=== PATIENT | male | born 1945 | race Caucasian/White ===

== ENCOUNTER 2016-12-19 14:27 | Emergency (ER) | payer MEDICARE ==
[~2016-12-19] VITALS: Ht 170.2 cm; Wt 72.6 kg
[2016-12-19 15:20] VITALS: BP 221/122
[2016-12-19 15:59] LABS: BASOPHILS % (AUTO) 1 % (0-10); EOSINOPHILS % (AUTO) 0 % (0-10); LYMPHOCYTES # (AUTO) 1.1 X 10^3 (1.0-4.0); LYMPHOCYTES % (AUTO) 19 % (12-44); MEAN CORPUSCULAR HEMOGLOBIN 31 PG (25-34); MEAN CORPUSCULAR HGB CONC 34 G/DL (32-36); MEAN CORPUSCULAR VOLUME 90 FL (80-99); MEAN PLATELET VOLUME 10.1 FL (7.4-10.4); MONOCYTES # (AUTO) 0.4 X 10^3 (0.0-1.0); MONOCYTES % (AUTO) 6 % (0-12); NEUTROPHILS # (AUTO) 4.6 X 10^3 (1.8-7.8); NEUTROPHILS % (AUTO) 75 % (42-75); PLATELET COUNT 220 10^3/uL (130-400); RED BLOOD COUNT 4.98 10^6/uL (4.35-5.85); RED CELL DISTRIBUTION WIDTH 14.9 % (10.0-14.5); WHITE BLOOD COUNT 6.2 10^3/uL (4.3-11.0)
--- NOTE | 2016-12-19 16:02 | ED Neurological Problem ---
General Chief Complaint: Neuro-Stroke Like Symptoms Stated Complaint: POSS STROKE Nursing Triage Note: Pt and family report pt has had L side facial droop since Friday (12/16) and slurred speech for 3-4 days. Daughter also reports pt has seemed like he has been "dozing off" for past week. Pt reported to daughter today that he "felt fuzzy" and didn't feel right. He reports this feeling has come and gone over past few days but is worse today. Nursing Sepsis Screen: No Definite Risk Source: patient Exam Limitations: no limitations History of Present Illness Time seen by provider: 16:00 Initial Comments To ER with concerns of a stroke. Patient states that on Friday of this week which would have been the , he has had slurring of his words and drooping to the left side of his face. No weakness or paresthesias or sensory loss to any of the extremities. He does smoke 1.5 pack of cigarettes per day. Does not take any medication for blood pressure. On arrival to ER blood pressure is 220/110. Symptoms have been waxing and waning since Friday Timing/Duration: 1 week Severity: moderate Allergies and Home Medications Allergies Coded Allergies: No Known Allergies (Unverified Allergy, Mild, 05/17/09) Home Medications Unable to Obtain Active Prescriptions or Reported Meds Constitutional: see HPI Eyes: No Symptoms Reported Ears, Nose, Mouth, Throat: no symptoms reported Respiratory: no symptoms reported Cardiovascular: no symptoms reported Genitourinary: no symptoms reported Musculoskeletal: no symptoms reported Skin: no symptoms reported Psychiatric/Neurological: See HPI Endocrine: No Symptoms Reported Past Zozncxk-Hmeljh-Bpceto Hx Patient Social History Alcohol Use: Occasionally Uses Recreational Drug Use: No Smoking Status: Current Everyday Smoker Type Used: Cigarettes Recent Foreign Travel: No Contact w/Someone Who Travel: No Recent Infectious Disease Expo: No Recent Hopitalizations: No Immunizations Up To Date Tetanus Booster (TDap): Less than 5yrs Seasonal Allergies Seasonal Allergies: No Surgeries HX Surgeries: Yes (HERNIA REPAIR) Respiratory Hx Respiratory Disorders: No Respiratory Disorders: COPD Cardiovascular Hx Cardiac Disorders: Yes Neurological Hx Neurological Disorders: Yes Genitourinary Hx Genitourinary Disorders: No Gastrointestinal Hx Gastrointestinal Disorders: No Musculoskeletal Hx Musculoskeletal Disorders: No Endocrine Hx Endocrine Disorders: No HEENT HX ENT Disorders: No Cancer Hx Cancer: No Psychosocial Hx Psychiatric Problems: No Integumentary HX Skin/Integumentary Disorder: No Blood Transfusions Hx Blood Disorders: No Physical Exam Vital Signs Vital Sign - Last 12Hours Capillary Refill : Less Than 3 Seconds General Appearance: WD/WN, no apparent distress HEENT: PERRL/EOMI, normal ENT inspection Neck: non-tender, full range of motion Respiratory: no respiratory distress, no accessory muscle use Cardiovascular: regular rate, rhythm, no murmur Gastrointestinal: normal bowel sounds, non tender, soft Extremities: normal range of motion, non-tender Neurologic/Psychiatric: alert, normal mood/affect, oriented x 3 Crainal Nerves: normal hearing, normal speech, PERRL Motor/Sensory: no sensory deficit, other (there is drooping to the left side of the mouth and he is unable to person his lips and puff out his cheeks because air leaks out of the left side of his mouth. The forehead remained symmetrical with symmetric ability to raise the eyebrows.) Skin: normal color, warm/dry Lymphatic: No no adenopathy, No axilla node tender (R), No axilla node tender ( L), No inguinal node tender (R), No inguinal node tender (L), No other Comments His initial NIH here is a 2 with 1.4 left facial minor paralysis and mild to moderate dysarthria. Stroke NIH Stroke Scale Assessment Level of Consciousness: 0=Alert Level of Consciousness-Questio: 0=Answers both month/age LOC Commands: 0=Performs both tasks Gaze: 0=Normal Visual Burrows: 0=No visual loss Facial Movement (Facial Paresi: 1=Minor paralysis Motor Function-Arms Right: 0=No drift Motor Function-Arms Left: 0=No drift Motor Function-Legs Right: 0=No drift Motor Function-Legs Left: 0=No drift Limb Ataxia: 0=Absent Sensory: 0=Normal:no loss Best Language: 0=No aphasia Dysarthria: 0=Normal Progress/Results/Core Measures Results/Orders Lab Results Laboratory Tests Test 12/19/16 15:47 Range/Units White Blood Count 6.2 4.3-11.0 10^3/uL Red Blood Count 4.98 4.35-5.85 10^6/uL Hemoglobin 15.3 13.3-17.7 G/DL Hematocrit 45 40-54 % Mean Corpuscular Volume 90 80-99 FL Mean Corpuscular Hemoglobin 31 25-34 PG Mean Corpuscular Hemoglobin Concent 34 32-36 G/DL Red Cell Distribution Width 14.9 H 10.0-14.5 % Platelet Count 220 130-400 10^3/uL Mean Platelet Volume 10.1 7.4-10.4 FL Neutrophils (%) (Auto) 75 42-75 % Lymphocytes (%) (Auto) 19 12-44 % Monocytes (%) (Auto) 6 0-12 % Eosinophils (%) (Auto) 0 0-10 % Basophils (%) (Auto) 1 0-10 % Neutrophils # (Auto) 4.6 1.8-7.8 X 10^3 Lymphocytes # (Auto) 1.1 1.0-4.0 X 10^3 Monocytes # (Auto) 0.4 0.0-1.0 X 10^3 Eosinophils # (Auto) 0.0 0.0-0.3 10^3/uL Basophils # (Auto) 0.0 0.0-0.1 10^3/uL Prothrombin Time 12.2 12.2-14.7 SEC INR Comment 0.9 0.8-1.4 Activated Partial Thromboplast Time 28 24-35 SEC Sodium Level 139 135-145 MMOL/L Potassium Level 4.5 3.6-5.0 MMOL/L Chloride Level 106 98-107 MMOL/L Carbon Dioxide Level 24 21-32 MMOL/L Anion Gap 9 5-14 MMOL/L Blood Urea Nitrogen 15 7-18 MG/DL Creatinine 0.97 0.60-1.30 MG/DL Estimat Glomerular Filtration Rate > 60 BUN/Creatinine Ratio 15 0-20 Glucose Level 89 70-105 MG/DL Calcium Level 9.3 8.5-10.1 MG/DL Total Bilirubin 0.5 0.1-1.0 MG/DL Aspartate Amino Transf (AST/SGOT) 19 5-34 U/L Alanine Aminotransferase (ALT/SGPT) 11 0-55 U/L Alkaline Phosphatase 77 40-136 U/L Total Protein 5.9 L 6.4-8.2 GM/DL Albumin 4.1 3.2-4.5 GM/DL Serum Alcohol < 10 <10 MG/DL My Orders Orders - RADHA WAN APRN Ct Head Wo-R/O Stroke (12/19/16 15:53) Cbc With Automated Diff (12/19/16 15:53) Comprehensive Metabolic Panel (12/19/16 15:53) Protime With Inr (12/19/16 15:53) Partial Thromboplastin Time (12/19/16 15:53) Ua Culture If Indicated (12/19/16 15:53) Drug Screen Stat (Urine) (12/19/16 15:53) Alcohol (12/19/16 15:53) Saline Lock/Iv-Start (12/19/16 15:53) Ekg Tracing (12/19/16 15:53) Ct Angio Head/Neck (12/19/16 15:53) Clonidine Tablet (Catapres Tablet) (12/19/16 16:15) Iohexol Injection (Omnipaque 350 Mg/Ml 1 (12/19/16 17:00) Metoprolol Tartrate Injection (Lopressor (12/19/16 17:00) Labetalol Injection (Normodyne Injection (12/19/16 18:30) Medications Given in ED Current Medications Medications Dose Ordered Sig/Joe Route Start Time Stop Time Status Last Admin Dose Admin Clonidine HCl 0.2 mg ONCE ONCE PO 12/19/16 16:15 12/19/16 16:16 DC 12/19/16 16:21 0.2 MG Iohexol 100 ml ONCE ONCE IV 12/19/16 17:00 12/19/16 17:01 DC 12/19/16 17:14 85 ML Labetalol HCl 20 mg ONCE ONCE IV 12/19/16 18:30 12/19/16 18:31 DC 12/19/16 18:49 20 MG Metoprolol Tartrate 5 mg ONCE ONCE IV 12/19/16 17:00 12/19/16 17:01 DC 12/19/16 18:22 5 MG Vital Signs/I&O Vital Sign - Last 12Hours 12/19/16 12/19/16 15:20 15:20 Temp 97.0 Pulse 79 79 Resp 18 18 B/P (MAP) 221/122 221/122 Pulse Ox 94 94 O2 Delivery Room Air Blood Pressure Mean: 155 Progress Note : Progress Note NAME: SANTINOTYSON Hearn MED REC#: [id number] PT STATUS: REG ER : 1945 PHYSICIAN: RADHA WAN APRN ADMIT DATE: 12/19/16/ER Draft Date of Exam:12/19/16 CT HEAD WO-R/O STROKE INDICATION: Possible stroke. COMPARISON: 05/17/2009. FINDINGS: No acute intracranial hemorrhage, mass effect, or edema is demonstrated. There is mild diffuse atrophy. There is a 12 mm lacunar infarct in the right basal ganglia, likely chronic but new from 2008. Additional subtle areas of hypodensity in the periventricular white matter are likely related to chronic microvascular ischemic change. No acute focal area of edema is suspected. Paranasal sinuses and mastoids are clear, as visualized. IMPRESSION: 1. No evidence of acute intracranial hemorrhage or other acute abnormality. 2. Mild chronic white matter changes with an old right basal ganglia lacunar infarct. Findings were phoned to the emergency room physician at 5:31 p.m. on 12/19/[address] Bridgett Astudillo. Dictated on workstation # [id number] Dict: 12/19/16 1724 Trans: 12/19/16 1740 [id number] Interpreted by: SOY ASTUDILLO DO Electronically signed by: Departure Communication Progress Notes 1831-blood pressure 160/115 after 0.2 mg of clonidine and 5 mg of Lopressor. We will give a 20 mg lab[address] IV dose. Dr. Jordan has accepted the patient to a telemetry bed at the [facility]. 1923-patient will sign out AGAINST MEDICAL ADVICE. I've advised him of these risks and he wishes to proceed with signing out AGAINST MEDICAL ADVICE in going home. I've advised him this may result in and permanent disability and he is not worried. Impression Impression: Primary Impression: Stroke-like symptoms Additional Impression: right carotid dissection Disposition: XFER SHT-TRM HOSP Condition: Stable Departure-Patient Inst. Referrals: [facility] (PCP/Family) Primary Care Physician Scripts Unable to Obtain Active Prescriptions or Reported Meds RADHA WAN APRN Dec 19, 2016 16:02
[2016-12-19 16:06] LABS: INR 0.9 (0.8-1.4); PROTHROMBIN TIME PATIENT 12.2 SEC (12.2-14.7)
[2016-12-19 16:11] LABS: ALANINE AMINOTRANSFERASE 11 U/L (0-55); ALBUMIN 4.1 GM/DL (3.2-4.5); ANION GAP 9 MMOL/L (5-14); ASPARTATE AMINO TRANSFERASE 19 U/L (5-34); BILIRUBIN,TOTAL 0.5 MG/DL (0.1-1.0); BLOOD UREA NITROGEN 15 MG/DL (7-18); BUN/CREATININE RATIO 15 (0-20); CALCIUM 9.3 MG/DL (8.5-10.1); CARBON DIOXIDE 24 MMOL/L (21-32); CHLORIDE 106 MMOL/L (98-107); CREATININE SERUM 0.97 MG/DL (0.60-1.30); GFR ESTIMATED > 60; GLUCOSE 89 MG/DL (70-105); HEMOLYSIS 9 (0-29); ICTERUS 0.6 (0-1.9); LIPEMIA 16 (0-49); POTASSIUM 4.5 MMOL/L (3.6-5.0); SODIUM 139 MMOL/L (135-145); TOTAL PROTEIN 5.9 GM/DL (6.4-8.2)
[2016-12-19 16:12] LABS: ALCOHOL < 10 MG/DL (<10)
[2016-12-19] MEDS ORDERED: cloNIDine 0.1 MG (CATAPRES) TAB PO ONE (16:15)
[2016-12-19] MEDS ORDERED: meTOprolol 5 MG/5 ML (LOPRESSOR) VIAL IV ONE (17:00)
[2016-12-19] MEDS ORDERED: IOHEXOL 350 MG/ML 100 ML (OMNIPAQUE 350) VIAL IV ONE (17:00)
--- NOTE | 2016-12-19 17:40 | Diagnostic Imaging Report ---
INDICATION: Possible stroke. COMPARISON: 05/17/2009. FINDINGS: No acute intracranial hemorrhage, mass effect, or edema is demonstrated. There is mild diffuse atrophy. There is a 12 mm lacunar infarct in the right basal ganglia, likely chronic but new from 2008. Additional subtle areas of hypodensity in the periventricular white matter are likely related to chronic microvascular ischemic change. No acute focal area of edema is suspected. Paranasal sinuses and mastoids are clear, as visualized. IMPRESSION: 1. No evidence of acute intracranial hemorrhage or other acute abnormality. 2. Mild chronic white matter changes with an old right basal ganglia lacunar infarct. Findings were phoned to the emergency room physician at 5:31 p.m. on 12/19/[address] Bridgett Álvarez. Dictated by: Dictated on workstation # [id number]
--- NOTE | 2016-12-19 17:51 | Diagnostic Imaging Report ---
PROCEDURE: CT angiography of the head and CT angiography of the neck with and without contrast. TECHNIQUE: Contiguous noncontrast images were obtained from the skull base through the vertex. After intravenous contrast administration, helical CT angiography of the neck was performed. Source data was reformatted into multiple MIP projections. Delayed post contrast acquisition was also obtained. INDICATION: Left facial droop and slurred speech for 3-4 days. CTA head: FINDINGS: Anterior, middle and posterior cerebral arteries appear to be widely patent. No filling defect or focal stenosis is identified. There is no occlusion. There is mild atherosclerotic calcification within distal internal carotid arteries. No aneurysm or vascular malformation is seen. There is no abnormal contrast enhancement seen within the brain parenchyma. Lucency in the right basal ganglia within or adjacent to the head of the right caudate nucleus is likely related to nonacute infarct. IMPRESSION: No acute vascular abnormality is seen in the head. CTA neck: FINDINGS: There is a normal origin of great vessels from the thoracic aorta. Common carotid arteries are widely patent. At the level of the bifurcations, there is mild to moderate atherosclerotic plaque resulting in approximately 50% stenosis on the left. In addition, there is a linear filling defect at the origin of the right internal carotid artery which may represent thrombus or intimal flap such as focal dissection. There is good filling of the internal carotid arteries distally to the skull base. There is also normal opacification of the vertebral arteries with right vertebral arterial dominance. IMPRESSION: Localized atherosclerotic disease at the carotid bulbs and origins of the internal carotid arteries resulting in 50% stenosis of the proximal left internal carotid artery. There may also be 50% narrowing of the proximal right internal carotid artery due to linear filling defect which may be due to thrombus or intima. Dictated by: Dictated on workstation # [id number]
[2016-12-19] MEDS ORDERED: LABETALOL HCL 20 MG/4 ML VIAL IV ONE (18:30)
[2016-12-19 19:23] VITALS: BP 192/110
== END 2016-12-19 19:23 | disposition short-term general hospital (02) ==
LOC: EDUNIT# 14:27 → ER 14:30
DX: I77.71 Dissection of carotid artery (principal); J44.9 Chronic obstructive pulmonary disease, unspecified; F17.210 Nicotine dependence, cigarettes, uncomplicated
CPT/HCPCS: 36415; 70450; 70496; 70498; 80053; 80320; 85025; 85610; 85730; 93005

== ENCOUNTER → 2017-02-24 | Outpatient (CLI) | payer MEDICARE ==
[2017-02-24 09:05] LABS: BILIRUBIN,URINE NEGATIVE (NEGATIVE); KETONES,URINE NEGATIVE (NEGATIVE); LEUKOCYTE ESTERASE ,URINE 3+ (NEGATIVE); NITRITE,URINE POSITIVE (NEGATIVE); PH,URINE 5 (5-9); PROTEIN,URINE NEGATIVE (NEGATIVE); UROBILINOGEN,URINE NORMAL (NORMAL)
[2017-02-24 09:09] LABS: MEAN PLATELET VOLUME 10.4 FL (7.4-10.4); RED BLOOD COUNT 4.86 10^6/uL (4.35-5.85); RED CELL DISTRIBUTION WIDTH 15.2 % (10.0-14.5); WHITE BLOOD COUNT 5.5 10^3/uL (4.3-11.0)
[2017-02-24 09:36] LABS: ALBUMIN 3.8 GM/DL (3.2-4.5); BILIRUBIN,TOTAL 0.4 MG/DL (0.1-1.0); CALCIUM 9.2 MG/DL (8.5-10.1); CREATININE SERUM 1.47 MG/DL (0.60-1.30); POTASSIUM 4.2 MMOL/L (3.6-5.0); TOTAL PROTEIN 6.1 GM/DL (6.4-8.2)
[2017-02-24 09:43] LABS: WBC,URINE 50-100 /HPF
--- NOTE | 2017-02-24 09:49 | Diagnostic Imaging Report ---
EXAMINATION: PA and lateral chest at 9:24 AM INDICATION: Preop carotid artery stenosis The heart size is within normal limits and stable when compared to 11/27/07. As on the prior exam, the lungs are hyperexpanded and this appearance does suggest COPD. There is no sign of failure, pneumonia or of a pleural effusion to indicate an acute abnormality. The mediastinum is not widened. The osseous structures are intact. IMPRESSION: There are chronic pulmonary changes evident but there is no sign of an acute cardiopulmonary abnormality. Dictated by: Dictated on workstation # [id number]
== END ==
LOC: CARD 08:34
PROVIDERS: ATTEND Thoracic Surgery (Cardiothoracic Vascular Surgery)
DX: Z01.810 Encounter for preprocedural cardiovascular examination (principal); Z01.811 Encounter for preprocedural respiratory examination; Z01.812 Encounter for preprocedural laboratory examination; I65.23 Occlusion and stenosis of bilateral carotid arteries; R82.99 Other abnormal findings in urine
CPT/HCPCS: 36415; 71020; 80053; 81000; 85027; 87077; 87088; 87186; 93005

== ENCOUNTER → 2017-09-08 | Outpatient (CLI) | payer MEDICARE ==
--- NOTE | 2017-09-08 10:10 | Diagnostic Imaging Report ---
INDICATION: History of smoking. COMPARISON: 12/02/2007 TECHNIQUE: Routine noncontrast low-dose CT of the chest was performed per department protocol for routine screening. FINDINGS: Evaluation of the pulmonary parenchyma demonstrates no focal consolidation, pleural effusion, nor pneumothorax. There is mild air trapping consistent with background of emphysematous disease. 5 to 6 mm groundglass micronodule is noted within the anterior margins of left lower lobe (image 141, series 4). Punctate 4 mm micronodule is also seen within the right upper lobe (image 113, series 4). 5 mm micronodular density is also noted associated with the major fissure on the left (image 113, series 4). This however is stable compared to 12/02/2007 and likely represents intrafissural lymph node. Cardiomediastinal structures are somewhat suboptimally evaluated given noncontrast low-dose nature of the exam. Heart size is within normal limits. There is no large pericardial effusion. There is mild calcified aortic and coronary atherosclerosis. Prominent precarinal lymph node measures 1.8 x 1.2 cm. This however is stable compared to 12/02/2007. No abnormal hilar or axillary adenopathy is seen on this exam. Bony structures show no acute abnormalities. Age-related degenerative changes of thoracic spine are noted. Included portions of the upper abdomen are also unremarkable. IMPRESSION: 1. Small bilateral micronodules as described above, please see below for followup recommendations. 2. Mild air trapping consistent with background of COPD. 3. Mild calcified aortic and coronary atherosclerosis. 4. Prominent mediastinal lymph node, stable compared to prior exam. LungRads category 2. RECOMMENDATIONS: Continued annual screening with low-dose CT in 12 months. Dictated by: Dictated on workstation # [id number]
== END ==
LOC: RAD 08:49
PROVIDERS: ATTEND Nurse Practitioner Family
DX: R91.8 Other nonspecific abnormal finding of lung field (principal); I70.0 Atherosclerosis of aorta; I25.10 Atherosclerotic heart disease of native coronary artery without angina pectoris; Z87.891 Personal history of nicotine dependence

== ENCOUNTER → 2017-09-09 | Outpatient (CLI) | payer MEDICARE ==
[2017-09-09 08:56] LABS: HEMOGLOBIN 15.3 G/DL (13.3-17.7); MEAN PLATELET VOLUME 10.5 FL (7.4-10.4); RED BLOOD COUNT 4.95 10^6/uL (4.35-5.85); RED CELL DISTRIBUTION WIDTH 15.4 % (10.0-14.5); WHITE BLOOD COUNT 5.5 10^3/uL (4.3-11.0)
[2017-09-09 08:58] LABS: BILIRUBIN,URINE NEGATIVE (NEGATIVE); CLARITY,URINE CLEAR; COLOR,URINE YELLOW; GLUCOSE, URINE (UA) NEGATIVE (NEGATIVE); KETONES,URINE NEGATIVE (NEGATIVE); LEUKOCYTE ESTERASE ,URINE 3+ (NEGATIVE); NITRITE,URINE POSITIVE (NEGATIVE); PH,URINE 6 (5-9); PROTEIN,URINE NEGATIVE (NEGATIVE); UROBILINOGEN,URINE NORMAL (NORMAL)
[2017-09-09 09:07] LABS: BACTERIA,URINE LARGE /HPF; SQUAMOUS EPITHELIAL CELL,UR RARE /HPF; WBC,URINE 50-100 /HPF
[2017-09-09 09:20] LABS: ALBUMIN 3.9 GM/DL (3.2-4.5); BUN/CREATININE RATIO 15; CARBON DIOXIDE 24 MMOL/L (21-32); CHLORIDE 107 MMOL/L (98-107); CREATININE SERUM 1.13 MG/DL (0.60-1.30); GFR ESTIMATED > 60; GLUCOSE 98 MG/DL (70-105); PHOSPHORUS 2.6 MG/DL (2.3-4.7); POTASSIUM 4.2 MMOL/L (3.6-5.0); SODIUM 140 MMOL/L (135-145)
== END ==
LOC: LAB 08:40
PROVIDERS: ATTEND Nurse Practitioner Family
DX: N28.9 Disorder of kidney and ureter, unspecified (principal)
CPT/HCPCS: 36415; 80069; 81000; 82570; 84156; 85027; 87088

== ENCOUNTER → 2017-12-18 | Outpatient (CLI) | payer MEDICARE, OTHER ==
--- NOTE | 2017-12-18 08:40 | Diagnostic Imaging Report ---
US DOPPLER ABD COMPLETE [id number] Technique: Grayscale, color Doppler and spectral duplex analysis of the kidneys, renal arteries and aorta was performed. Indication: Hypertension. Chronic kidney disease. Comparison: CT abdomen and pelvis of 12/02/2007 Findings: The right kidney is normal in size measuring approximately 10 cm in length. It demonstrates normal cortical echogenicity and thickness. No hydronephrosis is present. In the upper pole of the right kidney, there is a well-circumscribed anechoic cyst measuring approximately 1.5 x 1.5 cm. Spectral analysis shows normal low resistance arterial waveforms within the interlobular/arcuate arteries of the right kidney and there is no parvus tardus waveform to suggest upstream stenosis. The right renal artery has normal low resistance arterial waveforms. Maximal peak systolic velocity is 112 cm/s. Renal artery to aortic ratio is maximally 1.9 on the right. The left kidney measures 9 cm in length. It demonstrates normal cortical echogenicity and thickness. No hydronephrosis is present. The interlobular/arcuate arteries have low resistant waveforms without parvus tardus abnormality. The distal left renal artery has normal low resistance arterial waveforms and maximal peak systolic velocity of 41 cm/s. The mid and proximal left renal artery is obscured by overlying bowel gas. Incidental note is made of a fusiform infrarenal abdominal aortic aneurysm measuring 4.6 x 5.2 cm maximally. There is mural thrombus present within the aneurysm. Impression: 1. Incidental note of fusiform infrarenal abdominal aortic aneurysm measuring up to 5.2 cm; this has developed since CT of 12/02/2007. 2. No sonographic evidence of renal artery stenosis. The proximal aspect of the left renal artery is obscured by overlying bowel gas. Dictated by: Dictated on workstation # [id number]
--- NOTE | 2017-12-18 09:03 | Diagnostic Imaging Report ---
EXAMINATION: Ultrasound urinary bladder. DATE: December 18, 2017. INDICATION: 72-year-old male, history of stage III chronic kidney disease and hypertension. COMPARISON: CT chest, abdomen and pelvis November 24, 2007. FINDINGS: There is a outpouching of the right side of the urinary bladder likely reflecting a urinary bladder diverticulum. There is no ultrasound appearing urinary bladder wall thickening. Prevoid urinary bladder volume measures 165 mL. Post void urinary bladder volume measures 63 mL. There is no demonstrated free pelvic fluid. IMPRESSION: 1. Right-sided urinary bladder diverticulum. 2. Incomplete emptying of the urinary bladder on post void images with prevoid bladder volume of 165 mL and postvoid urinary bladder volume is 63 mL. 3. No ultrasound appearing urinary bladder wall thickening. Dictated by: Dictated on workstation # [id number]
== END ==
LOC: RAD 12-16 08:40
PROVIDERS: ATTEND Internal Medicine Nephrology
DX: I12.9 Hypertensive chronic kidney disease with stage 1 through stage 4 chronic kidney disease, or unspecified chronic kidney disease (principal); N18.3 Chronic kidney disease, stage 3 (moderate)
CPT/HCPCS: 76857; 93975

== ENCOUNTER → 2018-02-06 | Outpatient (CLI) | payer MEDICARE ==
--- NOTE | 2018-02-06 09:54 | Diagnostic Imaging Report ---
PROCEDURE: US carotid duplex, bilateral. TECHNIQUE: Multiple real-time grayscale images were obtained over the carotid arteries in various projections, bilaterally. Additional duplex Doppler and color Doppler images were also obtained. INDICATION: Carotid stenosis. FINDINGS: There is significant plaque identified both common carotid arteries and carotid bulbs as well as the bifurcations extending into the proximal internal carotid arteries. Right external carotid artery appears to be occluded. There does appear to be some dampening of velocities in the proximal and mid right internal carotid artery with elevated velocity in the distal internal carotid artery reaching 173 cm/s consistent with 50-69% diameter stenosis. There is elevated velocities in the left internal carotid artery reaching 186 cm/s consistent with 50-69% diameter stenosis. Both vertebral arteries show antegrade flow. Parameters based on the consensus panel Mcnally-Scale and Doppler ultrasound criteria published May 2003, Radiology, Volume 229. DOPPLER (peak systolic velocity M/S Right Left CCA .49 .82 ICA Proximal .23 1.51 ICA Mid .35 1.51 ICA Distal 1.73 1.86 RATIO 3.6 2.3 ECA occluded 1.28 VERT .69 .52 IMPRESSION: Bilateral carotid plaque with elevated velocities bilateral internal carotid arteries, as described. There is occlusion of the right external carotid artery. Dictated by: Dictated on workstation # [id number]
== END ==
LOC: RAD 08:43
PROVIDERS: ATTEND Thoracic Surgery (Cardiothoracic Vascular Surgery)
DX: I65.23 Occlusion and stenosis of bilateral carotid arteries (principal)
CPT/HCPCS: 93880

== ENCOUNTER 2019-02-04 22:30 | Inpatient (IN) | payer MEDICARE ==
[~2019-02-04] VITALS: Ht 170.2 cm; Wt 69.1 kg
[2019-02-04 22:42] VITALS: BP 129/72
--- NOTE | 2019-02-04 22:44 | NUR ---
labs to lab by me
[2019-02-04 22:51] LABS: BASOPHILS % (AUTO) 1 % (0-10); EOSINOPHILS # (AUTO) 0.1 10^3/uL (0.0-0.3); EOSINOPHILS % (AUTO) 2 % (0-10); HEMATOCRIT 41 % (40-54); HEMOGLOBIN 13.8 G/DL (13.3-17.7); LYMPHOCYTES # (AUTO) 1.6 X 10^3 (1.0-4.0); LYMPHOCYTES % (AUTO) 31 % (12-44); MEAN CORPUSCULAR HEMOGLOBIN 31 PG (25-34); MEAN CORPUSCULAR HGB CONC 34 G/DL (32-36); MEAN CORPUSCULAR VOLUME 91 FL (80-99); MEAN PLATELET VOLUME 10.1 FL (7.4-10.4); MONOCYTES # (AUTO) 0.4 X 10^3 (0.0-1.0); MONOCYTES % (AUTO) 7 % (0-12); NEUTROPHILS # (AUTO) 3.1 X 10^3 (1.8-7.8); NEUTROPHILS % (AUTO) 60 % (42-75); PLATELET COUNT 184 10^3/uL (130-400); RED CELL DISTRIBUTION WIDTH 14.5 % (10.0-14.5); WHITE BLOOD COUNT 5.3 10^3/uL (4.3-11.0)
[2019-02-04 23:03] LABS: FIBRIN DEGRADATION PRODUCTS 1.83 UG/ML (0.00-0.49); INR 0.9 (0.8-1.4); PROTHROMBIN TIME PATIENT 12.9 SEC (12.2-14.7)
[2019-02-04 23:14] LABS: ALANINE AMINOTRANSFERASE 8 U/L (0-55); ALBUMIN 3.6 GM/DL (3.2-4.5); ALKALINE PHOSPHATASE 72 U/L (40-136); BILIRUBIN,TOTAL 0.2 MG/DL (0.1-1.0); BUN/CREATININE RATIO 11; CALCIUM 8.6 MG/DL (8.5-10.1); CARBON DIOXIDE 22 MMOL/L (21-32); GFR ESTIMATED 49; GLUCOSE 86 MG/DL (70-105); POTASSIUM 4.3 MMOL/L (3.6-5.0); SODIUM 141 MMOL/L (135-145)
[2019-02-04 23:25] LABS: CHLORIDE 110 MMOL/L (98-107)
--- NOTE | 2019-02-04 23:29 | ED Neurological Problem ---
General Chief Complaint: Neuro-Stroke Like Symptoms Stated Complaint: POSS STROKE Nursing Triage Note: EMS advise family states last known well time was at 1900. Patient c/o left sided weakness. Previous hx. of stroke approximately 1 year ago with right sided deficit. Nursing Sepsis Screen: No Definite Risk Source: patient, EMS Exam Limitations: no limitations History of Present Illness Date Seen by Provider: Feb 04, 2019 Time Seen by Provider: 22:29 Initial Comments Here by EMS with report of left arm weakness and unable to grasp phone. Does have history of a stroke approximately a year or 2 ago with right carotid artery surgery after. Onset tonight of symptoms sometime before 7 PM. Family called EMS due to his symptoms and he agreed to come. Does smoke quite a bit and still smokes but is currently on Chantix to try to stop. He states that that's actually making him smoke more. Symptoms are currently resolved. He is unsure of his med list and is a poor historian. Timing/Duration: 4-6 hours, waxing and waning Severity: moderate Associated Symptoms: No confusion, No fever/chills, No loss of consciousness, No nausea/vomiting, No numbness in legs/feet, No seizures, No slurred speech; weakness Allergies and Home Medications Allergies Coded Allergies: No Known Allergies (Unverified Allergy, Mild, 05/17/09) Home Medications Unable to Obtain Active Prescriptions or Reported Meds Patient Home Medication List Home Medication List Reviewed: Yes Review of Systems Review of Systems Constitutional: see HPI; No chills, No fever Eyes: No Symptoms Reported Ears, Nose, Mouth, Throat: no symptoms reported Respiratory: wheezing, other (reports recently just getting over bronchitis) Cardiovascular: No chest pain, No palpitations Gastrointestinal: No abdominal pain, No nausea, No vomiting Genitourinary: no symptoms reported Musculoskeletal: see HPI; No back pain; muscle weakness; No neck pain Skin: change in color, lesions (skin tear left elbow from brushing against the door) Psychiatric/Neurological: See HPI, Weakness Endocrine: No Symptoms Reported All Other Systems Reviewed Negative Unless Noted: Yes Past Epaqtyp-Yjpgil-Hwxykq Hx Past Med/Social Hx: Reviewed Nursing Past Med/Soc Hx Patient Social History Alcohol Use: Denies Use Recreational Drug Use: No Type Used: Cigarettes Recent Foreign Travel: No Contact w/Someone Who Travel: No Recent Infectious Disease Expo: No Recent Hopitalizations: No Immunizations Up To Date Tetanus Booster (TDap): Less than 5yrs Seasonal Allergies Seasonal Allergies: No Past Medical History Surgeries: Yes (HERNIA REPAIRx2) Respiratory: No COPD Cardiac: No Neurological: Yes Stroke Genitourinary: No Gastrointestinal: No Musculoskeletal: No Endocrine: No HEENT: No Cancer: No Did You Recieve Any Treatments: No Psychosocial: No Integumentary: No Blood Disorders: No Family Medical History Reviewed Nursing Family Hx No Pertinent Family Hx Physical Exam Vital Signs Vital Signs - First Documented 02/04/19 02/04/19 22:37 22:42 Temp 98.4 Pulse 95 Resp 14 B/P (MAP) 129/72 Pulse Ox 96 O2 Delivery Room Air Capillary Refill : Less Than 3 Seconds Height, Weight, BMI Height: 5'11.00" Weight: 165lbs. oz. 74.924842vh; BMI Method:Estimated General Appearance: WD/WN, no apparent distress HEENT: PERRL/EOMI, pharynx normal Neck: full range of motion, supple Respiratory: lungs clear, normal breath sounds Cardiovascular: regular rate, rhythm, no murmur Peripheral Pulses: 2+ Dorsalis Pedis (R), 2+ Left Dors-Pedis (L), 2+ Radial Pulses (R), 2+ Radial Pulses (L) Gastrointestinal: non tender, soft Back: normal inspection, no CVA tenderness, no vertebral tenderness Extremities: normal range of motion, non-tender Neurologic/Psychiatric: alert, normal mood/affect, oriented x 3 Crainal Nerves: normal hearing, normal speech, PERRL Coordination/Gait: normal finger to nose Motor/Sensory: no motor deficit, no sensory deficit, no pronator drift Skin: warm/dry, ecchymosis (left elbow and bilateral hands), other (skin tear at the left elbow) Stroke NIH Stroke Scale Assessment Level of Consciousness: 0=Alert (0), Level of Consciousness-Questions: 0=Answers both month/age (0), LOC Commands: 0=Performs both tasks (0), Visual Burrows: 0=No visual loss (0), Facial Movement (Facial Paresis): 0=Normal symmetrical mnt (0), Motor Function-Arms Right: 0=No drift (0), Motor Function-Arms Left: 0=No drift (0), Motor Function-Legs Right: 0=No drift (0), Motor Function-Legs Left: 0=No drift (0), Limb Ataxia: 0=Absent (0), Sensory: 0=Normal:no loss (0), Best Language: 0=No aphasia (0), Dysarthria: 0=Normal (0), Extinction & Inattention: 0=No abnormality (0), Total: Stroke Thrombolytic Exclusion Age 18 or Over: Yes Intracranial Neoplasm/Aneurysm: No Recent CPR: No Diabetic Hemorrhagic Retinopat: No Recent Obstetric Delivery: No Significant Hepatic Dysfunctio: No Improving Symptoms: No Focused Exam Lactate Level 02/05/19 01:11: Lactic Acid Level Laboratory Tests Test 02/05/19 01:11 Progress/Results/Core Measures Results/Orders Lab Results Laboratory Tests Test 02/04/19 22:35 02/05/19 00:31 02/05/19 01:11 Range/Units White Blood Count 5.3 4.3-11.0 10^3/uL Red Blood Count 4.45 4.35-5.85 10^6/uL Hemoglobin 13.8 13.3-17.7 G/DL Hematocrit 41 40-54 % Mean Corpuscular Volume 91 80-99 FL Mean Corpuscular Hemoglobin 31 25-34 PG Mean Corpuscular Hemoglobin Concent 34 32-36 G/DL Red Cell Distribution Width 14.5 10.0-14.5 % Platelet Count 184 130-400 10^3/uL Mean Platelet Volume 10.1 7.4-10.4 FL Neutrophils (%) (Auto) 60 42-75 % Lymphocytes (%) (Auto) 31 12-44 % Monocytes (%) (Auto) 7 0-12 % Eosinophils (%) (Auto) 2 0-10 % Basophils (%) (Auto) 1 0-10 % Neutrophils # (Auto) 3.1 1.8-7.8 X 10^3 Lymphocytes # (Auto) 1.6 1.0-4.0 X 10^3 Monocytes # (Auto) 0.4 0.0-1.0 X 10^3 Eosinophils # (Auto) 0.1 0.0-0.3 10^3/uL Basophils # (Auto) 0.0 0.0-0.1 10^3/uL Prothrombin Time 12.9 12.2-14.7 SEC INR Comment 0.9 0.8-1.4 Activated Partial Thromboplast Time 27 24-35 SEC D-Dimer 1.83 H 0.00-0.49 UG/ML Sodium Level 141 135-145 MMOL/L Potassium Level 4.3 3.6-5.0 MMOL/L Chloride Level 110 H 98-107 MMOL/L Carbon Dioxide Level 22 21-32 MMOL/L Anion Gap 8 5-14 MMOL/L Blood Urea Nitrogen 16 7-18 MG/DL Creatinine 1.40 H 0.60-1.30 MG/DL Estimat Glomerular Filtration Rate 49 BUN/Creatinine Ratio 11 Glucose Level 86 70-105 MG/DL Calcium Level 8.6 8.5-10.1 MG/DL Corrected Calcium 8.9 8.5-10.1 MG/DL Total Bilirubin 0.2 0.1-1.0 MG/DL Aspartate Amino Transf (AST/SGOT) 11 5-34 U/L Alanine Aminotransferase (ALT/SGPT) 8 0-55 U/L Alkaline Phosphatase 72 40-136 U/L Troponin I < 0.028 <0.028 NG/ML Total Protein 6.0 L 6.4-8.2 GM/DL Albumin 3.6 3.2-4.5 GM/DL Urine Color YELLOW Urine Clarity CLEAR Urine pH 5 5-9 Urine Specific [place] 1.020 1.016-1.022 Urine Protein NEGATIVE NEGATIVE Urine Glucose (UA) NEGATIVE NEGATIVE Urine Ketones NEGATIVE NEGATIVE Urine Nitrite POSITIVE H NEGATIVE Urine Bilirubin NEGATIVE NEGATIVE Urine Urobilinogen NORMAL NORMAL MG/DL Urine Leukocyte Esterase 3+ H NEGATIVE Urine RBC (Auto) 2+ H NEGATIVE Urine RBC 0-2 /HPF Urine WBC 10-25 H /HPF Urine Squamous Epithelial Cells 0-2 /HPF Urine Crystals NONE /LPF Urine Bacteria LARGE H /HPF Urine Casts PRESENT /LPF Urine Hyaline Casts RARE /LPF Urine Mucus NEGATIVE /LPF Urine Culture Indicated YES My Orders Orders - STEPHANE MAO MD Cbc With Automated Diff (02/04/19 22:30) Protime With Inr (02/04/19 22:30) Partial Thromboplastin Time (02/04/19 22:30) Comprehensive Metabolic Panel (02/04/19 22:30) Fibrin Degradation Products (02/04/19 22:30) Troponin I (02/04/19 22:30) Ua Culture If Indicated (02/04/19 22:30) Chest 1 View, Ap/Pa Only (02/04/19 22:30) Ekg Tracing (02/04/19 22:30) Nothing By Mouth (02/05/19 Breakfast) Accucheck Stat ONCE (02/04/19 22:30) Ed Iv/Invasive Line Start (02/04/19 22:30) Vital Signs Stroke Patient Q15M (02/04/19 22:30) Ct Head Wo-R/O Stroke (02/04/19 22:30) O2 (02/04/19 22:30) Intake & Output 06,14,22 (02/04/19 22:30) Monitor-Rhythm Ecg Trace Only (02/04/19 22:30) Dysphagia Screening Tool (02/04/19 22:30) Lipid Panel (02/05/19 06:00) I-Stat Bedside Testing (02/04/19 22:30) Ed Iv/Invasive Line Start (02/04/19 23:38) Ns Iv 500 Ml (Sodium Chloride 0.9%) (02/04/19 23:38) Urine Culture (02/05/19 00:31) Lactic Acid Analyzer (02/05/19 01:00) Blood Culture (02/05/19 01:00) Ceftriaxone For Iv Use (Rocephin For I (02/05/19 01:00) Aspirin Chewable Tablet (Baby Aspirin Ch (02/05/19 01:08) Medications Given in ED Current Medications Medications Dose Ordered Sig/Joe Route Start Time Stop Time Status Last Admin Dose Admin Sodium Chloride 500 ml @ 0 mls/hr Q0M ONCE IV 02/04/19 23:38 02/04/19 23:40 DC 02/05/19 00:03 0 MLS/HR Vital Signs/I&O 02/04/19 02/04/19 02/04/19 22:37 22:42 22:42 Temp 98.4 Pulse 95 95 Resp 14 14 B/P (MAP) 129/72 129/72 (91) Pulse Ox 96 96 96 O2 Delivery Room Air Room Air Blood Pressure Mean: 91 iStat Bedside Lab Testing Sodium (Na): 141.00 Potassium (K): 4.30 Chloride (CI): 107.00 TCO2: 25.00 Glucose (Glu): 84.00 Urea Nitrogen (BUN)/Urea: 16.00 Creatinine (Crea): 1.40 Anion Gap*: 15.00 FSBG Bedside Testing Finger Stick Blood Glucose: 84 Progress Progress Note : Progress Note Seen and evaluated on arrival by EMS. Directly to CT scan. I-STAT done which does show some elevation of creatinine. Stroke protocol initiated with labs, EKG, chest x-ray and CT head. Monitor patient. 2305: CT head negative for acute intracranial process. Patient is 0 on stroke scale. He does not meet TPA criteria due to no definable loss of function as well as patient being outside of TPA window. Monitor patient. 0106: Findings of urinary tract infection noted which is likely at least part of the problem. His symptoms are still completely resolved with respect to weakness indicating TIA. Given his age and presentation, admission is indicated. We will initiate Rocephin 1 g IV after blood cultures and lactic acid are drawn. Aspirin 324 mg by mouth ordered. I did discuss the case with Dr. Sweeney and she accepts patient for admission, inpatient status. Patient and family agree with plan. Initial ECG Impression Date: Feb 04, 2019 Initial ECG Impression Time: 22:44 Initial ECG Rate: 65 Initial ECG Comparisson: Unchanged Comment Sinus rhythm with left atrial abnormality. Normal axis. No evidence of ST elevation ND. Similar to 19 December 2016. Interpreted by me. Diagnostic Imaging Diagonstic Imaging: CT Plain Films/CT/US/NM/MRI: head Comments No acute intracranial process Reviewed: [facility] by [facility] Diagonstic Imaging: Xray Plain Films/CT/US/NM/MRI: chest Comments No acute findings but does have chronic lung disease Reviewed: Reviewed by Me Departure Communication (Admissions) Time/Spoke to Admitting Phy: 01:06 Impression Primary Impression: Transient cerebral ischemia Qualified Codes: G45.9 - Transient cerebral ischemic attack, unspecified Additional Impression: Urinary tract infection without hematuria Qualified Codes: N30.00 - Acute cystitis without hematuria Disposition: ADMITTED INPATIENT Condition: Stable Admissions Decision to Admit Reason: Admit from ER (General) Decision to Admit/Date: Feb 05, 2019 Time/Decision to Admit Time: 01:06 Departure-Patient Inst. Decision time for Depature: 01:24 Referrals: [facility] (PCP/Family) Primary Care Physician Scripts Unable to Obtain Active Prescriptions or Reported Meds STEPHANE MAO MD Feb 04, 2019 23:29
[2019-02-04] MEDS ORDERED: NS IV 500 ML 500 ML IV ONE (23:38)
[2019-02-05 00:39] LABS: BILIRUBIN,URINE NEGATIVE (NEGATIVE); CLARITY,URINE CLEAR; COLOR,URINE YELLOW; GLUCOSE, URINE (UA) NEGATIVE (NEGATIVE); KETONES,URINE NEGATIVE (NEGATIVE); LEUKOCYTE ESTERASE ,URINE 3+ (NEGATIVE); NITRITE,URINE POSITIVE (NEGATIVE); PH,URINE 5 (5-9); PROTEIN,URINE NEGATIVE (NEGATIVE); UROBILINOGEN,URINE NORMAL (NORMAL)
[2019-02-05 00:53] LABS: BACTERIA,URINE LARGE /HPF; HYALINE CASTS, URINE RARE /LPF; RBC,URINE 0-2 /HPF; SQUAMOUS EPITHELIAL CELL,UR 0-2 /HPF
[2019-02-05] MEDS ORDERED: cefTRIAXone FOR IV USE 1,000 MG in WATER (STERILE) FOR INJECTION 10 ML IV ONE (01:00)
[2019-02-05] MEDS ORDERED: ASPIRIN 81 MG CHEW (CHILDREN'S ASA) PO STA (01:08)
--- NOTE | 2019-02-05 03:00 | NUR ---
TYSON DE Dhiraj admitted to room 410-1, with an admitting diagnosis of TIA AND UTI, on 02/05/19 from ED via STRETCHER, accompanied by ED STAFF. TYSON DE introduced to surroundings, call light, bed controls, phone, TV, temperature control, lights, meal times, smoking policy, visitor policy, side rail policy, bathrooms and showers. Patient Rights given to patient in the handbook. TYSON DE verbalizes understanding that [facility] is not responsible for the loss or damage to any personal effects or valuables that are kept in the patients posession during their hospitalization. Patient Care Plans were discussed with the pt. TYSON DE verbalizes understanding of Interdisciplinary Patient Education. Patient and/or family were informed about the Rapid Response Team and its purpose.
[2019-02-05 03:05] VITALS: BP 136/75
[2019-02-05 03:10] VITALS: BP 136/75
[2019-02-05] MEDS ORDERED: ONDANSETRON 4 MG/2 ML (SDV) Z0FRAN IV PRN (03:45)
[2019-02-05] MEDS ORDERED: NS IV 1000 ML 1,000 ML IV SCH (03:45)
--- NOTE | 2019-02-05 06:00 | Diagnostic Imaging Report ---
PROCEDURE: CT head wo r/o stroke. TECHNIQUE: Multiple contiguous axial images were obtained through the brain without the use of intravenous contrast. Auto Exposure Controls were utilized during the CT exam to meet ALARA standards for radiation dose reduction. INDICATION: Altered mental status, stroke COMPARISON: 12/19/2016 FINDINGS: No intracranial hemorrhage. Chronic lacunar infarction again noted within the right basal ganglia. No intracranial mass, mass effect, midline shift, herniation, hydrocephalus, or extra-axial fluid collection. Periventricular and subcortical white matter hypodensities are present, most consistent with mild chronic small vessel white matter ischemic disease. No definite CT evidence of an acute ischemic infarction. The orbits are unremarkable. Minimal mucosal thickening within the left sphenoid sinus. Otherwise, the paranasal sinuses are clear. The calvarium and extracalvarial soft tissues are unremarkable. IMPRESSION: No acute intracranial abnormality. Mild background chronic ischemic changes. If there remains clinical concern for underlying recent infarction, further evaluation with an MRI of the brain could be obtained. Agree with preliminary interpretation. Dictated by: Dictated on workstation # [id number]
--- NOTE | 2019-02-05 06:06 | Diagnostic Imaging Report ---
INDICATION: Altered mental status, confusion. COMPARISON: 02/24/2017 TECHNIQUE: Single frontal radiograph of the chest dated 02/04/2019. FINDINGS: The cardiac silhouette is within normal limits in size. No significant pulmonary vascular congestion. The lungs are hyperexpanded with flattening of diaphragm. The lungs are clear of focal pulmonary opacity. No pleural effusion. No pneumothorax. No acute osseous abnormality. IMPRESSION: Background chronic obstructive pulmonary disease without superimposed acute cardiopulmonary abnormality. Dictated by: Dictated on workstation # [id number]
[2019-02-05 06:17] LABS: BASOPHILS % (AUTO) 1 % (0-10); EOSINOPHILS # (AUTO) 0.1 10^3/uL (0.0-0.3); EOSINOPHILS % (AUTO) 1 % (0-10); HEMATOCRIT 40 % (40-54); HEMOGLOBIN 13.3 G/DL (13.3-17.7); LYMPHOCYTES # (AUTO) 1.5 X 10^3 (1.0-4.0); LYMPHOCYTES % (AUTO) 27 % (12-44); MEAN CORPUSCULAR HEMOGLOBIN 31 PG (25-34); MEAN CORPUSCULAR HGB CONC 34 G/DL (32-36); MEAN CORPUSCULAR VOLUME 91 FL (80-99); MEAN PLATELET VOLUME 10.2 FL (7.4-10.4); MONOCYTES # (AUTO) 0.4 X 10^3 (0.0-1.0); MONOCYTES % (AUTO) 7 % (0-12); NEUTROPHILS # (AUTO) 3.4 X 10^3 (1.8-7.8); NEUTROPHILS % (AUTO) 64 % (42-75); PLATELET COUNT 173 10^3/uL (130-400); RED CELL DISTRIBUTION WIDTH 14.4 % (10.0-14.5); WHITE BLOOD COUNT 5.3 10^3/uL (4.3-11.0)
[2019-02-05 06:36] LABS: ALBUMIN 3.5 GM/DL (3.2-4.5); BILIRUBIN,TOTAL 0.3 MG/DL (0.1-1.0); CALCIUM 8.9 MG/DL (8.5-10.1); CREATININE SERUM 1.36 MG/DL (0.60-1.30); POTASSIUM 4.4 MMOL/L (3.6-5.0); TOTAL PROTEIN 5.9 GM/DL (6.4-8.2)
[2019-02-05 08:00] VITALS: BP 145/81
--- NOTE | 2019-02-05 08:19 | History & Physical-Hospitalist ---
[facility] 02/05/19 0819: History of Present Illness HPI/Chief Complaint C/C: left arm weakness and numbness HPI: Jarret is a 73 year old white male that came to the hospital for left arm weakness and numbness. Per the patient his daughter told him he was not acting himself. Numbness and weakness lasted an estimated 30mins and patient does not have pain associated with it. He currently has a wound on the left elbow from hitting it. There is no radiation of numbness and it was localized to the left arm. Patient denies associated symptoms. ROS: Gen: Patient denies N/V/D Heart: denies heart raising or times when he feels dizziness Lungs: states he has shortness of breath and has been coughing for awhile. Abd: No abdominal pain MSK: patient states that feeling is back in his arm and he does not feel weak. SKIN: bruising easily, and skin changes on right side of face and scalp concern him. Neuro: patient states that he has balance issues when recently trying to get up, and has not felt this way in the past. Currently does not have other concerns. HEENT: no issues swallowing, patient has dentures at home, patient states he has issues hearing. Urinary: patient has trouble starting and going, and is currently on prostate medication. No pain associated with going. Date Seen 02/05/19 Attending Physician Irene Sweeney DO [facility] Referring Physician Date of Admission Feb 05, 2019 at 01:38 Home Medications & Allergies Home Medications Reviewed patient Home Medication Reconciliation performed by pharmacy medication reconciliations structural engineering technician and/or nursing. Patients Allergies have been reviewed. Medications: This is from what the daughter brought in and the nurse is not sure if there is more. Pravastatin 20mg QD Carvedilol 6.25 mg BID Lisinopril 20mg QD Tamsulosin .4 mg QD Allergies Allergies Coded Allergies NKANo Known Allergies (Unverified Allergy, Mild, 05/17/09) Patient states he has no known allergies to medication, food or environment Past Khjgtuj-Yifcss-Xlrhhm Hx Past Med/Social Hx: Reviewed Nursing Past Med/Soc Hx Patient Social History Employed/Student: retired Alcohol Use: Denies Use Recreational Drug Use: No Smoking Status: Current Everyday Smoker (patient smokes a pack to a pack and half a day. Has been doing this for 50-60 years) Type Used: Cigarettes Physical Abuse Screen: No Recent Foreign Travel: No Contact w/other who traveled: No Recent Hopitalizations: No Recent Infectious Disease Expo: No Social History Social HX: Patient currently smokes a pack to a pack and a half a day. He states he has been doing this for 50-60 years. He was previously on chantix but claims it makes him want to smoke more. He states he want s to quit but it has been hard. 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 Immunizations Up To Date Tetanus Booster (TDap): Less than 5yrs Seasonal Allergies Seasonal Allergies: No Past Medical History Patient states he has had carotid stent placment in the right and 2 hernia Respiratory: COPD Neurological: Stroke Genitourinary: Prostate Problems Gastrointestinal: Abdominal Hernia Hearing Impairment: Hard of Hearing Did You Recieve Any Treatments: No History of Blood Disorders: No PMH: Right sided stroke, COPD, 2 hernias, clot in right carotid, chronic bronchitis PSH: hernia surgery, right stent in carotid. Family History Reviewed Nursing Family Hx No Pertinent Family Hx Family HX: Father when the patinet was 7 from appendicitis, Mother is also , but lived to 82 years old. Patient cannot remember her COD. He is one of 5 siblings. Brother from cancer (type, unknown), and sister from what he states her heart exploded. Review of Systems Constitutional: see HPI EENTM: see HPI Respiratory: see HPI Cardiovascular: see HPI Gastrointestinal: see HPI Genitourinary: see HPI Musculoskeletal: see HPI Skin: see HPI Psychiatric/Neurological: See HPI Physical Exam Physical Exam Vital Signs Vital Signs - First Documented 02/04/19 02/04/19 22:37 22:42 Temp 98.4 Pulse 95 Resp 14 B/P (MAP) 129/72 Pulse Ox 96 O2 Delivery Room Air Capillary Refill : Less Than 3 Seconds Height, Weight, BMI Height: 5'7.00" Weight: 152lbs. 4.8oz. 69.218164iz; 23.9 BMI Method:Estimated Eyes: Bilateral Eye PERRL Respiratory: Wheezing Cardiovascular: Other (Heart sound was heard to hear due to lung sounds) Gastrointestinal: Normal Bowel Sounds, No Pulsatile Mass, Non Tender, Hernia, Other (Munday a small mass to the right of the umbillicus, patient reports no pain. 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 Results Results/Procedures Labs Laboratory Tests 02/04/19 22:35 02/05/19 05:45 Patient resulted labs reviewed. Imaging: Reviewed Imaging Films Imaging Per the report of the Carotid US there is thrombosis of the right carotid, proximal left internal carotid is 90% stenosed and there is no visualization of flow in left vertebral artery. Assessment/Plan Assessment and Plan Assessment: 1. TIA 2. Right infarct of the MCA or [place] 3. Carotid infarct 4. UTI 5. Embolic clot from heart 6. Thrombosis Plan: 1. Monitor on current stroke protocol and continue ABX for UTI 2. Vessel Imaging of the carotids 3. Repeat labs q6 CBC with diff, and urine 4 Possible holter monitor for AFIB 5. Start on anticoagulants 6. Medication review 7. Manage COPD, contact respiratory therapy 8. Start on supplementation oxygen 2L nasal canula and breathing treatments 9. Possible ECHO looking for PFO 10. Patient must be on fall precaution with bed alarm on 11. transfer patient for vascular surgery Clinical Quality Measures DVT/VTE Risk/Contraindication: Risk Factor Score Per Nursin RFS Level Per Nursing on Admit: 3=High IRENE SWEENEY DO 02/05/19 1741: History of Present Illness Source: patient Exam Limitations: no limitations Time Seen by a Provider: 10:30 Past Fsmdqlg-Uxemkx-Sequuy Hx Past Med/Social Hx: Reviewed Nursing Past Med/Soc Hx, Reviewed and Corrections made Patient Social History Marrital Status: single Smoking Status: Current Everyday Smoker (patient smokes a pack to a pack and half a day. Has been doing this for 50-60 years) Review of Systems Constitutional: see HPI EENTM: no symptoms reported Psychiatric/Neurological: See HPI Physical Exam Physical Exam General Appearance: No Apparent Distress, Chronically ill Eyes: Right Eye Normal Inspection, Right Eye PERRL HEENT: PERRL/EOMI, Normal ENT Inspection, Pharynx Normal, Moist Mucous Membranes Neck: Full Range of Motion, Normal Inspection, Non Tender Respiratory: Chest Non Tender, Lungs Clear, Normal Breath Sounds, No Accessory Muscle Use, No Respiratory Distress Cardiovascular: Regular Rate, Rhythm, No Edema, No Gallop, No JVD, No Murmur, Normal Peripheral Pulses Gastrointestinal: Normal Bowel Sounds, No Organomegaly, No Pulsatile Mass, Non Tender, Soft Back: Normal Inspection, No CVA Tenderness, No Vertebral Tenderness Extremity: Normal Capillary Refill, Normal Inspection, Normal Range of Motion, Non Tender, No Calf Tenderness, No Pedal Edema Neurologic/Psychiatric: Alert, Oriented x3, No Motor/Sensory Deficits, Normal 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, 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 Norm as Tested (except CN VIII, patient is hard of hearing ), Motor Weakness (left) Skin: Normal Color, Warm/Dry Lymphatic: No Adenopathy Assessment/Plan Admission Diagnosis Assessment: Acute CVA due to critical carotid stenosis Known carotid stenosis status post right CEA with stent Current smoker Plan: Transfer to [facility] due to critical carotid stenosis with stroke Admission Status: Inpatient Order (span 2 midnights) Reason for Inpatient Admission: CVA requires indepth w/u Diagnosis/Problems Diagnosis/Problems (1) CVA (cerebral vascular accident) Status: Acute (2) Carotid stenosis Status: Acute Supervisory-Addendum Brief Verification & Attestation Time: Verification & Attestat.: 10:30 Participated in pt care: history Personally performed: [facility] Care discussed with: Medical Student Procedures: n/a Verification and Attestation of Medical Student E/M Service A medical student performed and documented this service in my presence. I reviewed and verified all information documented by the medical student and made modifications to such information, when appropriate. I personally performed the physical exam and medical decision making. Irene Sweeney, Feb 05, 2019,17:41 [facility] Feb 05, 2019 08:19 IRENE SWEENEY DO Feb 05, 2019 17:41
[2019-02-05] MEDS ORDERED: ASPIRIN 81 MG CHEW (CHILDREN'S ASA) PO SCH (09:00)
[2019-02-05] MEDS ORDERED: TAMS0.4C98 PO (09:00)
[2019-02-05] MEDS ORDERED: PRAV20TA3 PO (09:00)
[2019-02-05] MEDS ORDERED: NICOTINE 21 MG (NICODERM) PATCH TD SCH (09:00)
[2019-02-05] MEDS ORDERED: LISI-552 PO (09:00)
[2019-02-05] MEDS ORDERED: CARV6.252 PO (09:00)
--- NOTE | 2019-02-05 09:02 | NUR ---
SPOKE WITH THE PATIENT ABOUT HIS MEDICATIONS. HE HAD BOTTLES WITH HIM AND I COMPARED WITH THE EXT MED HX. HE IS PAST DUE FOR REFILL ON SEVERAL AND I NOTED THE PAST DUE FILL DATE ON THE MED REC. ALSO THE BOTTLES HE HAS WITH HIM ARE NOT NECESSARILY THE MOST RECENT DATES, HE STATES HE POURS THEM TOGETHER AND DOES NOT ALWAYS KEEP THE NEWEST BOTTLE. HE STATES HE DOES NOT TAKE ANYTHING OTC.
--- NOTE | 2019-02-05 09:32 | Diagnostic Imaging Report ---
PROCEDURE: US carotid duplex, bilateral. TECHNIQUE: Multiple real-time grayscale images were obtained over the carotid arteries in various projections, bilaterally. Additional spectral analysis and color Doppler duplex images were also obtained. INDICATION: Transient ischemic attack. There is a heterogeneous thrombus throughout the right carotid system including right common carotid as well as internal carotid artery. No identifiable flow is seen in the right carotid system although technologist did report some movement of the thrombus within the carotid system therefore this may be acute/subacute. In addition, there is significant plaque in the proximal left internal carotid artery with significantly elevated velocities reaching up to 541 cm/s in the proximal left ICA. ICA to CCA ratio is 6.6. A right vertebral artery shows antegrade flow. No flow was seen in the left vertebral artery. Parameters based on the consensus panel Mcnally-Scale and Doppler ultrasound criteria published May 2003, Radiology, Volume 229. DOPPLER (peak systolic velocity M/S Right Left CCA NA .82 ICA Proximal NA 5.41 ICA Mid NA 1.74 ICA Distal NA 2.00 RATIO NA 6.55 ECA NA 2.03 VERT 1.84 NA Impression: 1. Occluded right common carotid and internal carotid artery. 2. High-grade stenosis proximal left internal carotid artery likely greater than 90%. In addition, there is nonvisualized flow in the left vertebral artery. Results were discussed with Dr. Matias prior to this dictation. Dictated by: Dictated on workstation # [id number]
[2019-02-05] MEDS ORDERED: RT-ALBUTEROL/IPRATROPIUM 3 ML (DUONEB) VIAL INH SCH (10:00)
[2019-02-05] MEDS ORDERED: CEFD300C3 PO (10:56)
[2019-02-05] MEDS ORDERED: ATOR40TA PO (10:56)
[2019-02-05] MEDS ORDERED: ASPI-999 PO (10:56)
[2019-02-05] MEDS ORDERED: CLOP75TA69 PO (10:56)
[2019-02-05] MEDS ORDERED: CLOPIDOGREL 75 MG (PLAVIX) TABLET PO NR (11:00)
[2019-02-05] MEDS ORDERED: ASPIRIN 325 MG (5 GR) TABLET PO NR (11:00)
[2019-02-05 12:00] VITALS: BP 196/86
[2019-02-05] MEDS ORDERED: cloNIDine 0.1 MG (CATAPRES) TAB PO NR (12:15)
--- NOTE | 2019-02-05 12:16 | NUR ---
Initial visit with Pt and a visiting friend (which has known the pt over 30 years). No spiritual affiliation. The pt said his daughter Sushma lives in town and was the one who encouraged him to go to the hospital. The pt said he has 4 sons and 2 daughters. He shared his suspicions that he would require surgery of his arteries, but it was still not what he wanted to hear. He expressed feeling somewhat nervous about the procedure. His friend was empathetic and encouraging. I offered active listening and compassionate presence. Th pt said our visit was reassuring. He is preparing to go to [place] for his procedure.
--- NOTE | 2019-02-05 14:00 | NUR ---
REPORT GIVEN TO OLI TONY AT [facility] ON THE TCU FLOOR.
[2019-02-05 14:07] VITALS: BP 126/85
--- NOTE | 2019-02-05 14:22 | NUR ---
PT TAKEN OFF FLOOR VIA STRETCHER BY [facility]. STABLE AT TIME OF TRANSFER. ALL BELONGINGS/HOME MEDICATIONS SENT WITH PT. TRANSFER PACKET SENT WITH EMS STAFF.
[2019-02-05] MEDS ORDERED: ATORVASTATIN 40 MG (LIPITOR) TABLET PO SCH (21:00)
[2019-02-05] MEDS ORDERED: cefTRIAXone 1,000 MG/SWFI 10 ML IV PUSH IV SCH ×2 (21:00)
[2019-02-06] MEDS ORDERED: ASPIRIN 325 MG (5 GR) TABLET PO SCH (09:00)
[2019-02-06] MEDS ORDERED: CLOPIDOGREL 75 MG (PLAVIX) TABLET PO SCH (09:00)
--- NOTE | 2019-02-08 14:50 | Physician Query-Final Dx ---
HARJIT KEITH 02/08/19 1449: Final Diagnosis Give Final Diagnosis Please give Final Diagnosis HEBERT BAKER DO 02/08/192031: Final Diagnosis Give Final Diagnosis CVA due to critical carotid stenosis with thrombus HARJIT KEITH Feb 08, 2019 14:49 HEBERT BAKER DO Feb 08, 2019 20:32
== END 2019-02-05 14:22 | disposition short-term general hospital (02) | DRG 65 ==
LOC: EDUNIT# 22:30 → ER 22:31 → 4TH 02-05 01:38
PROVIDERS: ADMIT Internal Medicine; ATTEND Internal Medicine
DX: I63.031 Cerebral infarction due to thrombosis of right carotid artery (principal); I65.22 Occlusion and stenosis of left carotid artery; G81.94 Hemiplegia, unspecified affecting left nondominant side; I69.351 Hemiplegia and hemiparesis following cerebral infarction affecting right dominant side; N39.0 Urinary tract infection, site not specified; J44.9 Chronic obstructive pulmonary disease, unspecified; F17.210 Nicotine dependence, cigarettes, uncomplicated
CPT/HCPCS: 36415; 70450; 71045; 80053; 80061; 81000; 83605; 84484; 85025; 85379; 85610; 85730; 87040; 87077; 87088; 87186; 93005; 93041; 93880; 94640; 94760; 96374

== ENCOUNTER 2019-02-13 13:31 | Inpatient (IN) | payer MEDICARE ==
[~2019-02-13] VITALS: Ht 170.2 cm; Wt 66.7 kg
[2019-02-13] MEDS: SENNA W/DOCUSATE (SENOKOT S) TABLET PO SCH ×3 (09:00→21:56)
--- NOTE | 2019-02-13 10:29 | NUR ---
Call to [facility] to get nsg report. Was told by his RN, that, "they were having trouble finding transportation for him to get here. She said it was going to cost $125, & none of the family wanted to come up w the money. Pt is still at [facility] at this time. Notified Dr. Sweeney, & Records Management Technician, October.
--- NOTE | 2019-02-13 13:20 | NUR ---
Pt admitted to room 231-1, with an admitting diagnosis of S/P CVA on 02/13/19 from [facility] per private vehicle, accompanied by dgtr from [place], & her friend. TYSON DE introduced to surroundings, call light, bed controls, phone, TV, temperature control, lights, meal times, smoking policy, visitor policy, side rail policy, bathrooms and showers. Patient Rights provided to patient in the handbook. TYSON DE acknowledges understanding that [facility] is not responsible for the loss or damage to any personal effects or valuables that are kept in the patients posession during their hospitalization. The following Patient Care Plans were discussed with the pt/dgtr: Discharge Planning, Impaired Mobility, CVA, Alteration in skin integrity. TYSON DE verbalizes understanding of Interdisciplinary Patient Education. Patient and/or family were informed about the Rapid Response Team and its purpose. Patient received Patient Rights Booklet, which includes Privacy Act Statement and Data Collection Information Summary. Addendum: 02/13/19 at 1419 by JACKELYN CASEY RN Pt's daughter stated that, no one from [place] helped her to transfer pt from w/c into the car. Did not provide a gait belt for her to use to transfer with. She stated that she used to work, "in this field, so she was used to doing it." It did take max assist of 2 staff using gait belt, & w/c to transfer pt from car into w/c. Pt has much Lt sided weakness. also flaccid. Pt eating Fritos & drinking Gatorade upon arrival. Dgtr states that pt asked for a cigarette on the way over, but, she wouldn't stop to get one for him. Dgtr states that pt has been smoking since he was 5 or 6 years old. States that his uncles got him started at that age.
[~2019-02-13 13:31] MED LIST: ASPI-999 PO; ATOR40TA PO; CALCIUM CARBONATE 500 MG (TUMS) TAB.CHEW PO PRN; CARV6.252 PO; CEFD300C3 PO; CLOP75TA69 PO; DOCUSATE SODIUM 100 MG (COLACE) CAP PO PRN; HYDROcodone/APAP 5 MG/325 MG (LORTAB) TAB PO PRN; LISI-552 PO; LOPERAMIDE 2 MG (IMODIUM) TABLET PO PRN; MELATONIN 3 MG TABLET PO PRN; ONDANSETRON 4 MG (ZOFRAN) ORAL DISSOLVE TAB PO PRN; POLYETHYLENE GLYCOL 17 GM (MIRALAX) PACK PO PRN; PRAV20TA3 PO; TAMS0.4C98 PO; diphenhydrAMINE 25 MG TAB (BENADRYL) PO PRN
[2019-02-13 13:40] VITALS: BP 103/55
--- NOTE | 2019-02-13 17:06 | PM&R H&P / Post Admit Assess ---
History of Present Illness HPI/Chief Complaint Chief complaint: Debility following CVA with left-sided weakness History of present illness: This is a 73-year-old white male clinic patient of [facility] who accepted upon transfer from [facility] hospitalist service after I transferred him there on 02/05/2019 after he was admitted for suspicion of TIA and CVA and although CT scan showed no evidence of any stroke carotid artery ultrasound at [facility] at that time with stroke protocol revealed critical carotid artery stenosis requiring transfer to vascular care assessment. He had a history of right stent placement in the carotid artery in the past and a right-sided carotid endarterectomy in 1999 and continued to smoke since that time. He was transferred to [facility] maintained on Plavix aspirin and statin therapy along with antihypertensive meds and was seen by neurology and vascular surgery. Renal insufficiency returned back to baseline at 1.4 so IV fluids were discontinued. Patient was managed aggressively and underwent a left carotid stent placement due to critical stenosis on 02/08/[address] Sherman and continue to have the left upper extremity weakness. He was improving at that time. In bid writer hours of 02/09/2019 patient suffered an acute CVA confirmed on CT scan even while maintained on Plavix and aspirin. Patient was not deemed a TPA candidate at that time once again. He was found to have a brain aneurysm 3 mm in the A1 segment of the brain but no intervention was planned. CT confirmed the acute infarct involving the watershed distribution between MCA and FILM SORTER territory on the right as well as a small lacunar infarct along the centrum semi-ovale on the right and within the right parietal lobe. He was transported to [facility] inpatient rehab by his daughter 1 of 6 children who lives in [place]. He currently is leaning over to the left because of inability to sit straight in the wheelchair. This indicates a profound loss of function and will require at least 14 days of inpatient rehab for recovery in order to return to some sort of status to be able to return home to live independently and assist with regaining independence with ADLs. He is wheezing currently so I did order duo nebs 3 times daily scheduled. Smoking cessation was counseled on nicotine patch order was placed. Considering the numerous strokes he has had even while being on Plavix and aspirin it is concerning and his prognosis is guarded for additional strokes and even more extensive debility. His barriers to returning home include: Unable to ambulate at this current time wheelchair-bound and home not wheelchair accessible Lives alone but family is involved in his care so likely will need major supervision will need to arrange that prior to discharge Clinical stability following stroke even though on Plavix and aspirin and statin therapy so will need to assure he has been adequately risk stratified in order to decrease the chance of additional strokes prior to discharge home Source: patient, RN/MD, old records Exam Limitations: no limitations Date Seen 02/13/19 Time Seen by a Provider: 14:00 Attending Physician Irene Sweeney DO [facility] Referring Physician Date of Admission Feb 13, 2019 at 13:31 Home Medications & Allergies Home Medications Reviewed patient Home Medication Reconciliation performed by pharmacy medication reconciliations order entry technician and/or nursing. Patients Allergies have been reviewed. Allergies Allergies Coded Allergies NKANo Known Allergies (Unverified Allergy, Mild, 05/17/09) Past Qqdtkjl-Dvsuih-Lvplgl Hx Past Med/Social Hx: Reviewed Nursing Past Med/Soc Hx, Reviewed and Corrections made Patient Social History Marrital Status: single Employed/Student: retired ([place] [facility]) Alcohol Use: Denies Use Type Used: Cigarettes Recent Foreign Travel: No Contact w/other who traveled: No Recent Hopitalizations: No Recent Infectious Disease Expo: No Immunizations Up To Date Tetanus Booster (TDap): Less than 5yrs Seasonal Allergies Seasonal Allergies: No Past Medical History Surgeries: Abdominal (hernia x 2), Vascular Surgery Patient states he has had carotid stent placment in the right and 2 hernia Respiratory: COPD Cardiac: High Cholesterol, Hypertension, Peripheral Vascular Neurological: Stroke Genitourinary: Prostate Problems Gastrointestinal: Abdominal Hernia Hearing Impairment: Hard of Hearing Did You Recieve Any Treatments: No History of Blood Disorders: No Family History No Pertinent Family Hx Family HX: Father when the patinet was 5 from appendicitis, Mother is also , but lived to 82 years old. Patient cannot remember her COD. He is one of 5 siblings. Brother from cancer (type, unknown), and sister from what he states her heart exploded. Review of Systems Constitutional: see HPI, weakness EENTM: no symptoms reported Respiratory: no symptoms reported Cardiovascular: no symptoms reported Gastrointestinal: no symptoms reported Genitourinary: no symptoms reported Musculoskeletal: no symptoms reported Skin: no symptoms reported Psychiatric/Neurological: Weakness (left sided) All Other Systems Reviewed Negative Unless Noted: Yes Physical Exam Exam Vital Signs Vital Signs Date Time Temp Pulse Resp B/P (MAP) Pulse Ox O2 Delivery O2 Flow Rate FiO2 02/13/19 17:23 98.4 51 22 103/65 (78) 95 Room Air Capillary Refill : General Appearance: No Apparent Distress, WD/WN, Chronically ill, Thin, Other (fatigued, disheveled) HEENT: PERRL/EOMI, TMs Normal, Normal ENT Inspection, Pharynx Normal, Moist Mucous Membranes Neck: Full Range of Motion, Normal Inspection, Non Tender, Supple Respiratory: Chest Non Tender, No Accessory Muscle Use, No Respiratory Distress, Crackles, Decreased Breath Sounds, Wheezing Cardiovascular: Regular Rate, Rhythm, No Edema, No Gallop, No JVD, No Murmur Gastrointestinal: Normal Bowel Sounds, No Organomegaly, No Pulsatile Mass, Non Tender, Soft Back: Normal Inspection, No CVA Tenderness, No Vertebral Tenderness Extremity: Normal Capillary Refill, Normal Inspection, Normal Range of Motion, Non Tender, No Calf Tenderness, No Pedal Edema Neurologic/Psychiatric: Alert, Oriented x3, Normal Mood/Affect, Abnormal Cerebellar Tests, Abnormal paster supervisor II-XII (left), Abnormal Gait, Motor Weakness (left upper and lower 3/5 strength) Skin: Normal Color, Warm/Dry Lymphatic: No Adenopathy Results Results/Procedures Labs Patient resulted labs reviewed. Assessment/Plan Assessment and Plan (1) Left-sided weakness Status: Acute (2) COPD (chronic obstructive pulmonary disease) Status: Chronic Qualifiers: COPD type: unspecified COPD Qualified Codes: J44.9 - Chronic obstructive pulmonary disease, unspecified (3) Smoker Status: Chronic (4) Hypertension Qualifiers: Hypertension type: essential hypertension Qualified Codes: I10 - Essential (primary) hypertension (5) Hyperlipidemia Status: Chronic Qualifiers: Hyperlipidemia type: mixed hyperlipidemia Qualified Codes: E78.2 - Mixed hyperlipidemia (6) Renal insufficiency Status: Chronic (7) BPH (benign prostatic hyperplasia) Status: Chronic Qualifiers: Lower urinary tract symptom presence: unspecified whether lower urinary tract symptoms present Qualified Codes: N40.0 - Benign prostatic hyperplasia without lower urinary tract symptoms (8) Wheezing Status: Acute (9) Risk for falls Status: Acute (10) CVA (cerebral vascular accident) Status: Acute Qualifiers: CVA mechanism: unspecified Qualified Codes: I63.9 - Cerebral infarction, unspecified (11) Carotid stenosis Status: Chronic Qualifiers: Laterality: bilateral Qualified Codes: I65.23 - Occlusion and stenosis of bilateral carotid arteries (12) Urinary tract infection without hematuria Status: Resolved Resolution Date/Time: 02/13/19 @ 19:15 Qualifiers: Urinary tract infection type: acute cystitis Qualified Codes: N30.00 - Acute cystitis without hematuria Post Admission Physician Asses Date seen by provider: Feb 13, 2019 Time seen by provider: 14:00 Admisison Dx: (1) CVA (cerebral vascular accident) Status: Acute The preadmission screen agrees with the post admission assessment that the patient is a good candidate for inpatient rehabilitation. The patient will have a comprehensive program of inpatient rehabilitation with a goal of maximizing level of functional independence prior to discharge home with family. The patient will have PT/OT ninety minutes per day, each discipline, five days a week for gait, strengthening, conditioning, balance, ADLs, any patient/family/caregiver training as necessary. Speech therapy to do cognitive assessment and treat as indicated. Rehabilitation nursing to assist with bowel, bladder, skin, wound care, medication administration, pain management. Forest Science Professor to assist with discharge planning, community reentry. SCD's for DVT prophylaxis. He appears to be well motivated to participate in three hours of therapy a day. He should be able to tolerate three hours of therapy a day from a medical standpoint. He should benefit from the three hours of therapy a day. He has a reasonable discharge plan, reasonable discharge rehabilitation goals and a supportive family. He has various comorbidities that need to be closely monitored with medications and treatments adjusted on a daily basis as needed. These include: see list Barriers to discharge for this patient who had been independent prior to this are for him to be modified independent to supervision for ADLs and mobility skills prior to discharge home with family, so as to lessen the burden of the caregivers. Risks for this patient include: 1. Fall 2. Fracture 3. DVT 4. Pulmonary embolism 5. Wound infection 6. Skin breakdown 7. Contractures 8. Poorly controlled pain 9. Urinary retention 10. UTI 11. Respiratory infection 12. Aspiration Estimated Length of Stay: 14 days Prognosis: Rehab prognosis appears good for goal of discharge home with family modified independent to supervision for ADLs and mobility skills. IRENE SWEENEY DO Feb 13, 2019 17:06
[2019-02-13] MEDS ORDERED: hydrALAZINE (APRESOLINE) 25 MG TAB PO PRN (17:15)
[2019-02-13 17:23] VITALS: BP 103/65
--- NOTE | 2019-02-13 17:59 | NUR ---
Have called all the provided family members phone numbers that we have, w no response from any. Get a message that the voice mail hasn't been set up, that phone has been disconnected...Pt was wanting his or one of his children to come up to see him. Pt keeps looking out the door, thinks that other people going by are his daughter who brought him here. This daughter has went back to her home in [place]. This same daughter told pt & this repairer typewriter that one of pt's daughters was going to be bringing his up, states that pt's doesn't drive. Pt was wanting them to bring his reading glasses, shaving gear, phone, to him, along w his wallet. Pt had stated that he had wanted to give his daughter from [place] some money so she wouldn't run out of gas on the way home.
--- NOTE | 2019-02-13 18:10 | NUR ---
Pt had stated that his , & family wouldn't answer the phone if they didn't know who was calling. Pt doesn't have his phone w him to call, states that his has it.
[2019-02-13] MEDS: TAMSULOSIN 0.4 MG (FLOMAX) CAP PO SCH (18:12)
--- NOTE | 2019-02-13 18:34 | NUR ---
Upon asking pt admission questions, pt reports that he wants to be a DNR. States that he & his have talked about this, & she is aware. Pt states, "when my body gives up, I'm ready to go." Notified Dr. Sweeney, & rec'd orders for DNR per pt wishes.
[2019-02-13] MEDS: RT-ALBUTEROL/IPRATROPIUM 3 ML (DUONEB) VIAL INH SCH (21:12)
[2019-02-13] MEDS: ATORVASTATIN 80 MG (LIPITOR) TABLET PO SCH (21:56)
[2019-02-13] MEDS: ACETAMINOPHEN 500 MG TAB (TYLENOL) PO PRN (21:56)
[2019-02-13] MEDS: CARVEDILOL 12.5 MG (COREG) TABLET PO SCH (21:56)
[2019-02-14 06:02] VITALS: BP 113/64
[2019-02-14 06:11] LABS: BASOPHILS % (AUTO) 2 % (0-10); EOSINOPHILS # (AUTO) 0.1 10^3/uL (0.0-0.3); EOSINOPHILS % (AUTO) 2 % (0-10); HEMATOCRIT 32 % (40-54); HEMOGLOBIN 10.7 G/DL (13.3-17.7); LYMPHOCYTES # (AUTO) 1.1 X 10^3 (1.0-4.0); LYMPHOCYTES % (AUTO) 53 % (12-44); MEAN CORPUSCULAR HEMOGLOBIN 30 PG (25-34); MEAN CORPUSCULAR HGB CONC 33 G/DL (32-36); MEAN CORPUSCULAR VOLUME 92 FL (80-99); MEAN PLATELET VOLUME 9.7 FL (7.4-10.4); MONOCYTES # (AUTO) 0.3 X 10^3 (0.0-1.0); MONOCYTES % (AUTO) 17 % (0-12); NEUTROPHILS # (AUTO) 0.5 X 10^3 (1.8-7.8); NEUTROPHILS % (AUTO) 26 % (42-75); PLATELET COUNT 263 10^3/uL (130-400); RED CELL DISTRIBUTION WIDTH 14.6 % (10.0-14.5); WHITE BLOOD COUNT 2.1 10^3/uL (4.3-11.0)
[2019-02-14 06:36] LABS: ALBUMIN 3.4 GM/DL (3.2-4.5); BILIRUBIN,TOTAL 0.5 MG/DL (0.1-1.0); CALCIUM 9.2 MG/DL (8.5-10.1); CREATININE SERUM 1.3 MG/DL (0.60-1.30); POTASSIUM 4.1 MMOL/L (3.6-5.0); TOTAL PROTEIN 5.9 GM/DL (6.4-8.2)
[2019-02-14] MEDS: RT-ALBUTEROL/IPRATROPIUM 3 ML (DUONEB) VIAL INH SCH ×3 (07:40→19:40)
--- NOTE | 2019-02-14 09:16 | Physical Therapy Evaluation ---
PT Evaluation-General Medical Diagnosis Admission Date Feb 13, 2019 at 13:31 Medical Diagnosis: CVA Onset Date: Feb 09, 2019 Therapy Diagnosis Therapy Diagnosis: impaired mobility, strength, endurance, balance Height/Weight Height (Feet): 5 Height (Inches): 7.00 Weight (Pounds): 149 Weight (Ounces): 0.6 Precautions Precautions/Isolations: Fall Prevention, Standard Precautions, Pressure Ulcer Referral Physician: Irene Sweeney DO Reason for Referral: Evaluation/Treatment Medical History Additional Medical History Past Medical History Surgeries: Abdominal (hernia x 2), Vascular Surgery Patient states he has had carotid stent placment in the right and 2 hernia Respiratory: COPD Cardiac: High Cholesterol, Hypertension, Peripheral Vascular Neurological: Stroke Genitourinary: Prostate Problems Gastrointestinal: Abdominal Hernia Hearing Impairment: Hard of Hearing Did You Recieve Any Treatments: No History of Blood Disorders: No Reviewed History: Yes Social History Home: Single Level Current Living Status: Children Entry Into Home: Stairs With Railing Patient states he has some sons that live with him and he has about 5 steps to enter his home and handrails on both sides. Prior/Core FIM Prior Level of Function Therapy Code Descriptions/Definitions Functional [place] Measure: 0=Not Assessed/NA 4=Minimal Assistance 1=Total Assistance 5=Supervision or Setup 2=Maximal Assistance 6=Modified [place] 3=Moderate Assistance 7=Complete [place] Therapy Quality Codes: 6 Independent with activity with or without an assistive device 5 Patient requires set up or clean up by helper. Patient completes activity by themselves 4 Supervision or touching assist (CGA). [place] provide cues , steadying assist 3 The helper provides less than half the effort to complete the activity 2 The helper provides more than half the effort to complete the activity 1 Dependent. The helper does all the effort to complete an activity 7 Patient refused to complete or attempt activity 9 The patient did not perform the activity before the current illness or injury 88 Not attempted due to Medical conditions or safety concerns Functional Abilities and Goals: Independent: Patient completed the activities by him/herself, with or without an assistive device, with no assistance from a helper. Needed Some Help: Patient needed partial assistance from another person to complete activities. Dependent: A helper completed the activities for the patient. Unknown: Not Applicable: Bed Mobility: 7 Transfers (B,C,W/C) (FIM): 7 Gait: 7 Indoor Mobility (Ambulation): Independent Stairs: Independent PT Evaluation-Current Subjective Patient in bed pre tx, agrees to PT, has no complaints of pain but states he needs to urinate and have a BM. Pt/Family Goals to be independent at home Objective Patient Orientation: Person, Place ROM/Strength ROM Lower Extremities WNL Strenght Lower Extremities LLE (hip flexion 3/5, knee flexion 3/5, knee extension 3-/5, dorsiflexion 0/5), RLE (hip flexion 3+/5, knee flexion 4+/5, knee extension 4+/5, dorsiflexion 4+/5) Neuromuscular (Tone, Coordination, Reflexes) Patient follows directions for visual testing poorly but seems to have a left visual field impairment and left neglect. Sensory Hearing: Impaired Transfers Therapy Code Descriptions/Definitions Functional [place] Measure: 0=Not Assessed/NA 4=Minimal Assistance 1=Total Assistance 5=Supervision or Setup 2=Maximal Assistance 6=Modified [place] 3=Moderate Assistance 7=Complete [place] Therapy Quality Codes: 6 Independent with activity with or without an assistive device 5 Patient requires set up or clean up by helper. Patient completes activity by themselves 4 Supervision or touching assist (CGA). [place] provide cues , steadying assist 3 The helper provides less than half the effort to complete the activity 2 The helper provides more than half the effort to complete the activity 1 Dependent. The helper does all the effort to complete an activity 7 Patient refused to complete or attempt activity 9 The patient did not perform the activity before the current illness or injury 88 Not attempted due to Medical conditions or safety concerns Transfers (B, C, W/C) (FIM): 3 Scootin Rollin Roll Left to Right (QC): 3 Supine to/from Sit: 3 Sit to/from Stand: 3 bed t/f WC(FIM only if WC use): 2 Sit to Lying (QC): 2 Lying to Sitting/Side of Bed(Q: 2 Sit to Stand (QC): 2 Chair/Cbg-ua-Olzhw Xfer(QC): 2 Car Transfer (QC): 2 Patient performs bed mobility with min assist, supine <-> sit with mod assist, sit <-> stand with mod assist, transfers with mod assist, car transfer with max assist (per nursing report). Patient needs cues for hand placement and positioning, is impulsive, close guarding. He can bear weight on his left leg but his left arms seems flaccid. Patient transferred to [facility] and is able to urinate but doesn't seem to be able to have a BM. Nursing assists with cleaning while patient is transferred to wheelchair. Leans some to the left side when sitting. Gait Does the Patient Walk?: Yes Mode of Locomotion: Both Anticipated Mode of Locomotion: Walk Gait (FIM): 1 Walk 10 feet (QC): 3 Distance: 15' Gait Level of Assist: 3 Gait Persons Needed: 1 Gait Assistive Device: Walker [place]on Comments/Gait Description Patient can ambulate 15' with a hemiwalker with mod assist. Needs assist with balance, cues for step placement, left neglect. Patient tends to keep hemiwalker in front of him and ambulate at an almost 45 degree angle. Wheelchair Training Does the Pt Use a Wheelchair?: Yes Wheelchair (FIM): 1 Stairs If not tested on admit;explain Patient is not safe to perform stairs yet due to balance impairments and impulsivity. Balance Sitting Static: Fair Sitting Dynamic: Poor Standing Static: Poor Standing Dynamic: Poor Assessment/Needs Patient has impaired mobility, strength, endurance, balance. He has a flaccid left arm and left hemiparesis. Patient in recliner at bedside post tx with legs elevated, has nurse call, phone, tray, chair alarm on and nurse notified. Rehab Potential: Fair PT Short Term Goals Short Term Goals Time Frame: Feb 21, 2019 Transfers (B,C,W/C) (FIM): 4 Gait (FIM): 2 Gait Distance Comment: 50' Gait Level of Assist: 4 Gait Assistive Device: Walker Weston PT Halfway Goals Halfway Goals PT Halfway Goals Time Frame: Mar 07, 2019 Transfers (B,C,W/C) (FIM): 5 Sit to Lying (QC): 4 Lying-Sitting on Side/Bed(QC): 4 Sit to Stand (QC): 4 Rollin Roll Left to Right (QC): 4 Chair/Ewh-xl-Lebhy Xfer(QC): 4 Car Transfer (QC): 4 Gait (FIM): 2 Distance: 100' Walk 10 feet (QC): 4 Walk 10ft-Uneven Surface(QC): 4 Walk 50ft with 2 Turns (QC): 4 Gait Level of Assist: 4 Gait Assistive Device: Walker [place]on Stairs (FIM): 2 # of Steps: 4 1 Step (curb) (QC): 3 4 Steps (QC): 3 Stairs Level Of Assist: 4 PT Plan Problem List Problem List: Activity Tolerance, Functional Strength, Safety, Balance, Gait, Transfer, Bed Mobility, ROM Treatment/Plan Treatment Plan: Continue Plan of Care Treatment Plan: Bed Mobility, Education, Functional Activity [place], Functional Strength, Group Therapy, Gait, Safety, Therapeutic Exercise, Transfers Treatment Duration: Mar 07, 2019 Frequency: At least 5 of 7 days/Wk (IRF) Estimated Hrs Per Day: 1.5 hours per day Patient and/or Family Agrees t: Yes Safety Risks/Education Patient Education: Gait Training, Transfer Techniques, Correct Positioning, Safety Issues Teaching Recipient: Patient Teaching Methods: Demonstration, Discussion Response to Teaching: Reinforcement Needed Discharge Recommendations Plan Patient will perform bed mobility and transfer training, balance and endurance training, functional strengthening, stair training, gait training, and education, to improve functional mobility and independence at home. Therapy D/C Recommendations: Home w/ Family Support Time/GCodes Time In: 0842 Time Out: 0904 Total Billed Treatment Time: 22 Total Billed Treatment 1 visit LOW Olsen' VERENA FREEMAN PT Feb 14, 2019 09:16
[2019-02-14 09:21] VITALS: BP 120/65
[2019-02-14] MEDS: lisINopril 10 MG (PRINIVIL) TABLET PO SCH (09:32)
[2019-02-14] MEDS: CLOPIDOGREL 75 MG (PLAVIX) TABLET PO SCH (09:32)
[2019-02-14] MEDS: ASPIRIN E.C. 81 MG (ECOTRIN) TAB PO SCH (09:33)
[2019-02-14] MEDS: amLODIPine 5 MG (NORVASC) TAB PO SCH (09:33)
[2019-02-14] MEDS: CARVEDILOL 12.5 MG (COREG) TABLET PO SCH ×2 (09:33→20:05)
[2019-02-14] MEDS: NICOTINE 21 MG (NICODERM) PATCH TD SCH (09:33)
[2019-02-14] MEDS: SENNA W/DOCUSATE (SENOKOT S) TABLET PO SCH ×2 (09:39→19:59)
--- NOTE | 2019-02-14 12:18 | PM&R Progress Note ---
Subjective HPI/CC On Admission Date Seen by Provider: Feb 14, 2019 Time Seen by Provider: 12:00 Chief complaint: Debility following CVA with left-sided weakness History of present illness: This is a 73-year-old white male clinic patient of [facility] who accepted upon transfer from [facility] hospitalist service after I transferred him there on 02/05/2019 after he was admitted for suspicion of TIA and CVA and although CT scan showed no evidence of any stroke carotid artery ultrasound at [facility] at that time with stroke protocol revealed critical carotid artery stenosis requiring transfer to vascular care assessment. He had a history of right stent placement in the carotid artery in the past and a right-sided carotid endarterectomy in 1999 and continued to smoke since that time. He was transferred to [facility] maintained on Plavix aspirin and statin therapy along with antihypertensive meds and was seen by neurology and vascular surgery. Renal insufficiency returned back to baseline at 1.4 so IV f luids were discontinued. Patient was managed aggressively and underwent a left carotid stent placement due to critical stenosis on 02/08/[address] Sherman and continue to have the left upper extremity weakness. He was improving at that time. 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 Patient was not deemed a TPA candidate at that time once again. He was found to have a brain aneurysm 3 mm in the A1 segment of the brain but no intervention was planned. CT confirmed the acute infarct involving the watershed distribution between MCA and [employer] territory on the right as well as a small lacunar infarct along the centrum semi-ovale on the right and within the right parietal lobe. He was transported to [facility] inpatient rehab by his daughter 1 of 6 children who lives in [place]. He currently is leaning over to the left because of inability to sit straight in the wheelchair. This indicates a profound loss of function and will require at least 14 days of inpatient rehab for recovery in order to return to some sort of status to be able to return home to live independently and assist with regaining independence with ADLs. He is wheezing currently so I did order duo nebs 3 times daily scheduled. Smoking cessation was counseled on nicotine patch order was placed. Considering the numerous strokes he has had even while being on Plavix and aspirin it is concerning and his prognosis is guarded for additional strokes and even more extensive debility. His barriers to returning home include: Unable to ambulate at this current time wheelchair-bound and home not wheelchair accessible Lives alone but family is involved in his care so likely will need major supervision will need to arrange that prior to discharge Clinical stability following stroke even though on Plavix and aspirin and statin therapy so will need to assure he has been adequately risk stratified in order to decrease the chance of additional strokes prior to discharge home Subjective/Events-last exam Creatinine 1.3 today Hgb stable Dark stools noted so will need to send sample to lab if that persists since he is on both ASA and Plavix WBC 2.1 BM today as did yesterday Reviewed PT note APAP taken for back pain IS use doing well Since he brought it from [facility] Coughing at night a bit Good appetite noted Impulsive so bed alarm on Dr Kumar will be consulted for the left arm skin tears that are still draining Checked meds and labs Conferred with RN Daughter is bringing his razor kit since he usually shaves twice a day Stuttering remains an issue since it has worsened since CVA Review of Systems General: Fatigue Neurological: Weakness, Numbness, Incoordination Objective Exam Vital Signs Vital Signs Date Time Temp Pulse Resp B/P (MAP) Pulse Ox O2 Delivery O2 Flow Rate FiO2 02/14/19 15:35 94 Room Air 02/14/19 09:21 97.3 76 18 120/65 (83) Capillary Refill : General Appearance: No Apparent Distress, WD/WN, Chronically ill, Thin, Other (fatigued, disheveled) HEENT: PERRL/EOMI, TMs Normal, Normal ENT Inspection, Pharynx Normal, Moist Mucous Membranes Neck: Full Range of Motion, Normal Inspection, Non Tender, Supple Respiratory: Chest Non Tender, Lungs Clear, Normal Breath Sounds, No Accessory Muscle Use, No Respiratory Distress, Wheezing Cardiovascular: Regular Rate, Rhythm, No Edema, No Gallop, No JVD, No Murmur Gastrointestinal: Normal Bowel Sounds, No Organomegaly, No Pulsatile Mass, Non Tender, Soft Back: Normal Inspection, No CVA Tenderness, No Vertebral Tenderness Extremity: Normal Capillary Refill, Normal Inspection, Normal Range of Motion, Non Tender, No Calf Tenderness, No Pedal Edema Neurologic/Psychiatric: Alert, Oriented x3, Normal Mood/Affect, Abnormal Cerebellar Tests, 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 FIM Transfers Therapy Code Descriptions/Definitions Functional [place] Measure: 0=Not Assessed/NA 4=Minimal Assistance 1=Total Assistance 5=Supervision or Setup 2=Maximal Assistance 6=Modified [place] 3=Moderate Assistance 7=Complete [place] Therapy Quality Codes: 6 Independent with activity with or without an assistive device 5 Patient requires set up or clean up by helper. Patient completes activity by themselves 4 Supervision or touching assist (CGA). [place] provide cues , steadying assist 3 The helper provides less than half the effort to complete the activity 2 The helper provides more than half the effort to complete the activity 1 Dependent. The helper does all the effort to complete an activity 7 Patient refused to complete or attempt activity 9 The patient did not perform the activity before the current illness or injury 88 Not attempted due to Medical conditions or safety concerns Transfers (B, C, W/C) (FIM): 3 Scootin Rollin Roll Left to Right (QC): 3 Supine to/from Sit: 3 Sit to/from Stand: 3 Sit to Lying (QC): 2 Sit to Stand (QC): 2 Chair/Ywh-jm-Flprp Xfer(QC): 2 Bed to/from Chair: 2 Car Transfer (QC): 2 Gait Training Does the Patient Walk?: Yes Gait (FIM): 1 Walk 10 feet (QC): 3 Gait Level of Assist: 3 Gait Persons Needed: 1 Gait Assistive Device: Walker [place] Wheelchair Training Does the Pt Use a Wheelchair?: Yes Wheelchair (FIM): 1 Assessment/Plan Assessment and Plan Assess & Plan/Chief Complaint Assessment: CVA w/left sided weakness 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 COPD Smoker Dark stools Leukopenia HTN HLP Plan: Monitor dark stools ASA and Plavix and statin IRF protocols (1) CVA (cerebral vascular accident) Status: Acute Qualifiers: CVA mechanism: unspecified Qualified Codes: I63.9 - Cerebral infarction, unspecified (2) 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 Status: Acute (3) Back pain Status: Chronic Qualifiers: Back pain location: back pain in unspecified location Chronicity: unspecified Back pain laterality: unspecified Qualified Codes: M54.9 - Dorsalgia, unspecified (4) Dark stools Status: Acute (5) Impulsive Status: Acute (6) Leukopenia Status: Acute Qualifiers: Leukopenia type: unspecified Qualified Codes: D72.819 - Decreased white blood cell count, unspecified (7) Anemia Status: Chronic Qualifiers: Anemia type: unspecified type Qualified Codes: D64.9 - Anemia, unspecified (8) Hypertension Status: Chronic Qualifiers: Hypertension type: essential hypertension Qualified Codes: I10 - Essential (primary) hypertension (9) COPD (chronic obstructive pulmonary disease) Status: Chronic Qualifiers: COPD type: unspecified COPD Qualified Codes: J44.9 - Chronic obstructive pulmonary disease, unspecified (10) Hyperlipidemia Status: Chronic Qualifiers: Hyperlipidemia type: mixed hyperlipidemia Qualified Codes: E78.2 - Mixed hyperlipidemia (11) Renal insufficiency Status: Chronic (12) Wheezing Status: Acute (13) Carotid stenosis Status: Chronic Qualifiers: Laterality: bilateral Qualified Codes: I65.23 - Occlusion and stenosis of bilateral carotid arteries (14) Left-sided weakness Status: Acute (15) BPH (benign prostatic hyperplasia) Status: Chronic Qualifiers: Lower urinary tract symptom presence: unspecified whether lower urinary tract symptoms present Qualified Codes: N40.0 - Benign prostatic hyperplasia without lower urinary tract symptoms (16) Risk for falls Status: Acute (17) Smoker Status: Chronic HEBERT BAKER DO Feb 14, 2019 12:18
[2019-02-14] MEDS: TAMSULOSIN 0.4 MG (FLOMAX) CAP PO SCH (17:56)
[2019-02-14 18:00] VITALS: BP 99/59
[2019-02-14] MEDS: ACETAMINOPHEN 500 MG TAB (TYLENOL) PO PRN (20:05)
[2019-02-14] MEDS: ATORVASTATIN 80 MG (LIPITOR) TABLET PO SCH (20:05)
[2019-02-15] VITALS (11 sets, daily range): BP systolic 91–125; BP diastolic 55–70
[2019-02-15] MEDS: RT-ALBUTEROL/IPRATROPIUM 3 ML (DUONEB) VIAL INH SCH ×3 (07:50→23:56)
--- NOTE | 2019-02-15 08:15 | PM&R Progress Note ---
Subjective HPI/CC On Admission Date Seen by Provider: Feb 15, 2019 Time Seen by Provider: 08:30 Chief complaint: Debility following CVA with left-sided weakness History of present illness: This is a 73-year-old white male clinic patient of [facility] who accepted upon transfer from [facility] hospitalist service after I transferred him there on 02/05/2019 after he was admitted for suspicion of TIA and CVA and although CT scan showed no evidence of any stroke carotid artery ultrasound at [facility] at that time with stroke protocol revealed critical carotid artery stenosis requiring transfer to vascular care assessment. He had a history of right stent placement in the carotid artery in the past and a right-sided carotid endarterectomy in 1999 and continued to smoke since that time. He was transferred to [facility] maintained on Plavix aspirin and statin therapy along with antihypertensive meds and was seen by neurology and vascular surgery. Renal insufficiency returned back to baseline at 1.4 so IV f luids were discontinued. Patient was managed aggressively and underwent a left carotid stent placement due to critical stenosis on 02/08/[address] Sherman and continue to have the left upper extremity weakness. He was improving at that time. 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 Patient was not deemed a TPA candidate at that time once again. He was found to have a brain aneurysm 3 mm in the A1 segment of the brain but no intervention was planned. CT confirmed the acute infarct involving the watershed distribution between MCA and REHEATER HELPER territory on the right as well as a small lacunar infarct along the centrum semi-ovale on the right and within the right parietal lobe. He was transported to [facility] inpatient rehab by his daughter 1 of 6 children who lives in [place]. He currently is leaning over to the left because of inability to sit straight in the wheelchair. This indicates a profound loss of function and will require at least 14 days of inpatient rehab for recovery in order to return to some sort of status to be able to return home to live independently and assist with regaining independence with ADLs. He is wheezing currently so I did order duo nebs 3 times daily scheduled. Smoking cessation was counseled on nicotine patch order was placed. Considering the numerous strokes he has had even while being on Plavix and aspirin it is concerning and his prognosis is guarded for additional strokes and even more extensive debility. His barriers to returning home include: Unable to ambulate at this current time wheelchair-bound and home not wheelchair accessible Lives alone but family is involved in his care so likely will need major supervision will need to arrange that prior to discharge Clinical stability following stroke even though on Plavix and aspirin and statin therapy so will need to assure he has been adequately risk stratified in order to decrease the chance of additional strokes prior to discharge home Subjective/Events-last exam Pt had some dark stools hemacult positive He is having some weakness today, consulted Dr. Narayan and he may very well need a slower pace of rehab until this is addressed IS maintained Tylenol given for back pain Plavix and aspirin will be given unless held by Dr. Narayan since he did have a stroke seven white being on hose two meds at [place] Lungs are becoming more clear with neb treatments Left arm will be managed by Dr. Kumar Appreciate Dr. Narayan consultation Conferred with RN Reviewed therapy notes Review of Systems General: Fatigue Gastrointestinal: Melena Neurological: Weakness, Numbness, Incoordination Objective Exam Vital Signs Vital Signs Date Time Temp Pulse Resp B/P (MAP) Pulse Ox O2 Delivery O2 Flow Rate FiO2 02/15/19 15:48 97.8 80 20 115/68 (84) 95 Room Air Capillary Refill : General Appearance: No Apparent Distress, WD/WN, Chronically ill, Thin, Other (fatigued, disheveled) HEENT: PERRL/EOMI, TMs Normal, Normal ENT Inspection, Pharynx Normal, Moist Mucous Membranes Neck: Full Range of Motion, Normal Inspection, Non Tender, Supple Respiratory: Chest Non Tender, Lungs Clear, Normal Breath Sounds, No Accessory Muscle Use, No Respiratory Distress, Wheezing Cardiovascular: Regular Rate, Rhythm, No Edema, No Gallop, No JVD, No Murmur Gastrointestinal: Normal Bowel Sounds, No Organomegaly, No Pulsatile Mass, Non Tender, Soft Back: Normal Inspection, No CVA Tenderness, No Vertebral Tenderness Extremity: Normal Capillary Refill, Normal Inspection, Normal Range of Motion, Non Tender, No Calf Tenderness, No Pedal Edema Neurologic/Psychiatric: Alert, Oriented x3, Normal Mood/Affect, Abnormal Cerebellar Tests, Abnormal meat packager II-XII (left), Abnormal Gait, Motor Weakness (left upper and lower 3/5 strength), Other (stuttering) Skin: Normal Color, Warm/Dry Lymphatic: No Adenopathy Results/Procedures Lab Laboratory Tests 02/15/19 08:18 Patient resulted labs reviewed. FIM Transfers Therapy Code Descriptions/Definitions Functional Brayton Measure: 0=Not Assessed/NA 4=Minimal Assistance 1=Total Assistance 5=Supervision or Setup 2=Maximal Assistance 6=Modified B[place] 3=Moderate Assistance 7=Complete B[place]ton Therapy Quality Codes: 6 Independent with activity with or without an assistive device 5 Patient requires set up or clean up by helper. Patient completes activity by themselves 4 Supervision or touching assist (CGA). Ronan provide cues , steadying assist 3 The helper provides less than half the effort to complete the activity 2 The helper provides more than half the effort to complete the activity 1 Dependent. The helper does all the effort to complete an activity 7 Patient refused to complete or attempt activity 9 The patient did not perform the activity before the current illness or injury 88 Not attempted due to Medical conditions or safety concerns Transfers (B, C, W/C) (FIM): 3 Scootin Rollin Roll Left to Right (QC): 3 Supine to/from Sit: 3 Sit to/from Stand: 3 Sit to Lying (QC): 2 Sit to Stand (QC): 2 Chair/Loi-pg-Nforn Xfer(QC): 2 Bed to/from Chair: 2 Car Transfer (QC): 2 Gait Training Does the Patient Walk?: Yes Gait (FIM): 1 Walk 10 feet (QC): 3 Gait Level of Assist: 3 Gait Persons Needed: 1 Gait Assistive Device: Walker Weston Wheelchair Training Does the Pt Use a Wheelchair?: Yes Wheelchair (FIM): 1 Assessment/Plan Assessment and Plan Assess & Plan/Chief Complaint Assessment: CVA w/left sided weakness 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 COPD Smoker Dark stools Leukopenia HTN HLP GIB Plan: Monitor dark stools and appreciate Dr Helene LINDO and Plavix and statin IRF protocols (1) CVA (cerebral vascular accident) Status: Acute Qualifiers: CVA mechanism: unspecified Qualified Codes: I63.9 - Cerebral infarction, unspecified (2) 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 Status: Acute (3) Back pain Status: Chronic Qualifiers: Back pain location: back pain in unspecified location Chronicity: unspecif ied Back pain laterality: unspecified Qualified Codes: M54.9 - Dorsalgia, unspecified (4) Dark stools Status: Acute (5) Impulsive Status: Acute (6) Leukopenia Status: Acute Qualifiers: Leukopenia type: unspecified Qualified Codes: D72.819 - Decreased white blood cell count, unspecified (7) Anemia Status: Chronic Qualifiers: Anemia type: unspecified type Qualified Codes: D64.9 - Anemia, unspecified (8) Hypertension Status: Chronic Qualifiers: Hypertension type: essential hypertension Qualified Codes: I10 - Essential (primary) hypertension (9) COPD (chronic obstructive pulmonary disease) Status: Chronic Qualifiers: COPD type: unspecified COPD Qualified Codes: J44.9 - Chronic obstructive pulmonary disease, unspecified (10) Hyperlipidemia Status: Chronic Qualifiers: Hyperlipidemia type: mixed hyperlipidemia Qualified Codes: E78.2 - Mixed hyperlipidemia (11) Renal insufficiency Status: Chronic (12) Wheezing Status: Acute (13) Carotid stenosis Status: Chronic Qualifiers: Laterality: bilateral Qualified Codes: I65.23 - Occlusion and stenosis of bilateral carotid arteries (14) Left-sided weakness Status: Acute (15) BPH (benign prostatic hyperplasia) Status: Chronic Qualifiers: Lower urinary tract symptom presence: unspecified whether lower urinary tract symptoms present Qualified Codes: N40.0 - Benign prostatic hyperplasia without lower urinary tract symptoms (16) Risk for falls Status: Acute (17) Smoker Status: Chronic HEBERT BAKER DO Feb 15, 2019 08:15
[2019-02-15] MEDS: ACETAMINOPHEN 500 MG TAB (TYLENOL) PO PRN ×2 (08:25→20:00)
[2019-02-15 08:26] LABS: BASOPHILS % (AUTO) 1 % (0-10); EOSINOPHILS % (AUTO) 1 % (0-10); HEMATOCRIT 33 % (40-54); HEMOGLOBIN 11.2 G/DL (13.3-17.7); LYMPHOCYTES # (AUTO) 1.5 X 10^3 (1.0-4.0); LYMPHOCYTES % (AUTO) 45 % (12-44); MEAN CORPUSCULAR HEMOGLOBIN 31 PG (25-34); MEAN CORPUSCULAR HGB CONC 34 G/DL (32-36); MEAN CORPUSCULAR VOLUME 92 FL (80-99); MEAN PLATELET VOLUME 9.8 FL (7.4-10.4); MONOCYTES # (AUTO) 0.5 X 10^3 (0.0-1.0); MONOCYTES % (AUTO) 14 % (0-12); NEUTROPHILS # (AUTO) 1.3 X 10^3 (1.8-7.8); NEUTROPHILS % (AUTO) 39 % (42-75); PLATELET COUNT 306 10^3/uL (130-400); RED CELL DISTRIBUTION WIDTH 14.4 % (10.0-14.5); WHITE BLOOD COUNT 3.3 10^3/uL (4.3-11.0)
[2019-02-15] MEDS: amLODIPine 5 MG (NORVASC) TAB PO SCH (08:39)
[2019-02-15] MEDS: lisINopril 10 MG (PRINIVIL) TABLET PO SCH (08:40)
[2019-02-15] MEDS: SENNA W/DOCUSATE (SENOKOT S) TABLET PO SCH ×2 (08:40→22:02)
--- NOTE | 2019-02-15 08:49 | NUR ---
Pt had been sitting up in recliner eating breakfast this AM. Only c/o was that of being tired & back pain, rated 4. Said he would take some Tylenol, as that is what he takes for it at home. Pt requested to lay back down in bed. Took v/s while sitting in chair, then assisted pt to bed w gait belt, & quad cane. Pt let go of the quad cane , & was difficult to transfer d/t lethargy, Pt alert & responsive, see v/s, c/o being tired. Did not administer Tylenol d/t extreme fatigue. Dr. Sweeney present & spoke w pt re: GI bleed, & consult w Dr. Narayan. B/P meds held, Texted Dr. Narayan on whether to administer pt's scheduled Plavix & ASA 81 mg d/t GI bleed. Pt lying in bed at the time, has repositioned himself to the rt side. 4 rails up, bed alarm on. Pt responsive to questions.
[2019-02-15 08:52] LABS: ALBUMIN 3.8 GM/DL (3.2-4.5); BILIRUBIN,TOTAL 0.4 MG/DL (0.1-1.0); CALCIUM 9.6 MG/DL (8.5-10.1); CREATININE SERUM 1.61 MG/DL (0.60-1.30); POTASSIUM 4.3 MMOL/L (3.6-5.0); TOTAL PROTEIN 6.3 GM/DL (6.4-8.2)
--- NOTE | 2019-02-15 09:08 | Occupational Therapy Eval ---
OT Evaluation-General/PLF Medical Diagnosis Admission Date Feb 13, 2019 at 13:31 Medical Diagnosis: CVA Onset Date: Feb 09, 2019 Therapy Diagnosis Therapy Diagnosis: impaired ADLs and mobility Height/Weight Height (Feet): 5 Height (Inches): 7.00 Weight (Pounds): 149 Weight (Ounces): 0.6 Precautions Precautions/Isolations: Fall Prevention, Standard Precautions, Pressure Ulcer Safety Interventions: Bed Exit Alarm, Move Closer to Desk Weight Bear Status Weight Bearing Restriction: Weight Bearing/Tolerated Referral Physician: Irene Sweeney DO Referral Reason: Activity Tolerance, Self Care, Evaluation/Treatment, Strengthening/ROM Medical History Pertinent Medical History: COPD, HTN Additional Medical History per H&P: "History of present illness: This is a 73-year-old white male clinic patient of [facility] who accepted upon transfer from [facility] hospitalist service after I transferred him there on 02/05/2019 after he was admitted for suspicion of TIA and CVA and although CT scan showed no evidence of any stroke carotid artery ultrasound at [facility] at that time with stroke protocol revealed critical carotid artery stenosis requiring transfer to vascular care assessment. He had a history of right stent placement in the carotid artery in the past and a right-sided carotid endarterectomy in 1999 and continued to smoke since that time. He was transferred to [facility] maintained on Plavix aspirin and statin therapy along with antihypertensive meds and was seen by neurology and vascular surgery. Renal insufficiency returned back to baseline at 1.4 so IV fluids were discontinued. Patient was managed aggressively and underwent a left carotid stent placement due to critical stenosis on 02/08/[address] Sherman and continue to have the left upper extremity weakness. He was improving at that time. 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 Patient was not deemed a TPA candidate at that time once again. He was found to have a brain aneurysm 3 mm in the A1 segment of the brain but no intervention was planned. CT confirmed the acute infarct involving the watershed distribution between MCA and CLOTH ROLL WINDER territory on the right as well as a small lacunar infarct along the centrum semi-ovale on the right and within the right parietal lobe. He was transported to [facility] rehab by his daughter 1 of 6 children who lives in [place]. He currently is leaning over to the left because of inability to sit straight in the wheelchair. This indicates a profound loss of function and will require at least 14 days of inpatient rehab for recovery in order to return to some sort of status to be able to return home to live independently and assist with regaining independence with ADLs. He is wheezing currently so I did order duo nebs 3 times daily scheduled. Smoking cessation was counseled on nicotine patch order was placed. Considering the numerous strokes he has had even while being on Plavix and aspirin it is concerning and his prognosis is guarded for additional strokes and even more extensive debility. " Current History Surgeries: Abdominal (hernia x 2), Vascular Surgery Patient states he has had carotid stent placment in the right and 2 hernia Respiratory: COPD Cardiac: High Cholesterol, Hypertension, Peripheral Vascular Neurological: Stroke Genitourinary: Prostate Problems Gastrointestinal: Abdominal Hernia Hearing Impairment: Hard of Hearing Did You Recieve Any Treatments: No History of Blood Disorders: No Reviewed History: Yes Social History Home: Single Level Current Living Status: Friend Entry Into Home: Stairs With Railing Steps Into Home: 5 ADL-Prior Level of Function Therapy Code Descriptions/Definitions Functional Bunch Measure: 0=Not Assessed/NA 4=Minimal Assistance 1=Total Assistance 5=Supervision or Setup 2=Maximal Assistance 6=Modified Bunch 3=Moderate Assistance 7=Complete Bunch Therapy Quality Codes: 6 Independent with activity with or without an assistive device 5 Patient requires set up or clean up by helper. Patient completes activity by themselves 4 Supervision or touching assist (CGA). Odin provide cues , steadying assist 3 The helper provides less than half the effort to complete the activity 2 The helper provides more than half the effort to complete the activity 1 Dependent. The helper does all the effort to complete an activity 7 Patient refused to complete or attempt activity 9 The patient did not perform the activity before the current illness or injury 88 Not attempted due to Medical conditions or safety concerns Functional Abilities and Goals: Independent: Patient completed the activities by him/herself, with or without an assistive device, with no assistance from a helper. Needed Some Help: Patient needed partial assistance from another person to complete activities. Dependent: A helper completed the activities for the patient. Unknown: Not Applicable: ADL PLOF Comments independence PPLOF using no AD Self Care: Independent Functional Cognition: Independent DME/Equipment: Tub/Shower Drive Self: Yes OT Current Status Subjective pt laying in bed upon O T arrival. pt agreed to OT evaluation/ treatment session. pt reports no pain Appearance BP monitor during OT session prior: 109/62 durin/64 post: 115/78 NSG made aware of all BP's Mental Status/Objective Patient Orientation: Person, Place, Time, Situation Current Glasses/Contacts: Yes Hearing Aids: No ([place] ) Dentures/Partials: Yes Hand Dominance: Right Upper Extremity ROM R UE WFL left UE sligth shoulder shrug left shoulder flexion 0 left elbow flex 40 degrees noted pt can flex left digits but unable to extend Upper Extremity Coordination decrease sejal finger to nose and opposition Upper Extremity Sensation decrease left UE to light touch Upper Extremity Strength right UE 3+/5 MMT impaired LEFT UE ADL-Treatment Eating (FIM): 4 (required set upof all items. noted left sided neglect, requiring cuing cueing for left side of tray. ) Eating (QC): 3 Grooming (FIM): 3 (hand wash, wash face, comb hair, wash hair. noted left side neglect. required MAX cuing to attned to left side of body. ) Oral Hygiene (QC): 2 Bathing (FIM): 1 (pt depend. for bathing secodnary to strong left sided neglext duing bathing required hand over hand and strong VC to wash left side of body. i.e pt only wash right side of chest. ) Shower/Bathe Self (QC): 1 Upper Body Dressing (FIM): 1 (machine assembler for puller over shirt ) Upper Body Dressing (QC): 1 Lower Body Dressing (FIM): 1 (sejal socks, underpants, pants. required X2 person assist to stnad and maintain balance while pulling up pants. noted pt attempt to pull pants up on righ tside only) Lower Body Dressing (QC): 1 On/Off Footwear (QC): 1 Toileting (FIM): 1 (requried assist with 3/3 ) Toileting Hygiene (QC): 1 Transfers (B, C, W/C) (FIM): 2 (shirley walker ) Toilet/Commode Transfer (FIM): 2 (shirley walker ) Shower Transfer (FIM): 0 (NT secondary to safety) pt demo strong left sided neglect and left lateral lean while sitting EOB and standing to perform bathing task.,pt required strong cuing to attend to left side. pt required MOD A to perform supine <>sit and MOD A to sit to stand and MAX A to maintain static standing balance. post OT Session pt laying in bed, bed alarm on, call light, phone, and tray all within reach., all needs met. Education OT Patient Education: Modified ADL techniques, Progress toward Goal/Update tx plan, Purpose of tx/functional activities, Reviewed precautions, Rehab process, Safety issues, Transfer techniques, Use of adapted equipment Teaching Recipient: Patient Teaching Methods: Demonstration, Discussion Response to Teaching: Verbalize Understanding, Return Demonstration OT Short Term Goals Short Term Goals Eating(FIM): 5 Grooming(FIM): 5 Bathing(FIM): 4 Upper Body Dressing(FIM): 4 Lower Body Dressing(FIM): 4 Toileting(FIM): 3 Transfers (B,C,W/C) (FIM): 4 Toilet/Commode Transfer(FIM): 3 Shower Transfer(FIM): 4 1=Demonstrate adherence to instructed precautions during ADL tasks. 2=Patient will verbalize/demonstrate understanding of assistive devices/modifications for ADL. 3=Patient will improve strength/tolerance for activity to enable patient to perform ADL's. OT Family Court Counsellor Goals Residential Goals Eating (FIM): 6 Eating (QC): 6 Groomin Oral Hygiene (QC): 6 Bathing(FIM): 6 Shower/Bathe Self (QC): 6 Upper Body Dressing(FIM): 6 Upper Body Dressing (QC): 6 Lower Body Dressing(FIM): 5 Lower Body Dressing (QC): 4 On/Off Footwear (QC): 5 Toileting(FIM): 5 Toileting Hygiene (QC): 4 Transfers (B,C,W/C) (FIM): 6 Toilet/Commode Transfer(FIM): 6 Toilet/Commode Transfer (QC): 6 Shower Transfer(FIM): 6 Additional Goals: 1-Demonstrate ADL Tasks, 2-Verbalize Understanding, 3- ImproveStrength/Merritt 1=Demonstrate adherence to instructed precautions during ADL tasks. 2=Patient will verbalize/demonstrate understanding of assistive devices/modifications for ADL. 3=Patient will improve strength/tolerance for activity to enable patient to perform ADL's. OT Education/Plan Problem List/Assessment Assessment: Decreased Activ Tolerance, Decreased Safety Aware, Decreased UE Strength, Dependent Transfers, Impaired Bed Mobility, Impaired Cognition, Impaired Coordination, Impaired Funct Balance, Impaired I ADL's, Impaired Self- Care Skills, Restricted Funct UE ROM pt presents with functional limitations affecting areas of ADLs and functional transfers with the above mention deficits including decrease proprioception. pt would benefit from skilled OT Services to address above mention deficits and increase independence with ADLS and functional transfers. Discharge Recommendations Plan/Recommendations: Continue POC Treatment Plan/Plan of Care Treatment,Training & Education: Yes Patient would benefit from OT for education, treatment and training to promote independence in ADL's, mobility, safety and/or upper extremity function for ADL's. Plan of Care: ADL Retraining, Caregiver Training, Concurrent Therapy, Functional Mobility, Group Exercise/Act as Ind, UE Funct Exercise/Act, UE Neuromus Re-Ed/Coord, Visual/Perceptual Retrain, W/C Management Training Treatment Duration: Mar 15, 2019 Frequency: At least 5 of 7 days/Wk (IRF) Estimated Hrs Per Day: 1 hour per day (60-90 minutes per day ) Agreement: Yes Rehab Potential: Fair Time/GCodes Start Time: 09:00 Stop Time: 10:00 Billed Treatment Time EVM 15 minutes ADL 45 minutes, 3 units JENNIFER GUEVARA OT Feb 15, 2019 09:07
--- NOTE | 2019-02-15 09:36 | NUR ---
Pt alert, talking, working w OT on bathing/dressing. Pt denies any problems currently, pleasant.
[2019-02-15] MEDS: NICOTINE 21 MG (NICODERM) PATCH TD SCH (09:50)
[2019-02-15] MEDS: CARVEDILOL 12.5 MG (COREG) TABLET PO SCH ×2 (09:51→19:59)
[2019-02-15] MEDS: ASPIRIN E.C. 81 MG (ECOTRIN) TAB PO SCH (09:51)
[2019-02-15] MEDS: CLOPIDOGREL 75 MG (PLAVIX) TABLET PO SCH (09:51)
--- NOTE | 2019-02-15 11:22 | Progress Note - Hospitalist ---
BUCKY ERAZO [employer] 02/15/19 1122: Progress Note Subjective: Seen on 02/15/19 @8:15am Jarret was alert and in a pleasant mood. He is hard of hearing and it takes him a little time to respond. He has left arm and leg hemiparesis. Vitals: blood pressure has been running low 91/55, HR, RR and Temp have all been stable Patient has midback pain and denies anyother pain Has been eating and drinking Has been urinating and having bowel movements Reviewed PT/OT notes, patient requires alot of assistance Left arm has wound and is bandaged patient denies pain. 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 COPD Smoker Dark stools Leukopenia HTN HLP Plan: Monitor dark stools ASA and Plavix and statin IRF protocols Patient may not receive full PT due to GI bleed Consult Genral Surg for EGD or Colonoscopy Continue monitoring patients blood level and vitals IRENE SWEENEY DO 02/15/192120: Supervisory-Addendum Brief Verification & Attestation Time: Verification & Attestat.: 09:00 Participated in pt care: history, MDM, physical Personally performed: exam, history, MDM, supervision of care Care discussed with: Medical Student Procedures: n/a Results interpretation: Verified all documentation Verification and Attestation of Medical Student E/M Service A medical student performed and documented this service in my presence. I reviewed and verified all information documented by the medical student and made modifications to such information, when appropriate. I personally performed the physical exam and medical decision making. Irene Sweeney, Feb 15, 2019,21:21 BUCKY ERAZO [employer] Feb 15, 2019 11:22 IRENE SWEENEY DO Feb 15, 2019 21:21
[2019-02-15] MEDS ORDERED: AMLO5TAB9 PO (11:29)
[2019-02-15] MEDS ORDERED: ALBU6.7H8 INH ×2 (11:29)
[2019-02-15] MEDS ORDERED: ASPI-983 PO ×2 (11:29)
[2019-02-15] MEDS ORDERED: ENOX40DI13 SQ (11:29)
[2019-02-15] MEDS ORDERED: PANT40TA2 PO (11:29)
[2019-02-15] MEDS ORDERED: CLOP75TA69 PO (11:29)
[2019-02-15] MEDS ORDERED: PRAV40TA2 PO (11:29)
[2019-02-15] MEDS ORDERED: CEFD300C3 PO (11:29)
[2019-02-15] MEDS ORDERED: ACET-2267 PO (11:29)
--- NOTE | 2019-02-15 11:31 | NUR ---
UPDATED MED REC TO THE LIST OF MEDICATIONS ORDERED AT DISCHARGE FROM [facility]. NOTE THE FOLLOWING CHANGES WERE MADE AT THAT DISCHARGE: START TAKING: LOVENOX 40MG DAILY AMLODIPINE 5MG DAILY CEFDINIR 300MG Q12H PLAVIX 75MG DAILY PRAVASTATIN 40MG HS PROTONIX 40MG DAILY TYLENOL 500-1000MG Q4H PRN STOP TAKING: PRAVASTATIN 20MG HS I WILL UPDATE THE LIST BACK TO THE HOME MEDS PRIOR TO THIS DISCHARGE AT A LATER TIME FOR PROPER DISCHARGE TO HOME ORDERS. Addendum: 02/18/19 at 1614 by VAHID CURTIS hoop maker machine REMOVED THE 7 NEW MEDICATIONS ORDERED UPON DISCHARGE AT [facility] FROM THE MED REC AT THIS TIME. I ADDED BACK THE PRAVASTATIN 20MG HS THAT WAS DISCONTINUED. ACCORDING TO THE EXT MED HX THIS HAS NOT BEEN FILLED SINCE SEPTEMBER- [facility] HAD INCREASED THE DOSE TO 40MG.
--- NOTE | 2019-02-15 13:50 | Physical Therapy Daily Note ---
PT Daily Note-Current Subjective Pt. in bed on right side difficult to awaken at first. Pt. answers all questions appropriately Pain Location: No Pain Reported Mental Status Patient Orientation: Person, Place, Time (month), Situation Transfers Therapy Code Descriptions/Definitions Functional [place] Measure: 0=Not Assessed/NA 4=Minimal Assistance 1=Total Assistance 5=Supervision or Setup 2=Maximal Assistance 6=Modified [place] 3=Moderate Assistance 7=Complete [place] Therapy Quality Codes: 6 Independent with activity with or without an assistive device 5 Patient requires set up or clean up by helper. Patient completes activity by themselves 4 Supervision or touching assist (CGA). [place] provide cues , steadying assist 3 The helper provides less than half the effort to complete the activity 2 The helper provides more than half the effort to complete the activity 1 Dependent. The helper does all the effort to complete an activity 7 Patient refused to complete or attempt activity 9 The patient did not perform the activity before the current illness or injury 88 Not attempted due to Medical conditions or safety concerns Transfers (B, C, W/C) (FIM): 3 Scootin Rollin Supine to/from Sit: 4 Sit to/from Stand: 3 slow, assist to scoot to edge of bed, sat EOB slumped to left but improves with instruction and tactile assist to extend left arm. sit to stand mod assist x 2 trials, min assist 2 trials. needs left leg stabilized at knee. Gait Training Does the Patient Walk?: Yes Gait (FIM): 1 Distance (FIM): 1=up to 49 ft (4 side steps left and right) Gait Level of Assist: 3 Gait Persons Needed: 1 Gait Assistive Device: Handheld Assist (dance fashion) dance fashion at bedside left and right with assist to weight shift and move left foot/leg Exercises Supine Ex: Bridging, Ankle pumps (HC stretch), Rolling, Heel Slides, Short Arc Quads, Scooting, Straight leg raise, Hip abd/add Supine Reps: 20 (assisted) Seated Therapy Exercises: Ankle pumps, Sit to stand, Long arc quads, Hip flexion Seated Reps: 20 Assessment Current Status: Fair Progress left neglect continues, pt. does however tend left with instruction, earlier reposts of low BP..this RX BP in sitting 120/64, HR 94, O2sats 96% PT Short Term Goals Short Term Goals Time Frame: Feb 21, 2019 Transfers (B,C,W/C) (FIM): 4 Gait (FIM): 2 Gait Distance Comment: 50' Gait Level of Assist: 4 Gait Assistive Device: Walker Weston PT Skilled Nursing Goals Skilled Nursing Goals PT Warehouse Examiner Goals Time Frame: Mar 07, 2019 Transfers (B,C,W/C) (FIM): 5 Sit to Lying (QC): 4 Lying-Sitting on Side/Bed(QC): 4 Sit to Stand (QC): 4 Rollin Roll Left to Right (QC): 4 Chair/Vys-tz-Qncjf Xfer(QC): 4 Car Transfer (QC): 4 Gait (FIM): 2 Distance: 100' Walk 10 feet (QC): 4 Walk 10ft-Uneven Surface(QC): 4 Walk 50ft with 2 Turns (QC): 4 Gait Level of Assist: 4 Gait Assistive Device: Walker Weston Stairs (FIM): 2 # of Steps: 4 1 Step (curb) (QC): 3 4 Steps (QC): 3 Stairs Level Of Assist: 4 PT Plan Treatment/Plan Treatment Plan: Continue Plan of Care Treatment Plan: Bed Mobility, Education, Functional Activity [place], Functional Strength, Group Therapy, Gait, Safety, Therapeutic Exercise, Transfers Treatment Duration: Mar 07, 2019 Frequency: At least 5 of 7 days/Wk (IRF) Estimated Hrs Per Day: 1.5 hours per day Patient and/or Family Agrees t: Yes Safety Risks/Education Patient Education: Gait Training, Transfer Techniques, Correct Positioning, Disease Process, Safety Issues Teaching Recipient: Patient Teaching Methods: Demonstration, Discussion Response to Teaching: Verbalize Understanding, Return Demonstration, Reinforcement Needed Time/GCodes Time In: 1120 Time Out: 1205 Total Billed Treatment Time: 45 Total Billed Treatment 1,FA25,EX20 G Codes Necessary: LARS Rebolledo COURT ADMINISTRATOR Feb 15, 2019 13:49
--- NOTE | 2019-02-15 14:00 | ST Cognitive Linguistic Eval ---
Speech Evaluation-General Medical Diagnosis CVA Onset Date: Feb 09, 2019 Therapy Diagnosis Therapy Diagnosis: Cognitive-communication Precautions Precautions: Fall Precautions/Isolations: Fall Prevention, Standard Precautions, Pressure Ulcer Referral Referring Physician: Dr. Sweeney Reason for Referral: Evaluation/Treatment Medical History Pertinent Medical History: COPD, CVA, HTN COPD, CVA and HTN Current History CVA Reviewed History: Yes Social History Home: Single Level Current Living Status: Friend Speech PLF-Current Status Prior Level of Function The patient lived at home with a friend and was independent for most of his daily needs. Subjective Patient was sleepy, however he was able to participate with part of the evaluation process. Language Eval: Auditory Comprehends Simple Yes/No Ques: Functional Indent/Objects Multiple [place]: Mild Ident/Pics in Multiple [place]: Moderate Follows 1-Step Commands: Mild Follows Complex Directions: Moderate Follows General Conversations: Mild Language Eval: Verbal Language Completes Spontaneous Greeting: Functional Produces Auto, Serial Info: Functional Imitates Simple Words/Phrases: Functional Word Finding: Mild Requests Basic Needs: Mild States Basic Personal Info: Mild Expresses Complex Ideas: Moderate Cognitive Patient Orientation Patient is oriented to person and place. Objective Cognitive Domain Attention: Moderate Memory: Mild Problem Solving: Moderate Executive Functions: Moderate Visuospatial Skills: Moderate Composite Severity Rating: Moderate Clock Drawing Severity Rating: Moderate Score: To be determined in subsequent sessions due to patient participation Range: Moderate impairment Objective Formal/Standardized Tests [facility] Mental Status ([facility]) Results Patient has not fully completed formal cognitive evaluation using the UMS, but has demonstrated decreased cognitive skills due to difficulty with orientation and memory questions. Patient has limited participation and engagement which could impact his score. Given deficits present during informal conversation, observation and partial completion of the UMS, speech therapy services are warranted to target cognition and communication. Oral Motor/Speech Production Oral motor and speech skills WNL Impression Patient presents with cognitive-communication deficits. Patient requires verbal repetitions and time for processing provided information. Communication/Social Cognition Comprehension: 5 Expression: 4 Social Interaction: 3 Problem Solvin Memory: 3 Speech Patient Assess Expression of Ideas/Wants: Frequently (2) Understanding Verbal Content: Sometimes Understands(2) Brief Interview-Mental Status: Yes Repetition of Three Words: Two (2) Temporal Orientation: Year: Correct (3) Temporal Orientation: Month: Missed by 6 days-1 month (1) Temporal Orientation: Day: Incorrect or No Answer(0) Recall : Wear to say "Sock": No, could not recall (0) Recall : Color: No, could not recall (0) Recall : Bed: No, could not recall (0) Add-Enter 99 if pt cannot comp: 99 Memory/Recall Ability: That he or she is in a hsp/hsp unit Speech Short Term Goals Short Term Goals Short Term Goals 1) Patient will demonstrate sustained attention, memory and sequencing for task performance with 80% accuracy. 2) Patient will demonstrate effective communication of wants/needs to staff and caregivers with 80% accuracy. Speech Fudge Candy Maker Goals Fdc Goals The patient will improve cognitive-communication skills in order to return to his former living situation safely. Speech-Plan Patient/Family Goals Patient/Family Goals: The patient plans on returning to his former living situation post rehab. Treatment Plan Speech Therapy Treatment Plan: Continue Plan of Care The patient demonstrates cognitive-communication deficits and would benefit from skilled ST services. Treatment Duration: Feb 26, 2019 Frequency: 5 times per week Estimated Hrs Per Day: .5 hour per day Rehab Potential: Fair Barriers to Learning: Patient's decreased ability to participate, cognitive-communication deficits Pt/Family Agrees to Plan: Yes Safety Risks/Education Teaching Recipient: Patient Teaching Methods: Discussion Response to Teaching: Verbalize Understanding, Reinforcement Needed Education Topics Provided: ST services Time Speech Therapy Time In: 11:00 Speech Therapy Time Out: 11:15 Total Billed Time: 15 Billed Treatment Time 1, SPSNDALFRED Gonzales Feb 15, 2019 14:00
--- NOTE | 2019-02-15 15:03 | Physical Therapy Daily Note ---
PT Daily Note-Current Subjective Pt. agreeable to TRF training Pain Location: No Pain Reported Appearance left list in w/c, head down Transfers Therapy Code Descriptions/Definitions Functional [place] Measure: 0=Not Assessed/NA 4=Minimal Assistance 1=Total Assistance 5=Supervision or Setup 2=Maximal Assistance 6=Modified [place] 3=Moderate Assistance 7=Complete [place] Therapy Quality Codes: 6 Independent with activity with or without an assistive device 5 Patient requires set up or clean up by helper. Patient completes activity by themselves 4 Supervision or touching assist (CGA). [place] provide cues , steadying assist 3 The helper provides less than half the effort to complete the activity 2 The helper provides more than half the effort to complete the activity 1 Dependent. The helper does all the effort to complete an activity 7 Patient refused to complete or attempt activity 9 The patient did not perform the activity before the current illness or injury 88 Not attempted due to Medical conditions or safety concerns sit to stand mod to max assist, SPT w/c to bed mod to max assist, pt. resistive with movement to right , needs assist with wt shift. sit to supine required min assist LLE, required assist for positioning in bed to right side for tending right etc. Assessment Current Status: Fair Progress some pushing noted with right PT Short Term Goals Short Term Goals Time Frame: Feb 21, 2019 Transfers (B,C,W/C) (FIM): 4 Gait (FIM): 2 Gait Distance Comment: 50' Gait Level of Assist: 4 Gait Assistive Device: Walker Weston PT [facility] Goals [facility] Goals PT Scientific Software Engineer Goals Time Frame: Mar 07, 2019 Transfers (B,C,W/C) (FIM): 5 Sit to Lying (QC): 4 Lying-Sitting on Side/Bed(QC): 4 Sit to Stand (QC): 4 Rollin Roll Left to Right (QC): 4 Chair/Kcz-xm-Xwscc Xfer(QC): 4 Car Transfer (QC): 4 Gait (FIM): 2 Distance: 100' Walk 10 feet (QC): 4 Walk 10ft-Uneven Surface(QC): 4 Walk 50ft with 2 Turns (QC): 4 Gait Level of Assist: 4 Gait Assistive Device: Walker Weston Stairs (FIM): 2 # of Steps: 4 1 Step (curb) (QC): 3 4 Steps (QC): 3 Stairs Level Of Assist: 4 PT Plan Treatment/Plan Treatment Plan: Continue Plan of Care Treatment Plan: Bed Mobility, Education, Functional Activity [place], Functional Strength, Group Therapy, Gait, Safety, Therapeutic Exercise, Transfers Treatment Duration: Mar 07, 2019 Frequency: At least 5 of 7 days/Wk (IRF) Estimated Hrs Per Day: 1.5 hours per day Patient and/or Family Agrees t: Yes Safety Risks/Education Patient Education: Transfer Techniques Teaching Recipient: Patient Teaching Methods: Discussion Response to Teaching: Unable to Return Demonstration, Reinforcement Needed Time/GCodes Time In: 1330 Time Out: 1340 Total Billed Treatment Time: 10 Total Billed Treatment 1,FA10m G Codes Necessary: LARS Rebolledo SUCCESSFACTORS CONSULTANT Feb 15, 2019 15:02
--- NOTE | 2019-02-15 15:29 | Therapy Group Daily Note ---
Therapy Daily Group Note Patient Education Topic Other List Below (bed mobility; car transfer) Exercises LE Seated Exercise, UE Exercise Session Ratio (pt:therapist): 4:1 Goal of Session: Safety with Transfers Education on safety with functional transfers. Goal Met for this Session: Yes Pt Benefit of Group: Increased Functional Safety, Increased Functional Strength, Socialization Other/Notes Pt assisted with bed mobiltiy to get out of bed and transfer to the wc; pt presented to group via wc. Group consisted of introductions (name, place living, hottest day memory), socialization, seated UE/LE exercises, bed transfers/mobility, car transfers and description of ARU. Pt introduced self appropriately and actively listened to peers. Pt rolled dice for amount of reps needed for seated exercises that are led by pt. Pt verbalized understanding of educational topics by own personal stories and strategies. After therapy, pt in bed.. All needs met in room. Start Time: 13:00 Stop Time: 14:05 Total Billed Treatment Time: 65 Total Billed Treatment visit GRP 65 JALIL FRANCISCO PT Feb 15, 2019 15:29
--- NOTE | 2019-02-15 16:03 | Occupational Ther Daily Note ---
OT Current Status-Daily Note Subjective pt laying in bed upon OT arrival. pt agreed to OT TX session with focus on neuro re-education toward affecting side. pt reports no pain. Mental Status/Objective Therapy Code Descriptions/Definitions Functional [place] Measure: 0=Not Assessed/NA 4=Minimal Assistance 1=Total Assistance 5=Supervision or Setup 2=Maximal Assistance 6=Modified [place] 3=Moderate Assistance 7=Complete [place] ADL-Treatment Therapy Code Descriptions/Definitions Functional [place] Measure: 0=Not Assessed/NA 4=Minimal Assistance 1=Total Assistance 5=Supervision or Setup 2=Maximal Assistance 6=Modified [place] 3=Moderate Assistance 7=Complete [place] Therapy Quality Codes: 6 Independent with activity with or without an assistive device 5 Patient requires set up or clean up by helper. Patient completes activity by themselves 4 Supervision or touching assist (CGA). [place] provide cues , steadying assist 3 The helper provides less than half the effort to complete the activity 2 The helper provides more than half the effort to complete the activity 1 Dependent. The helper does all the effort to complete an activity 7 Patient refused to complete or attempt activity 9 The patient did not perform the activity before the current illness or injury 88 Not attempted due to Medical conditions or safety concerns Transfers (B, C, W/C) (FIM): 2 Other Treatment pt required MAX A to perform supine to sit toward left side. pt required strong cuing/ tactile cuing to perform bed mobility and assist with trunk. noted left lateral lean. pt required strong cuing toward left side to see chair. pt perform stand pivot transfer toward left side with MAX A. once in chair pt room set up to have pt look to eft side to see TV. pt required MAX cuing for scanning room. pt sitting in recliner chair, chair alarm, nursing present in room, all needs met. Education OT Patient Education: Progress toward Goal/Update tx plan, Purpose of tx/functional activities Teaching Recipient: Patient Teaching Methods: Demonstration, Discussion Response to Teaching: Reinforcement Needed OT Short Term Goals Short Term Goals Eating(FIM): 5 Grooming(FIM): 5 Bathing(FIM): 4 Upper Body Dressing(FIM): 4 Lower Body Dressing(FIM): 4 Toileting(FIM): 3 Transfers (B,C,W/C) (FIM): 4 Toilet/Commode Transfer(FIM): 3 Shower Transfer(FIM): 4 1=Demonstrate adherence to instructed precautions during ADL tasks. 2=Patient will verbalize/demonstrate understanding of assistive devices/modifications for ADL. 3=Patient will improve strength/tolerance for activity to enable patient to perform ADL's. OT Retirement Goals Base Loader Goals Eating (FIM): 6 Eating (QC): 6 Groomin Oral Hygiene (QC): 6 Bathing(FIM): 6 Shower/Bathe Self (QC): 6 Upper Body Dressing(FIM): 6 Upper Body Dressing (QC): 6 Lower Body Dressing(FIM): 5 Lower Body Dressing (QC): 4 On/Off Footwear (QC): 5 Toileting(FIM): 5 Toileting Hygiene (QC): 4 Transfers (B,C,W/C) (FIM): 6 Toilet/Commode Transfer(FIM): 6 Toilet/Commode Transfer (QC): 6 Shower Transfer(FIM): 6 Additional Goals: 1-Demonstrate ADL Tasks, 2-Verbalize Understanding, 3- ImproveStrength/[place] 1=Demonstrate adherence to instructed precautions during ADL tasks. 2=Patient will verbalize/demonstrate understanding of assistive devic es/modifications for ADL. 3=Patient will improve strength/tolerance for activity to enable patient to perform ADL's. OT Education/Plan Problem List/Assessment Assessment: Decreased Activ Tolerance, Decreased Safety Aware, Decreased UE Strength, Dependent Transfers, Impaired Bed Mobility, Impaired Cognition, Impaired Coordination, Impaired Funct Balance, Impaired I ADL's, Impaired Self- Care Skills, Restricted Funct UE ROM, Visual-Perceptual Deficit pt presents with functional limitations affecting areas of ADLs and functional transfers with the above mention deficits including decrease proprioception. pt would benefit from skilled OT Services to address above mention deficits and increase independence with ADLS and functional transfers. Discharge Recommendations Plan/Recommendations: Continue POC Treatment Plan/Plan of Care Treatment,Training & Education: Yes Patient would benefit from OT for education, treatment and training to promote independence in ADL's, mobility, safety and/or upper extremity function for ADL's. Plan of Care: ADL Retraining, Caregiver Training, Concurrent Therapy, Functional Mobility, Group Exercise/Act as Ind, UE Funct Exercise/Act, UE Neuromus Re-Ed/Coord, Visual/Perceptual Retrain, W/C Management Training Treatment Duration: Mar 15, 2019 Frequency: At least 5 of 7 days/Wk (IRF) Estimated Hrs Per Day: 1 hour per day (60-90 minutes per day ) Agreement: Yes Rehab Potential: Fair Time/GCodes Start Time: 15:40 Stop Time: 15:55 Billed Treatment Time NM 15 minutes, 1 unit JENNIFER GUEVARA OT Feb 15, 2019 16:03
--- NOTE | 2019-02-15 17:25 | Wound Care Assessment ---
Wound Care Assessment Date Seen by Provider: Feb 15, 2019 Time Seen by Provider: 17:15 Chief Complaint Ulcers L arm. HPI The patient is a 73 year old male with multiple superficial skin tears of L arm, in a setting of neglect due to R sided stroke. Skin tears are over a week old, and redundant skin is no longer mobile. Xeroform dressings ordered. Past Medical History: Admits Heart Disease (Recent and remote carotid stenting with stroke, L sided weakness. COPD), Admits Peripheral Artery Disease Recreational Drug Use: No Alcohol Use: Denies Use Review of Systems General: No Chills Pulmonary: No Dyspnea Cardiovascular: No: Chest Pain Exam Vital Signs Date Time Temp Pulse Resp B/P (MAP) Pulse Ox O2 Delivery O2 Flow Rate FiO2 02/15/19 15:48 97.8 80 20 115/68 (84) 95 Room Air Capillary Refill : General Appearance: no apparent distress HEENT: normal ENT inspection Cardiovascular: regular rate, rhythm Respiratory: lungs clear Gastrointestinal: normal bowel sounds, non tender Neurologic/Psychiatric: motor weakness (L arm), other (Multiple superficial skin tears L arm, clean, in various stages of healing.) Results Laboratory Tests 02/15/19 08:18: White Blood Count 3.3L, Red Blood Count 3.65L, Hemoglobin 11.2L, Hematocrit 33L, Mean Corpuscular Volume 92, Mean Corpuscular Hemoglobin 31, Mean Corpuscular Hemoglobin Concent 34, Red Cell Distribution Width 14.4, Platelet Count 306, Mean Platelet Volume 9.8, Neutrophils (%) (Auto) 39L, Lymphocytes (%) (Auto) 45H , Monocytes (%) (Auto) 14H, Eosinophils (%) (Auto) 1, Basophils (%) (Auto) 1, Neutrophils # (Auto) 1.3L, Lymphocytes # (Auto) 1.5, Monocytes # (Auto) 0.5, Eosinophils # (Auto) 0.0, Basophils # (Auto) 0.0, Sodium Level 141, Potassium Level 4.3, Chloride Level 106, Carbon Dioxide Level 24, Anion Gap 11, Blood Urea Nitrogen 32H, Creatinine 1.61H, Estimat Glomerular Filtration Rate 42, BUN/Creatinine Ratio 20, Glucose Level 108H, Calcium Level 9.6, Corrected Calcium 9.8, Total Bilirubin 0.4, Aspartate Amino Transf (AST/SGOT) 25, Alanine Aminotransferase (ALT/SGPT) 20, Alkaline Phosphatase 69, Total Protein 6.3L, Albumin 3.8 Assessment/Plan/Dx 1. Multiple skin tears L arm. Plan: Will dress with Xeroform and follow. MANA SERRANO MD Feb 15, 2019 17:25
[2019-02-15] MEDS ORDERED: MAGNESIUM CITRATE 300 ML BTL PO NR (17:52)
--- NOTE | 2019-02-15 18:27 | CONSULTATION REPORT ---
DATE OF SERVICE: 02/15/2019 ATTENDING ADMITTING PHYSICIAN: Dr. Irene Sweeney. HISTORY OF PRESENT ILLNESS: The patient is a 73-year-old male who was transferred from [facility], after he was transferred there on 02/05/2019 for suspicion of TIA. He was found to have a cerebrovascular accident encompassing the distribution of the middle cerebral artery as well as posterior cerebral artery region as well as small lacunar infarcts along the centrum semiovale and within the right parietal lobe. This gentleman has a significant history of peripheral vascular disease as well as renal insufficiency. He has undergone open carotid endarterectomy in the past as well as stent placement. He also does have a history of COPD and does continue to smoke. He was placed on aspirin and Plavix and he was found to have a Hemoccult positive stool. Upon further questioning, he reports he has never had a colonoscopy at this point in his life. He reports that he has had a history of gastroesophageal reflux disease in the past. On this admission, we will schedule him for an EGD and colonoscopy. PAST MEDICAL HISTORY: COPD, hypercholesterolemia, hypertension, peripheral vascular disease, benign prostatic hypertrophy. PAST SURGICAL HISTORY: Abdominal hernia x2, carotid endarterectomy, carotid artery and stent placement x2. ALLERGIES: No known drug allergies. MEDICATIONS: Albuterol MDI 2 puffs q.4 hours p.r.n., amlodipine 5 mg daily, aspirin 81 mg daily, carvedilol 6.25 mg b.i.d., cefdinir 300 mg b.i.d., Plavix 75 mg daily, lisinopril 20 mg daily, Protonix 40 mg daily, pravastatin 40 mg daily, tamsulosin 0.4 mg daily. SOCIAL HISTORY: Positive smoke, 60 pack years. Negative alcohol. FAMILY HISTORY: Brother with some unknown form of cancer. VITAL SIGNS: Temperature 97.8, blood pressure 115/68, pulse 80, respirations 20, pulse ox 95% on room air. REVIEW OF SYSTEMS: Well-nourished male in no acute distress. He is not experiencing any shortness of breath or difficulty breathing. No chest pain, palpitations, diaphoresis. No nausea, vomiting. No diarrhea or constipation. No red blood per rectum, no dark tarry stools; however, he was found to have a heme positive stool yesterday. No fever, chills. No recent inadvertent weight loss. All other review of systems negative. PHYSICAL EXAMINATION: CHEST: Scattered wheezes bilaterally. HEART: Regular, no murmurs. EXTREMITIES: No lower extremity edema, negative Homans sign. HEENT: No scleral icterus. NECK: No cervical lymphadenopathy. He does have a left-sided facial droop. ABDOMEN: Soft, nontender, nondistended. NEUROLOGIC: He has left-sided weakness as well as what appears to be a left facial paralysis. LABORATORY DATA: WBC 3.3, hemoglobin 11.2, hematocrit 33, platelets 306, BUN 32, creatinine 1.61. ASSESSMENT AND PLAN: A 73-year-old male with recent stroke and placed on anticoagulation with IV heparin while at [facility]; however, was also placed on Lovenox. He was also placed back on aspirin and Plavix. He was found to have a Hemoccult positive stool yesterday. He has not had a colonoscopy up to this point in life and also does have a history of gastroesophageal reflux disease and we will proceed with an EGD and colonoscopy on this admission. Job ID: [id number] DocumentID: [id number] Dictated Date: 02/15/2019 18:05:47 Loop Machine Operator Date: 02/15/2019 18:26:49 Dictated By: KARY LOOMIS MD
[2019-02-15] MEDS: TAMSULOSIN 0.4 MG (FLOMAX) CAP PO SCH (18:44)
[2019-02-15] MEDS: ATORVASTATIN 80 MG (LIPITOR) TABLET PO SCH (19:59)
--- NOTE | 2019-02-15 21:24 | Individualized Plan of Care ---
Individualized Plan of Care Rehab Nursing IPOC Order Admission Date Feb 13, 2019 at 13:31 Current Orders Orders Admission Order(Inpt,Obs,Sdc) (02/12/19 16:49) Vital Signs: Per Unit Policy ( 08,16,00 (02/12/19 16:49) Paper Machine Back Tender-Inpt Rehab Con (02/12/19 16:49) Rehab Nursing Orders-Ipoc (02/12/19 16:49) Physical Therapy Rehab Orders (02/12/19 16:49) Occupational Therapy Rehab Ord (02/12/19 16:49) Speech Therapy Rehab Orders (02/12/19 16:49) Intake & Output 06,14,22 (02/12/19 16:49) Precautions (Aru) (02/12/19 16:49) Weekly Weight (Lbs) WEEK (02/12/19 16:49) Rehab-Intensity Of Therapy (02/12/19 16:49) Initiate Admission Nursing Pro .admission (02/12/19 16:49) Acetaminophen Tablet (Tylenol Tablet) (02/12/19 17:00) Calcium Carbonate Chew Tablet (Antacid C (02/12/19 17:00) Alprazolam Tablet (Xanax Tablet) (02/12/19 17:00) Diphenhydramine Tablet (Benadryl Tablet) (02/12/19 17:00) Docusate Sodium Capsule (Colace Capsule) (02/12/19 17:00) Hydrocodone/Apap 5/325 Tablet (Lortab 5 (02/12/19 17:00) Loperamide Tablet (Imodium Tablet) (02/12/19 17:00) Melatonin Tablet (Melatonin Tablet) (02/12/19 17:00) Polyethylene Glycol Powder Pkt (Miralax (02/12/19 17:00) Ondansetron Oral Dissolve Tab (Zofran (02/12/19 17:00) Senna S Tablet (Senokot S Tablet) (02/12/19 21:00) Admission Order(Inpt,Obs,Sdc) (02/13/19 13:20) Code/Resuscitation (02/13/19 13:47) Initiate Admission Nursing Pro .admission (02/13/19 13:47) Isolation Central Supply Req (02/13/19 13:47) Albuterol/Ipra Inhalation Soln (Duoneb I (02/13/19 21:00) Svn Small Volume Nebulizer (02/13/19 14:38) Rt Request For Service (02/13/19 14:38) General/Regular (02/13/19 Dinner) Clopidogrel Tablet (Plavix Tablet) (02/14/19 09:00) Aspirin Enteric Coated Tablet (Ecotrin T (02/14/19 09:00) Atorvastatin Tablet (Lipitor Tablet) (02/13/19 21:00) Tamsulosin Capsule (Flomax Capsule) (02/13/19 18:00) Carvedilol Tablet (Coreg Tablet) (02/13/19 21:00) Lisinopril Tablet (Zestril Tablet) (02/14/19 09:00) Nicotine Patch (Nicoderm Patch) (02/14/19 09:00) Amlodipine Tablet (Norvasc Tablet) (02/14/19 09:00) Hydralazine Tablet (Apresoline Tablet) (02/13/19 17:15) Code/Resuscitation (02/13/19 18:33) Cbc With Automated Diff (02/14/19 06:00) Comprehensive Metabolic Panel (02/14/19 06:00) Paper Machine Back Tender Consult (02/13/19 19:37) Request Ot Evaluate & Treat (02/13/19 21:11) Patient Visit (02/14/19 ) Pt Eval Moderate Complexity (02/14/19 ) Occult Blood Stool (02/14/19 16:57) Consult General Surgery (02/14/19 17:28) Rt Request For Service (02/14/19 17:36) Incentive Spirometry Initial (02/14/19 17:36) Incentive Spirometry (Nursing) Q2H (02/14/19 17:36) Cbc With Automated Diff (02/15/19 08:04) Comprehensive Metabolic Panel (02/15/19 08:04) Nursing Communication (Order) (02/15/19 09:39) Consult Wound Care Physician (02/15/19 12:58) Patient Visit (02/15/19 ) Speech Sound Lang Comp (02/15/19 ) Patient Visit (02/15/19 ) Exercise Therap, Ea 15 Min (02/15/19 ) Patient Visit (02/15/19 ) Therapeutic, Group (02/15/19 ) Functional Activities, Ea 15 (02/15/19 ) Functional Activities, Ea 15 (02/15/19 ) Dressing Order (Intervention) DAILY (02/15/19 17:25) Clear Liquid (02/16/19 Lunch) Magnesium Citrate Oral Soln (Citrate Of (02/16/19 11:00) Magnesium Citrate Oral Soln (Citrate Of (02/15/19 17:52) Nursing Communication (Order) (02/15/19 17:54) Rehab Nursing Orders: Ongoing Assess. of Cognitive Status, Ongoing Assess. of Function Status, Bladder Management, Bladder Scan, Bladder Training, Bowel Management, Bowel Training, Disease Management & Educaiton, DVT Prophylaxis, Fall Prevention, Fluid/Electrolyte/Nutrition Mgmt, Infection Prevention, Medication Management & Education, Management of Risks & Complications, Management of Skin Intergrity, Nutrition Management, Pain Management, Patient/Family Support, Safety Management, Swallow Precautions, Wound Management Intensity of Therapy to be met Patient to be seen: Min.3h per day/5 of 7d PT IPOC Problem List: Activity Tolerance, Functional Strength, Safety, Balance, Gait, Transfer, Bed Mobility, ROM Treatment Plan: Continue Plan of Care Bed Mobility, Education, Functional Activity [place], Functional Strength, Group Therapy, Gait, Safety, Therapeutic Exercise, Transfers Treatment Duration: Mar 07, 2019 Frequency: At least 5 of 7 days/Wk (IRF) Estimated Hrs Per Day: 1.5 hours per day OT IPOC Problems: Decreased Activ Tolerance, Decreased Safety Aware, Decreased UE Strength, Dependent Transfers, Impaired Bed Mobility, Impaired Cognition, Impaired Coordination, Impaired Funct Balance, Impaired I ADL's, Impaired Self- Care Skills, Restricted Funct UE ROM, Visual-Perceptual Deficit OT Treatment, Training and Edu: Yes OT Problems pt presents with functional limitations affecting areas of ADLs and functional transfers with the above mention deficits including decrease proprioception. pt would benefit from skilled OT Services to address above mention deficits and increase independence with ADLS and functional transfers. Plan of Care: ADL Retraining, Caregiver Training, Concurrent Therapy, Functional Mobility, Group Exercise/Act as Ind, UE Funct Exercise/Act, UE Neuromus Re-Ed/Coord, Visual/Perceptual Retrain, W/C Management Training Treatment Duration: Mar 15, 2019 Frequency: At least 5 of 7 days/Wk (IRF) Estimated Hrs Per Day: 1 hour per day (60-90 minutes per day ) ST IPOC Speech Therapy Treatment Plan: Continue Plan of Care Treatment Duration: Feb 26, 2019 Frequency: 5 times per week Estimated Hrs Per Day: .5 hour per day Paper Machine Back Tender/Case Mgmt Paper Machine Back Tender/Case Managemen: Discharge Planning Dietitian/Vamper Dietitian/Vamper to monitor nutritional status and make changes and/or recommendations as needed and work with speech pathology on dietary upgrades as the occur. Physician IPOC Medical Issues being managed closely and that require the 24 hour availability of a physician: Active BRBPR will require close monitoring with DR Narayan consultation while monitoring patient for recurrent CVA and maintaining stability Medical Issues: Bowel/Bladder Function, DVT Prophylaxis, Falls Precautions, Fluid/Electrolyte/Nutrition Balance, Infection Protection, Pain Management, Swallowing Precautions, Wound Care Brief Synthesis of Preadmission Screen, Post-Admission Evaluation, and Therapy Evaluations: PT will focus on improved ambulation with left sided weakness with the use of assistive devices OT will focus on improved ADL independence ST will focus on swallowing and speech and cognition Medical Prognosis: Good Anticipated Length of Stay: 14 days HEBERT BAKER DO Feb 15, 2019 21:24
[2019-02-16 05:11] VITALS: BP 120/68
[2019-02-16 06:00] LABS: BASOPHILS % (AUTO) 1 % (0-10); EOSINOPHILS # (AUTO) 0.1 10^3/uL (0.0-0.3); EOSINOPHILS % (AUTO) 2 % (0-10); HEMATOCRIT 31 % (40-54); LYMPHOCYTES # (AUTO) 1.7 X 10^3 (1.0-4.0); LYMPHOCYTES % (AUTO) 41 % (12-44); MEAN CORPUSCULAR HEMOGLOBIN 30 PG (25-34); MEAN CORPUSCULAR HGB CONC 32 G/DL (32-36); MEAN CORPUSCULAR VOLUME 92 FL (80-99); MEAN PLATELET VOLUME 9.5 FL (7.4-10.4); MONOCYTES # (AUTO) 0.6 X 10^3 (0.0-1.0); MONOCYTES % (AUTO) 15 % (0-12); NEUTROPHILS # (AUTO) 1.7 X 10^3 (1.8-7.8); NEUTROPHILS % (AUTO) 42 % (42-75); PLATELET COUNT 287 10^3/uL (130-400); RED CELL DISTRIBUTION WIDTH 14.7 % (10.0-14.5); WHITE BLOOD COUNT 4.1 10^3/uL (4.3-11.0)
[2019-02-16 06:20] LABS: ALBUMIN 3.3 GM/DL (3.2-4.5); BILIRUBIN,TOTAL 0.4 MG/DL (0.1-1.0); CALCIUM 9.1 MG/DL (8.5-10.1); CREATININE SERUM 1.37 MG/DL (0.60-1.30); POTASSIUM 4.6 MMOL/L (3.6-5.0); TOTAL PROTEIN 5.6 GM/DL (6.4-8.2)
--- NOTE | 2019-02-16 08:48 | PM&R Progress Note ---
Subjective HPI/CC On Admission Date Seen by Provider: Feb 16, 2019 Time Seen by Provider: 08:45 Chief complaint: Debility following CVA with left-sided weakness History of present illness: This is a 73-year-old white male clinic patient of critical access [facility] who accepted upon transfer from [facility] hospitalist service after I transferred him there on 02/05/2019 after he was admitted for suspicion of TIA and CVA and although CT scan showed no evidence of any stroke carotid artery ultrasound at [facility] at that time with stroke protocol revealed critical carotid artery stenosis requiring transfer to vascular care assessment. He had a history of right stent placement in the carotid artery in the past and a right-sided carotid endarterectomy in 1999 and continued to smoke since that time. He was transferred to [facility] maintained on Plavix aspirin and statin therapy along with antihypertensive meds and was seen by neurology and vascular surgery. Renal insufficiency returned back to baseline at 1.4 so IV f luids were discontinued. Patient was managed aggressively and underwent a left carotid stent placement due to critical stenosis on 02/08/[address] Sherman and continue to have the left upper extremity weakness. He was improving at that time. 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 Patient was not deemed a TPA candidate at that time once again. He was found to have a brain aneurysm 3 mm in the A1 segment of the brain but no intervention was planned. CT confirmed the acute infarct involving the watershed distribution between MCA and WAREHOUSE TECHNICIAN territory on the right as well as a small lacunar infarct along the centrum semi-ovale on the right and within the right parietal lobe. He was transported to [facility] inpatient rehab by his daughter 1 of 6 children who lives in [place]. He currently is leaning over to the left because of inability to sit straight in the wheelchair. This indicates a profound loss of function and will require at least 14 days of inpatient rehab for recovery in order to return to some sort of status to be able to return home to live independently and assist with regaining independence with ADLs. He is wheezing currently so I did order duo nebs 3 times daily scheduled. Smoking cessation was counseled on nicotine patch order was placed. Considering the numerous strokes he has had even while being on Plavix and aspirin it is concerning and his prognosis is guarded for additional strokes and even more extensive debility. His barriers to returning home include: Unable to ambulate at this current time wheelchair-bound and home not wheelchair accessible Lives alone but family is involved in his care so likely will need major supervision will need to arrange that prior to discharge Clinical stability following stroke even though on Plavix and aspirin and statin therapy so will need to assure he has been adequately risk stratified in order to decrease the chance of additional strokes prior to discharge home Subjective/Events-last exam Hgb 10. Creatinine 1.37. Will have EGD and colonoscopy tomorrow. Nebulizer treatments are really helping his lungs. Denies any nausea or vomiting. Eating and drinking well. Working with therapy. Overall improving and gaining confidence. Lungs are becoming more clear with neb treatments Left arm will be managed by Dr. Stacy Narayan consultation Conferred with RN Reviewed therapy notes Review of Systems General: Fatigue Neurological: Weakness, Numbness, Incoordination Objective Exam Vital Signs Vital Signs Date Time Temp Pulse Resp B/P (MAP) Pulse Ox O2 Delivery O2 Flow Rate FiO2 02/16/19 21:13 95 Room Air 02/16/19 17:15 98.2 72 20 115/69 (84) Capillary Refill : General Appearance: No Apparent Distress, WD/WN, Chronically ill, Thin, Other (fatigued, disheveled) HEENT: PERRL/EOMI, TMs Normal, Normal ENT Inspection, Pharynx Normal, Moist Mucous Membranes Neck: Full Range of Motion, Normal Inspection, Non Tender, Supple Respiratory: Chest Non Tender, Lungs Clear, Normal Breath Sounds, No Accessory Muscle Use, No Respiratory Distress, Wheezing Cardiovascular: Regular Rate, Rhythm, No Edema, No Gallop, No JVD, No Murmur Gastrointestinal: Normal Bowel Sounds, No Organomegaly, No Pulsatile Mass, Non Tender, Soft Back: Normal Inspection, No CVA Tenderness, No Vertebral Tenderness Extremity: Normal Capillary Refill, Normal Inspection, Normal Range of Motion, Non Tender, No Calf Tenderness, No Pedal Edema Neurologic/Psychiatric: Alert, Oriented x3, Normal Mood/Affect, Abnormal Cerebellar Tests, 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 FIM Transfers Therapy Code Descriptions/Definitions Functional [place] Measure: 0=Not Assessed/NA 4=Minimal Assistance 1=Total Assistance 5=Supervision or Setup 2=Maximal Assistance 6=Modified [place] 3=Moderate Assistance 7=Complete [place] Therapy Quality Codes: 6 Independent with activity with or without an assistive device 5 Patient requires set up or clean up by helper. Patient completes activity by themselves 4 Supervision or touching assist (CGA). [place] provide cues , steadying assist 3 The helper provides less than half the effort to complete the activity 2 The helper provides more than half the effort to complete the activity 1 Dependent. The helper does all the effort to complete an activity 7 Patient refused to complete or attempt activity 9 The patient did not perform the activity before the current illness or injury 88 Not attempted due to Medical conditions or safety concerns Transfers (B, C, W/C) (FIM): 2 Scootin Rollin Roll Left to Right (QC): 3 Supine to/from Sit: 4 Sit to/from Stand: 3 Sit to Lying (QC): 2 Sit to Stand (QC): 2 Chair/[id number]-[id number] Xfer(QC): 2 Bed to/from Chair: 2 Car Transfer (QC): 2 Gait Training Does the Patient Walk?: Yes Gait (FIM): 1 Distance (FIM): 1=up to 49 ft (4 side steps left and right) Walk 10 feet (QC): 3 Gait Level of Assist: 3 Gait Persons Needed: 1 Gait Assistive Device: Handheld Assist (dance fashion) Wheelchair Training Does the Pt Use a Wheelchair?: Yes Wheelchair (FIM): 1 Mental Status/Objective Comprehension: 5 Expression: 4 Social Interaction: 3 Problem Solvin Memory: 3 ADL-Treatment Feedin (required set upof all items. noted left sided neglect, requiring cuing cueing for left side of tray. ) Eating (QC): 3 Groomin (hand wash, wash face, comb hair, wash hair. noted left side neglect. required MAX cuing to attned to left side of body. ) Oral Hygiene (QC): 2 Bathin (pt depend. for bathing secodnary to strong left sided neglext duing bathing required hand over hand and strong VC to wash left side of body. i.e pt only wash right side of chest. ) Shower/Bathe Self (QC): 1 Upper Extremity Dressin (mandrel puller shirt ) Upper Body Dressing (QC): 1 Lower Extremity Dressin (sejal socks, underpants, pants. required X2 person assist to stnad and maintain balance while pulling up pants. noted pt attempt to pull pants up on righ tside only) Lower Body Dressing (QC): 1 On/Off Footwear (QC): 1 Toiletin (requried assist with 3/3 ) Toileting Hygiene (QC): 1 Toilet/Commode Transfer: 2 (shirley walker ) Shower: 0 (NT secondary to safety) Assessment/Plan Assessment and Plan Assess & Plan/Chief Complaint Assessment: CVA w/left sided weakness 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 COPD Smoker Dark stools Leukopenia HTN HLP GIB Plan: Monitor dark stools and appreciate Dr Narayan EGD/Colon tomorrow ASA and Plavix and statin IRF protocols (1) CVA (cerebral vascular accident) Status: Acute Qualifiers: CVA mechanism: unspecified Qualified Codes: I63.9 - Cerebral infarction, unspecified (2) 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 Status: Acute (3) Back pain Status: Chronic Qualifiers: Back pain location: back pain in unspecified location Chronicity: unspecified Back pain laterality: unspecified Qualified Codes: M54.9 - Dorsalgia, unspecified (4) Dark stools Status: Acute (5) Impulsive Status: Acute (6) Leukopenia Status: Acute Qualifiers: Leukopenia type: unspecified Qualified Codes: D72.819 - Decreased white blood cell count, unspecified (7) Anemia Status: Chronic Qualifiers: Anemia type: unspecified type Qualified Codes: D64.9 - Anemia, unspecified (8) Hypertension Status: Chronic Qualifiers: Hypertension type: essential hypertension Qualified Codes: I10 - Essential (primary) hypertension (9) COPD (chronic obstructive pulmonary disease) Status: Chronic Qualifiers: COPD type: unspecified COPD Qualified Codes: J44.9 - Chronic obstructive pulmonary disease, unspecified (10) Hyperlipidemia Status: Chronic Qualifiers: Hyperlipidemia type: mixed hyperlipidemia Qualified Codes: E78.2 - Mixed hyperlipidemia (11) Renal insufficiency Status: Chronic (12) Wheezing Status: Acute (13) Carotid stenosis Status: Chronic Qualifiers: Laterality: bilateral Qualified Codes: I65.23 - Occlusion and stenosis of bilateral carotid arteries (14) Left-sided weakness Status: Acute (15) BPH (benign prostatic hyperplasia) Status: Chronic Qualifiers: Lower urinary tract symptom presence: unspecified whether lower urinary tract symptoms present Qualified Codes: N40.0 - Benign prostatic hyperplasia without lower urinary tract symptoms (16) Risk for falls Status: Acute (17) Smoker Status: Chronic HEBERT BAKER DO Feb 16, 2019 08:48
[2019-02-16] MEDS: SENNA W/DOCUSATE (SENOKOT S) TABLET PO SCH ×2 (08:56→21:03)
[2019-02-16] MEDS: CLOPIDOGREL 75 MG (PLAVIX) TABLET PO SCH (08:56)
[2019-02-16] MEDS: ASPIRIN E.C. 81 MG (ECOTRIN) TAB PO SCH (08:56)
[2019-02-16] MEDS: CARVEDILOL 12.5 MG (COREG) TABLET PO SCH ×2 (08:56→21:03)
[2019-02-16] MEDS: amLODIPine 5 MG (NORVASC) TAB PO SCH (08:56)
[2019-02-16] MEDS: lisINopril 10 MG (PRINIVIL) TABLET PO SCH (08:56)
[2019-02-16] MEDS: NICOTINE 21 MG (NICODERM) PATCH TD SCH (08:57)
[2019-02-16 08:58] VITALS: BP 115/70
[2019-02-16] MEDS: RT-ALBUTEROL/IPRATROPIUM 3 ML (DUONEB) VIAL INH SCH ×2 (09:20→21:14)
--- NOTE | 2019-02-16 10:39 | Occupational Ther Daily Note ---
OT Current Status-Daily Note Subjective pt sitting in recliner chair eating breakfast upon OT arrival. pt agreed to OT TX session with focus on neuro reeducation with coordination techniques. Mental Status/Objective Patient Orientation: Normal For Age Therapy Code Descriptions/Definitions Functional [place] Measure: 0=Not Assessed/NA 4=Minimal Assistance 1=Total Assistance 5=Supervision or Setup 2=Maximal Assistance 6=Modified [place] 3=Moderate Assistance 7=Complete [place] ADL-Treatment Therapy Code Descriptions/Definitions Functional [place] Measure: 0=Not Assessed/NA 4=Minimal Assistance 1=Total Assistance 5=Supervision or Setup 2=Maximal Assistance 6=Modified [place] 3=Moderate Assistance 7=Complete [place] Therapy Quality Codes: 6 Independent with activity with or without an assistive device 5 Patient requires set up or clean up by helper. Patient completes activity by themselves 4 Supervision or touching assist (CGA). [place] provide cues , steadying assist 3 The helper provides less than half the effort to complete the activity 2 The helper provides more than half the effort to complete the activity 1 Dependent. The helper does all the effort to complete an activity 7 Patient refused to complete or attempt activity 9 The patient did not perform the activity before the current illness or injury 88 Not attempted due to Medical conditions or safety concerns Toileting (FIM): 1 (required assist with 3/3 toileting tasks ) Toileting Hygiene (QC): 1 Transfers (B, C, W/C) (FIM): 3 (use of shirley walker ) Toilet/Commode Transfer (FIM): 3 Other Treatment pt demo ability to ambulated 5 ft to w/c using shirley walker. pt required assist with use of shirley walker and cuing for direction/ coordination. pt transported to TX gym and transfer onto mat table with MOD . pt demo ability to sit EOM for approx 30 minutes maintaining static seated balance. noted slight left lateral lean requiring cuing for correction. pt given 9 mcnamara bags to reach over with right UE on left side and toss at target on left side to decrease left sided neglect. post leaning toward left side pt required cuing for righting posture. pt then given a cone to tap eith L UE Then touch nose to increase coordination. noted poor release with left hand. pt perform task with min difficulty 5X3. pt then participated in cone stacking. noted good grasp with left hand but poor release. pt required on average 8 seconds to release objects. noted pt has selective attention and required MAX cuing for attention to task. post OT session pt sitting in recliner chair,chair alarm, on, call light within reach. pt demo appropriate use of call light. all needs met. Education OT Patient Education: Modified ADL techniques, Progress toward Goal/Update tx plan, Purpose of tx/functional activities, Reviewed precautions, Safety issues, Transfer techniques Teaching Recipient: Patient Teaching Methods: Demonstration, Discussion Response to Teaching: Verbalize Understanding, Return Demonstration OT Short Term Goals Short Term Goals Eating(FIM): 5 Grooming(FIM): 5 Bathing(FIM): 4 Upper Body Dressing(FIM): 4 Lower Body Dressing(FIM): 4 Toileting(FIM): 3 Transfers (B,C,W/C) (FIM): 4 Toilet/Commode Transfer(FIM): 3 Shower Transfer(FIM): 4 1=Demonstrate adherence to instructed precautions during ADL tasks. 2=Patient will verbalize/demonstrate understanding of assistive devices/modifications for ADL. 3=Patient will improve strength/tolerance for activity to enable patient to perform ADL's. OT Alum Operator Goals Detention Goals Eating (FIM): 6 Eating (QC): 6 Groomin Oral Hygiene (QC): 6 Bathing(FIM): 6 Shower/Bathe Self (QC): 6 Upper Body Dressing(FIM): 6 Upper Body Dressing (QC): 6 Lower Body Dressing(FIM): 5 Lower Body Dressing (QC): 4 On/Off Footwear (QC): 5 Toileting(FIM): 5 Toileting Hygiene (QC): 4 Transfers (B,C,W/C) (FIM): 6 Toilet/Commode Transfer(FIM): 6 Toilet/Commode Transfer (QC): 6 Shower Transfer(FIM): 6 Additional Goals: 1-Demonstrate ADL Tasks, 2-Verbalize Understanding, 3- ImproveStrength/[place] 1=Demonstrate adherence to instructed precautions during ADL tasks. 2=Patient will verbalize/demonstrate understanding of assistive devices/modifications for ADL. 3=Patient will improve strength/tolerance for activity to enable patient to perform ADL's. OT Education/Plan Problem List/Assessment Assessment: Decreased Activ Tolerance, Decreased Safety Aware, Decreased UE Strength, Impaired Bed Mobility, Impaired Cognition, Impaired Coordination, Impaired Funct Balance, Impaired I ADL's, Impaired Self-Care Skills, Restricted Funct UE ROM pt presents with functional limitations affecting areas of ADLs and functional transfers with the above mention deficits including decrease proprioception. pt would benefit from skilled OT Services to address above mention deficits and increase independence with ADLS and functional transfers. Discharge Recommendations Plan/Recommendations: Continue POC Treatment Plan/Plan of Care Treatment,Training & Education: Yes Patient would benefit from OT for education, treatment and training to promote independence in ADL's, mobility, safety and/or upper extremity function for ADL's. Plan of Care: ADL Retraining, Caregiver Training, Concurrent Therapy, Functio nal Mobility, Group Exercise/Act as Ind, UE Funct Exercise/Act, UE Neuromus Re- Ed/Coord, Visual/Perceptual Retrain, W/C Management Training Treatment Duration: Mar 15, 2019 Frequency: At least 5 of 7 days/Wk (IRF) Estimated Hrs Per Day: 1 hour per day (60-90 minutes per day ) Agreement: Yes Rehab Potential: Fair Time/GCodes Start Time: 08:00 Stop Time: 09:15 Billed Treatment Time ADL 15 minutes, 1 unit NM 60 minutes, 4 units JENNIFER GUEVARA OT Feb 16, 2019 10:39
[2019-02-16] MEDS ORDERED: MAGNESIUM CITRATE 300 ML BTL PO NR (11:00)
--- NOTE | 2019-02-16 11:11 | Progress Note ---
Subjective Date Seen by a Provider: Feb 16, 2019 Time Seen by a Provider: 11:00 Subjective/Events-last exam doing well. no complaints. no clinical signs of GI bleed. Hb stable Objective Exam Vital Signs Date Time Temp Pulse Resp B/P (MAP) Pulse Ox O2 Delivery O2 Flow Rate FiO2 02/16/19 09:42 Room Air 02/16/19 09:21 95 Room Air 02/16/19 08:58 85 115/70 (85) 02/16/19 05:11 96.9 66 20 120/68 (85) 96 Room Air 02/15/19 20:30 Room Air 02/15/19 15:48 97.8 80 20 115/68 (84) 95 Room Air 02/15/19 15:19 92 Room Air 02/15/19 12:24 98.0 72 20 125/68 (87) 96 Room Air I & O 02/16/19 07:00 Intake Total 1350 ml Balance 1350 ml Capillary Refill : General Appearance: No Apparent Distress HEENT: PERRL/EOMI Neck: Full Range of Motion Respiratory: Chest Non Tender, Normal Breath Sounds Cardiovascular: Regular Rate, Rhythm Gastrointestinal: normal bowel sounds, non tender, soft Extremity: Normal Capillary Refill Neurologic/Psychiatric: Alert, Oriented x3 Skin: Normal Color Lymphatic: No Adenopathy Results Lab Laboratory Tests 02/16/19 05:45: White Blood Count 4.1L, Red Blood Count 3.35L, Hemoglobin 10.0L, Hematocrit 31L, Mean Corpuscular Volume 92, Mean Corpuscular Hemoglobin 30, Mean Corpuscular Hemoglobin Concent 32, Red Cell Distribution Width 14.7H, Platelet Count 287, Mean Platelet Volume 9.5, Neutrophils (%) (Auto) 42, Lymphocytes (%) (Auto) 41, Monocytes (%) (Auto) 15H, Eosinophils (%) (Auto) 2, Basophils (%) (Auto) 1, Neutrophils # (Auto) 1.7L, Lymphocytes # (Auto) 1.7, Monocytes # (Auto) 0.6, Eosinophils # (Auto) 0.1, Basophils # (Auto) 0.0, Sodium Level 142, Potassium Level 4.6, Chloride Level 106, Carbon Dioxide Level 25, Anion Gap 11, Blood Urea Nitrogen 32H, Creatinine 1.37H, Estimat Glomerular Filtration Rate 51, BUN/Creatinine Ratio 23, Glucose Level 86, Calcium Level 9.1, Corrected Calcium 9.7, Total Bilirubin 0.4, Aspartate Amino Transf (AST/SGOT) 20, Alanine Aminotransferase (ALT/SGPT) 20, Alkaline Phosphatase 67, Total Protein 5.6L, Albumin 3.3 Assessment/Plan Assessment/Plan Assess & Plan/Chief Complaint recent ischemic stroke with heme + stools and on anticoag. will proceed with EGD and colonoscopy. KARY LOOMIS MD Feb 16, 2019 11:11
--- NOTE | 2019-02-16 11:14 | Progress Note - Hospitalist ---
[facility] 02/16/19 1114: Progress Note Jerry seen on 02/16/19 @ 8:15 Subjective: Jarret was in rehab when I visited him. he was alert and oriented. Patient is still slow on response and hard of hearing. He also has a stutter when responding He was not in pain Patient is eating and drinking (currently on a clear liquid diet) Patient is having bowel movements and urinating Patient is ambulating but needs a lot of assistance PT/OT notes reviewed Vitals: Stable ROS: Patient denies SOB, abdominal pain, chest pain, N/V, fever and chills. 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 COPD Smoker Dark stools Leukopenia HTN HLP Plan: Monitor dark stools ASA and Plavix and statin IRF protocols EGD and Colonoscopy Continue to monitor patient vitals and labs Patient may not receive full PT due to bleeding and up coming procedure HEBERT BAKER DO 02/16/197: Supervisory-Addendum Brief Verification & Attestation Time: Verification & Attestat.: 09:00 Participated in pt care: history, MDM, physical Personally performed: exam, history, MDM, supervision of care Care discussed with: Medical Student Procedures: n/a Results interpretation: Verified all documentation Verification and Attestation of Medical Student E/M Service A medical student performed and documented this service in my presence. I reviewed and verified all information documented by the medical student and made modifications to such information, when appropriate. I personally performed the physical exam and medical decision making. Hebert Baker Feb 16, 2019,21:27 [facility]CKY ERA[facility] Feb 16, 2019 11:14 HEBERT BAKER DO Feb 16, 2019 21:27
--- NOTE | 2019-02-16 11:18 | Physical Therapy Daily Note ---
PT Daily Note-Current Subjective Patient in recliner pre tx, agrees to PT, has no complaints of pain. During treatment patient states he needs to have a BM, needs max assist for pants, goes in commode. Appearance Patient in bed post tx with nurse call, phone, tray, bed alarm on and bedrails up. Mental Status Patient Orientation: Person Transfers Therapy Code Descriptions/Definitions Functional Nelson Measure: 0=Not Assessed/NA 4=Minimal Assistance 1=Total Assistance 5=Supervision or Setup 2=Maximal Assistance 6=Modified Nelson 3=Moderate Assistance 7=Complete Nelson Therapy Quality Codes: 6 Independent with activity with or without an assistive device 5 Patient requires set up or clean up by helper. Patient completes activity by themselves 4 Supervision or touching assist (CGA). [place] provide cues , steadying assist 3 The helper provides less than half the effort to complete the activity 2 The helper provides more than half the effort to complete the activity 1 Dependent. The helper does all the effort to complete an activity 7 Patient refused to complete or attempt activity 9 The patient did not perform the activity before the current illness or injury 88 Not attempted due to Medical conditions or safety concerns Transfers (B, C, W/C) (FIM): 3 Scootin Rollin Supine to/from Sit: 4 Sit to/from Stand: 4 Bed to/from Chair: 3 Patient needs assist with left leg getting into and out of bed, min assist for sit to stand and mod for transfers due to balance. Patient leans to the left side and has left neglect. Gait Training Does the Patient Walk?: Yes Gait (FIM): 2 Distance: 50'x3 Gait Level of Assist: 2 Gait Persons Needed: 2 Gait Assistive Device: Handheld Assist Handhold assist on the right side, another therapist on the left to assist with balance and left leg. Patient pushes toward weak side with right arm when using an assistive device and has poor steps and foot clearance on the left side. With SOLUTIONS DEVELOPER he does not push to the left side but does lean some to the left side, stands straighter and has better steps with the left leg. He still needs cues for step length and clearance and needs assist with balance. Wheelchair Training Does the Pt Use a Wheelchair?: Yes Wheelchair (FIM): 1 Distance: 50' Type of Wheelchair: Manual Attempted wheelchair training, patient is not able to coordinate using right arm and leg combined with his neglect to propel a wheelchair. Exercises Seated Therapy Exercises: Long arc quads (LLE) Seated Reps: 20 Standing: Hip Abduction (LLE), Marching (LLE) Standing Reps: 10 sit to stand at parallel bars 2 sets of 10 Treatments bed mobility and transfers, ambulation, WC training, LE exercise, toileting Assessment Current Status: Fair Progress improved ambulation with SOLUTIONS DEVELOPER PT Short Term Goals Short Term Goals Time Frame: Feb 21, 2019 Transfers (B,C,W/C) (FIM): 4 Gait (FIM): 2 Gait Distance Comment: 50' Gait Level of Assist: 4 Gait Assistive Device: Walker Weston PT Correction Goals Senior Integration Architect Goals PT Senior Integration Architect Goals Time Frame: Mar 07, 2019 Transfers (B,C,W/C) (FIM): 5 Sit to Lying (QC): 4 Lying-Sitting on Side/Bed(QC): 4 Sit to Stand (QC): 4 Rollin Roll Left to Right (QC): 4 Chair/Dwp-po-Omasu Xfer(QC): 4 Car Transfer (QC): 4 Gait (FIM): 2 Distance: 100' Walk 10 feet (QC): 4 Walk 10ft-Uneven Surface(QC): 4 Walk 50ft with 2 Turns (QC): 4 Gait Level of Assist: 4 Gait Assistive Device: Walker Weston Stairs (FIM): 2 # of Steps: 4 1 Step (curb) (QC): 3 4 Steps (QC): 3 Stairs Level Of Assist: 4 PT Plan Problem List Problem List: Activity Tolerance, Functional Strength, Safety, Balance, Gait, Transfer, Bed Mobility, ROM Treatment/Plan Treatment Plan: Continue Plan of Care Treatment Plan: Bed Mobility, Education, Functional Activity Merritt, Functional Strength, Group Therapy, Gait, Safety, Therapeutic Exercise, Transfers Treatment Duration: Mar 07, 2019 Frequency: At least 5 of 7 days/Wk (IRF) Estimated Hrs Per Day: 1.5 hours per day Patient and/or Family Agrees t: Yes Safety Risks/Education Patient Education: Gait Training, Transfer Techniques, Correct Positioning, W/C Management, Safety Issues Teaching Recipient: Patient Teaching Methods: Demonstration, Discussion Response to Teaching: Reinforcement Needed Time/GCodes Time In: 1030 Time Out: 1120 Total Billed Treatment Time: 50 Total Billed Treatment 1 visit GT 20' FA 30' VERENA FREEMAN PT Feb 16, 2019 11:18
--- NOTE | 2019-02-16 11:43 | NUR ---
Call to Dr. Vera's office to notify of consult. Office is closed. Message left.
--- NOTE | 2019-02-16 13:27 | Physical Therapy Daily Note ---
PT Daily Note-Current Subjective Patient in bed pre tx, agrees to PT, has no complaints of pain. Appearance Patient in bed post tx with nurse call, phone, tray, bed alarm on. Mental Status Patient Orientation: Person, Situation Transfers Therapy Code Descriptions/Definitions Functional Nicholas Measure: 0=Not Assessed/NA 4=Minimal Assistance 1=Total Assistance 5=Supervision or Setup 2=Maximal Assistance 6=Modified Nicholas 3=Moderate Assistance 7=Complete Nicholas Therapy Quality Codes: 6 Independent with activity with or without an assistive device 5 Patient requires set up or clean up by helper. Patient completes activity by themselves 4 Supervision or touching assist (CGA). [place] provide cues , steadying assist 3 The helper provides less than half the effort to complete the activity 2 The helper provides more than half the effort to complete the activity 1 Dependent. The helper does all the effort to complete an activity 7 Patient refused to complete or attempt activity 9 The patient did not perform the activity before the current illness or injury 88 Not attempted due to Medical conditions or safety concerns Transfers (B, C, W/C) (FIM): 3 Scootin Rollin Supine to/from Sit: 4 Sit to/from Stand: 4 Bed to/from Chair: 3 Patient performs a stand pivot transfer to the right side with min assist and to the left side with mod assist. Exercises NuStep Minutes: 15 NuStep Workload: 4 Treatments LE exercise, bed mobility and transfers, patient was transported to therapy gym in wheelchair Assessment Current Status: Fair Progress left neglect, fall risk PT Short Term Goals Short Term Goals Time Frame: Feb 21, 2019 Transfers (B,C,W/C) (FIM): 4 Gait (FIM): 2 Gait Distance Comment: 50' Gait Level of Assist: 4 Gait Assistive Device: Walker Weston Wheelchair Distance: 50' PT Halfway Goals Halfway Goals PT Halfway Goals Time Frame: Mar 07, 2019 Transfers (B,C,W/C) (FIM): 5 Sit to Lying (QC): 4 Lying-Sitting on Side/Bed(QC): 4 Sit to Stand (QC): 4 Rollin Roll Left to Right (QC): 4 Chair/Ekc-en-Acsng Xfer(QC): 4 Car Transfer (QC): 4 Gait (FIM): 2 Distance: 100' Walk 10 feet (QC): 4 Walk 10ft-Uneven Surface(QC): 4 Walk 50ft with 2 Turns (QC): 4 Gait Level of Assist: 4 Gait Assistive Device: Walker Weston Stairs (FIM): 2 # of Steps: 4 1 Step (curb) (QC): 3 4 Steps (QC): 3 Stairs Level Of Assist: 4 PT Plan Problem List Problem List: Activity Tolerance, Functional Strength, Safety, Balance, Gait, Transfer, Bed Mobility, ROM Treatment/Plan Treatment Plan: Continue Plan of Care Treatment Plan: Bed Mobility, Education, Functional Activity Merritt, Functional Strength, Group Therapy, Gait, Safety, Therapeutic Exercise, Transfers Treatment Duration: Mar 07, 2019 Frequency: At least 5 of 7 days/Wk (IRF) Estimated Hrs Per Day: 1.5 hours per day Patient and/or Family Agrees t: Yes Safety Risks/Education Patient Education: Transfer Techniques, Correct Positioning, Safety Issues Teaching Recipient: Patient Teaching Methods: Demonstration, Discussion Response to Teaching: Reinforcement Needed Time/GCodes Time In: 1300 Time Out: 1325 Total Billed Treatment Time: 25 Total Billed Treatment 1 visit EX 15' FA 10' VERENA FREEMAN PT Feb 16, 2019 13:26
--- NOTE | 2019-02-16 14:56 | Speech Therapy Daily Note ---
Speech Daily Progress Note Subjective Date Seen by Provider: Feb 16, 2019 Time Seen by Provider: 00:30 The patient was resting in bed after finishing his PT this afternoon when I entered the room. Patient was much more alert and able to participate well. Objective Patient completed the SLUMS with a score of 24/30 which places him in the Mild Neurocognitive Disorder range. He will receive cognitive therapy with focus on safety awareness and independence. Assessment Assessment Current Status: Fair Progress Treatment Plan Continue Plan of Care Communication Comprehension: 5 Expression: 4 Social Cognition Social Interaction: 3 Problem Solvin Memory: 3 Speech Short Term Goals Short Term Goals Short Term Goals 1) Patient will demonstrate sustained attention, memory and sequencing for task performance with 80% accuracy. 2) Patient will demonstrate effective communication of wants/needs to staff and caregivers with 80% accuracy. Speech Residential Goals Country Printer Goals The patient will improve cognitive-communication skills in order to return to his former living situation safely. Speech-Plan Patient/Family Goals Patient/Family Goals: The patient plans on returning home with family post rehab. Treatment Plan Speech Therapy Treatment Plan: Continue Plan of Care The patient is demonstrating increased awareness and alert level today. Treatment Duration: Feb 26, 2019 Frequency: 5 times per week Estimated Hrs Per Day: .5 hour per day Rehab Potential: Fair Barriers to Learning: Patient has cognitive deficits which affect his safety and independence Pt/Family Agrees to Plan: Yes Safety Risks/Education Teaching Recipient: Patient Teaching Methods: Demonstration, Discussion Response to Teaching: Verbalize Understanding, Return Demonstration Education Topics Provided: Safety within his room and communication of wants/needs. Time Speech Therapy Time In: 14:00 Speech Therapy Time Out: 14:30 Total Billed Time: 30 Billed Treatment Time [address] Feb 16, 2019 14:56
--- NOTE | 2019-02-16 15:31 | NUR ---
Dr. Narayan here this AM with orders to give 1/2 bottle of Mag Citrate this AM... around 11, and 1/2 bottle around 1500.
[2019-02-16 17:15] VITALS: BP 115/69
[2019-02-16] MEDS: TAMSULOSIN 0.4 MG (FLOMAX) CAP PO SCH (17:31)
[2019-02-16] MEDS: ATORVASTATIN 80 MG (LIPITOR) TABLET PO SCH (21:03)
[2019-02-17 05:50] VITALS: BP 105/63
[2019-02-17 06:38] LABS: HEMOGLOBIN 10.3 G/DL (13.3-17.7); MEAN PLATELET VOLUME 9.4 FL (7.4-10.4); RED CELL DISTRIBUTION WIDTH 14.6 % (10.0-14.5); WHITE BLOOD COUNT 4.3 10^3/uL (4.3-11.0)
[2019-02-17 06:55] LABS: ALANINE AMINOTRANSFERASE 19 U/L (0-55); ALBUMIN 3.4 GM/DL (3.2-4.5); ALKALINE PHOSPHATASE 60 U/L (40-136); BILIRUBIN,TOTAL 0.4 MG/DL (0.1-1.0); BUN/CREATININE RATIO 24; CALCIUM 8.8 MG/DL (8.5-10.1); CARBON DIOXIDE 26 MMOL/L (21-32); CHLORIDE 104 MMOL/L (98-107); CREATININE SERUM 1.09 MG/DL (0.60-1.30); GFR ESTIMATED > 60; GLUCOSE 86 MG/DL (70-105); POTASSIUM 4.3 MMOL/L (3.6-5.0); SODIUM 139 MMOL/L (135-145); TOTAL PROTEIN 5.7 GM/DL (6.4-8.2)
[2019-02-17] MEDS: RT-ALBUTEROL/IPRATROPIUM 3 ML (DUONEB) VIAL INH SCH ×3 (07:11→19:12)
--- NOTE | 2019-02-17 07:17 | NUR ---
PATIENT WAS ASLEEP AND DOING GOOD ON RA; RT GAVE PATIENT HIS SVN BT VIA BLOWBY
--- NOTE | 2019-02-17 08:56 | PM&R Progress Note ---
Subjective HPI/CC On Admission Date Seen by Provider: Feb 17, 2019 Time Seen by Provider: 08:45 Chief complaint: Debility following CVA with left-sided weakness History of present illness: This is a 73-year-old white male clinic patient of [facility] who accepted upon transfer from [facility] hospitalist service after I transferred him there on 02/05/2019 after he was admitted for suspicion of TIA and CVA and although CT scan showed no evidence of any stroke carotid artery ultrasound at [facility] at that time with stroke protocol revealed critical carotid artery stenosis requiring transfer to vascular care assessment. He had a history of right stent placement in the carotid artery in the past and a right-sided carotid endarterectomy in 1999 and continued to smoke since that time. He was transferred to [facility] maintained on Plavix aspirin and statin therapy along with antihypertensive meds and was seen by neurology and vascular surgery. Renal insufficiency returned back to baseline at 1.4 so IV f luids were discontinued. Patient was managed aggressively and underwent a left carotid stent placement due to critical stenosis on 02/08/[address] Sherman and continue to have the left upper extremity weakness. He was improving at that time. 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 Patient was not deemed a TPA candidate at that time once again. He was found to have a brain aneurysm 3 mm in the A1 segment of the brain but no intervention was planned. CT confirmed the acute infarct involving the watershed distribution between MCA and BARTENDER SERVER territory on the right as well as a small lacunar infarct along the centrum semi-ovale on the right and within the right parietal lobe. He was transported to [facility] inpatient rehab by his daughter 1 of 6 children who lives in [place]. He currently is leaning over to the left because of inability to sit straight in the wheelchair. This indicates a profound loss of function and will require at least 14 days of inpatient rehab for recovery in order to return to some sort of status to be able to return home to live independently and assist with regaining independence with ADLs. He is wheezing currently so I did order duo nebs 3 times daily scheduled. Smoking cessation was counseled on nicotine patch order was placed. Considering the numerous strokes he has had even while being on Plavix and aspirin it is concerning and his prognosis is guarded for additional strokes and even more extensive debility. His barriers to returning home include: Unable to ambulate at this current time wheelchair-bound and home not wheelchair accessible Lives alone but family is involved in his care so likely will need major supervision will need to arrange that prior to discharge Clinical stability following stroke even though on Plavix and aspirin and statin therapy so will need to assure he has been adequately risk stratified in order to decrease the chance of additional strokes prior to discharge home Subjective/Events-last exam BP is okay. Left side neglect noted. Family concerned about the left shoulder so will obtain X-rays since there are none done at [facility]. Dr. Kumar will be consulted for wound care. Hgb stable at 10.3. EGD and colonoscopy by Dr. Narayan planned for today. Working with therapy. Overall improving and gaining confidence. Lungs are becoming more clear with neb treatments Left arm will be managed by Dr. Kumar Appreciate Dr. Narayan consultation Conferred with RN Reviewed therapy notes Review of Systems General: Fatigue Neurological: Weakness, Numbness, Incoordination Objective Exam Vital Signs Vital Signs Date Time Temp Pulse Resp B/P (MAP) Pulse Ox O2 Delivery O2 Flow Rate FiO2 02/17/19 20:04 Room Air 02/17/19 19:12 94 02/17/19 17:26 98.4 62 16 134/75 (94) Capillary Refill : General Appearance: No Apparent Distress, WD/WN, Chronically ill, Thin, Other (fatigued, disheveled) HEENT: PERRL/EOMI, TMs Normal, Normal ENT Inspection, Pharynx Normal, Moist Mucous Membranes Neck: Full Range of Motion, Normal Inspection, Non Tender, Supple Respiratory: Chest Non Tender, Lungs Clear, Normal Breath Sounds, No Accessory Muscle Use, No Respiratory Distress, Wheezing Cardiovascular: Regular Rate, Rhythm, No Edema, No Gallop, No JVD, No Murmur Gastrointestinal: Normal Bowel Sounds, No Organomegaly, No Pulsatile Mass, Non Tender, Soft Back: Normal Inspection, No CVA Tenderness, No Vertebral Tenderness Extremity: Normal Capillary Refill, Normal Inspection, Normal Range of Motion, Non Tender, No Calf Tenderness, No Pedal Edema Neurologic/Psychiatric: Alert, Oriented x3, Normal Mood/Affect, Abnormal Cerebellar Tests, Abnormal lighting fixtures decorator II-XII (left), Abnormal Gait, Motor Weakness (left upper and lower 3/5 strength), Other (stuttering) Skin: Normal Color, Warm/Dry Lymphatic: No Adenopathy Results/Procedures Lab Laboratory Tests 02/17/19 06:30 Patient resulted labs reviewed. FIM Transfers Therapy Code Descriptions/Definitions Functional [place] Measure: 0=Not Assessed/NA 4=Minimal Assistance 1=Total Assistance 5=Supervision or Setup 2=Maximal Assistance 6=Modified Luce 3=Moderate Assistance 7=Complete Luce Therapy Quality Codes: 6 Independent with activity with or without an assistive device 5 Patient requires set up or clean up by helper. Patient completes activity by themselves 4 Supervision or touching assist (CGA). [place] provide cues , steadying assist 3 The helper provides less than half the effort to complete the activity 2 The helper provides more than half the effort to complete the activity 1 Dependent. The helper does all the effort to complete an activity 7 Patient refused to complete or attempt activity 9 The patient did not perform the activity before the current illness or injury 88 Not attempted due to Medical conditions or safety concerns Transfers (B, C, W/C) (FIM): 3 Scootin Rollin Roll Left to Right (QC): 3 Supine to/from Sit: 4 Sit to/from Stand: 4 Sit to Lying (QC): 2 Sit to Stand (QC): 2 Chair/Ngv-ec-Uiqsb Xfer(QC): 2 Bed to/from Chair: 3 Car Transfer (QC): 2 Gait Training Does the Patient Walk?: Yes Gait (FIM): 2 Distance (FIM): 1=up to 49 ft (4 side steps left and right) Distance: 50'x3 Walk 10 feet (QC): 3 Gait Level of Assist: 2 Gait Persons Needed: 2 Gait Assistive Device: Handheld Assist Wheelchair Training Does the Pt Use a Wheelchair?: Yes Wheelchair (FIM): 1 Distance: 50' Type of Wheelchair: Manual Mental Status/Objective Comprehension: 5 Expression: 4 Social Interaction: 3 Problem Solvin Memory: 3 ADL-Treatment Feedin (required set upof all items. noted left sided neglect, requiring cuing cueing for left side of tray. ) Eating (QC): 3 Groomin (hand wash, wash face, comb hair, wash hair. noted left side neglect. required MAX cuing to attned to left side of body. ) Oral Hygiene (QC): 2 Bathin (pt depend. for bathing secodnary to strong left sided neglext duing bathing required hand over hand and strong VC to wash left side of body. i.e pt only wash right side of chest. ) Shower/Bathe Self (QC): 1 Upper Extremity Dressin (picker/puller shirt ) Upper Body Dressing (QC): 1 Lower Extremity Dressin (sejal socks, underpants, pants. required X2 person assist to stnad and maintain balance while pulling up pants. 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 COPD Smoker Dark stools Leukopenia HTN HLP GIB Plan: Monitor dark stools and appreciate Dr Narayan EGD/Colon today ASA and Plavix and statin IRF protocols (1) CVA (cerebral vascular accident) Status: Acute Qualifiers: CVA mechanism: unspecified Qualified Codes: I63.9 - Cerebral infarction, unspecified (2) 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 Status: Acute (3) Back pain Status: Chronic Qualifiers: Back pain location: back pain in unspecified location Chronicity: unspecified Back pain laterality: unspecified Qualified Codes: M54.9 - Dorsalgia, unspecified (4) Dark stools Status: Acute (5) Impulsive Status: Acute (6) Leukopenia Status: Acute Qualifiers: Leukopenia type: unspecified Qualified Codes: D72.819 - Decreased white blood cell count, unspecified (7) Anemia Status: Chronic Qualifiers: Anemia type: unspecified type Qualified Codes: D64.9 - Anemia, unspecified (8) Hypertension Status: Chronic Qualifiers: Hypertension type: essential hypertension Qualified Codes: I10 - Essential (primary) hypertension (9) COPD (chronic obstructive pulmonary disease) Status: Chronic Qualifiers: COPD type: unspecified COPD Qualified Codes: J44.9 - Chronic obstructive pulmonary disease, unspecified (10) Hyperlipidemia Status: Chronic Qualifiers: Hyperlipidemia type: mixed hyperlipidemia Qualified Codes: E78.2 - Mixed hyperlipidemia (11) Renal insufficiency Status: Chronic (12) Wheezing Status: Acute (13) Carotid stenosis Status: Chronic Qualifiers: Laterality: bilateral Qualified Codes: I65.23 - Occlusion and stenosis of bilateral carotid arteries (14) Left-sided weakness Status: Acute (15) BPH (benign prostatic hyperplasia) Status: Chronic Qualifiers: Lower urinary tract symptom presence: unspecified whether lower urinary tract symptoms present Qualified Codes: N40.0 - Benign prostatic hyperplasia without lower urinary tract symptoms (16) Risk for falls Status: Acute (17) Smoker Status: Chronic HEBERT BAKER DO Feb 17, 2019 08:56
--- NOTE | 2019-02-17 09:13 | Physical Therapy Daily Note ---
PT Daily Note-Current Subjective Pt. on BSC upon entering room. States he is expecting a test today. Feels he has made big improvements and feels so much better, smiling. Pain Location: No Pain Reported Appearance more tending to left with and without instruction , crosses midline to left Mental Status Patient Orientation: Normal For Age Transfers Therapy Code Descriptions/Definitions Functional [place] Measure: 0=Not Assessed/NA 4=Minimal Assistance 1=Total Assistance 5=Supervision or Setup 2=Maximal Assistance 6=Modified [place] 3=Moderate Assistance 7=Complete [place] Therapy Quality Codes: 6 Independent with activity with or without an assistive device 5 Patient requires set up or clean up by helper. Patient completes activity by themselves 4 Supervision or touching assist (CGA). [place]y provide cues , steadying assist 3 The helper provides less than half the effort to complete the activity 2 The helper provides more than half the effort to complete the activity 1 Dependent. The helper does all the effort to complete an activity 7 Patient refused to complete or attempt activity 9 The patient did not perform the activity before the current illness or injury 88 Not attempted due to Medical conditions or safety concerns Transfers (B, C, W/C) (FIM): 3 Scootin Rollin Supine to/from Sit: 4 Sit to/from Stand: 4 Bed to/from Chair: 3 Gait Training Does the Patient Walk?: Yes Gait (FIM): 1 Distance (FIM): 1=up to 49 ft (20x2) Gait Level of Assist: 3 Gait Persons Needed: 1 Gait Assistive Device: Walker Platform initiated platform FWW with good success, pt. ambulated 20 ft x 2 mod assist with w/c to follow, assist to advance left foot 30% of time, , needs assist to keep SEMAJ broader, and assist to advance device 75% of time. platform fit well and met need Wheelchair Training Does the Pt Use a Wheelchair?: Yes Wheelchair (FIM): 2 Wheelchair Distance: 7=917-70 ft (50ft) Wheelchair Level of Assist: 3 Type of Wheelchair: Manual pt. locks bilat brakes with right hand and left one trial, propels with bilat LEs very slowly with much instruction Exercises Supine Ex: Bridging, Ankle pumps, Quad Set, Rolling, Heel Slides, Short Arc Quads, Scooting, Straight leg raise, Hip abd/add Supine Reps: 12 Treatments Pt. toileted max assist TRFs and clean up and pants up. Assessment Current Status: Good Progress tending left better, follows all instruction, increased movement ZOHREH&L ext, gait with platform FWW initiated PT Short Term Goals Short Term Goals Time Frame: Feb 21, 2019 Transfers (B,C,W/C) (FIM): 4 Gait (FIM): 2 Gait Distance Comment: 50' Gait Level of Assist: 4 Gait Assistive Device: Walker [place]on Wheelchair Distance: 50' PT Intermediate Goals Lard Maker Goals PT Intermediate Goals Time Frame: Mar 07, 2019 Transfers (B,C,W/C) (FIM): 5 Sit to Lying (QC): 4 Lying-Sitting on Side/Bed(QC): 4 Sit to Stand (QC): 4 Rollin Roll Left to Right (QC): 4 Chair/Xvl-rd-Foqwn Xfer(QC): 4 Car Transfer (QC): 4 Gait (FIM): 2 Distance: 100' Walk 10 feet (QC): 4 Walk 10ft-Uneven Surface(QC): 4 Walk 50ft with 2 Turns (QC): 4 Gait Level of Assist: 4 Gait Assistive Device: Walker [place]on Stairs (FIM): 2 # of Steps: 4 1 Step (curb) (QC): 3 4 Steps (QC): 3 Stairs Level Of Assist: 4 PT Plan Treatment/Plan Treatment Plan: Continue Plan of Care Treatment Plan: Bed Mobility, Education, Functional Activity Merr[place], Functional Strength, Group Therapy, Gait, Safety, Therapeutic Exercise, Transfers Treatment Duration: Mar 07, 2019 Frequency: At least 5 of 7 days/Wk (IRF) Estimated Hrs Per Day: 1.5 hours per day Patient and/or Family Agrees t: Yes Safety Risks/Education Patient Education: Gait Training, Transfer Techniques, Correct Positioning, W/C Management, Disease Process, Safety Issues Teaching Recipient: Patient Teaching Methods: Demonstration, Discussion Response to Teaching: Verbalize Understanding, Return Demonstration, Reinforcement Needed Time/GCodes Time In: 815 Time Out: 900 Total Billed Treatment Time: 45 Total Billed Treatment 1,GT15m,FA15m,EX15m G Codes Necessary: LARS Rebolledo CASINO SHIFT MANAGER Feb 17, 2019 09:13
--- NOTE | 2019-02-17 10:22 | Occupational Ther Daily Note ---
OT Current Status-Daily Note Subjective Pt alert, sitting in w/c. Pt agrees to therapy. No c/o pain. Nrsg stated that pt will go for procedures in afternoon and x-ray after OT session. Mental Status/Objective Patient Orientation: Person, Place, Time, Situation Therapy Code Descriptions/Definitions Functional [place] Measure: 0=Not Assessed/NA 4=Minimal Assistance 1=Total Assistance 5=Supervision or Setup 2=Maximal Assistance 6=Modified [place] 3=Moderate Assistance 7=Complete [place] Attachments: IV ADL-Treatment Therapy Code Descriptions/Definitions Functional [place] Measure: 0=Not Assessed/NA 4=Minimal Assistance 1=Total Assistance 5=Supervision or Setup 2=Maximal Assistance 6=Modified [place] 3=Moderate Assistance 7=Complete [place] Therapy Quality Codes: 6 Independent with activity with or without an assistive device 5 Patient requires set up or clean up by helper. Patient completes activity by themselves 4 Supervision or touching assist (CGA). [place] provide cues , steadying assist 3 The helper provides less than half the effort to complete the activity 2 The helper provides more than half the effort to complete the activity 1 Dependent. The helper does all the effort to complete an activity 7 Patient refused to complete or attempt activity 9 The patient did not perform the activity before the current illness or injury 88 Not attempted due to Medical conditions or safety concerns Grooming (FIM): 5 (Pt was able to brush hair with 1 verbal cue. Pt switched hands and used affected side. Pt declined to brush teeth.) Bathing (FIM): 4 (Pt required min assistance to wash buttocks. Pt needed grabbar and SBA while sitting.Using grabbar, shower bench and hand held shower pt able to complete bathing all areas except buttocks with close SBA. Pt required assistance to manipulate water temperature, hand held shower and apply soap. Min A and verbal cues to stand while assist to cleanse buttocks needed. With verbal cues pt was able to dry self while in sitting. ) Bathing Location: L Arm, R Arm, L Upper Leg, R Upper Leg, L Lower Leg (including foot), R Lower Leg (including foot), Chest, Abdomen, Perineal Area Shower/Bathe Self (QC): 3 Upper Body (FIM): 4 (Pt. needed assistance to don and doff clothing. Pt needed verbal cueing to thread L arm in sleeve first. ) Upper Body Dressing (QC): 3 Lower Body Dressing (FIM): 2 (Pt needed min vlad to don briefs with min A in standing. Assisted to hike pants over hips. Pt able to don R sock. Pt able to put L sock over toes, needed assistance to cloth covered helmet puller L heel. Education of 1 handed dressing technique. ) Lower Body Dressing (QC): 2 On/Off Footwear (QC): 2 Transfers (B, C, W/C) (FIM): 4 Shower Transfer(FIM): 4 (Min assist needed for transfer using grabbar, w/c and shower bench. Needed verbal cues on L foot placement. ) Pt demonstrated good dynamic sitting balance during shower, no LOB noted. Pt spontaneously used L UE during ADL tasks. Pt has noticeably decreased with L neglect, but still requires cues during mobility. Other Treatment Pt attempted to steer with R foot and propelled WC with R hand to therapy gym. Needing verbal environmental cueing 4 times. Pt stacked 6 cones beside WC to work on core strengthening and balance using each hand. Pt then stacked cones with L UE on table to work on L shoulder AROM/strength, grasp and release, and coordination. Pt is progressing with UE gross motor movement. After therapy Pt remained in WC waiting for X-Ray to come, call light within reach. Pt was left with all needs met. Education OT Patient Education: Modified ADL techniques Teaching Recipient: Patient Teaching Methods: Demonstration Response to Teaching: Reinforcement Needed OT Short Term Goals Short Term Goals Eating(FIM): 5 Grooming(FIM): 5 Bathing(FIM): 4 Upper Body Dressing(FIM): 4 Lower Body Dressing(FIM): 4 Toileting(FIM): 3 Transfers (B,C,W/C) (FIM): 4 Toilet/Commode Transfer(FIM): 3 Shower Transfer(FIM): 4 1=Demonstrate adherence to instructed precautions during ADL tasks. 2=Patient will verbalize/demonstrate understanding of assistive devices/modifications for ADL. 3=Patient will improve strength/tolerance for activity to enable patient to perform ADL's. OT Correction Goals Correction Goals Eating (FIM): 6 Eating (QC): 6 Groomin Oral Hygiene (QC): 6 Bathing(FIM): 6 Shower/Bathe Self (QC): 6 Upper Body Dressing(FIM): 6 Upper Body Dressing (QC): 6 Lower Body Dressing(FIM): 5 Lower Body Dressing (QC): 4 On/Off Footwear (QC): 5 Toileting(FIM): 5 Toileting Hygiene (QC): 4 Transfers (B,C,W/C) (FIM): 6 Toilet/Commode Transfer(FIM): 6 Toilet/Commode Transfer (QC): 6 Shower Transfer(FIM): 6 Additional Goals: 1-Demonstrate ADL Tasks, 2-Verbalize Understanding, 3- ImproveStrength/[place] 1=Demonstrate adherence to instructed precautions during ADL tasks. 2=Patient will verbalize/demonstrate understanding of assistive devices/modifications for ADL. 3=Patient will improve strength/tolerance for activity to enable patient to perform ADL's. OT Education/Plan Problem List/Assessment Assessment: Decreased UE Strength, Impaired Cognition, Impaired Coordination, Impaired Funct Balance, Impaired Self-Care Skills, Restricted Funct UE ROM, Visual-Perceptual Deficit pt presents with functional limitations affecting areas of ADLs and functional transfers with the above mention deficits including decrease proprioception. pt would benefit from skilled OT Services to address above mention deficits and increase independence with ADLS and functional transfers. Discharge Recommendations Plan/Recommendations: Continue POC Treatment Plan/Plan of Care Patient would benefit from OT for education, treatment and training to promote independence in ADL's, mobility, safety and/or upper extremity function for ADL's. Plan of Care: ADL Retraining, Caregiver Training, Concurrent Therapy, Funct ional Mobility, Group Exercise/Act as Ind, UE Funct Exercise/Act, UE Neuromus Re-Ed/Coord, Visual/Perceptual Retrain, W/C Management Training Treatment Duration: Mar 15, 2019 Frequency: At least 5 of 7 days/Wk (IRF) Estimated Hrs Per Day: 1 hour per day (60-90 minutes per day ) Agreement: Yes Rehab Potential: Fair Time/GCodes Start Time: 09:00 Stop Time: 10:15 Total Time Billed (hr/min): 75 Billed Treatment Time 1 visit-ADL 4 (55 min) NM 1 (20 min) JALIL DUPONT Feb 17, 2019 10:22
--- NOTE | 2019-02-17 10:25 | NUR ---
Pastoral care visit.
--- NOTE | 2019-02-17 10:54 | Diagnostic Imaging Report ---
INDICATION: Fall. TIME OF EXAMINATION: 10:36 AM. TECHNIQUE: Three views of the left shoulder were obtained. FINDINGS: The glenohumeral and acromioclavicular alignment is normal. The acromiohumeral space is normal. No fracture or dislocation is seen. A left carotid stent is noted. IMPRESSION: No acute bony abnormality is detected. Dictated by: Dictated on workstation # [id number]
--- NOTE | 2019-02-17 10:54 | Diagnostic Imaging Report ---
INDICATION: Fall. TIME OF EXAMINATION: 10:34 AM. TECHNIQUE: Two views of the left forearm were obtained. FINDINGS: The alignment at the elbow and wrist appears normal. The radius and ulna appear to be intact. No fractures are seen. IMPRESSION: No acute bony abnormality is detected. Dictated by: Dictated on workstation # [id number]
--- NOTE | 2019-02-17 11:23 | Progress Note - Hospitalist ---
LESLEY DE LA GARZA [facility] 02/17/19 1123: Progress Note Mr Mariscal continues to improve. His speech is clear with a stutter and he shows improving mentation. He continues to show left sided neglect. Ambulating in halls with help of OT/PT. Has a shuffling gait but is doing well with platform fww. Today Hb is 10.3, and BUN/Cr continue to trend down. EGD and colonoscopy today around 1pm. Assessment: CVA w/left sided weakness - improving COPD - Current smoker Melena Leukopenia HTN VIKCY Plan: ASA and Plavix, continue home statin IRF protocols EGD and Colonoscopy today Continue to monitor patient vitals and labs Patient may not receive full PT due to bleeding and up coming procedure After procedure, continue oral rehydration IRENE SWEENEY DO 02/17/192121: Supervisory-Addendum Brief Verification & Attestation Participated in pt care: history, MDM, physical Personally performed: exam, history, MDM, supervision of care Care discussed with: Medical Student Procedures: n/a Results interpretation: Verified all documentation Verification and Attestation of Medical Student E/M Service A medical student performed and documented this service in my presence. I reviewed and verified all information documented by the medical student and made modifications to such information, when appropriate. I personally performed the physical exam and medical decision making. Irene Sweeney, Feb 17, 2019,21:22 LESLEY DE LA GARZA [facility] Feb 17, 2019 11:23 IRENE SWEENEY DO Feb 17, 2019 21:22
--- NOTE | 2019-02-17 11:44 | Physical Therapy Daily Note ---
PT Daily Note-Current Subjective Pt. up in w/c. States he is very tired, head is down, eyes closed. Nursing reports that pt. will go down at 1pm for colonoscopy and EGD Pain Location: No Pain Reported Mental Status pt. follows all instruction Transfers Therapy Code Descriptions/Definitions Functional Brandon Measure: 0=Not Assessed/NA 4=Minimal Assistance 1=Total Assistance 5=Supervision or Setup 2=Maximal Assistance 6=Modified Brandon 3=Moderate Assistance 7=Complete Brandon Therapy Quality Codes: 6 Independent with activity with or without an assistive device 5 Patient requires set up or clean up by helper. Patient completes activity by themselves 4 Supervision or touching assist (CGA). Tiger provide cues , steadying assist 3 The helper provides less than half the effort to complete the activity 2 The helper provides more than half the effort to complete the activity 1 Dependent. The helper does all the effort to complete an activity 7 Patient refused to complete or attempt activity 9 The patient did not perform the activity before the current illness or injury 88 Not attempted due to Medical conditions or safety concerns sit to stand and SPT w/c to bed mod assist, difficulty side stepping left foot, needs mos assist in dance fashion to assist with wt shifting to right to allow LLE advancement, sit to supine min assist to bring LLE into bed Gait Training side step in dance fashion to left and right mod assist Exercises Supine Ex: Bridging, Ankle pumps (assist left), Quad Set, Rolling, Heel Slides, Scooting, Straight leg raise, Hip abd/add Supine Reps: 15 Assessment Current Status: Good Progress gives full effort, fatigues with Rx PT Short Term Goals Short Term Goals Time Frame: Feb 21, 2019 Transfers (B,C,W/C) (FIM): 4 Gait (FIM): 2 Gait Distance Comment: 50' Gait Level of Assist: 4 Gait Assistive Device: Walker Weston Wheelchair Distance: 50' PT Spearer Goals Usp Goals PT Usp Goals Time Frame: Mar 07, 2019 Transfers (B,C,W/C) (FIM): 5 Sit to Lying (QC): 4 Lying-Sitting on Side/Bed(QC): 4 Sit to Stand (QC): 4 Rollin Roll Left to Right (QC): 4 Chair/Mpw-kf-Wnpbj Xfer(QC): 4 Car Transfer (QC): 4 Gait (FIM): 2 Distance: 100' Walk 10 feet (QC): 4 Walk 10ft-Uneven Surface(QC): 4 Walk 50ft with 2 Turns (QC): 4 Gait Level of Assist: 4 Gait Assistive Device: Walker Weston Stairs (FIM): 2 # of Steps: 4 1 Step (curb) (QC): 3 4 Steps (QC): 3 Stairs Level Of Assist: 4 PT Plan Treatment/Plan Treatment Plan: Continue Plan of Care Treatment Plan: Bed Mobility, Education, Functional Activity Merritt, Functional Strength, Group Therapy, Gait, Safety, Therapeutic Exercise, Transfers Treatment Duration: Mar 07, 2019 Frequency: At least 5 of 7 days/Wk (IRF) Estimated Hrs Per Day: 1.5 hours per day Patient and/or Family Agrees t: Yes Safety Risks/Education Patient Education: Transfer Techniques, Correct Positioning, Disease Process Teaching Recipient: Patient Teaching Methods: Demonstration, Discussion Response to Teaching: Verbalize Understanding, Return Demonstration, Reinforcement Needed Time/GCodes Time In: 1130 Time Out: 1200 Total Billed Treatment Time: 30 Total Billed Treatment 1,FA15m,EX15m G Codes Necessary: LARS Rebolledo TRAVEL RN OR Feb 17, 2019 11:44
--- NOTE | 2019-02-17 16:06 | Speech Therapy Daily Note ---
Speech Daily Progress Note Subjective Date Seen by Provider: Feb 17, 2019 Time Seen by Provider: 00:30 Patient was sleepy after his procedure, however he was able to participate. Objective Patient completed a series of simple q/a related to his daily needs at 80% with min to mod verbal cues. Assessment Assessment Current Status: Good Progress Treatment Plan Continue Plan of Care Communication Comprehension: 5 Expression: 4 Social Cognition Social Interaction: 3 Problem Solvin Memory: 3 Speech Short Term Goals Short Term Goals Short Term Goals 1) Patient will demonstrate sustained attention, memory and sequencing for task performance with 80% accuracy. 2) Patient will demonstrate effective communication of wants/needs to staff and caregivers with 80% accuracy. Speech [facility] Goals Sole Inker Goals The patient will improve cognitive-communication skills in order to return to his former living situation safely. Speech-Plan Patient/Family Goals Patient/Family Goals: Patient plans on returning home with family post rehab. Treatment Plan Speech Therapy Treatment Plan: Continue Plan of Care Patient is progressing well. Treatment Duration: Feb 26, 2019 Frequency: 5 times per week Estimated Hrs Per Day: .5 hour per day Rehab Potential: Fair Barriers to Learning: New CVA Pt/Family Agrees to Plan: Yes Safety Risks/Education Teaching Recipient: Patient Teaching Methods: Demonstration, Discussion Response to Teaching: Verbalize Understanding, Return Demonstration, Reinforcement Needed Education Topics Provided: Safety and communication of needs Time Speech Therapy Time In: 15:30 Speech Therapy Time Out: 16:00 Total Billed Time: 30 Billed Treatment Time [address] Feb 17, 2019 16:06
[2019-02-17] MEDS: SENNA W/DOCUSATE (SENOKOT S) TABLET PO SCH ×2 (16:21→19:51)
[2019-02-17] MEDS: amLODIPine 5 MG (NORVASC) TAB PO SCH (16:37)
[2019-02-17] MEDS: CLOPIDOGREL 75 MG (PLAVIX) TABLET PO SCH (16:37)
[2019-02-17] MEDS: CARVEDILOL 12.5 MG (COREG) TABLET PO SCH ×2 (16:37→19:51)
[2019-02-17] MEDS: ASPIRIN E.C. 81 MG (ECOTRIN) TAB PO SCH (16:37)
[2019-02-17] MEDS: NICOTINE 21 MG (NICODERM) PATCH TD SCH (16:37)
[2019-02-17] MEDS: lisINopril 10 MG (PRINIVIL) TABLET PO SCH (16:37)
[2019-02-17 17:26] VITALS: BP 134/75
[2019-02-17] MEDS: TAMSULOSIN 0.4 MG (FLOMAX) CAP PO SCH (18:46)
[2019-02-17] MEDS: ATORVASTATIN 80 MG (LIPITOR) TABLET PO SCH (19:51)
--- NOTE | 2019-02-17 21:20 | CONSULTATION REPORT ---
DATE OF SERVICE: REASON FOR CONSULTATION: Foot care. HISTORY OF PRESENT ILLNESS: This 73-year-old male was admitted secondary to left-sided weakness and was subsequently transferred to [facility] for stroke protocol. The patient was subsequently diagnosed with an acute infarct involving the right hemisphere. He was subsequently readmitted to [facility] for rehabilitation purposes. The patient has inability to reach and care for his feet. He is unable to ambulate at this time and is wheelchair bound. He has a long history of cerebrovascular accident apparently and has a long nicotine history. PAST MEDICAL HISTORY: Abdominal hernia repair, vascular surgery, COPD, hypocholesterolemia, hypertension, peripheral vascular disease, cerebrovascular accident, prostate problems, abdominal hernia, difficulty hearing. SOCIAL HISTORY: The patient uses cigarettes daily. He denies any alcohol or illicit drug use. PHYSICAL EXAM: GENERAL: This is a well-developed male in no apparent distress. EXTREMITIES: He has 2/4 dorsalis pedis pulse on the right, 1/4 on the left, 0/4 posterior tibial pulse bilaterally. Cap refill time is less than 3 seconds. NEUROLOGIC: The patient has diminished vibratory sensation to the forefoot bilaterally. Protective sensation is diminished on the left and intact on the right. DERMATOLOGIC: The patient has thick yellow dystrophic toenails with subungual debris associated with all 10 toenails. There are no open wounds to the foot including the left. There is some erythema to the posterior left heel, but no open wounds at this time. MUSCULOSKELETAL: The patient has 4/5 muscle strength to the four major quadrants of the foot on the right, 1/5 muscle strength to the four major quadrants of the foot on the left with foot drop noticed. ASSESSMENT: 1. Idiopathic neuropathy. 2. Foot drop, left, consistent with a cerebrovascular accident. 3. Skin irritation, presumably due to inactivity and pressure 4. onychomycosis. PLAN: Treatment options were discussed. The toenails were debrided today manually and mechanically. Betadine applied. The patient is welcome to follow up in our office for routine care upon discharge if necessary. Encouraged the use of the pressure precautions for bilateral lower extremity. A pillow was placed underneath the calves bilaterally for deviating the heels. Nursing staff was instructed to continue with the pressure precautions bilateral lower extremity. Job ID: [id number] DocumentID: [id number] Dictated Date: 02/17/2019 17:25:29 Community Pharmacist Date: 02/17/2019 21:20:13 Dictated By: WALDO MCMAHON
[2019-02-18 06:35] VITALS: BP 92/55
--- NOTE | 2019-02-18 06:41 | NUR ---
Pt found sitting on floor next to bed. Pt last rounded on at 0510 by PCCT. All 4 bed rails were up and bed alarm on. This RN last round on pt at 0455. Pt states he was getting up to bathroom and wanted to do it himself. Pt had multiple skin tears on right arm d/t previous fall at another facility. Dressing off arm and skin tears bleeding. Arm cleansed with NS and new dressing applied. No other injury noted and pt denies pain. Dr. Sweeney and Carry Out Clerk And Shelf Stocker notified.
[2019-02-18] MEDS: RT-ALBUTEROL/IPRATROPIUM 3 ML (DUONEB) VIAL INH SCH ×3 (06:54→23:51)
--- NOTE | 2019-02-18 08:24 | PM&R Progress Note ---
Subjective HPI/CC On Admission Date Seen by Provider: Feb 18, 2019 Time Seen by Provider: 08:15 Chief complaint: Debility following CVA with left-sided weakness History of present illness: This is a 73-year-old white male clinic patient of [facility] who accepted upon transfer from [facility] hospitalist service after I transferred him there on 02/05/2019 after he was admitted for suspicion of TIA and CVA and although CT scan showed no evidence of any stroke carotid artery ultrasound at [facility] at that time with stroke protocol revealed critical carotid artery stenosis requiring transfer to vascular care assessment. He had a history of right stent placement in the carotid artery in the past and a right-sided carotid endarterectomy in 1999 and continued to smoke since that time. He was transferred to [facility] maintained on Plavix aspirin and statin therapy along with antihypertensive meds and was seen by neurology and vascular surgery. Renal insufficiency returned back to baseline at 1.4 so IV fluids were discontinued. Patient was managed aggressively and underwent a left carotid stent placement due to critical stenosis on 02/08/[address] Sherman and continue to have the left upper extremity weakness. He was improving at that time. In customer engineer hours of 02/09/2019 patient suffered an acute CVA confirmed on CT scan even while maintained on Plavix and aspirin. Patient was not deemed a TPA candidate at that time once again. He was found to have a brain aneurysm 3 mm in the A1 segment of the brain but no intervention was planned. CT confirmed the acute infarct involving the watershed distribution between MCA and AUTO GARAGE MECHANIC territory on the right as well as a small lacunar infarct along the centrum semi-ovale on the right and within the right parietal lobe. He was transported to [facility] inpatient rehab by his daughter 1 of 6 children who lives in [place]. He currently is leaning over to the left because of inability to sit straight in the wheelchair. This indicates a profound loss of function and will require at least 14 days of inpatient rehab for recovery in order to return to some sort of status to be able to return home to live independently and assist with regaining independence with ADLs. He is wheezing currently so I did order duo nebs 3 times daily scheduled. Smoking cessation was counseled on nicotine patch order was placed. Considering the numerous strokes he has had even while being on Plavix and aspirin it is concerning and his prognosis is guarded for additional strokes and even more extensive debility. His barriers to returning home include: Unable to ambulate at this current time wheelchair-bound and home not wheelchair accessible Lives alone but family is involved in his care so likely will need major supervision will need to arrange that prior to discharge Clinical stability following stroke even though on Plavix and aspirin and statin therapy so will need to assure he has been adequately risk stratified in order to decrease the chance of additional strokes prior to discharge home Subjective/Events-last exam Left side neglect noted. Had a fall at 0540 hours today Had a little bit of confusion at that time EGD and colonoscopy performed yesterday showed mild esophagitis but did not show any source of bleeding of the melena Was able to shave and that has made him feel better Decrease stuttering is noted Clear mentation noted Overall improving and gaining confidence. Lungs are becoming more clear with neb treatments Left arm will be managed by Dr. Kumar Appreciate Dr. Narayan consultation Conferred with RN Reviewed therapy notes Review of Systems General: Fatigue Musculoskeletal: leg pain Objective Exam Vital Signs Vital Signs Date Time Temp Pulse Resp B/P (MAP) Pulse Ox O2 Delivery O2 Flow Rate FiO2 02/18/19 20:16 Room Air 02/18/19 18:00 98.4 73 16 108/51 (70) 95 Capillary Refill : General Appearance: No Apparent Distress, WD/WN, Chronically ill, Thin, Other (fatigued, disheveled) HEENT: PERRL/EOMI, TMs Normal, Normal ENT Inspection, Pharynx Normal, Moist Mucous Membranes Neck: Full Range of Motion, Normal Inspection, Non Tender, Supple Respiratory: Chest Non Tender, Lungs Clear, Normal Breath Sounds, No Accessory Muscle Use, No Respiratory Distress, Wheezing Cardiovascular: Regular Rate, Rhythm, No Edema, No Gallop, No JVD, No Murmur Gastrointestinal: Normal Bowel Sounds, No Organomegaly, No Pulsatile Mass, Non Tender, Soft Back: Normal Inspection, No CVA Tenderness, No Vertebral Tenderness Extremity: Normal Capillary Refill, Normal Inspection, Normal Range of Motion, Non Tender, No Calf Tenderness, No Pedal Edema Neurologic/Psychiatric: Alert, Oriented x3, Normal Mood/Affect, Abnormal Cerebellar Tests, Abnormal mining support worker II-XII (left), Abnormal Gait, Motor Weakness (left upper and lower 3/5 strength), Other (stuttering) Skin: Normal Color, Warm/Dry Lymphatic: No Adenopathy Results/Procedures Lab Patient resulted labs reviewed. FIM Transfers Therapy Code Descriptions/Definitions Functional Radford Measure: 0=Not Assessed/NA 4=Minimal Assistance 1=Total Assistance 5=Supervision or Setup 2=Maximal Assistance 6=Modified Radford 3=Moderate Assistance 7=Complete Radford Therapy Quality Codes: 6 Independent with activity with or without an assistive device 5 Patient requires set up or clean up by helper. Patient completes activity by themselves 4 Supervision or touching assist (CGA). Atkins provide cues , steadying assist 3 The helper provides less than half the effort to complete the activity 2 The helper provides more than half the effort to complete the activity 1 Dependent. The helper does all the effort to complete an activity 7 Patient refused to complete or attempt activity 9 The patient did not perform the activity before the current illness or injury 88 Not attempted due to Medical conditions or safety concerns Transfers (B, C, W/C) (FIM): 4 Scootin Rollin Roll Left to Right (QC): 3 Supine to/from Sit: 4 Sit to/from Stand: 4 Sit to Lying (QC): 2 Sit to Stand (QC): 2 Chair/Rkg-ut-Gnqcp Xfer(QC): 2 Bed to/from Chair: 3 Car Transfer (QC): 2 Gait Training Does the Patient Walk?: Yes Gait (FIM): 1 Distance (FIM): 1=up to 49 ft (20x2) Distance: 50'x3 Walk 10 feet (QC): 3 Gait Level of Assist: 3 Gait Persons Needed: 1 Gait Assistive Device: Walker Platform Wheelchair Training Does the Pt Use a Wheelchair?: Yes Wheelchair (FIM): 2 Wheelchair Distance: 7=813-08 ft (50ft) Distance: 50' Wheelchair Level of Assist: 3 Type of Wheelchair: Manual Mental Status/Objective Comprehension: 5 Expression: 4 Social Interaction: 3 Problem Solvin Memory: 3 ADL-Treatment Feedin (required set upof all items. noted left sided neglect, requiring cuing cueing for left side of tray. ) Eating (QC): 3 Groomin (Pt was able to brush hair with 1 verbal cue. Pt switched hands and used affected side. Pt declined to brush teeth.) Oral Hygiene (QC): 2 Bathin (Pt required min assistance to wash buttocks. Pt needed grabbar and SBA while sitting.Using grabbar, shower bench and hand held shower pt able to complete bathing all areas except buttocks with close SBA. Pt required assistance to manipulate water temperature, hand held shower and apply soap. Min A and verbal cues to stand while assist to cleanse buttocks needed. With verbal cues pt was able to dry self while in sitting. ) Bathing Location: L Arm, R Arm, L Upper Leg, R Upper Leg, L Lower Leg (inclu ding foot), R Lower Leg (including foot), Chest, Abdomen, Perineal Area Shower/Bathe Self (QC): 3 Upper Extremity Dressin (Pt. needed assistance to don and doff clothing. Pt needed verbal cueing to thread L arm in sleeve first. ) Upper Body Dressing (QC): 3 Lower Extremity Dressin (Pt needed min vlad to don briefs with min A in standing. Assisted to hike pants over hips. Pt able to don R sock. Pt able to put L sock over toes, needed assistance to parts puller L heel. Education of 1 handed dressing technique. ) Lower Body Dressing (QC): 2 On/Off Footwear (QC): 2 Toiletin (required assist with 3/3 toileting tasks ) Toileting Hygiene (QC): 1 Toilet/Commode Transfer: 3 Shower: 4 (Min assist needed for transfer using grabbar, w/c and shower bench. Needed verbal cues on L foot placement. 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 Status: Acute (3) Back pain Status: Chronic Qualifiers: Back pain location: back pain in unspecified location Chronicity: unspecified Back pain laterality: unspecified Qualified Codes: M54.9 - Dorsalgia, unspecified (4) Dark stools Status: Acute (5) Impulsive Status: Acute (6) Leukopenia Status: Acute Qualifiers: Leukopenia type: unspecified Qualified Codes: D72.819 - Decreased white blood cell count, unspecified (7) Anemia Status: Chronic Qualifiers: Anemia type: unspecified type Qualified Codes: D64.9 - Anemia, unspecified (8) Hypertension Status: Chronic Qualifiers: Hypertension type: essential hypertension Qualified Codes: I10 - Essential (primary) hypertension (9) COPD (chronic obstructive pulmonary disease) Status: Chronic Qualifiers: COPD type: unspecified COPD Qualified Codes: J44.9 - Chronic obstructive pulmonary disease, unspecified (10) Hyperlipidemia Status: Chronic Qualifiers: Hyperlipidemia type: mixed hyperlipidemia Qualified Codes: E78.2 - Mixed hyperlipidemia (11) Renal insufficiency Status: Chronic (12) Wheezing Status: Acute (13) Carotid stenosis Status: Chronic Qualifiers: Laterality: bilateral Qualified Codes: I65.23 - Occlusion and stenosis of bilateral carotid arteries (14) Left-sided weakness Status: Acute (15) BPH (benign prostatic hyperplasia) Status: Chronic Qualifiers: Lower urinary tract symptom presence: unspecified whether lower urinary tract symptoms present Qualified Codes: N40.0 - Benign prostatic hyperplasia without lower urinary tract symptoms (16) Risk for falls Status: Acute (17) Smoker Status: Chronic HEBERT BAKER DO Feb 18, 2019 08:24
--- NOTE | 2019-02-18 08:57 | Physical Therapy Daily Note ---
PT Daily Note-Current Subjective Patient in bed pre tx, agrees to PT after waking, very drowsy, has no complaints of pain. Patient needs dressed and does so with max assist in bed. Appearance Patient in recliner post tx with nurse call, phone, tray, legs elevated, chair alarm on. Mental Status Patient Orientation: Person, Place, Situation Transfers Therapy Code Descriptions/Definitions Functional Coden Measure: 0=Not Assessed/NA 4=Minimal Assistance 1=Total Assistance 5=Supervision or Setup 2=Maximal Assistance 6=Modified Coden 3=Moderate Assistance 7=Complete Coden Therapy Quality Codes: 6 Independent with activity with or without an assistive device 5 Patient requires set up or clean up by helper. Patient completes activity by themselves 4 Supervision or touching assist (CGA). Heber provide cues , steadying assist 3 The helper provides less than half the effort to complete the activity 2 The helper provides more than half the effort to complete the activity 1 Dependent. The helper does all the effort to complete an activity 7 Patient refused to complete or attempt activity 9 The patient did not perform the activity before the current illness or injury 88 Not attempted due to Medical conditions or safety concerns Transfers (B, C, W/C) (FIM): 4 Scootin Rollin Supine to/from Sit: 4 Sit to/from Stand: 4 Bed to/from Chair: 4 Min assist for supine to sit, min assist for stand pivot to the left and CGA to the right side. Cues for safety and positioning. Gait Training Gait (FIM): 2 Distance: 50', 100'x3 Gait Level of Assist: 3 Gait Persons Needed: 1 Gait Assistive Device: Cane Single Point Patient ambulated 50' with a SPC with mod assist, tends to scissor, poor foot clearance and advancement of left leg, left knee stays flexed. Patient also ambulated 100'x3 with SENIOR ORACLE DATABASE ADMINISTRATOR on the right and therapist assist on the left, cued to ambulate as fast as he can. Had better balance overall and much improved left leg advancement. WC follow. Exercises NuStep Minutes: 15 NuStep Workload: 4 Treatments bed mobility and transfers, dressing, ambulation, LE exercise Assessment Current Status: Fair Progress seems to have increased muscle tone in left leg but poor strength during weight bearing activities. PT Short Term Goals Short Term Goals Time Frame: Feb 21, 2019 Transfers (B,C,W/C) (FIM): 4 Gait (FIM): 2 Gait Distance Comment: 50' Gait Level of Assist: 4 Gait Assistive Device: Walker Weston Wheelchair Distance: 50' PT Academic Records Specialist Goals Mcfp Goals PT Mcfp Goals Time Frame: Mar 07, 2019 Transfers (B,C,W/C) (FIM): 5 Sit to Lying (QC): 4 Lying-Sitting on Side/Bed(QC): 4 Sit to Stand (QC): 4 Rollin Roll Left to Right (QC): 4 Chair/Qhv-gk-Ynypc Xfer(QC): 4 Car Transfer (QC): 4 Gait (FIM): 2 Distance: 100' Walk 10 feet (QC): 4 Walk 10ft-Uneven Surface(QC): 4 Walk 50ft with 2 Turns (QC): 4 Gait Level of Assist: 4 Gait Assistive Device: Walker Weston Stairs (FIM): 2 # of Steps: 4 1 Step (curb) (QC): 3 4 Steps (QC): 3 Stairs Level Of Assist: 4 PT Plan Problem List Problem List: Activity Tolerance, Functional Strength, Safety, Balance, Gait, Transfer, Bed Mobility, ROM Treatment/Plan Treatment Plan: Continue Plan of Care Treatment Plan: Bed Mobility, Education, Functional Activity Merritt, Functional Strength, Group Therapy, Gait, Safety, Therapeutic Exercise, Transfers Treatment Duration: Mar 07, 2019 Frequency: At least 5 of 7 days/Wk (IRF) Estimated Hrs Per Day: 1.5 hours per day Patient and/or Family Agrees t: Yes Safety Risks/Education Patient Education: Gait Training, Transfer Techniques, Correct Positioning, Safety Issues Teaching Recipient: Patient Teaching Methods: Demonstration, Discussion Response to Teaching: Reinforcement Needed Time/GCodes Time In: 0800 Time Out: 0900 Total Billed Treatment Time: 60 Total Billed Treatment 1 visit EX 15' GT 30' FA 15' VERENA FREEMAN PT Feb 18, 2019 08:57
--- NOTE | 2019-02-18 09:18 | Occupational Ther Daily Note ---
OT Current Status-Daily Note Subjective Pt alert in chair. Pt agrees to therapy. Pt lethargic today. Would communicate with LEAVITT though would fall asleep when not engaged. Mental Status/Objective Patient Orientation: Person, Place, Time, Situation Therapy Code Descriptions/Definitions Functional [place] Measure: 0=Not Assessed/NA 4=Minimal Assistance 1=Total Assistance 5=Supervision or Setup 2=Maximal Assistance 6=Modified [place] 3=Moderate Assistance 7=Complete [place] Attachments: IV ADL-Treatment Therapy Code Descriptions/Definitions Functional [place] Measure: 0=Not Assessed/NA 4=Minimal Assistance 1=Total Assistance 5=Supervision or Setup 2=Maximal Assistance 6=Modified [place] 3=Moderate Assistance 7=Complete [place] Therapy Quality Codes: 6 Independent with activity with or without an assistive device 5 Patient requires set up or clean up by helper. Patient completes activity by themselves 4 Supervision or touching assist (CGA). [place] provide cues , steadying assist 3 The helper provides less than half the effort to complete the activity 2 The helper provides more than half the effort to complete the activity 1 Dependent. The helper does all the effort to complete an activity 7 Patient refused to complete or attempt activity 9 The patient did not perform the activity before the current illness or injury 88 Not attempted due to Medical conditions or safety concerns Eating (FIM): 5 (Assist to open packages/containers. Pt required verbal cue locating olvera on left side. Pt used fork to cut and spear eggs by self.) Eating (QC): 4 Upper Body (FIM): 2 (Pt continues to need verbal cues for one arm dressing. Assist to thread L arm through shirt first. Assist in sliding shirt over L elbow. Pt completed right arm and pulled shirt over head with min assist. Pt needed assist arranging back of shirt. ) Upper Body Dressing (QC): 2 Transfers (B, C, W/C) (FIM): 4 (Min A to transfer toward R side with verbal/physical cues to position LE's and L UE correctly.) Other Treatment Pt was asked to direct OT to the therapy gym. Pt insisted to turn right and needed verbal cueing 5 times to look left. Pt participated in mcnamara bag activity working on left side neglect and crossing midline by having pt search for mcnamara bags on left side and tossing with R hand into a basket and then finding mcnamara b ags on the right side and tossing into a basket on the left side 2 times each. Pt then transferred to mat for PROM to help with LLE and LUE AROM. Tone noted throughout L UE, poor active movement during session. Pt unable to hold onto items with L hand as he did last session. Pt was left in bed, call light and phone was placed within reach. Pt needs met. Education Teaching Recipient: Patient Teaching Methods: Demonstration Response to Teaching: Verbalize Understanding OT Short Term Goals Short Term Goals Eating(FIM): 5 Grooming(FIM): 5 Bathing(FIM): 4 Upper Body Dressing(FIM): 4 Lower Body Dressing(FIM): 4 Toileting(FIM): 3 Transfers (B,C,W/C) (FIM): 4 Toilet/Commode Transfer(FIM): 3 Shower Transfer(FIM): 4 1=Demonstrate adherence to instructed precautions during ADL tasks. 2=Patient will verbalize/demonstrate understanding of assistive devices/modifications for ADL. 3=Patient will improve strength/tolerance for activity to enable patient to perform ADL's. OT Shook Splicer Goals Shook Splicer Goals Eating (FIM): 6 Eating (QC): 6 Groomin Oral Hygiene (QC): 6 Bathing(FIM): 6 Shower/Bathe Self (QC): 6 Upper Body Dressing(FIM): 6 Upper Body Dressing (QC): 6 Lower Body Dressing(FIM): 5 Lower Body Dressing (QC): 4 On/Off Footwear (QC): 5 Toileting(FIM): 5 Toileting Hygiene (QC): 4 Transfers (B,C,W/C) (FIM): 6 Toilet/Commode Transfer(FIM): 6 Toilet/Commode Transfer (QC): 6 Shower Transfer(FIM): 6 Additional Goals: 1-Demonstrate ADL Tasks, 2-Verbalize Understanding, 3- ImproveStrength/Merritt 1=Demonstrate adherence to instructed precautions during ADL tasks. 2=Patient will verbalize/demonstrate understanding of assistive devices/modifications for ADL. 3=Patient will improve strength/tolerance for activity to enable patient to perform ADL's. OT Education/Plan Problem List/Assessment Assessment: Decreased Activ Tolerance, Decreased UE Strength, Impaired Cognition, Impaired Coordination, Impaired Funct Balance, Impaired Self-Care Skills, Restricted Funct UE ROM, Visual-Perceptual Deficit pt presents with functional limitations affecting areas of ADLs and functional transfers with the above mention deficits including decrease proprioception. pt would benefit from skilled OT Services to address above mention deficits and increase independence with ADLS and functional transfers. Discharge Recommendations Plan/Recommendations: Continue POC Treatment Plan/Plan of Care Patient would benefit from OT for education, treatment and training to promote independence in ADL's, mobility, safety and/or upper extremity function for ADL's. Plan of Care: ADL Retraining, Caregiver Training, Concurrent Therapy, Functional Mobility, Group Exercise/Act as Ind, UE Funct Exercise/Act, UE Neuromus Re-Ed/Coord, Visual/Perceptual Retrain, W/C Management Training Treatment Duration: Mar 15, 2019 Frequency: At least 5 of 7 days/Wk (IRF) Estimated Hrs Per Day: 1 hour per day (60-90 minutes per day ) Agreement: Yes Rehab Potential: Fair Time/GCodes Start Time: 09:00 Stop Time: 09:15 Total Time Billed (hr/min): 75 Billed Treatment Time 1 visit-ADL 3 (45 min) NM 2 (30 min) JALIL DUPONT Feb 18, 2019 09:18
[2019-02-18] MEDS: lisINopril 10 MG (PRINIVIL) TABLET PO SCH (09:40)
[2019-02-18] MEDS: SENNA W/DOCUSATE (SENOKOT S) TABLET PO SCH ×2 (09:40→19:29)
[2019-02-18] MEDS: ASPIRIN E.C. 81 MG (ECOTRIN) TAB PO SCH (09:40)
[2019-02-18] MEDS: NICOTINE 21 MG (NICODERM) PATCH TD SCH (09:40)
[2019-02-18] MEDS: CLOPIDOGREL 75 MG (PLAVIX) TABLET PO SCH (09:40)
[2019-02-18] MEDS: CARVEDILOL 12.5 MG (COREG) TABLET PO SCH ×2 (09:40→20:11)
[2019-02-18] MEDS: amLODIPine 5 MG (NORVASC) TAB PO SCH (09:40)
--- NOTE | 2019-02-18 10:27 | Progress Note - Hospitalist ---
LESLEY DE LA GARZA [facility] 02/18/19 1027: Progress Note Mr Charles suffered a fall last night. Further documentation can be found about the incident in nursing notes. He states we was going to use the bathroom and put the bed rail down to get up. She states he fell straight down since he couldn't support his weight and denies hitting his head. He denies any pain this morning. He is up with PT this morning. His mentation seems more clear this morning, with clear speech pattern without delay. Continue wound care management. No plans for discharge at this time. Continue to monitor. IRENE SWEENEY DO 02/18/19 2140: Supervisory-Addendum Brief Verification & Attestation Participated in pt care: history, MDM, physical Personally performed: exam, history, MDM, supervision of care Care discussed with: Medical Student Procedures: n/a Results interpretation: Verified all documentation Verification and Attestation of Medical Student E/M Service A medical student performed and documented this service in my presence. I reviewed and verified all information documented by the medical student and made modifications to such information, when appropriate. I personally performed the physical exam and medical decision making. Irene Sweeney Feb 18, 2019,21:40 LESLEY DE LA GARZA [facility] Feb 18, 2019 10:27 IRENE SWEENEY DO Feb 18, 2019 21:40
--- NOTE | 2019-02-18 11:43 | Physical Therapy Daily Note ---
PT Daily Note-Current Subjective Patient in bed pre tx, agrees to PT, has no complaints of pain at rest. Appearance Patient in bed post tx with nurse call, phone, tray, bed alarm on. Mental Status Patient Orientation: Person, Place, Situation Transfers Therapy Code Descriptions/Definitions Functional [place] Measure: 0=Not Assessed/NA 4=Minimal Assistance 1=Total Assistance 5=Supervision or Setup 2=Maximal Assistance 6=Modified [place] 3=Moderate Assistance 7=Complete [place] Therapy Quality Codes: 6 Independent with activity with or without an assistive device 5 Patient requires set up or clean up by helper. Patient completes activity by themselves 4 Supervision or touching assist (CGA). [place] provide cues , steadying assist 3 The helper provides less than half the effort to complete the activity 2 The helper provides more than half the effort to complete the activity 1 Dependent. The helper does all the effort to complete an activity 7 Patient refused to complete or attempt activity 9 The patient did not perform the activity before the current illness or injury 88 Not attempted due to Medical conditions or safety concerns Exercises Supine Ex: Glut sets, Heel Slides, Short Arc Quads, Straight leg raise, Hip abd/add Supine Reps: 15 (LLE) PROM/stretching to LLE in all planes Treatments LLE stretching and AAROM Assessment Current Status: Fair Progress increased muscle tone in LLE PT Short Term Goals Short Term Goals Time Frame: Feb 21, 2019 Transfers (B,C,W/C) (FIM): 4 Gait (FIM): 2 Gait Distance Comment: 50' Gait Level of Assist: 4 Gait Assistive Device: Walker [place]on Wheelchair Distance: 50' PT Chcf Goals Chcf Goals PT Glove Sewer Goals Time Frame: Mar 07, 2019 Transfers (B,C,W/C) (FIM): 5 Sit to Lying (QC): 4 Lying-Sitting on Side/Bed(QC): 4 Sit to Stand (QC): 4 Rollin Roll Left to Right (QC): 4 Chair/Mng-pj-Ujktf Xfer(QC): 4 Car Transfer (QC): 4 Gait (FIM): 2 Distance: 100' Walk 10 feet (QC): 4 Walk 10ft-Uneven Surface(QC): 4 Walk 50ft with 2 Turns (QC): 4 Gait Level of Assist: 4 Gait Assistive Device: Walker [place] Stairs (FIM): 2 # of Steps: 4 1 Step (curb) (QC): 3 4 Steps (QC): 3 Stairs Level Of Assist: 4 PT Plan Problem List Problem List: Activity Tolerance, Functional Strength, Safety, Balance, Gait, Transfer, Bed Mobility, ROM Treatment/Plan Treatment Plan: Continue Plan of Care Treatment Plan: Bed Mobility, Education, Functional Activity Merritt, Functional Strength, Group Therapy, Gait, Safety, Therapeutic Exercise, Transfers Treatment Duration: Mar 07, 2019 Frequency: At least 5 of 7 days/Wk (IRF) Estimated Hrs Per Day: 1.5 hours per day Patient and/or Family Agrees t: Yes Safety Risks/Education Patient Education: Correct Positioning, Safety Issues Teaching Recipient: Patient Teaching Methods: Demonstration, Discussion Response to Teaching: Reinforcement Needed Time/GCodes Time In: 1130 Time Out: 1145 Total Billed Treatment Time: 15 Total Billed Treatment 1 visit EX VERENA BRISENO PT Feb 18, 2019 11:43
--- NOTE | 2019-02-18 15:00 | Speech Therapy Daily Note ---
Speech Daily Progress Note Subjective Date Seen by Provider: Feb 18, 2019 Time Seen by Provider: 00:30 The patient was resting in his bed after PT when I entered his room. Objective The patient completed a series of y/n questions pertaining to general information with 75% accuracy given min to mod verbal cues. Assessment Assessment Current Status: Good Progress Treatment Plan Continue Plan of Care Communication Comprehension: 5 Expression: 4 Social Cognition Social Interaction: 3 Problem Solvin Memory: 3 Speech Short Term Goals Short Term Goals Short Term Goals 1) Patient will demonstrate sustained attention, memory and sequencing for task performance with 80% accuracy. 2) Patient will demonstrate effective communication of wants/needs to staff and caregivers with 80% accuracy. Speech District Superintendent Goals District Superintendent Goals The patient will improve cognitive-communication skills in order to return to his former living situation safely. Speech-Plan Patient/Family Goals Patient/Family Goals: Patient plans on returning home with family post rehab. Treatment Plan Speech Therapy Treatment Plan: Continue Plan of Care Patient tires easily and has to frequently be prompted to participate. Treatment Duration: Feb 26, 2019 Frequency: 5 times per week Estimated Hrs Per Day: .5 hour per day Rehab Potential: Fair Barriers to Learning: Patient's medical status and history Pt/Family Agrees to Plan: Yes Safety Risks/Education Teaching Recipient: Patient Teaching Methods: Discussion Response to Teaching: Verbalize Understanding Education Topics Provided: Communication of wants/needs, re-oriented to the call light Time Speech Therapy Time In: 10:30 Speech Therapy Time Out: 11:00 Total Billed Time: 30 Billed Treatment Time 1, ALFRED Neal Feb 18, 2019 15:00
--- NOTE | 2019-02-18 15:05 | NUR ---
Team Conference Met with patient to discuss weekly team conference. Patient continues to make progress with therapies and team is recommending continued stay with discussion at next team conference on 02/24/19. Patient is agreeable to this plan. Continue with plan of care.
[2019-02-18] MEDS ORDERED: PRAV20TA3 PO ×2 (16:12)
[2019-02-18] MEDS: TAMSULOSIN 0.4 MG (FLOMAX) CAP PO SCH (17:17)
[2019-02-18 18:00] VITALS: BP 108/51
[2019-02-18] MEDS: ATORVASTATIN 80 MG (LIPITOR) TABLET PO SCH (20:11)
[2019-02-19 05:34] VITALS: BP 116/74
[2019-02-19 06:44] LABS: BASOPHILS % (AUTO) 1 % (0-10); EOSINOPHILS % (AUTO) 1 % (0-10); HEMATOCRIT 31 % (40-54); HEMOGLOBIN 10.1 G/DL (13.3-17.7); LYMPHOCYTES # (AUTO) 1.3 X 10^3 (1.0-4.0); LYMPHOCYTES % (AUTO) 29 % (12-44); MEAN CORPUSCULAR HEMOGLOBIN 31 PG (25-34); MEAN CORPUSCULAR HGB CONC 33 G/DL (32-36); MEAN CORPUSCULAR VOLUME 93 FL (80-99); MEAN PLATELET VOLUME 9.3 FL (7.4-10.4); MONOCYTES # (AUTO) 0.4 X 10^3 (0.0-1.0); MONOCYTES % (AUTO) 9 % (0-12); NEUTROPHILS # (AUTO) 2.8 X 10^3 (1.8-7.8); NEUTROPHILS % (AUTO) 60 % (42-75); PLATELET COUNT 321 10^3/uL (130-400); RED CELL DISTRIBUTION WIDTH 14.7 % (10.0-14.5); WHITE BLOOD COUNT 4.6 10^3/uL (4.3-11.0)
[2019-02-19 07:20] LABS: ALBUMIN 3.6 GM/DL (3.2-4.5); BILIRUBIN,TOTAL 0.4 MG/DL (0.1-1.0); CALCIUM 8.9 MG/DL (8.5-10.1); CREATININE SERUM 1.39 MG/DL (0.60-1.30); POTASSIUM 4.4 MMOL/L (3.6-5.0)
[2019-02-19 08:35] VITALS: BP 119/71
[2019-02-19] MEDS: NICOTINE 21 MG (NICODERM) PATCH TD SCH (08:42)
[2019-02-19] MEDS: CLOPIDOGREL 75 MG (PLAVIX) TABLET PO SCH (08:42)
[2019-02-19] MEDS: CARVEDILOL 12.5 MG (COREG) TABLET PO SCH ×2 (08:42→20:47)
[2019-02-19] MEDS: amLODIPine 5 MG (NORVASC) TAB PO SCH (08:42)
[2019-02-19] MEDS: ASPIRIN E.C. 81 MG (ECOTRIN) TAB PO SCH (08:43)
[2019-02-19] MEDS: SENNA W/DOCUSATE (SENOKOT S) TABLET PO SCH ×2 (08:43→20:47)
[2019-02-19] MEDS: lisINopril 10 MG (PRINIVIL) TABLET PO SCH (08:43)
--- NOTE | 2019-02-19 08:43 | PM&R Progress Note ---
Subjective HPI/CC On Admission Date Seen by Provider: Feb 19, 2019 Time Seen by Provider: 08:45 Chief complaint: Debility following CVA with left-sided weakness History of present illness: This is a 73-year-old white male clinic patient of [facility] who accepted upon transfer from [facility] hospitalist service after I transferred him there on 02/05/2019 after he was admitted for suspicion of TIA and CVA and although CT scan showed no evidence of any stroke carotid artery ultrasound at [facility] at that time with stroke protocol revealed critical carotid artery stenosis requiring transfer to vascular care assessment. He had a history of right stent placement in the carotid artery in the past and a right-sided carotid endarterectomy in 1999 and continued to smoke since that time. He was transferred to [facility] maintained on Plavix aspirin and statin therapy along with antihypertensive meds and was seen by neurology and vascular surgery. Renal insufficiency returned back to baseline at 1.4 so IV f luids were discontinued. Patient was managed aggressively and underwent a left carotid stent placement due to critical stenosis on 02/08/[address] Sherman and continue to have the left upper extremity weakness. He was improving at that time. In flotation tender hours of 02/09/2019 patient suffered an acute CVA confirmed on CT scan even while maintained on Plavix and aspirin. Patient was not deemed a TPA candidate at that time once again. He was found to have a brain aneurysm 3 mm in the A1 segment of the brain but no intervention was planned. CT confirmed the acute infarct involving the watershed distribution between MCA and PORTABLE IRRIGATION OPERATOR territory on the right as well as a small lacunar infarct along the centrum semi-ovale on the right and within the right parietal lobe. He was transported to [facility] inpatient rehab by his daughter 1 of 6 children who lives in [place]. He currently is leaning over to the left because of inability to sit straight in the wheelchair. This indicates a profound loss of function and will require at least 14 days of inpatient rehab for recovery in order to return to some sort of status to be able to return home to live independently and assist with regaining independence with ADLs. He is wheezing currently so I did order duo nebs 3 times daily scheduled. Smoking cessation was counseled on nicotine patch order was placed. Considering the numerous strokes he has had even while being on Plavix and aspirin it is concerning and his prognosis is guarded for additional strokes and even more extensive debility. His barriers to returning home include: Unable to ambulate at this current time wheelchair-bound and home not wheelchair accessible Lives alone but family is involved in his care so likely will need major supervision will need to arrange that prior to discharge Clinical stability following stroke even though on Plavix and aspirin and statin therapy so will need to assure he has been adequately risk stratified in order to decrease the chance of additional strokes prior to discharge home Subjective/Events-last exam Left side neglect remains Had a fall yesterday but none since No confusion noted today EGD and colonoscopy revealed gastritis so I started Ranitidine BID per Dr Narayan recs Was able to shave and that has made him feel better Decrease stuttering is noted again today Clear mentation noted today Overall improving and gaining confidence. Lungs are becoming more clear with neb treatments Left arm wound will be managed by Dr. Stacy Narayan consultation Conferred with RN Reviewed therapy notes Review of Systems Neurological: Weakness, Numbness, Incoordination Objective Exam Vital Signs Vital Signs Date Time Temp Pulse Resp B/P (MAP) Pulse Ox O2 Delivery O2 Flow Rate FiO2 02/19/19 20:42 89 110/60 (77) 02/19/19 20:09 93 Room Air 02/19/19 17:41 96.5 14 Capillary Refill : General Appearance: No Apparent Distress, WD/WN, Chronically ill, Thin, Other (fatigued, disheveled) HEENT: PERRL/EOMI, TMs Normal, Normal ENT Inspection, Pharynx Normal, Moist Mucous Membranes Neck: Full Range of Motion, Normal Inspection, Non Tender, Supple Respiratory: Chest Non Tender, Lungs Clear, Normal Breath Sounds, No Accessory Muscle Use, No Respiratory Distress, Wheezing Cardiovascular: Regular Rate, Rhythm, No Edema, No Gallop, No JVD, No Murmur Gastrointestinal: Normal Bowel Sounds, No Organomegaly, No Pulsatile Mass, Non Tender, Soft Back: Normal Inspection, No CVA Tenderness, No Vertebral Tenderness Extremity: Normal Capillary Refill, Normal Inspection, Normal Range of Motion, Non Tender, No Calf Tenderness, No Pedal Edema Neurologic/Psychiatric: Alert, Oriented x3, Normal Mood/Affect, Abnormal Cerebellar Tests, Abnormal stave block roller II-XII (left), Abnormal Gait, Motor Weakness (left upper and lower 3/5 strength), Other (stuttering) Skin: Normal Color, Warm/Dry Lymphatic: No Adenopathy Results/Procedures Lab Laboratory Tests 02/19/19 06:20 Patient resulted labs reviewed. FIM Transfers Therapy Code Descriptions/Definitions Functional [place] Measure: 0=Not Assessed/NA 4=Minimal Assistance 1=Total Assistance 5=Supervision or Setup 2=Maximal Assistance 6=Modified [place] 3=Moderate Assistance 7=Complete [place] Therapy Quality Codes: 6 Independent with activity with or without an assistive device 5 Patient requires set up or clean up by helper. Patient completes activity by themselves 4 Supervision or touching assist (CGA). [place] provide cues , steadying assist 3 The helper provides less than half the effort to complete the activity 2 The helper provides more than half the effort to complete the activity 1 Dependent. The helper does all the effort to complete an activity 7 Patient refused to complete or attempt activity 9 The patient did not perform the activity before the current illness or injury 88 Not attempted due to Medical conditions or safety concerns Transfers (B, C, W/C) (FIM): 4 (Min A to transfer toward R side with verbal/physical cues to position LE's and L UE correctly.) Scootin Rollin Roll Left to Right (QC): 3 Supine to/from Sit: 4 Sit to/from Stand: 4 Sit to Lying (QC): 2 Sit to Stand (QC): 2 Chair/Olz-yn-Vpdby Xfer(QC): 2 Bed to/from Chair: 4 Car Transfer (QC): 2 Gait Training Does the Patient Walk?: Yes Gait (FIM): 2 Distance (FIM): 1=up to 49 ft (20x2) Distance: 50', 100'x3 Walk 10 feet (QC): 3 Gait Level of Assist: 3 Gait Persons Needed: 1 Gait Assistive Device: Cane Single Point Wheelchair Training Does the Pt Use a Wheelchair?: Yes Wheelchair (FIM): 2 Wheelchair Distance: 3=116-89 ft (50ft) Distance: 50' Wheelchair Level of Assist: 3 Type of Wheelchair: Manual Mental Status/Objective Comprehension: 5 Expression: 4 Social Interaction: 3 Problem Solvin Memory: 3 ADL-Treatment Feedin (Assist to open packages/containers. Pt required verbal cue locating olvera on left side. Pt used fork to cut and spear eggs by self.) Eating (QC): 4 Groomin (Pt was able to brush hair with 1 verbal cue. Pt switched hands and used affected side. Pt declined to brush teeth.) Oral Hygiene (QC): 2 Bathin (Pt required min assistance to wash buttocks. Pt needed grabbar and SBA while sitting.Using grabbar, shower bench and hand held shower pt able to complete bathing all areas except buttocks with close SBA. Pt required as sistance to manipulate water temperature, hand held shower and apply soap. Min A and verbal cues to stand while assist to cleanse buttocks needed. With verbal cues pt was able to dry self while in sitting. ) Bathing Location: L Arm, R Arm, L Upper Leg, R Upper Leg, L Lower Leg (including foot), R Lower Leg (including foot), Chest, Abdomen, Perineal Area Shower/Bathe Self (QC): 3 Upper Extremity Dressin (Pt continues to need verbal cues for one arm dressing. Assist to thread L arm through shirt first. Assist in sliding shirt over L elbow. Pt completed right arm and pulled shirt over head with min assist. Pt needed assist arranging back of shirt. ) Upper Body Dressing (QC): 2 Lower Extremity Dressin (Pt needed min vlad to don briefs with min A in standing. Assisted to hike pants over hips. Pt able to don R sock. Pt able to put L sock over toes, needed assistance to lathe puller L heel. Education of 1 handed dressing technique. ) Lower Body Dressing (QC): 2 On/Off Footwear (QC): 2 Toiletin (required assist with 3/3 toileting tasks ) Toileting Hygiene (QC): 1 Toilet/Commode Transfer: 3 Shower: 4 (Min assist needed for transfer using grabbar, w/c and shower bench. Needed verbal cues on L foot placement. 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 Status: Acute (3) Back pain Status: Chronic Qualifiers: Back pain location: back pain in unspecified location Chronicity: unspecified Back pain laterality: unspecified Qualified Codes: M54.9 - Dorsalgia, unspecified (4) Dark stools Status: Acute (5) Impulsive Status: Acute (6) Leukopenia Status: Acute Qualifiers: Leukopenia type: unspecified Qualified Codes: D72.819 - Decreased white blood cell count, unspecified (7) Anemia Status: Chronic Qualifiers: Anemia type: unspecified type Qualified Codes: D64.9 - Anemia, unspecified (8) Hypertension Status: Chronic Qualifiers: Hypertension type: essential hypertension Qualified Codes: I10 - Essential (primary) hypertension (9) COPD (chronic obstructive pulmonary disease) Status: Chronic Qualifiers: COPD type: unspecified COPD Qualified Codes: J44.9 - Chronic obstructive pulmonary disease, unspecified (10) Hyperlipidemia Status: Chronic Qualifiers: Hyperlipidemia type: mixed hyperlipidemia Qualified Codes: E78.2 - Mixed hyperlipidemia (11) Renal insufficiency Status: Chronic (12) Wheezing Status: Acute (13) Carotid stenosis Status: Chronic Qualifiers: Laterality: bilateral Qualified Codes: I65.23 - Occlusion and stenosis of bilateral carotid arteries (14) Left-sided weakness Status: Acute (15) BPH (benign prostatic hyperplasia) Status: Chronic Qualifiers: Lower urinary tract symptom presence: unspecified whether lower urinary tract symptoms present Qualified Codes: N40.0 - Benign prostatic hyperplasia without lower urinary tract symptoms (16) Risk for falls Status: Acute (17) Smoker Status: Chronic HEBERT BAKER DO Feb 19, 2019 08:43
[2019-02-19] MEDS: RT-ALBUTEROL/IPRATROPIUM 3 ML (DUONEB) VIAL INH SCH ×3 (08:50→20:09)
--- NOTE | 2019-02-19 09:48 | Progress Note - Hospitalist ---
[facility] 02/19/19 0948: Progress Note Mr Mariscal continues to improve. His cognition is improved and speech deficit is also improved with reduced stuttering He had trouble sleeping last night, per pt and staff report. Will schedule melatonin. Consider Remeron if no improvement. Less neglectful of left side. Seen actively participating in rehab today IRENE SWEENEY DO 02/20/19 1530: Supervisory-Addendum Brief Verification & Attestation Participated in pt care: history, MDM, physical Personally performed: exam, history, MDM, supervision of care Care discussed with: Medical Student Procedures: n/a Results interpretation: Verified all documentation Verification and Attestation of Medical Student E/M Service A medical student performed and documented this service in my presence. I reviewed and verified all information documented by the medical student and made modifications to such information, when appropriate. I personally performed the physical exam and medical decision making. Irene Sweeney Feb 20, 2019,15:30 [facility] Feb 19, 2019 09:48 IRENE SWEENEY DO Feb 20, 2019 15:30
--- NOTE | 2019-02-19 09:57 | Physical Therapy Daily Note ---
PT Daily Note-Current Subjective Patient on commode pre tx, agrees to PT, has no complaints of pain. When done get assist to wipe while PT stands with him and pull his pants up. Appearance Patient in recliner post tx with nurse call, phone, tray, chair alarm on. Mental Status Patient Orientation: Person, Place, Situation Transfers Therapy Code Descriptions/Definitions Functional [place] Measure: 0=Not Assessed/NA 4=Minimal Assistance 1=Total Assistance 5=Supervision or Setup 2=Maximal Assistance 6=Modified [place] 3=Moderate Assistance 7=Complete [place] Therapy Quality Codes: 6 Independent with activity with or without an assistive device 5 Patient requires set up or clean up by helper. Patient completes activity by themselves 4 Supervision or touching assist (CGA). [place] provide cues , steadying assist 3 The helper provides less than half the effort to complete the activity 2 The helper provides more than half the effort to complete the activity 1 Dependent. The helper does all the effort to complete an activity 7 Patient refused to complete or attempt activity 9 The patient did not perform the activity before the current illness or injury 88 Not attempted due to Medical conditions or safety concerns Transfers (B, C, W/C) (FIM): 3 Sit to/from Stand: 4 Bed to/from Chair: 3 Patient needs min assist to stand pivot to the right and mod assist to the left, min assist to stand. Gait Training Gait (FIM): 2 Distance: 100'x3 Gait Level of Assist: 3 Gait Assistive Device: Handheld Assist COOKEE on the right side, WC follow, PT assist with balance on the left side. Patient instructed to ambulate briskly which improves step through on the left side and balance. Exercises toe touch on step with the right leg and LLE bearing weight x20 NuStep Minutes: 15 NuStep Workload: 4 Treatments ambulation, toileting, exercise Assessment Current Status: Fair Progress significant left neglect, stepping on left side deteriorates quickly with fatigue PT Short Term Goals Short Term Goals Time Frame: Feb 21, 2019 Transfers (B,C,W/C) (FIM): 4 Gait (FIM): 2 Gait Distance Comment: 50' Gait Level of Assist: 4 Gait Assistive Device: Walker [place] Wheelchair Distance: 50' PT Skilled Nursing Goals Media Consultant Outside Sales Goals PT Skilled Nursing Goals Time Frame: Mar 07, 2019 Transfers (B,C,W/C) (FIM): 5 Sit to Lying (QC): 4 Lying-Sitting on Side/Bed(QC): 4 Sit to Stand (QC): 4 Rollin Roll Left to Right (QC): 4 Chair/Tdz-in-Jgprs Xfer(QC): 4 Car Transfer (QC): 4 Gait (FIM): 2 Distance: 100' Walk 10 feet (QC): 4 Walk 10ft-Uneven Surface(QC): 4 Walk 50ft with 2 Turns (QC): 4 Gait Level of Assist: 4 Gait Assistive Device: Walker [place] Stairs (FIM): 2 # of Steps: 4 1 Step (curb) (QC): 3 4 Steps (QC): 3 Stairs Level Of Assist: 4 PT Plan Problem List Problem List: Activity Tolerance, Functional Strength, Safety, Balance, Gait, Transfer, Bed Mobility, ROM Treatment/Plan Treatment Plan: Continue Plan of Care Treatment Plan: Bed Mobility, Education, Functional Activity [place], Functional Strength, Group Therapy, Gait, Safety, Therapeutic Exercise, Transfers Treatment Duration: Mar 07, 2019 Frequency: At least 5 of 7 days/Wk (IRF) Estimated Hrs Per Day: 1.5 hours per day Patient and/or Family Agrees t: Yes Safety Risks/Education Patient Education: Gait Training, Transfer Techniques, Correct Positioning, Safety Issues Teaching Recipient: Patient Teaching Methods: Demonstration, Discussion Response to Teaching: Reinforcement Needed Time/GCodes Time In: 0900 Time Out: 1000 Total Billed Treatment Time: 60 Total Billed Treatment 1 visit GT 30' EX 15' FA 15' VERENA FREEMAN PT Feb 19, 2019 09:57
--- NOTE | 2019-02-19 11:03 | Occupational Ther Daily Note ---
OT Current Status-Daily Note Subjective Pt sitting in recliner. Pt was awake initially then while talking to LEAVITT pt fell asleep. Pt had difficulty keeping eyes open and staying awake. Mental Status/Objective Patient Orientation: Person, Place, Time, Situation Therapy Code Descriptions/Definitions Functional [place] Measure: 0=Not Assessed/NA 4=Minimal Assistance 1=Total Assistance 5=Supervision or Setup 2=Maximal Assistance 6=Modified [place] 3=Moderate Assistance 7=Complete [place] ADL-Treatment Pt agreed to shower. Min A transfer to R side, pt demonstrated fatigue during transfers. Min A using w/c and grabbars for shower transfer. Pt requires verbal/physical cues to position foot during sitting and transfers. CGA in shower due to fatigue and some sitting balance issues. Pt able to bathe all areas except L arm and buttocks. Pt able to bend and reach feet while sitting on shower bench. Pt held onto grabbars in standing with CGA while assist to cl eanse buttocks. Pt able to hold comb with L hand and attempt to comb hair, combed hair with R hand. Declined oral care. With verbal cues and mod A pt able to complete upper body dressing. Max A for lower body dressing, pt attempted to don clothing over L foot then was able to don over R foot. Assist to hike over hips, CGA in standing while pt attempted to hike pants. After th erapy, pt sitting in recliner with feet elevated. Call light/phone in reach. Safety measures place. All needs met in room. Therapy Code Descriptions/Definitions Functional [place] Measure: 0=Not Assessed/NA 4=Minimal Assistance 1=Total Assistance 5=Supervision or Setup 2=Maximal Assistance 6=Modified [place] 3=Moderate Assistance 7=Complete [place] Therapy Quality Codes: 6 Independent with activity with or without an assistive device 5 Patient requires set up or clean up by helper. Patient completes activity by themselves 4 Supervision or touching assist (CGA). [place] provide cues , steadying assist 3 The helper provides less than half the effort to complete the activity 2 The helper provides more than half the effort to complete the activity 1 Dependent. The helper does all the effort to complete an activity 7 Patient refused to complete or attempt activity 9 The patient did not perform the activity before the current illness or injury 88 Not attempted due to Medical conditions or safety concerns Bathing (FIM): 3 Bathing Location: L Arm, R Arm, L Upper Leg, R Upper Leg, L Lower Leg (including foot), R Lower Leg (including foot), Chest, Abdomen, Perineal Area Shower/Bathe Self (QC): 3 Upper Body (FIM): 3 Upper Body Dressing (QC): 3 Lower Body Dressing (FIM): 2 Lower Body Dressing (QC): 2 Shower Transfer(FIM): 4 OT Short Term Goals Short Term Goals Eating(FIM): 5 Grooming(FIM): 5 Bathing(FIM): 4 Upper Body Dressing(FIM): 4 Lower Body Dressing(FIM): 4 Toileting(FIM): 3 Transfers (B,C,W/C) (FIM): 4 Toilet/Commode Transfer(FIM): 3 Shower Transfer(FIM): 4 1=Demonstrate adherence to instructed precautions during ADL tasks. 2=Patient will verbalize/demonstrate understanding of assistive devices/modifications for ADL. 3=Patient will improve strength/tolerance for activity to enable patient to perform ADL's. OT Servicing Rep Goals [place] Goals Eating (FIM): 6 Eating (QC): 6 Groomin Oral Hygiene (QC): 6 Bathing(FIM): 6 Shower/Bathe Self (QC): 6 Upper Body Dressing(FIM): 6 Upper Body Dressing (QC): 6 Lower Body Dressing(FIM): 5 Lower Body Dressing (QC): 4 On/Off Footwear (QC): 5 Toileting(FIM): 5 Toileting Hygiene (QC): 4 Transfers (B,C,W/C) (FIM): 6 Toilet/Commode Transfer(FIM): 6 Toilet/Commode Transfer (QC): 6 Shower Transfer(FIM): 6 Additional Goals: 1-Demonstrate ADL Tasks, 2-Verbalize Understanding, 3- ImproveStrength/[place] 1=Demonstrate adherence to instructed precautions during ADL tasks. 2=Patient will verbalize/demonstrate understanding of assistive devices/modifications for ADL. 3=Patient will improve strength/tolerance for activity to enable patient to perform ADL's. OT Education/Plan Problem List/Assessment Assessment: Decreased Activ Tolerance, Decreased Safety Aware, Decreased UE Strength, Impaired Coordination, Impaired Funct Balance, Impaired Self-Care Skills, Restricted Funct UE ROM, Visual-Perceptual Deficit pt presents with functional limitations affecting areas of ADLs and functional transfers with the above mention deficits including decrease proprioception. pt would benefit from skilled OT Services to address above mention deficits and increase independence with ADLS and functional transfers. Discharge Recommendations Plan/Recommendations: Continue POC Treatment Plan/Plan of Care Patient would benefit from OT for education, treatment and training to promote independence in ADL's, mobility, safety and/or upper extremity function for ADL's. Plan of Care: ADL Retraining, Caregiver Training, Concurrent Therapy, Functional Mobility, Group Exercise/Act as Ind, UE Funct Exercise/Act, UE Neuromus Re-Ed/Coord, Visual/Perceptual Retrain, W/C Management Training Treatment Duration: Mar 15, 2019 Frequency: At least 5 of 7 days/Wk (IRF) Estimated Hrs Per Day: 1 hour per day (60-90 minutes per day ) Agreement: Yes Rehab Potential: Fair Time/GCodes Start Time: 10:00 Stop Time: 11:00 Total Time Billed (hr/min): 60 Billed Treatment Time 1 visit-ADL 4 (60 min) JALIL DUPONT Feb 19, 2019 11:03
--- NOTE | 2019-02-19 14:12 | Speech Therapy Daily Note ---
Speech Daily Progress Note Subjective Date Seen by Provider: Feb 19, 2019 Time Seen by Provider: 00:30 The patient was sitting in his recliner following breakfast when I entered his room. He requested coffee which I fixed for him. Objective The patient completed simple memory tasks with 80% given moderate verbal cues and redirection. Patient is noted to neglect his left side. Assessment Assessment Current Status: Good Progress Treatment Plan Continue Plan of Care Communication Comprehension: 5 Expression: 4 Social Cognition Social Interaction: 3 Problem Solvin Memory: 3 Speech Short Term Goals Short Term Goals Short Term Goals 1) Patient will demonstrate sustained attention, memory and sequencing for task performance with 80% accuracy. 2) Patient will demonstrate effective communication of wants/needs to staff and caregivers with 80% accuracy. Speech Heating Worker Goals Heating Worker Goals The patient will improve cognitive-communication skills in order to return to his former living situation safely. Speech-Plan Patient/Family Goals Patient/Family Goals: The patient plans on returning home with family post rehab. Treatment Plan Speech Therapy Treatment Plan: Continue Plan of Care The patient is progressing as a result of skilled ST. Treatment Duration: Feb 26, 2019 Frequency: 5 times per week Estimated Hrs Per Day: .5 hour per day Rehab Potential: Fair Barriers to Learning: Patient has cognitive deficits s/p CVA Pt/Family Agrees to Plan: Yes Safety Risks/Education Teaching Recipient: Patient Teaching Methods: Discussion Response to Teaching: Verbalize Understanding Education Topics Provided: Continued safety within his room. Time Speech Therapy Time In: 08:30 Speech Therapy Time Out: 09:00 Total Billed Time: 30 Billed Treatment Time 1WIL[address] ST Feb 19, 2019 14:12
--- NOTE | 2019-02-19 14:50 | Therapy Group Daily Note ---
Therapy Daily Group Note Patient Education Topic Other List Below (pain, ARU description) Exercises Stretching Session Ratio (pt:therapist): 4:1 Goal of Session: Education on ARU Expectations, Other (list) (pain management) Goal Met for this Session: Yes Pt Benefit of Group: Contributions to Others, F/U Use of Strategies @Home, Improved Cognition, Recognition of Peers, Socialization Other/Notes [facility]. Group consisted introductions (name, place living, attributes of self), socialization, UE/LE seated stretching, ARU description and education on pain management. Pt introduced self appropriately and actively listened to peers. Pt contributed to conversations throughout group and initiated conversations with OTAS. Pt stated to OTAS that R hip hurt, student reported to nrsg. Pt was able to complete UE stretching with B shldrs then required assist with L LE for stretching due to diagnosis. Pt acknowledged understanding by gestures and verbally. After therapy, pt lying in bed with call light/phone in reach. All needs met in room. Start Time: 13:00 Stop Time: 14:20 Total Billed Treatment Time: 80 Total Billed Treatment 1-GRP JALIL DUPONT Feb 19, 2019 14:50
[2019-02-19] MEDS: TAMSULOSIN 0.4 MG (FLOMAX) CAP PO SCH (17:00)
[2019-02-19 17:41] VITALS: BP 99/63
[2019-02-19 20:42] VITALS: BP 110/60
[2019-02-19] MEDS: MELATONIN 3 MG TABLET PO SCH (20:46)
[2019-02-19] MEDS: ATORVASTATIN 80 MG (LIPITOR) TABLET PO SCH (20:46)
[2019-02-19] MEDS: MIRTAZAPINE 15 MG (REMERON) TAB PO SCH (20:47)
[2019-02-20 05:51] VITALS: BP 115/68
[2019-02-20] MEDS: RT-ALBUTEROL/IPRATROPIUM 3 ML (DUONEB) VIAL INH SCH ×3 (08:23→19:56)
[2019-02-20] MEDS: CARVEDILOL 12.5 MG (COREG) TABLET PO SCH ×2 (08:45→20:33)
[2019-02-20] MEDS: FAMOTIDINE 20 MG (PEPCID) TABLET PO SCH (08:45)
[2019-02-20] MEDS: NICOTINE 21 MG (NICODERM) PATCH TD SCH (08:45)
[2019-02-20] MEDS: amLODIPine 5 MG (NORVASC) TAB PO SCH (08:45)
[2019-02-20] MEDS: SENNA W/DOCUSATE (SENOKOT S) TABLET PO SCH ×2 (08:45→20:33)
[2019-02-20] MEDS: lisINopril 10 MG (PRINIVIL) TABLET PO SCH (08:45)
[2019-02-20] MEDS: CLOPIDOGREL 75 MG (PLAVIX) TABLET PO SCH (08:45)
[2019-02-20] MEDS: ASPIRIN E.C. 81 MG (ECOTRIN) TAB PO SCH (08:45)
--- NOTE | 2019-02-20 11:49 | PM&R Progress Note ---
Subjective HPI/CC On Admission Date Seen by Provider: Feb 20, 2019 Time Seen by Provider: 11:00 Chief complaint: Debility following CVA with left-sided weakness History of present illness: This is a 73-year-old white male clinic patient of [facility] who accepted upon transfer from [facility] hospitalist service after I transferred him there on 02/05/2019 after he was admitted for suspicion of TIA and CVA and although CT scan showed no evidence of any stroke carotid artery ultrasound at [facility] at that time with stroke protocol revealed critical carotid artery stenosis requiring transfer to vascular care assessment. He had a history of right stent placement in the carotid artery in the past and a right-sided carotid endarterectomy in 1999 and continued to smoke since that time. He was transferred to [facility] maintained on Plavix aspirin and statin therapy along with antihypertensive meds and was seen by neurology and vascular surgery. Renal insufficiency returned back to baseline at 1.4 so IV fluids were discontinued. Patient was managed aggressively and underwent a left carotid stent placement due to critical stenosis on 02/08/[address] Sherman and continue to have the left upper extremity weakness. He was improving at that time. In knitter wire mesh hours of 02/09/2019 patient suffered an acute CVA confirmed on CT scan even while maintained on Plavix and aspirin. Patient was not deemed a TPA candidate at that time once again. He was found to have a brain aneurysm 3 mm in the A1 segment of the brain but no intervention was planned. CT confirmed the acute infarct involving the watershed distribution between MCA and FOLDER STITCHER OPERATOR territory on the right as well as a small lacunar infarct along the centrum semi-ovale on the right and within the right parietal lobe. He was transported to [facility] inpatient rehab by his daughter 1 of 6 children who lives in [place]. He currently is leaning over to the left because of inability to sit straight in the wheelchair. This indicates a profound loss of function and will require at least 14 days of inpatient rehab for recovery in order to return to some sort of status to be able to return home to live independently and assist with regaining independence with ADLs. He is wheezing currently so I did order duo nebs 3 times daily scheduled. Smoking cessation was counseled on nicotine patch order was placed. Considering the numerous strokes he has had even while being on Plavix and aspirin it is concerning and his prognosis is guarded for additional strokes and even more extensive debility. His barriers to returning home include: Unable to ambulate at this current time wheelchair-bound and home not wheelchair accessible Lives alone but family is involved in his care so likely will need major supervision will need to arrange that prior to discharge Clinical stability following stroke even though on Plavix and aspirin and statin therapy so will need to assure he has been adequately risk stratified in order to decrease the chance of additional strokes prior to discharge home Subjective/Events-last exam Left side neglect remains No additional falls No confusion noted today H2 rohit BID Was able to shave and that has made him feel better Minimal stuttering Clearer mentation noted today Overall improving and gaining confidence. Lungs are becoming more clear with neb treatments Left arm wound will be managed by Dr. Kumar but still draining a lot of fluid Appreciate Dr. Narayan consultation Conferred with RN Reviewed therapy notes Review of Systems Neurological: Weakness, Numbness, Incoordination Objective Exam Vital Signs Vital Signs Date Time Temp Pulse Resp B/P (MAP) Pulse Ox O2 Delivery O2 Flow Rate FiO2 02/20/19 15:14 93 Room Air 02/20/19 05:51 95.9 67 16 115/68 (84) Capillary Refill : General Appearance: No Apparent Distress, WD/WN, Chronically ill, Thin, Other (fatigued, disheveled) HEENT: PERRL/EOMI, TMs Normal, Normal ENT Inspection, Pharynx Normal, Moist Mucous Membranes Neck: Full Range of Motion, Normal Inspection, Non Tender, Supple Respiratory: Chest Non Tender, Lungs Clear, Normal Breath Sounds, No Accessory Muscle Use, No Respiratory Distress, Wheezing Cardiovascular: Regular Rate, Rhythm, No Edema, No Gallop, No JVD, No Murmur Gastrointestinal: Normal Bowel Sounds, No Organomegaly, No Pulsatile Mass, Non Tender, Soft Back: Normal Inspection, No CVA Tenderness, No Vertebral Tenderness Extremity: Normal Capillary Refill, Normal Inspection, Normal Range of Motion, Non Tender, No Calf Tenderness, No Pedal Edema Neurologic/Psychiatric: Alert, Oriented x3, Normal Mood/Affect, Abnormal Cerebellar Tests, Abnormal investigation officer II-XII (left), Abnormal Gait, Motor Weakness (left upper and lower 3/5 strength), Other (stuttering) Skin: Normal Color, Warm/Dry Lymphatic: No Adenopathy Results/Procedures Lab Patient resulted labs reviewed. FIM Transfers Therapy Code Descriptions/Definitions Functional [place] Measure: 0=Not Assessed/NA 4=Minimal Assistance 1=Total Assistance 5=Supervision or Setup 2=Maximal Assistance 6=Modified [place] 3=Moderate Assistance 7=Complete [place] Therapy Quality Codes: 6 Independent with activity with or without an assistive device 5 Patient requires set up or clean up by helper. Patient completes activity by themselves 4 Supervision or touching assist (CGA). [place] provide cues , steadying ass ist 3 The helper provides less than half the effort to complete the activity 2 The helper provides more than half the effort to complete the activity 1 Dependent. The helper does all the effort to complete an activity 7 Patient refused to complete or attempt activity 9 The patient did not perform the activity before the current illness or injury 88 Not attempted due to Medical conditions or safety concerns Transfers (B, C, W/C) (FIM): 3 Scootin Rollin Roll Left to Right (QC): 3 Supine to/from Sit: 4 Sit to/from Stand: 4 Sit to Lying (QC): 2 Sit to Stand (QC): 2 Chair/Xos-uf-Owibk Xfer(QC): 2 Bed to/from Chair: 3 Car Transfer (QC): 2 Gait Training Does the Patient Walk?: Yes Gait (FIM): 2 Distance (FIM): 1=up to 49 ft (20x2) Distance: 100'x3 Walk 10 feet (QC): 3 Gait Level of Assist: 3 Gait Persons Needed: 1 Gait Assistive Device: Handheld Assist Wheelchair Training Does the Pt Use a Wheelchair?: Yes Wheelchair (FIM): 2 Wheelchair Distance: 3=967-70 ft (50ft) Distance: 50' Wheelchair Level of Assist: 3 Type of Wheelchair: Manual Mental Status/Objective Comprehension: 5 Expression: 4 Social Interaction: 3 Problem Solvin Memory: 3 ADL-Treatment Feedin (Assist to open packages/containers. Pt required verbal cue locating olvera on left side. Pt used fork to cut and spear eggs by self.) Eating (QC): 4 Groomin (Pt was able to brush hair with 1 verbal cue. Pt switched hands and used affected side. Pt declined to brush teeth.) Oral Hygiene (QC): 2 Bathin Bathing Location: L Arm, R Arm, L Upper Leg, R Upper Leg, L Lower Leg (including foot), R Lower Leg (including foot), Chest, Abdomen, Perineal Area Shower/Bathe Self (QC): 3 Upper Extremity Dressin Upper Body Dressing (QC): 3 Lower Extremity Dressin Lower Body Dressing (QC): 2 On/Off Footwear (QC): 2 Toiletin (required assist with 3/3 toileting tasks ) Toileting Hygiene (QC): 1 Toilet/Commode Transfer: 3 Shower: 4 Assessment/Plan Assessment and Plan Assess & Plan/Chief Complaint Assessment: CVA w/left sided weakness 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 COPD Smoker Dark stools resolved Leukopenia HTN HLP GIB no source of bleed on scopes Gastritis Left arm skin tear requiring Dr Kumar consultation Plan: Gastritis treatment ASA and Plavix and statin to resume IRF protocols Wound care right arm (1) CVA (cerebral vascular accident) Status: Acute Qualifiers: CVA mechanism: unspecified Qualified Codes: I63.9 - Cerebral infarction, unspecified (2) 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 Status: Acute (3) Back pain Status: Chronic Qualifiers: Back pain location: back pain in unspecified location Chronicity: unspecified Back pain laterality: unspecified Qualified Codes: M54.9 - Dorsalgia, unspecified (4) Dark stools Status: Acute (5) Impulsive Status: Acute (6) Leukopenia Status: Acute Qualifiers: Leukopenia type: unspecified Qualified Codes: D72.819 - Decreased white blood cell count, unspecified (7) Anemia Status: Chronic Qualifiers: Anemia type: unspecified type Qualified Codes: D64.9 - Anemia, unspecified (8) Hypertension Status: Chronic Qualifiers: Hypertension type: essential hypertension Qualified Codes: I10 - Essential (primary) hypertension (9) COPD (chronic obstructive pulmonary disease) Status: Chronic Qualifiers: COPD type: unspecified COPD Qualified Codes: J44.9 - Chronic obstructive pulmonary disease, unspecified (10) Hyperlipidemia Status: Chronic Qualifiers: Hyperlipidemia type: mixed hyperlipidemia Qualified Codes: E78.2 - Mixed hyperlipidemia (11) Renal insufficiency Status: Chronic (12) Wheezing Status: Acute (13) Carotid stenosis Status: Chronic Qualifiers: Laterality: bilateral Qualified Codes: I65.23 - Occlusion and stenosis of bilateral carotid arteries (14) Left-sided weakness Status: Acute (15) BPH (benign prostatic hyperplasia) Status: Chronic Qualifiers: Lower urinary tract symptom presence: unspecified whether lower urinary tract symptoms present Qualified Codes: N40.0 - Benign prostatic hyperplasia without lower urinary tract symptoms (16) Risk for falls Status: Acute (17) Smoker Status: Chronic HEBERT BAKER DO Feb 20, 2019 11:49
--- NOTE | 2019-02-20 12:30 | Wound Care Assessment ---
Wound Care Assessment Date Seen by Provider: Feb 20, 2019 Time Seen by Provider: 12:30 Chief Complaint Ulcers L arm. HPI The patient is a 73 year old male with multiple superficial skin tears of L arm, in a setting of neglect due to R sided stroke. Skin tears are over a week old, and redundant skin is no longer mobile. Xeroform dressings ordered. 02/20/19 Interval Note: No complaint referable to L arm. The wounds are stable with Xeroform dressings. Nursing notes a lot of drainage from posterior L upper arm skin tear. More frequent dressing changes and elevation ordered. Will follow. Past Medical History: Admits Heart Disease (Recent and remote carotid stenting with stroke, L sided weakness. COPD), Admits Peripheral Artery Disease Recreational Drug Use: No Alcohol Use: Denies Use Review of Systems General: No Chills Pulmonary: No Dyspnea Cardiovascular: No: Chest Pain Exam Vital Signs Date Time Temp Pulse Resp B/P (MAP) Pulse Ox O2 Delivery O2 Flow Rate FiO2 02/20/19 09:00 Room Air 02/20/19 08:23 96 02/20/19 05:51 95.9 67 16 115/68 (84) Capillary Refill : General Appearance: no apparent distress HEENT: normal ENT inspection Cardiovascular: regular rate, rhythm Respiratory: lungs clear Gastrointestinal: non tender Extremities: other (L upper arm -- Multiple haeling superficial skin tears.) Assessment/Plan/Dx 1. Multiple skin tears L arm. Plan: Will continue to dress with Xeroform, elevate, and follow. MANA SERRANO MD Feb 20, 2019 12:30
--- NOTE | 2019-02-20 13:04 | Physical Therapy Daily Note ---
PT Daily Note-Current Subjective Pt in chair, agreeable. When cued for posture, weightbearing, Pt states, "That's just the way my body goes". Mental Status Patient Orientation: Person, Confused Transfers Therapy Code Descriptions/Definitions Functional [place] Measure: 0=Not Assessed/NA 4=Minimal Assistance 1=Total Assistance 5=Supervision or Setup 2=Maximal Assistance 6=Modified [place] 3=Moderate Assistance 7=Complete [place] Therapy Quality Codes: 6 Independent with activity with or without an assistive device 5 Patient requires set up or clean up by helper. Patient completes activity by themselves 4 Supervision or touching assist (CGA). [place] provide cues , steadying assist 3 The helper provides less than half the effort to complete the activity 2 The helper provides more than half the effort to complete the activity 1 Dependent. The helper does all the effort to complete an activity 7 Patient refused to complete or attempt activity 9 The patient did not perform the activity before the current illness or injury 88 Not attempted due to Medical conditions or safety concerns Sit to/from Stand: 4 Sit to Stand (QC): 4 Gait Training Does the Patient Walk?: Yes Gait (FIM): 1 Distance (FIM): 2=839-55 ft Distance: 75' x 2 Walk 10 feet (QC): 1 Walk 50 ft with 2 Turns(QC): 1 Gait Level of Assist: 1 Gait Assistive Device: Walker Platform Attempted (B) ANIMAL HUSBANDRY TEACHER, Pt pushing hard to (L), unable to correct with tactile and VCS. Utilized platform FWW with mod A x 1 for balance and max VCS for step length, safety with additional assist to guide walker at times. Pt dragging (L) foot, attempting to step again with (R) without advancing (L) foot. Limited improvement with cueing this date. Treatments Gait training. Returned to chair with alarm activated. Assessment Current Status: Poor Progress Pt tolerated fair. Significant neglect, pushing to (L) this date. Occasionally requiring tactile cues to advance (L) LE before attempting to weightbear. PT Short Term Goals Short Term Goals Time Frame: Feb 21, 2019 Transfers (B,C,W/C) (FIM): 4 Gait (FIM): 2 Gait Distance Comment: 50' Gait Level of Assist: 4 Gait Assistive Device: Walker [place] Wheelchair Distance: 50' PT Assisted Goals Assisted Goals PT Judicial Administrative Assistant Goals Time Frame: Mar 07, 2019 Transfers (B,C,W/C) (FIM): 5 Sit to Lying (QC): 4 Lying-Sitting on Side/Bed(QC): 4 Sit to Stand (QC): 4 Rollin Roll Left to Right (QC): 4 Chair/Ejk-qx-Rjjdn Xfer(QC): 4 Car Transfer (QC): 4 Gait (FIM): 2 Distance: 100' Walk 10 feet (QC): 4 Walk 10ft-Uneven Surface(QC): 4 Walk 50ft with 2 Turns (QC): 4 Gait Level of Assist: 4 Gait Assistive Device: Walker [place] Stairs (FIM): 2 # of Steps: 4 1 Step (curb) (QC): 3 4 Steps (QC): 3 Stairs Level Of Assist: 4 PT Plan Problem List Problem List: Activity Tolerance, Functional Strength, Safety, Balance, Gait, Transfer, Bed Mobility, ROM Treatment/Plan Treatment Plan: Continue Plan of Care Treatment Plan: Bed Mobility, Education, Functional Activity [place], Functional Strength, Group Therapy, Gait, Safety, Therapeutic Exercise, Transfers Treatment Duration: Mar 07, 2019 Frequency: At least 5 of 7 days/Wk (IRF) Estimated Hrs Per Day: 1.5 hours per day Patient and/or Family Agrees t: Yes Safety Risks/Education Patient Education: Gait Training Teaching Recipient: Patient Teaching Methods: Demonstration, Discussion Response to Teaching: Reinforcement Needed Time/GCodes Time In: 917 Time Out: 940 Total Billed Treatment Time: 23 Total Billed Treatment 1, GT x 23' SIMI LANGE DPT Feb 20, 2019 13:04
--- NOTE | 2019-02-20 13:54 | NUR ---
Jarret is a 73 yo male currently inpatient on ARU following an acute CVA on 02/05. Patient is noted left sided neglect and left facial droop. Patient has been pleasant and corporative with staff today. Alarms have been on at all times due to recent fall on 02/18. In this fall patient sustained multiple skin tears to his LUE which Dr. Kumar is following him for. Dr. Kumar in and assessed patient today, he is pleased with the progression but would like to keep patient arm elevated to assist with drainage and edema. Jarret has denied pain multiple times today. No further issues noted. This nurse will continue to monitor patient.
[2019-02-20 16:38] VITALS: BP 94/58
[2019-02-20] MEDS: TAMSULOSIN 0.4 MG (FLOMAX) CAP PO SCH (16:53)
[2019-02-20 18:08] VITALS: BP 94/58
[2019-02-20 20:30] VITALS: BP 109/62
[2019-02-20] MEDS: MIRTAZAPINE 15 MG (REMERON) TAB PO SCH (20:33)
[2019-02-20] MEDS: ATORVASTATIN 80 MG (LIPITOR) TABLET PO SCH (20:33)
[2019-02-20] MEDS: MELATONIN 3 MG TABLET PO SCH (20:33)
[2019-02-21 05:43] VITALS: BP 122/76
[2019-02-21] MEDS: RT-ALBUTEROL/IPRATROPIUM 3 ML (DUONEB) VIAL INH SCH ×3 (07:40→19:55)
[2019-02-21] MEDS: ASPIRIN E.C. 81 MG (ECOTRIN) TAB PO SCH (08:38)
[2019-02-21] MEDS: NICOTINE 21 MG (NICODERM) PATCH TD SCH (08:38)
[2019-02-21] MEDS: FAMOTIDINE 20 MG (PEPCID) TABLET PO SCH (08:38)
[2019-02-21] MEDS: CARVEDILOL 12.5 MG (COREG) TABLET PO SCH ×2 (08:38→20:49)
[2019-02-21] MEDS: lisINopril 10 MG (PRINIVIL) TABLET PO SCH (08:38)
[2019-02-21] MEDS: amLODIPine 5 MG (NORVASC) TAB PO SCH (08:38)
[2019-02-21] MEDS: SENNA W/DOCUSATE (SENOKOT S) TABLET PO SCH ×2 (08:38→20:49)
[2019-02-21] MEDS: CLOPIDOGREL 75 MG (PLAVIX) TABLET PO SCH (08:38)
[2019-02-21 08:40] VITALS: BP 116/75
--- NOTE | 2019-02-21 11:04 | PM&R Progress Note ---
Subjective HPI/CC On Admission Date Seen by Provider: Feb 21, 2019 Time Seen by Provider: 10:45 Chief complaint: Debility following CVA with left-sided weakness History of present illness: This is a 73-year-old white male clinic patient of [facility] who accepted upon transfer from [facility] hospitalist service after I transferred him there on 02/05/2019 after he was admitted for suspicion of TIA and CVA and although CT scan showed no evidence of any stroke carotid artery ultrasound at [facility] at that time with stroke protocol revealed critical carotid artery stenosis requiring transfer to vascular care assessment. He had a history of right stent placement in the carotid artery in the past and a right-sided carotid endarterectomy in 1999 and continued to smoke since that time. He was transferred to [facility] maintained on Plavix aspirin and statin therapy along with antihypertensive meds and was seen by neurology and vascular surgery. Renal insufficiency returned back to baseline at 1.4 so IV fluids were discontinued. Patient was managed aggressively and underwent a left carotid stent placement due to critical stenosis on 02/08/[address] Sherman and continue to have the left upper extremity weakness. He was improving at that time. 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 Patient was not deemed a TPA candidate at that time once again. He was found to have a brain aneurysm 3 mm in the A1 segment of the brain but no intervention was planned. CT confirmed the acute infarct involving the watershed distribution between MCA and STOCKROOM COORDINATOR territory on the right as well as a small lacunar infarct along the centrum semi-ovale on the right and within the right parietal lobe. He was transported to [facility] inpatient rehab by his daughter 1 of 6 children who lives in [place]. He currently is leaning over to the left because of inability to sit straight in the wheelchair. This indicates a profound loss of function and will require at least 14 days of inpatient rehab for recovery in order to return to some sort of status to be able to return home to live independently and assist with regaining independence with ADLs. He is wheezing currently so I did order duo nebs 3 times daily scheduled. Smoking cessation was counseled on nicotine patch order was placed. Considering the numerous strokes he has had even while being on Plavix and aspirin it is concerning and his prognosis is guarded for additional strokes and even more extensive debility. His barriers to returning home include: Unable to ambulate at this current time wheelchair-bound and home not wheelchair accessible Lives alone but family is involved in his care so likely will need major supervision will need to arrange that prior to discharge Clinical stability following stroke even though on Plavix and aspirin and statin therapy so will need to assure he has been adequately risk stratified in order to decrease the chance of additional strokes prior to discharge home Subjective/Events-last exam Left side neglect remains and remains significant a deficit No additional falls reported No confusion noted today and appears to be thinking more clearly H2 rohit BID maintained since EGD gastritis Was able to shave and that has made him feel better and he likes to shave BID Minimal stuttering noted Overall improving and gaining confidence. Lungs are becoming more clear with neb treatments Left arm wound will be managed by Dr. Kumar but still draining a lot of fluid Appreciate Dr. Narayan consultation Conferred with RN Reviewed therapy notes Review of Systems General: Fatigue Neurological: Weakness, Numbness, Incoordination Objective Exam Vital Signs Vital Signs Date Time Temp Pulse Resp B/P (MAP) Pulse Ox O2 Delivery O2 Flow Rate FiO2 02/21/19 15:11 90 Room Air 02/21/19 08:40 88 116/75 (89) 02/21/19 05:43 97.4 18 Capillary Refill : General Appearance: No Apparent Distress, WD/WN, Chronically ill, Thin, Other (fatigued, disheveled) HEENT: PERRL/EOMI, TMs Normal, Normal ENT Inspection, Pharynx Normal, Moist Mucous Membranes Neck: Full Range of Motion, Normal Inspection, Non Tender, Supple Respiratory: Chest Non Tender, Lungs Clear, Normal Breath Sounds, No Accessory Muscle Use, No Respiratory Distress, Wheezing Cardiovascular: Regular Rate, Rhythm, No Edema, No Gallop, No JVD, No Murmur Gastrointestinal: Normal Bowel Sounds, No Organomegaly, No Pulsatile Mass, Non Tender, Soft Back: Normal Inspection, No CVA Tenderness, No Vertebral Tenderness Extremity: Normal Capillary Refill, Normal Inspection, Normal Range of Motion, Non Tender, No Calf Tenderness, No Pedal Edema Neurologic/Psychiatric: Alert, Oriented x3, Normal Mood/Affect, Abnormal Cerebellar Tests, Abnormal hand ornament maker II-XII (left), Abnormal Gait, Motor Weakness (left upper and lower 3/5 strength), Other (stuttering) Skin: Normal Color, Warm/Dry Lymphatic: No Adenopathy Results/Procedures Lab Patient resulted labs reviewed. FIM Transfers Therapy Code Descriptions/Definitions Functional [place] Measure: 0=Not Assessed/NA 4=Minimal Assistance 1=Total Assistance 5=Supervision or Setup 2=Maximal Assistance 6=Modified [place] 3=Moderate Assistance 7=Complete [place] Therapy Quality Codes: 6 Independent with activity with or without an assistive device 5 Patient requires set up or clean up by helper. Patient completes activity by themselves 4 Supervision or touching assist (CGA). [place] provide cues , steadying assist 3 The helper provides less than half the effort to complete the activity 2 The helper provides more than half the effort to complete the activity 1 Dependent. The helper does all the effort to complete an activity 7 Patient refused to complete or attempt activity 9 The patient did not perform the activity before the current illness or injury 88 Not attempted due to Medical conditions or safety concerns Transfers (B, C, W/C) (FIM): 3 Scootin Rollin Roll Left to Right (QC): 3 Supine to/from Sit: 4 Sit to/from Stand: 4 Sit to Lying (QC): 2 Sit to Stand (QC): 4 Chair/Avs-aq-Pydft Xfer(QC): 2 Bed to/from Chair: 3 Car Transfer (QC): 2 Gait Training Does the Patient Walk?: Yes Gait (FIM): 1 Distance (FIM): 4=722-97 ft Distance: 75' x 2 Walk 10 feet (QC): 1 Walk 50 ft with 2 Turns(QC): 1 Gait Level of Assist: 1 Gait Persons Needed: 1 Gait Assistive Device: Walker Platform Wheelchair Training Does the Pt Use a Wheelchair?: Yes Wheelchair (FIM): 2 Wheelchair Distance: 4=991-82 ft (50ft) Distance: 50' Wheelchair Level of Assist: 3 Type of Wheelchair: Manual Mental Status/Objective Comprehension: 5 Expression: 4 Social Interaction: 3 Problem Solvin Memory: 3 ADL-Treatment Feedin (Assist to open packages/containers. Pt required verbal cue locating olvera on left side. Pt used fork to cut and spear eggs by self.) Eating (QC): 4 Groomin (Pt was able to brush hair with 1 verbal cue. Pt switched hands and used affected side. Pt declined to brush teeth.) Oral Hygiene (QC): 2 Bathin Bathing Location: L Arm, R Arm, L Upper Leg, R Upper Leg, L Lower Leg (including foot), R Lower Leg (including foot), Chest, Abdomen, Perineal Area Shower/Bathe Self (QC): 3 Upper Extremity Dressin Upper Body Dressing (QC): 3 Lower Extremity Dressin Lower Body Dressing (QC): 2 On/Off Footwear (QC): 2 Toiletin (required assist with 3/3 toileting tasks ) Toileting Hygiene (QC): 1 Toilet/Commode Transfer: 3 Shower: 4 Assessment/Plan Assessment and Plan Assess & Plan/Chief Complaint Assessment: CVA w/left sided weakness 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 now improved COPD Smoker cessation counseled Dark stools resolved s/p EGD/Colon Leukopenia HTN HLP GIB no source of bleed on scopes Gastritis placed on H2 rohit Left arm skin tear requiring Dr Kumar consultation Plan: Gastritis treatment ASA and Plavix and statin to resume IRF protocols Wound care right arm (1) CVA (cerebral vascular accident) Status: Acute Qualifiers: CVA mechanism: unspecified Qualified Codes: I63.9 - Cerebral infarction, unspecified (2) 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 Status: Acute (3) Back pain Status: Chronic Qualifiers: Back pain location: back pain in unspecified location Chronicity: unspecified Back pain laterality: unspecified Qualified Codes: M54.9 - Dorsalgia, unspecified (4) Dark stools Status: Acute (5) Impulsive Status: Acute (6) Leukopenia Status: Acute Qualifiers: Leukopenia type: unspecified Qualified Codes: D72.819 - Decreased white blood cell count, unspecified (7) Anemia Status: Chronic Qualifiers: Anemia type: unspecified type Qualified Codes: D64.9 - Anemia, unspecified (8) Hypertension Status: Chronic Qualifiers: Hypertension type: essential hypertension Qualified Codes: I10 - Essential (primary) hypertension (9) COPD (chronic obstructive pulmonary disease) Status: Chronic Qualifiers: COPD type: unspecified COPD Qualified Codes: J44.9 - Chronic obstructive pulmonary disease, unspecified (10) Hyperlipidemia Status: Chronic Qualifiers: Hyperlipidemia type: mixed hyperlipidemia Qualified Codes: E78.2 - Mixed hyperlipidemia (11) Renal insufficiency Status: Chronic (12) Wheezing Status: Acute (13) Carotid stenosis Status: Chronic Qualifiers: Laterality: bilateral Qualified Codes: I65.23 - Occlusion and stenosis of bilateral carotid arteries (14) Left-sided weakness Status: Acute (15) BPH (benign prostatic hyperplasia) Status: Chronic Qualifiers: Lower urinary tract symptom presence: unspecified whether lower urinary tract symptoms present Qualified Codes: N40.0 - Benign prostatic hyperplasia without lower urinary tract symptoms (16) Risk for falls Status: Acute (17) Smoker Status: Chronic HEBERT BAKER DO Feb 21, 2019 11:04
[2019-02-21] MEDS: TAMSULOSIN 0.4 MG (FLOMAX) CAP PO SCH (17:07)
[2019-02-21 17:49] VITALS: BP 116/63
[2019-02-21] MEDS: MIRTAZAPINE 15 MG (REMERON) TAB PO SCH (20:49)
[2019-02-21] MEDS: MELATONIN 3 MG TABLET PO SCH (20:49)
[2019-02-21] MEDS: ATORVASTATIN 80 MG (LIPITOR) TABLET PO SCH (20:49)
[2019-02-22 05:06] VITALS: BP 98/57
[2019-02-22] MEDS: RT-ALBUTEROL/IPRATROPIUM 3 ML (DUONEB) VIAL INH SCH ×4 (07:51→19:45)
[2019-02-22] MEDS: SENNA W/DOCUSATE (SENOKOT S) TABLET PO SCH ×2 (08:12→19:40)
--- NOTE | 2019-02-22 08:51 | PM&R Progress Note ---
Subjective HPI/CC On Admission Date Seen by Provider: Feb 22, 2019 Time Seen by Provider: 08:45 Chief complaint: Debility following CVA with left-sided weakness History of present illness: This is a 73-year-old white male clinic patient of [facility] who accepted upon transfer from [facility] hospitalist service after I transferred him there on 02/05/2019 after he was admitted for suspicion of TIA and CVA and although CT scan showed no evidence of any stroke carotid artery ultrasound at [facility] at that time with stroke protocol revealed critical carotid artery stenosis requiring transfer to vascular care assessment. He had a history of right stent placement in the carotid artery in the past and a right-sided carotid endarterectomy in 1999 and continued to smoke since that time. He was transferred to [facility] maintained on Plavix aspirin and statin therapy along with antihypertensive meds and was seen by neurology and vascular surgery. Renal insufficiency returned back to baseline at 1.4 so IV fluids were discontinued. Patient was managed aggressively and underwent a left carotid stent placement due to critical stenosis on 02/08/[address] Sherman and continue to have the left upper extremity weakness. He was improving at that time. 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 Patient was not deemed a TPA candidate at that time once again. He was found to have a brain aneurysm 3 mm in the A1 segment of the brain but no intervention was planned. CT confirmed the acute infarct involving the watershed distribution between MCA and CHIP BIN CONVEYOR TENDER territory on the right as well as a small lacunar infarct along the centrum semi-ovale on the right and within the right parietal lobe. He was transported to [facility] inpatient rehab by his daughter 1 of 6 children who lives in [place]. He currently is leaning over to the left because of inability to sit straight in the wheelchair. This indicates a profound loss of function and will require at least 14 days of inpatient rehab for recovery in order to return to some sort of status to be able to return home to live independently and assist with regaining independence with ADLs. He is wheezing currently so I did order duo nebs 3 times daily scheduled. Smoking cessation was counseled on nicotine patch order was placed. Considering the numerous strokes he has had even while being on Plavix and aspirin it is concerning and his prognosis is guarded for additional strokes and even more extensive debility. His barriers to returning home include: Unable to ambulate at this current time wheelchair-bound and home not wheelchair accessible Lives alone but family is involved in his care so likely will need major supervision will need to arrange that prior to discharge Clinical stability following stroke even though on Plavix and aspirin and statin therapy so will need to assure he has been adequately risk stratified in order to decrease the chance of additional strokes prior to discharge home Subjective/Events-last exam Had multiple bowel movements Leans over to the left Very sleepy today, he is maintained on Melatonin and Remeron but unsure of how well that is working for him since he really didn't sleep well last night Smoking cessation counseled We will DC the NIH scales Has a neuropathic arm, I did confer with Dr. Kumar who is managing the wound Minimal stuttering noted Overall improving and gaining confidence. Lungs are becoming more clear with neb treatments Left arm wound will be managed by Dr. Kumar but still draining a lot of fluid Appreciate Dr. Narayan consultation Conferred with RN Reviewed therapy notes Review of Systems General: Fatigue Neurological: Weakness, Numbness, Incoordination Objective Exam Vital Signs Vital Signs Date Time Temp Pulse Resp B/P (MAP) Pulse Ox O2 Delivery O2 Flow Rate FiO2 02/22/19 19:43 92 Room Air 02/22/19 18:03 98.5 80 16 103/63 (76) Capillary Refill : General Appearance: No Apparent Distress, WD/WN, Chronically ill, Thin, Other (fatigued, disheveled) HEENT: PERRL/EOMI, TMs Normal, Normal ENT Inspection, Pharynx Normal, Moist Mucous Membranes Neck: Full Range of Motion, Normal Inspection, Non Tender, Supple Respiratory: Chest Non Tender, Lungs Clear, Normal Breath Sounds, No Accessory Muscle Use, No Respiratory Distress, Wheezing Cardiovascular: Regular Rate, Rhythm, No Edema, No Gallop, No JVD, No Murmur Gastrointestinal: Normal Bowel Sounds, No Organomegaly, No Pulsatile Mass, Non Tender, Soft Back: Normal Inspection, No CVA Tenderness, No Vertebral Tenderness Extremity: Normal Capillary Refill, Normal Inspection, Normal Range of Motion, Non Tender, No Calf Tenderness, No Pedal Edema Neurologic/Psychiatric: Alert, Oriented x3, Normal Mood/Affect, Abnormal Cer ebellar Tests, Abnormal coke oven patcher II-XII (left), Abnormal Gait, Motor Weakness (left upper and lower 3/5 strength), Other (stuttering) Skin: Normal Color, Warm/Dry Lymphatic: No Adenopathy Results/Procedures Lab Patient resulted labs reviewed. FIM Transfers Therapy Code Descriptions/Definitions Functional [place] Measure: 0=Not Assessed/NA 4=Minimal Assistance 1=Total Assistance 5=Supervision or Setup 2=Maximal Assistance 6=Modified [place] 3=Moderate Assistance 7=Complete [place] Therapy Quality Codes: 6 Independent with activity with or without an assistive device 5 Patient requires set up or clean up by helper. Patient completes activity by themselves 4 Supervision or touching assist (CGA). [place] provide cues , steadying assist 3 The helper provides less than half the effort to complete the activity 2 The helper provides more than half the effort to complete the activity 1 Dependent. The helper does all the effort to complete an activity 7 Patient refused to complete or attempt activity 9 The patient did not perform the activity before the current illness or injury 88 Not attempted due to Medical conditions or safety concerns Transfers (B, C, W/C) (FIM): 3 Scootin Rollin Roll Left to Right (QC): 3 Supine to/from Sit: 4 Sit to/from Stand: 4 Sit to Lying (QC): 2 Sit to Stand (QC): 4 Chair/Xwm-sa-Qaslq Xfer(QC): 2 Bed to/from Chair: 3 Car Transfer (QC): 2 Gait Training Does the Patient Walk?: Yes Gait (FIM): 1 Distance (FIM): 0=845-04 ft Distance: 75' x 2 Walk 10 feet (QC): 1 Walk 50 ft with 2 Turns(QC): 1 Gait Level of Assist: 1 Gait Persons Needed: 1 Gait Assistive Device: Walker Platform Wheelchair Training Does the Pt Use a Wheelchair?: Yes Wheelchair (FIM): 2 Wheelchair Distance: 6=541-70 ft (50ft) Distance: 50' Wheelchair Level of Assist: 3 Type of Wheelchair: Manual Mental Status/Objective Comprehension: 5 Expression: 4 Social Interaction: 3 Problem Solvin Memory: 3 ADL-Treatment Feedin (Assist to open packages/containers. Pt required verbal cue locating olvera on left side. Pt used fork to cut and spear eggs by self.) Eating (QC): 4 Groomin (Pt was able to brush hair with 1 verbal cue. Pt switched hands and used affected side. Pt declined to brush teeth.) Oral Hygiene (QC): 2 Bathin Bathing Location: L Arm, R Arm, L Upper Leg, R Upper Leg, L Lower Leg (incl uding foot), R Lower Leg (including foot), Chest, Abdomen, Perineal Area Shower/Bathe Self (QC): 3 Upper Extremity Dressin Upper Body Dressing (QC): 3 Lower Extremity Dressin Lower Body Dressing (QC): 2 On/Off Footwear (QC): 2 Toiletin (required assist with 3/3 toileting tasks ) Toileting Hygiene (QC): 1 Toilet/Commode Transfer: 3 Shower: 4 Assessment/Plan Assessment and Plan Assess & Plan/Chief Complaint Assessment: CVA w/left sided weakness 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 now improved COPD Smoker cessation counseled Dark stools resolved s/p EGD/Colon Leukopenia HTN HLP GIB no source of bleed on scopes Gastritis placed on H2 rohit Left arm skin tear requiring Dr Kumar consultation Plan: Gastritis treatment ASA and Plavix and statin to resume IRF protocols Wound care right arm NHP (1) CVA (cerebral vascular accident) Status: Acute Qualifiers: CVA mechanism: unspecified Qualified Codes: I63.9 - Cerebral infarction, unspecified (2) 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 Status: Acute (3) Back pain Status: Chronic Qualifiers: Back pain location: back pain in unspecified location Chronicity: unspecified Back pain laterality: unspecified Qualified Codes: M54.9 - Dorsalgia, unspecified (4) Dark stools Status: Acute (5) Impulsive Status: Acute (6) Leukopenia Status: Acute Qualifiers: Leukopenia type: unspecified Qualified Codes: D72.819 - Decreased white blood cell count, unspecified (7) Anemia Status: Chronic Qualifiers: Anemia type: unspecified type Qualified Codes: D64.9 - Anemia, unspecified (8) Hypertension Status: Chronic Qualifiers: Hypertension type: essential hypertension Qualified Codes: I10 - Essential (primary) hypertension (9) COPD (chronic obstructive pulmonary disease) Status: Chronic Qualifiers: COPD type: unspecified COPD Qualified Codes: J44.9 - Chronic obstructive pulmonary disease, unspecified (10) Hyperlipidemia Status: Chronic Qualifiers: Hyperlipidemia type: mixed hyperlipidemia Qualified Codes: E78.2 - Mixed hyperlipidemia (11) Renal insufficiency Status: Chronic (12) Wheezing Status: Acute (13) Carotid stenosis Status: Chronic Qualifiers: Laterality: bilateral Qualified Codes: I65.23 - Occlusion and stenosis of bilateral carotid arteries (14) Left-sided weakness Status: Acute (15) BPH (benign prostatic hyperplasia) Status: Chronic Qualifiers: Lower urinary tract symptom presence: unspecified whether lower urinary tract symptoms present Qualified Codes: N40.0 - Benign prostatic hyperplasia without lower urinary tract symptoms (16) Risk for falls Status: Acute (17) Smoker Status: Chronic HEBERT BAKER DO Feb 22, 2019 08:50
[2019-02-22] MEDS: CLOPIDOGREL 75 MG (PLAVIX) TABLET PO SCH (09:28)
[2019-02-22] MEDS: ASPIRIN E.C. 81 MG (ECOTRIN) TAB PO SCH (09:28)
[2019-02-22] MEDS: NICOTINE 21 MG (NICODERM) PATCH TD SCH (09:28)
[2019-02-22] MEDS: amLODIPine 5 MG (NORVASC) TAB PO SCH (09:28)
[2019-02-22] MEDS: CARVEDILOL 12.5 MG (COREG) TABLET PO SCH ×2 (09:28→20:13)
[2019-02-22] MEDS: FAMOTIDINE 20 MG (PEPCID) TABLET PO SCH (09:29)
[2019-02-22] MEDS: lisINopril 10 MG (PRINIVIL) TABLET PO SCH (09:29)
--- NOTE | 2019-02-22 09:55 | Physical Therapy Daily Note ---
PT Daily Note-Current Subjective Patient in bed pre tx, agrees to PT, has no complaints of pain. Patient needs shirt on, max assist. Appearance Patient in recliner at bedside post tx with nurse call, phone, tray, chair alarm on. Mental Status Patient Orientation: Person, Place, Situation Transfers Therapy Code Descriptions/Definitions Functional [place] Measure: 0=Not Assessed/NA 4=Minimal Assistance 1=Total Assistance 5=Supervision or Setup 2=Maximal Assistance 6=Modified [place] 3=Moderate Assistance 7=Complete [place] Therapy Quality Codes: 6 Independent with activity with or without an assistive device 5 Patient requires set up or clean up by helper. Patient completes activity by themselves 4 Supervision or touching assist (CGA). [place] provide cues , steadying assist 3 The helper provides less than half the effort to complete the activity 2 The helper provides more than half the effort to complete the activity 1 Dependent. The helper does all the effort to complete an activity 7 Patient refused to complete or attempt activity 9 The patient did not perform the activity before the current illness or injury 88 Not attempted due to Medical conditions or safety concerns Transfers (B, C, W/C) (FIM): 4 Scootin Rollin Supine to/from Sit: 4 Sit to/from Stand: 4 Bed to/from Chair: 4 Stand pivot min assist to the left and CGA to the right. Practiced SPT to both sides several times and bed mobility, rolling, supine to sit. Gait Training Gait (FIM): 2 Distance: 100'x3 Gait Level of Assist: 2 Gait Persons Needed: 2 Gait Assistive Device: Handheld Assist C CONSULTANT on right side, therapist assist on the left. Poor step through on the left side with fatigue, needs assist with balance, leans to the left side. Exercises sit to housing quality standard inspector parallel bars 2 sets of 10 NuStep Minutes: 10 NuStep Workload: 4 Treatments LE exercise, bed mobility and transfers, ambulation Assessment Current Status: Fair Progress improved SPT to the left side. PT Short Term Goals Short Term Goals Time Frame: Feb 21, 2019 Transfers (B,C,W/C) (FIM): 4 Gait (FIM): 2 Gait Distance Comment: 50' Gait Level of Assist: 4 Gait Assistive Device: Walker [place] Wheelchair Distance: 50' PT Terminal Makeup Operator Goals Skilled Nursing Goals PT Terminal Makeup Operator Goals Time Frame: Mar 07, 2019 Transfers (B,C,W/C) (FIM): 5 Sit to Lying (QC): 4 Lying-Sitting on Side/Bed(QC): 4 Sit to Stand (QC): 4 Rollin Roll Left to Right (QC): 4 Chair/Lly-lp-Ebqdz Xfer(QC): 4 Car Transfer (QC): 4 Gait (FIM): 2 Distance: 100' Walk 10 feet (QC): 4 Walk 10ft-Uneven Surface(QC): 4 Walk 50ft with 2 Turns (QC): 4 Gait Level of Assist: 4 Gait Assistive Device: Walker [place] Stairs (FIM): 2 # of Steps: 4 1 Step (curb) (QC): 3 4 Steps (QC): 3 Stairs Level Of Assist: 4 PT Plan Problem List Problem List: Activity Tolerance, Functional Strength, Safety, Balance, Gait, Transfer, Bed Mobility, ROM Treatment/Plan Treatment Plan: Continue Plan of Care Treatment Plan: Bed Mobility, Education, Functional Activity [place], Functional Strength, Group Therapy, Gait, Safety, Therapeutic Exercise, Transfers Treatment Duration: Mar 07, 2019 Frequency: At least 5 of 7 days/Wk (IRF) Estimated Hrs Per Day: 1.5 hours per day Patient and/or Family Agrees t: Yes Safety Risks/Education Patient Education: Gait Training, Transfer Techniques, Correct Positioning, Safety Issues Teaching Recipient: Patient Teaching Methods: Demonstration, Discussion Response to Teaching: Reinforcement Needed Time/GCodes Time In: 0900 Time Out: 1000 Total Billed Treatment Time: 60 Total Billed Treatment 1 visit EX 15' GT 15' FA 30' VERENA FREEMAN PT Feb 22, 2019 09:55
--- NOTE | 2019-02-22 10:21 | Speech Therapy Daily Note ---
Speech Daily Progress Note Subjective Date Seen by Provider: Feb 22, 2019 Time Seen by Provider: 00:30 The patient was resting in his bed when I entered his room for ST session. Objective The patient completed problem solving tasks related to his daily living needs with 90% given minimal cues. Assessment Assessment Current Status: Good Progress Treatment Plan Continue Plan of Care Communication Comprehension: 5 Expression: 4 Social Cognition Social Interaction: 3 Problem Solvin Memory: 3 Speech Short Term Goals Short Term Goals Short Term Goals 1) Patient will demonstrate sustained attention, memory and sequencing for task performance with 80% accuracy. 2) Patient will demonstrate effective communication of wants/needs to staff and caregivers with 80% accuracy. Speech Jail Goals Tub Mender Goals The patient will improve cognitive-communication skills in order to return to his former living situation safely. Speech-Plan Patient/Family Goals Patient/Family Goals: The patient plans on returning home with his family post rehab. Treatment Plan Speech Therapy Treatment Plan: Continue Plan of Care The patient continues to make good progress toward meeting goals and returning home. Treatment Duration: Feb 26, 2019 Frequency: 5 times per week Estimated Hrs Per Day: .5 hour per day Rehab Potential: Fair Barriers to Learning: Patient has had a recent CVA Pt/Family Agrees to Plan: Yes Safety Risks/Education Teaching Recipient: Patient Teaching Methods: Demonstration, Discussion Response to Teaching: Verbalize Understanding, Return Demonstration Education Topics Provided: Safety within his room and communication of wants/needs. Time Speech Therapy Time In: 08:30 Speech Therapy Time Out: 09:00 Total Billed Time: 30 Billed Treatment Time 1, ALFRED Neal Feb 22, 2019 10:21
--- NOTE | 2019-02-22 11:09 | Occupational Ther Daily Note ---
OT Current Status-Daily Note Subjective Pt sleeping in recliner. Difficult to wake pt then pt had difficult time becoming fully awake. Pt then agrees to therapy. No c/o pain. Mental Status/Objective Patient Orientation: Person, Place, Time, Situation Therapy Code Descriptions/Definitions Functional [place] Measure: 0=Not Assessed/NA 4=Minimal Assistance 1=Total Assistance 5=Supervision or Setup 2=Maximal Assistance 6=Modified [place] 3=Moderate Assistance 7=Complete [place] ADL-Treatment Pt agreed to shower. Pt demonstrated fatigue during transfers so initially transfers required increased assistance. Assist x2 to complete hygiene and manipulate clothing for toileting. Mod A toilet transfer. Min A using w/c and grabbars for shower transfer. Pt requires verbal/physical cues to position foot during sitting and transfers. CGA in shower due to fatigue and some sitting balance issues. Pt able to bathe all areas except L arm and buttocks. Pt able to bend and reach feet while sitting on shower bench. Declined oral care. With verbal cues and mod A pt able to complete upper body dressing. Max A for lower body dressing, pt attempted to don clothing over L foot then was able to don over R foot. Assist to hike over hips, CGA in standing holding onto bed rail while pt attempted to hike pants. After therapy, pt sitting in recliner with feet elevated. Call light/phone in reach. Safety measures place. All needs met in room. Therapy Code Descriptions/Definitions Functional [place] Measure: 0=Not Assessed/NA 4=Minimal Assistance 1=Total Assistance 5=Supervision or Setup 2=Maximal Assistance 6=Modified [place] 3=Moderate Assistance 7=Complete [place] Therapy Quality Codes: 6 Independent with activity with or without an assistive device 5 Patient requires set up or clean up by helper. Patient completes activity by themselves 4 Supervision or touching assist (CGA). [place] provide cues , steadying assist 3 The helper provides less than half the effort to complete the activity 2 The helper provides more than half the effort to complete the activity 1 Dependent. The helper does all the effort to complete an activity 7 Patient refused to complete or attempt activity 9 The patient did not perform the activity before the current illness or injury 88 Not attempted due to Medical conditions or safety concerns Bathing (FIM): 3 Bathing Location: L Arm, R Arm, L Upper Leg, R Upper Leg, L Lower Leg (including foot), R Lower Leg (including foot), Chest, Abdomen, Perineal Area Shower/Bathe Self (QC): 3 Upper Body (FIM): 2 Upper Body Dressing (QC): 2 Lower Body Dressing (FIM): 2 Lower Body Dressing (QC): 2 On/Off Footwear (QC): 2 Toileting (FIM): 1 Toileting Hygiene (QC): 1 Transfers (B, C, W/C) (FIM): 3 Toilet/Commode Transfer (FIM): 3 Toilet Transfer (QC): 3 Shower Transfer(FIM): 4 OT Short Term Goals Short Term Goals Eating(FIM): 5 Grooming(FIM): 5 Bathing(FIM): 4 Upper Body Dressing(FIM): 4 Lower Body Dressing(FIM): 4 Toileting(FIM): 3 Transfers (B,C,W/C) (FIM): 4 Toilet/Commode Transfer(FIM): 3 Shower Transfer(FIM): 4 1=Demonstrate adherence to instructed precautions during ADL tasks. 2=Patient will verbalize/demonstrate understanding of assistive devices/modifications for ADL. 3=Patient will improve strength/tolerance for activity to enable patient to perform ADL's. OT [place] Goals [place] Goals Eating (FIM): 6 Eating (QC): 6 Groomin Oral Hygiene (QC): 6 Bathing(FIM): 6 Shower/Bathe Self (QC): 6 Upper Body Dressing(FIM): 6 Upper Body Dressing (QC): 6 Lower Body Dressing(FIM): 5 Lower Body Dressing (QC): 4 On/Off Footwear (QC): 5 Toileting(FIM): 5 Toileting Hygiene (QC): 4 Transfers (B,C,W/C) (FIM): 6 Toilet/Commode Transfer(FIM): 6 Toilet/Commode Transfer (QC): 6 Shower Transfer(FIM): 6 Additional Goals: 1-Demonstrate ADL Tasks, 2-Verbalize Understanding, 3- ImproveStrength/[place] 1=Demonstrate adherence to instructed precautions during ADL tasks. 2=Patient will verbalize/demonstrate understanding of assistive devices/modifications for ADL. 3=Patient will improve strength/tolerance for activity to enable patient to perform ADL's. OT Education/Plan Problem List/Assessment Assessment: Decreased Safety Aware, Impaired Coordination, Impaired Funct Balance, Impaired Self-Care Skills, Restricted Funct UE ROM, Visual-Perceptual Deficit pt presents with functional limitations affecting areas of ADLs and functional transfers with the above mention deficits including decrease proprioception. pt would benefit from skilled OT Services to address above mention deficits and inc rease independence with ADLS and functional transfers. Discharge Recommendations Plan/Recommendations: Continue POC Treatment Plan/Plan of Care Patient would benefit from OT for education, treatment and training to promote independence in ADL's, mobility, safety and/or upper extremity function for ADL's. Plan of Care: ADL Retraining, Caregiver Training, Concurrent Therapy, Functional Mobility, Group Exercise/Act as Ind, UE Funct Exercise/Act, UE Neuromus Re-Ed/Coord, Visual/Perceptual Retrain, W/C Management Training Treatment Duration: Mar 15, 2019 Frequency: At least 5 of 7 days/Wk (IRF) Estimated Hrs Per Day: 1 hour per day (60-90 minutes per day ) Agreement: Yes Rehab Potential: Fair Time/GCodes Start Time: 10:00 Stop Time: 11:15 Total Time Billed (hr/min): 75 Billed Treatment Time 1 visit-ADL 5 (75 min) JALIL DUPONT Feb 22, 2019 11:09
--- NOTE | 2019-02-22 11:12 | Progress Note - Hospitalist ---
LESLEY DE [facility] GAR[facility] 02/22/19 1112: Progress Note Jarret continues to have trouble with sleeping at night - continue with melatonin and Remeron He has had a couple instances of loose stool - monitor Work with long-term placement - he is making progress, but will need further support IRENE SWEENEY DO 02/22/192052: Supervisory-Addendum Brief Verification & Attestation Participated in pt care: history, MDM, physical Personally performed: exam, history, MDM, supervision of care Care discussed with: Medical Student Procedures: n/a Results interpretation: Verified all documentation Verification and Attestation of Medical Student E/M Service A medical student performed and documented this service in my presence. I reviewed and verified all information documented by the medical student and made modifications to such information, when appropriate. I personally performed the physical exam and medical decision making. Irene Sweeney, Feb 22, 2019,20:53 LESLEY DE LA GARZA [facility] Feb 22, 2019 11:12 IRENE SWEENEY DO Feb 22, 2019 20:53
--- NOTE | 2019-02-22 14:01 | Physical Therapy Daily Note ---
PT Daily Note-Current Subjective Agrees to PT. no complaints. Transfers Therapy Code Descriptions/Definitions Functional [place] Measure: 0=Not Assessed/NA 4=Minimal Assistance 1=Total Assistance 5=Supervision or Setup 2=Maximal Assistance 6=Modified [place] 3=Moderate Assistance 7=Complete [place] Therapy Quality Codes: 6 Independent with activity with or without an assistive device 5 Patient requires set up or clean up by helper. Patient completes activity by themselves 4 Supervision or touching assist (CGA). [place] provide cues , steadying assist 3 The helper provides less than half the effort to complete the activity 2 The helper provides more than half the effort to complete the activity 1 Dependent. The helper does all the effort to complete an activity 7 Patient refused to complete or attempt activity 9 The patient did not perform the activity before the current illness or injury 88 Not attempted due to Medical conditions or safety concerns Treatments Sit to stand x multiple attempts with min assist. Skilled cues for transfers. Attempted gait with FWW platform, pt able to take 5-6 steps but then unable to advance his left LE. Progressed to Gait with MOLD PARTER of 2 and mod assist x 50 ft x 4 reps with skilled cues for posture, sequencing and placement of left LE during gait. Pt up in chair post treatment with call light in reach and chair alarm activiated. Assessment Pt had some difficulty advancing his left LE this date with toes dragging. Uncoordinated movement left LE and narrow SEMAJ with scissoring occasionally. PT Short Term Goals Short Term Goals Time Frame: Feb 21, 2019 Transfers (B,C,W/C) (FIM): 4 Gait (FIM): 2 Gait Distance Comment: 50' Gait Level of Assist: 4 Gait Assistive Device: Walker [place] Wheelchair Distance: 50' PT Automotive General Manager Goals Group Home Goals PT Group Home Goals Time Frame: Mar 07, 2019 Transfers (B,C,W/C) (FIM): 5 Sit to Lying (QC): 4 Lying-Sitting on Side/Bed(QC): 4 Sit to Stand (QC): 4 Rollin Roll Left to Right (QC): 4 Chair/Omq-ub-Ijdua Xfer(QC): 4 Car Transfer (QC): 4 Gait (FIM): 2 Distance: 100' Walk 10 feet (QC): 4 Walk 10ft-Uneven Surface(QC): 4 Walk 50ft with 2 Turns (QC): 4 Gait Level of Assist: 4 Gait Assistive Device: Walker [place] Stairs (FIM): 2 # of Steps: 4 1 Step (curb) (QC): 3 4 Steps (QC): 3 Stairs Level Of Assist: 4 PT Plan Problem List Problem List: Activity Tolerance, Functional Strength, Safety, Balance, Gait, Transfer, Bed Mobility Treatment/Plan Treatment Plan: Continue Plan of Care Treatment Plan: Bed Mobility, Education, Functional Activity [place], Functional Strength, Group Therapy, Gait, Safety, Therapeutic Exercise, Transfers Treatment Duration: Mar 07, 2019 Frequency: At least 5 of 7 days/Wk (IRF) Estimated Hrs Per Day: 1.5 hours per day Patient and/or Family Agrees t: Yes Safety Risks/Education Patient Education: Safety Issues Teaching Recipient: Patient Teaching Methods: Demonstration, Discussion Response to Teaching: Reinforcement Needed Time/GCodes Time In: 1315 Time Out: 1345 Total Billed Treatment Time: 30 Total Billed Treatment visit GT 30 JALIL FRANCISCO PT Feb 22, 2019 14:01
[2019-02-22] MEDS: TAMSULOSIN 0.4 MG (FLOMAX) CAP PO SCH (17:57)
[2019-02-22 18:03] VITALS: BP 103/63
[2019-02-22] MEDS: ATORVASTATIN 80 MG (LIPITOR) TABLET PO SCH (20:13)
[2019-02-22] MEDS: MELATONIN 3 MG TABLET PO SCH (20:13)
[2019-02-22] MEDS: MIRTAZAPINE 15 MG (REMERON) TAB PO SCH (20:13)
[2019-02-22] MEDS: ACETAMINOPHEN 500 MG TAB (TYLENOL) PO PRN (23:47)
[2019-02-23 05:45] LABS: BASOPHILS % (AUTO) 1 % (0-10); EOSINOPHILS % (AUTO) 1 % (0-10); HEMATOCRIT 28 % (40-54); HEMOGLOBIN 9.2 G/DL (13.3-17.7); LYMPHOCYTES # (AUTO) 1.1 X 10^3 (1.0-4.0); LYMPHOCYTES % (AUTO) 18 % (12-44); MEAN CORPUSCULAR HEMOGLOBIN 31 PG (25-34); MEAN CORPUSCULAR HGB CONC 33 G/DL (32-36); MEAN CORPUSCULAR VOLUME 94 FL (80-99); MEAN PLATELET VOLUME 9.4 FL (7.4-10.4); MONOCYTES # (AUTO) 0.4 X 10^3 (0.0-1.0); MONOCYTES % (AUTO) 6 % (0-12); NEUTROPHILS # (AUTO) 4.5 X 10^3 (1.8-7.8); NEUTROPHILS % (AUTO) 75 % (42-75); PLATELET COUNT 274 10^3/uL (130-400); RED CELL DISTRIBUTION WIDTH 14.9 % (10.0-14.5); WHITE BLOOD COUNT 6.1 10^3/uL (4.3-11.0)
[2019-02-23 05:55] VITALS: BP 109/65
[2019-02-23 06:04] LABS: ALBUMIN 3.4 GM/DL (3.2-4.5); BILIRUBIN,TOTAL 0.5 MG/DL (0.1-1.0); CALCIUM 8.8 MG/DL (8.5-10.1); CREATININE SERUM 1.62 MG/DL (0.60-1.30); POTASSIUM 4.8 MMOL/L (3.6-5.0); TOTAL PROTEIN 5.7 GM/DL (6.4-8.2)
--- NOTE | 2019-02-23 07:21 | Occupational Ther Daily Note ---
OT Current Status-Daily Note Subjective Pt laying awake in bed upon OT arrival. Pt agrees to therapy.Pt declined to wash face at this time. Pt stated multiple times during OT session that he was woken up by someone taking his blood when he had just gotten to sleep and that was the reason he was so tired. Reported to nrsg and nrsg stated that lab had been in the room around 0630 that morning and not during the night. Mental Status/Objective Patient Orientation: Person, Place, Time, Situation Therapy Code Descriptions/Definitions Functional [place] Measure: 0=Not Assessed/NA 4=Minimal Assistance 1=Total Assistance 5=Supervision or Setup 2=Maximal Assistance 6=Modified [place] 3=Moderate Assistance 7=Complete [place] ADL-Treatment Therapy Code Descriptions/Definitions Functional [place] Measure: 0=Not Assessed/NA 4=Minimal Assistance 1=Total Assistance 5=Supervision or Setup 2=Maximal Assistance 6=Modified [place] 3=Moderate Assistance 7=Complete [place] Therapy Quality Codes: 6 Independent with activity with or without an assistive device 5 Patient requires set up or clean up by helper. Patient completes activity by themselves 4 Supervision or touching assist (CGA). [place] provide cues , steadying assist 3 The helper provides less than half the effort to complete the activity 2 The helper provides more than half the effort to complete the activity 1 Dependent. The helper does all the effort to complete an activity 7 Patient refused to complete or attempt activity 9 The patient did not perform the activity before the current illness or injury 88 Not attempted due to Medical conditions or safety concerns Eating (FIM): 5 (Pt needed assist to open lid on coffee. Pt able to use utensils with R hand and bring to mouth. Pt opened and squeezed jelly and butter on toast with R hand. ) Grooming (FIM): 6 (Pt brushed hair at sink sitting in w/c. Pt declined brushing teeth and washing face.) Upper Body (FIM): 2 (Pt needed assist to intiate L hand through sleeve. Pt was unable to get sleeve over elbow. Pt was able to put head through shirt, required assist to find R arm sleeve. Required assist to straighten out back side.) Transfers (B, C, W/C) (FIM): 2 (Increased fatigue during transfers, pt required more assistance during SPT.) Pt more lethargic during session and had difficulty with problem solving and sequencing. Pt appears to have decreased in the amount of spontaneous AROM for functional tasks. Other Treatment Pt was brought to therapy gym where he participated in weight bearing exercise with L hand/arm. Pt required assist to maintain L UE in wt bearing position, no muscle movement noted during task. Pt used R hand to grasp onto mcnamara bags and tossed them into basket on L side, pt able to scan across midline. Pt then reached across midline to grab mcnamara bags on L side to toss into basket on R side of body. Pt participated in PROM exercises to increase ROM in L arm. Tone noted with elbow extension and horizontal internal rotation. Approximately 1" sublux of L shldr noted. Pt left laying in bed with call light and phone in reach. Pts needs met. Nrsg in room. Education OT Patient Education: Correct positioning, Modified ADL techniques Teaching Recipient: Patient Teaching Methods: Demonstration Response to Teaching: Unable to Return Demonstration, Reinforcement Needed OT Short Term Goals Short Term Goals Eating(FIM): 5 Grooming(FIM): 5 Bathing(FIM): 4 Upper Body Dressing(FIM): 4 Lower Body Dressing(FIM): 4 Toileting(FIM): 3 Transfers (B,C,W/C) (FIM): 4 Toilet/Commode Transfer(FIM): 3 Shower Transfer(FIM): 4 1=Demonstrate adherence to instructed precautions during ADL tasks. 2=Patient will verbalize/demonstrate understanding of assistive devices/modif ications for ADL. 3=Patient will improve strength/tolerance for activity to enable patient to perform ADL's. OT Die Cast Supervisor Goals Residential Goals Eating (FIM): 6 Eating (QC): 6 Groomin Oral Hygiene (QC): 6 Bathing(FIM): 6 Shower/Bathe Self (QC): 6 Upper Body Dressing(FIM): 6 Upper Body Dressing (QC): 6 Lower Body Dressing(FIM): 5 Lower Body Dressing (QC): 4 On/Off Footwear (QC): 5 Toileting(FIM): 5 Toileting Hygiene (QC): 4 Transfers (B,C,W/C) (FIM): 6 Toilet/Commode Transfer(FIM): 6 Toilet/Commode Transfer (QC): 6 Shower Transfer(FIM): 6 Additional Goals: 1-Demonstrate ADL Tasks, 2-Verbalize Understanding, 3- ImproveStrength/[place] 1=Demonstrate adherence to instructed precautions during ADL tasks. 2=Patient will verbalize/demonstrate understanding of assistive devices/modifications for ADL. 3=Patient will improve strength/tolerance for activity to enable patient to perform ADL's. OT Education/Plan Problem List/Assessment Assessment: Decreased Activ Tolerance, Decreased Safety Aware, Decreased UE Strength, Impaired Cognition, Impaired Coordination, Impaired Funct Balance, Impaired Self-Care Skills, Restricted Funct UE ROM, Visual-Perceptual Deficit pt presents with functional limitations affecting areas of ADLs and functional transfers with the above mention deficits including decrease proprioception. pt would benefit from skilled OT Services to address above mention deficits and increase independence with ADLS and functional transfers. Discharge Recommendations Plan/Recommendations: Continue POC Treatment Plan/Plan of Care Patient would benefit from OT for education, treatment and training to promote independence in ADL's, mobility, safety and/or upper extremity function for ADL's. Plan of Care: ADL Retraining, Caregiver Training, Concurrent Therapy, Functional Mobility, Group Exercise/Act as Ind, UE Funct Exercise/Act, UE Neuromus Re-Ed/Coord, Visual/Perceptual Retrain, W/C Management Training Treatment Duration: Mar 15, 2019 Frequency: At least 5 of 7 days/Wk (IRF) Estimated Hrs Per Day: 1 hour per day (60-90 minutes per day ) Agreement: Yes Rehab Potential: Fair Time/GCodes Start Time: 06:55 Stop Time: 08:15 Total Time Billed (hr/min): 80 Billed Treatment Time 1 visit-ADL 3 (45 min) NM 2 (35 min) JALIL DUPONT Feb 23, 2019 07:21
[2019-02-23] MEDS: CLOPIDOGREL 75 MG (PLAVIX) TABLET PO SCH (08:06)
[2019-02-23] MEDS: FAMOTIDINE 20 MG (PEPCID) TABLET PO SCH (08:06)
[2019-02-23] MEDS: ASPIRIN E.C. 81 MG (ECOTRIN) TAB PO SCH (08:06)
[2019-02-23] MEDS: SENNA W/DOCUSATE (SENOKOT S) TABLET PO SCH ×2 (08:07→20:13)
[2019-02-23] MEDS: NICOTINE 21 MG (NICODERM) PATCH TD SCH (08:08)
[2019-02-23] MEDS: RT-ALBUTEROL/IPRATROPIUM 3 ML (DUONEB) VIAL INH SCH ×3 (08:15→20:10)
[2019-02-23 08:18] VITALS: BP 96/57
[2019-02-23] MEDS: amLODIPine 5 MG (NORVASC) TAB PO SCH (09:00)
[2019-02-23] MEDS: lisINopril 10 MG (PRINIVIL) TABLET PO SCH (09:00)
[2019-02-23] MEDS: CARVEDILOL 12.5 MG (COREG) TABLET PO SCH ×2 (09:00→19:42)
--- NOTE | 2019-02-23 09:08 | PM&R Progress Note ---
Subjective HPI/CC On Admission Date Seen by Provider: Feb 23, 2019 Time Seen by Provider: 09:00 Chief complaint: Debility following CVA with left-sided weakness History of present illness: This is a 73-year-old white male clinic patient of [facility] who accepted upon transfer from [facility] hospitalist service after I transferred him there on 02/05/2019 after he was admitted for suspicion of TIA and CVA and although CT scan showed no evidence of any stroke carotid artery ultrasound at [facility] at that time with stroke protocol revealed critical carotid artery stenosis requiring transfer to vascular care assessment. He had a history of right stent placement in the carotid artery in the past and a right-sided carotid endarterectomy in 1999 and continued to smoke since that time. He was transferred to [facility] maintained on Plavix aspirin and statin therapy along with antihypertensive meds and was seen by neurology and vascular surgery. Renal insufficiency returned back to baseline at 1.4 so IV f luids were discontinued. Patient was managed aggressively and underwent a left carotid stent placement due to critical stenosis on 02/08/[address] Sherman and continue to have the left upper extremity weakness. He was improving at that time. 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 Patient was not deemed a TPA candidate at that time once again. He was found to have a brain aneurysm 3 mm in the A1 segment of the brain but no intervention was planned. CT confirmed the acute infarct involving the watershed distribution between MCA and ARMATURE WINDER territory on the right as well as a small lacunar infarct along the centrum semi-ovale on the right and within the right parietal lobe. He was transported to [facility] inpatient rehab by his daughter 1 of 6 children who lives in [place]. He currently is leaning over to the left because of inability to sit straight in the wheelchair. This indicates a profound loss of function and will require at least 14 days of inpatient rehab for recovery in order to return to some sort of status to be able to return home to live independently and assist with regaining independence with ADLs. He is wheezing currently so I did order duo nebs 3 times daily scheduled. Smoking cessation was counseled on nicotine patch order was placed. Considering the numerous strokes he has had even while being on Plavix and aspirin it is concerning and his prognosis is guarded for additional strokes and even more extensive debility. His barriers to returning home include: Unable to ambulate at this current time wheelchair-bound and home not wheelchair accessible Lives alone but family is involved in his care so likely will need major supervision will need to arrange that prior to discharge Clinical stability following stroke even though on Plavix and aspirin and statin therapy so will need to assure he has been adequately risk stratified in order to decrease the chance of additional strokes prior to discharge home Subjective/Events-last exam BP is a little low at 96/67. Very sleepy because he is always interrupted at night so I did put a note to not disturb him from 10 P.M. to 6 A.M. No further falls. Creatinine remains at 1.6. Will DC Remeron incase that is making him drowsy during the day. Working hard with therapy and very motivated. Conferred with RN Reviewed therapy notes Review of Systems Neurological: Weakness, Numbness, Incoordination Objective Exam Vital Signs Vital Signs Date Time Temp Pulse Resp B/P (MAP) Pulse Ox O2 Delivery O2 Flow Rate FiO2 02/23/19 20:46 Room Air 02/23/19 20:10 93 02/23/19 17:19 98.4 80 18 119/57 (77) Capillary Refill : General Appearance: No Apparent Distress, WD/WN, Chronically ill, Thin, Other (fatigued, disheveled) HEENT: PERRL/EOMI, TMs Normal, Normal ENT Inspection, Pharynx Normal, Moist Mucous Membranes Neck: Full Range of Motion, Normal Inspection, Non Tender, Supple Respiratory: Chest Non Tender, Lungs Clear, Normal Breath Sounds, No Accessory Muscle Use, No Respiratory Distress, Wheezing Cardiovascular: Regular Rate, Rhythm, No Edema, No Gallop, No JVD, No Murmur Gastrointestinal: Normal Bowel Sounds, No Organomegaly, No Pulsatile Mass, Non Tender, Soft Back: Normal Inspection, No CVA Tenderness, No Vertebral Tenderness Extremity: Normal Capillary Refill, Normal Inspection, Normal Range of Motion, Non Tender, No Calf Tenderness, No Pedal Edema Neurologic/Psychiatric: Alert, Oriented x3, Normal Mood/Affect, Abnormal Cerebellar Tests, Abnormal sales representative electric service II-XII (left), Abnormal Gait, Motor Weakness (left upper and lower 3/5 strength), Other (stuttering) Skin: Normal Color, Warm/Dry Lymphatic: No Adenopathy Results/Procedures Lab Laboratory Tests 02/23/19 05:25 Patient resulted labs reviewed. FIM Transfers Therapy Code Descriptions/Definitions Functional [place] Measure: 0=Not Assessed/NA 4=Minimal Assistance 1=Total Assistance 5=Supervision or Setup 2=Maximal Assistance 6=Modified [place] 3=Moderate Assistance 7=Complete [place] Therapy Quality Codes: 6 Independent with activity with or without an assistive device 5 Patient requires set up or clean up by helper. Patient completes activity by themselves 4 Supervision or touching assist (CGA). [place] provide cues , steadying assist 3 The helper provides less than half the effort to complete the activity 2 The helper provides more than half the effort to complete the activity 1 Dependent. The helper does all the effort to complete an activity 7 Patient refused to complete or attempt activity 9 The patient did not perform the activity before the current illness or injury 88 Not attempted due to Medical conditions or safety concerns Transfers (B, C, W/C) (FIM): 4 (Pt requires verbal commands to move L foot. ) Scootin Rollin Roll Left to Right (QC): 3 Supine to/from Sit: 4 Sit to/from Stand: 4 Sit to Lying (QC): 2 Sit to Stand (QC): 4 Chair/Png-di-Ymlru Xfer(QC): 2 Bed to/from Chair: 4 Car Transfer (QC): 2 Gait Training Does the Patient Walk?: Yes Gait (FIM): 2 Distance (FIM): 4=391-07 ft Distance: 100'x3 Walk 10 feet (QC): 1 Walk 50 ft with 2 Turns(QC): 1 Gait Level of Assist: 2 Gait Persons Needed: 2 Gait Assistive Device: Handheld Assist Wheelchair Training Does the Pt Use a Wheelchair?: Yes Wheelchair (FIM): 2 Wheelchair Distance: 5=881-11 ft (50ft) Distance: 50' Wheelchair Level of Assist: 3 Type of Wheelchair: Manual Mental Status/Objective Comprehension: 5 Expression: 4 Social Interaction: 3 Problem Solvin Memory: 3 ADL-Treatment Feedin (Pt needed assist to open lid on coffee. Pt able to use utensils with R hand and bring to mouth. Pt opened and squeezed jelly and butter on toast with R hand. ) Eating (QC): 4 Groomin (Pt brushed hair at sink sitting in w/c. Pt declined brushing teeth and washing face.) Oral Hygiene (QC): 2 Bathin Bathing Location: L Arm, R Arm, L Upper Leg, R Upper Leg, L Lower Leg (inclu ding foot), R Lower Leg (including foot), Chest, Abdomen, Perineal Area Shower/Bathe Self (QC): 3 Upper Extremity Dressin (Pt needed assist to intiate L hand through sleeve. Pt was unable to get sleeve over elbow. Pt was able to put head through shirt, required assist to find R arm sleeve. Required assist to straighten out back side.) Upper Body Dressing (QC): 2 Lower Extremity Dressin Lower Body Dressing (QC): 2 On/Off Footwear (QC): 2 Toiletin Toileting Hygiene (QC): 1 Toilet/Commode Transfer: 3 Toilet Transfer (QC): 3 Shower: 4 Assessment/Plan Assessment and Plan Assess & Plan/Chief Complaint Assessment: CVA w/left sided weakness 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 now improved COPD Smoker cessation counseled Dark stools resolved s/p EGD/Colon Leukopenia HTN HLP GIB no source of bleed on scopes Gastritis placed on H2 rohit Left arm skin tear requiring Dr Kumar consultation Plan: Gastritis treatment ASA and Plavix and statin to resume IRF protocols Wound care right arm NHP Minimize interruptions during the night (1) CVA (cerebral vascular accident) Status: Acute Qualifiers: CVA mechanism: unspecified Qualified Codes: I63.9 - Cerebral infarction, unspecified (2) 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 Status: Acute (3) Back pain Status: Chronic Qualifiers: Back pain location: back pain in unspecified location Chronicity: unspecified Back pain laterality: unspecified Qualified Codes: M54.9 - Dorsalgia, unspecified (4) Dark stools Status: Acute (5) Impulsive Status: Acute (6) Leukopenia Status: Acute Qualifiers: Leukopenia type: unspecified Qualified Codes: D72.819 - Decreased white blood cell count, unspecified (7) Anemia Status: Chronic Qualifiers: Anemia type: unspecified type Qualified Codes: D64.9 - Anemia, unspecified (8) Hypertension Status: Chronic Qualifiers: Hypertension type: essential hypertension Qualified Codes: I10 - Essential (primary) hypertension (9) COPD (chronic obstructive pulmonary disease) Status: Chronic Qualifiers: COPD type: unspecified COPD Qualified Codes: J44.9 - Chronic obstructive pulmonary disease, unspecified (10) Hyperlipidemia Status: Chronic Qualifiers: Hyperlipidemia type: mixed hyperlipidemia Qualified Codes: E78.2 - Mixed hyperlipidemia (11) Renal insufficiency Status: Chronic (12) Wheezing Status: Acute (13) Carotid stenosis Status: Chronic Qualifiers: Laterality: bilateral Qualified Codes: I65.23 - Occlusion and stenosis of bilateral carotid arteries (14) Left-sided weakness Status: Acute (15) BPH (benign prostatic hyperplasia) Status: Chronic Qualifiers: Lower urinary tract symptom presence: unspecified whether lower urinary tract symptoms present Qualified Codes: N40.0 - Benign prostatic hyperplasia without lower urinary tract symptoms (16) Risk for falls Status: Acute (17) Smoker Status: Chronic HEBERT BAKER DO Feb 23, 2019 09:08
--- NOTE | 2019-02-23 09:15 | NUR ---
BP 96/57, P 74. Patient C/O feeling "tired" this AM. Dr. Sweeney notified. Orders to hold Norvasc, Coreg, and Lisinopril for SBP less than 130. Also... ISAK Frye.
--- NOTE | 2019-02-23 09:53 | Physical Therapy Daily Note ---
PT Daily Note-Current Subjective Patient in bed pre tx, agrees to PT, very drowsy, has no complaints of pain. Appearance Patient BTB post tx with nurse call, phone, tray, all needs met, bed alarm on, p illow support for left arm. Mental Status Patient Orientation: Person, Place Transfers Therapy Code Descriptions/Definitions Functional [place] Measure: 0=Not Assessed/NA 4=Minimal Assistance 1=Total Assistance 5=Supervision or Setup 2=Maximal Assistance 6=Modified [place] 3=Moderate Assistance 7=Complete [place] Therapy Quality Codes: 6 Independent with activity with or without an assistive device 5 Patient requires set up or clean up by helper. Patient completes activity by themselves 4 Supervision or touching assist (CGA). [place] provide cues , steadying assist 3 The helper provides less than half the effort to complete the activity 2 The helper provides more than half the effort to complete the activity 1 Dependent. The helper does all the effort to complete an activity 7 Patient refused to complete or attempt activity 9 The patient did not perform the activity before the current illness or injury 88 Not attempted due to Medical conditions or safety concerns Transfers (B, C, W/C) (FIM): 3 Scootin Rollin Supine to/from Sit: 3 Sit to/from Stand: 3 Bed to/from Chair: 3 SPT CGA to the right, mod assist to the left Gait Training Gait (FIM): 1 Distance: 20'x3 Gait Level of Assist: 2 Gait Persons Needed: 1 (WC follow) Gait Assistive Device: Cane Single Point Patient initially pushes forcefully to the left after standing and starting to ambulation but lets up after about 10'. Patient wears shoes with strap on left shoe therapist can use to advance his left foot and abduct it with stepping, max assist for this and for balance. Exercises NuStep Minutes: 15 NuStep Workload: 4 Treatments LE exercise, bed mobility and transfers, ambulation Assessment Current Status: Poor Progress without a therapist for CUSTOMS COMPLIANCE MANAGER on the right side patient has very poor balance and pushes forcefully to the left side. He also needed a lot of cues for hand placement and safety, often therapist would not let him sit down without doing it safely, he would try to do it the unsafe way and ignore cues. PT Short Term Goals Short Term Goals Time Frame: Feb 21, 2019 Transfers (B,C,W/C) (FIM): 4 Gait (FIM): 2 Gait Distance Comment: 50' Gait Level of Assist: 4 Gait Assistive Device: Walker [place] Wheelchair Distance: 50' PT Penitentiary Goals Penitentiary Goals PT Track Repairer Helper Goals Time Frame: Mar 07, 2019 Transfers (B,C,W/C) (FIM): 5 Sit to Lying (QC): 4 Lying-Sitting on Side/Bed(QC): 4 Sit to Stand (QC): 4 Rollin Roll Left to Right (QC): 4 Chair/Bxi-ua-Ilwbk Xfer(QC): 4 Car Transfer (QC): 4 Gait (FIM): 2 Distance: 100' Walk 10 feet (QC): 4 Walk 10ft-Uneven Surface(QC): 4 Walk 50ft with 2 Turns (QC): 4 Gait Level of Assist: 4 Gait Assistive Device: Walker [place] Stairs (FIM): 2 # of Steps: 4 1 Step (curb) (QC): 3 4 Steps (QC): 3 Stairs Level Of Assist: 4 PT Plan Problem List Problem List: Activity Tolerance, Functional Strength, Safety, Balance, Gait, Transfer, Bed Mobility, ROM Treatment/Plan Treatment Plan: Continue Plan of Care Treatment Plan: Bed Mobility, Education, Functional Activity [place], Functional Strength, Group Therapy, Gait, Safety, Therapeutic Exercise, Transfers Treatment Duration: Mar 07, 2019 Frequency: At least 5 of 7 days/Wk (IRF) Estimated Hrs Per Day: 1.5 hours per day Patient and/or Family Agrees t: Yes Safety Risks/Education Patient Education: Gait Training, Transfer Techniques, Correct Positioning, Safety Issues Teaching Recipient: Patient Teaching Methods: Demonstration, Discussion Response to Teaching: Reinforcement Needed Time/GCodes Time In: 0900 Time Out: 1000 Total Billed Treatment Time: 60 Total Billed Treatment 1 visit GT 30' EX 15' FA 15' VERENA FREEMAN PT Feb 23, 2019 09:53
--- NOTE | 2019-02-23 10:22 | Progress Note - Hospitalist ---
LESLEY DE LA GARZA [facility] 02/23/19 1022: Progress Note Jarret is progressing nicely He continues to work hard in PT/OT/ST Left sided weakness and foot drop are his biggest barriers with PT He feels like he is woken up every hour at night and is very tired in the morning. Left a nursing note to limit awakenings between 2200 and 0600 IRENE SWEENEY DO 02/23/193: Supervisory-Addendum Brief Verification & Attestation Participated in pt care: history, MDM, physical Personally performed: exam, history, MDM, supervision of care Care discussed with: Medical Student Procedures: n/a Results interpretation: Verified all documentation Verification and Attestation of Medical Student E/M Service A medical student performed and documented this service in my presence. I reviewed and verified all information documented by the medical student and made modifications to such information, when appropriate. I personally performed the physical exam and medical decision making. Irene Sweeney Feb 23, 2019,21:23 LESLEY DE LA GARZA [facility] Feb 23, 2019 10:22 IRENE SWEENEY DO Feb 23, 2019 21:23
--- NOTE | 2019-02-23 13:49 | Speech Therapy Daily Note ---
Speech Daily Progress Note Subjective Date Seen by Provider: Feb 23, 2019 Time Seen by Provider: 00:30 The patient was resting in his bed when I entered his room. Objective Patient completed a series of q/a related to his daily needs with 80% accuracy given min to mod verbal cues. Treatment Plan Continue Plan of Care Communication Comprehension: 5 Expression: 4 Social Cognition Social Interaction: 3 Problem Solvin Memory: 3 Speech Short Term Goals Short Term Goals Short Term Goals 1) Patient will demonstrate sustained attention, memory and sequencing for task performance with 80% accuracy. 2) Patient will demonstrate effective communication of wants/needs to staff and caregivers with 80% accuracy. Speech [facility]ci Goals Childcare Aide Goals The patient will improve cognitive-communication skills in order to return to his former living situation safely. Speech-Plan Patient/Family Goals Patient/Family Goals: The patient plans on returning home with his family post rehab. Treatment Plan Speech Therapy Treatment Plan: Continue Plan of Care The patient has made progress with ST goals. Treatment Duration: Feb 26, 2019 Frequency: 5 times per week Estimated Hrs Per Day: .5 hour per day Rehab Potential: Fair Barriers to Learning: Pataient's recent CVA, cognitive deficits Pt/Family Agrees to Plan: Yes Safety Risks/Education Teaching Recipient: Patient Teaching Methods: Demonstration, Discussion Response to Teaching: Verbalize Understanding, Return Demonstration Education Topics Provided: Continued safety upon his return home. Time Speech Therapy Time In: 10:00 Speech Therapy Time Out: 10:30 Total Billed Time: 30 Billed Treatment Time 1WILBER B[facility] ST Feb 23, 2019 13:49
--- NOTE | 2019-02-23 13:53 | Physical Therapy Daily Note ---
PT Daily Note-Current Subjective Patient in recliner pre tx, agrees to PT, has no complaints of pain, wants to get back into bed. Appearance Patient in bed post tx with nurse call, phone, tray, bed alarm on. Mental Status Patient Orientation: Person, Place Transfers Therapy Code Descriptions/Definitions Functional [place] Measure: 0=Not Assessed/NA 4=Minimal Assistance 1=Total Assistance 5=Supervision or Setup 2=Maximal Assistance 6=Modified [place] 3=Moderate Assistance 7=Complete [place] Therapy Quality Codes: 6 Independent with activity with or without an assistive device 5 Patient requires set up or clean up by helper. Patient completes activity by themselves 4 Supervision or touching assist (CGA). [place] provide cues , steadying assist 3 The helper provides less than half the effort to complete the activity 2 The helper provides more than half the effort to complete the activity 1 Dependent. The helper does all the effort to complete an activity 7 Patient refused to complete or attempt activity 9 The patient did not perform the activity before the current illness or injury 88 Not attempted due to Medical conditions or safety concerns Transfers (B, C, W/C) (FIM): 3 Scootin Rollin Supine to/from Sit: 3 Sit to/from Stand: 4 Bed to/from Chair: 4 Exercises Supine Ex: Ankle pumps, Heel Slides, Short Arc Quads, Straight leg raise, Hip abd/add Supine Reps: 20 (AP on RLE, all others on LLE) Treatments AAROM Assessment Current Status: Fair Progress improving transfers, but significant neglect will make progress difficult PT Short Term Goals Short Term Goals Time Frame: Feb 21, 2019 Transfers (B,C,W/C) (FIM): 4 Gait (FIM): 2 Gait Distance Comment: 50' Gait Level of Assist: 4 Gait Assistive Device: Walker Weston Wheelchair Distance: 50' PT Channel Marketing Coordinator Goals [facility] Goals PT Channel Marketing Coordinator Goals Time Frame: Mar 07, 2019 Transfers (B,C,W/C) (FIM): 5 Sit to Lying (QC): 4 Lying-Sitting on Side/Bed(QC): 4 Sit to Stand (QC): 4 Rollin Roll Left to Right (QC): 4 Chair/Ilh-nb-Rorsv Xfer(QC): 4 Car Transfer (QC): 4 Gait (FIM): 2 Distance: 100' Walk 10 feet (QC): 4 Walk 10ft-Uneven Surface(QC): 4 Walk 50ft with 2 Turns (QC): 4 Gait Level of Assist: 4 Gait Assistive Device: Walker Weston Stairs (FIM): 2 # of Steps: 4 1 Step (curb) (QC): 3 4 Steps (QC): 3 Stairs Level Of Assist: 4 PT Plan Problem List Problem List: Activity Tolerance, Functional Strength, Safety, Balance, Gait, Transfer, Bed Mobility, ROM Treatment/Plan Treatment Plan: Continue Plan of Care Treatment Plan: Bed Mobility, Education, Functional Activity [place], Functional Strength, Group Therapy, Gait, Safety, Therapeutic Exercise, Transfers Treatment Duration: Mar 07, 2019 Frequency: At least 5 of 7 days/Wk (IRF) Estimated Hrs Per Day: 1.5 hours per day Patient and/or Family Agrees t: Yes Safety Risks/Education Patient Education: Transfer Techniques, Correct Positioning, Safety Issues Teaching Recipient: Patient Teaching Methods: Demonstration, Discussion Response to Teaching: Reinforcement Needed Time/GCodes Time In: 1340 Time Out: 1355 Total Billed Treatment Time: 15 Total Billed Treatment 1 visit EX VERENA BRISENO PT Feb 23, 2019 13:53
[2019-02-23] MEDS: TAMSULOSIN 0.4 MG (FLOMAX) CAP PO SCH (17:07)
[2019-02-23 17:19] VITALS: BP 119/57
[2019-02-23] MEDS: ATORVASTATIN 80 MG (LIPITOR) TABLET PO SCH (20:15)
[2019-02-23] MEDS: MELATONIN 3 MG TABLET PO SCH (20:15)
[2019-02-24 06:30] VITALS: BP 112/73
--- NOTE | 2019-02-24 07:29 | Occupational Ther Daily Note ---
OT Current Status-Daily Note Subjective Nrsg reported that pt slept all night other than when pt used call light. Pt sleeping in chair upon OT arrival. Pt did acknowledge OT was in room then put head back down on tray. LEAVITT discussed with pt about not giving up on therapy or self. Pt stated that he thinks he has already given up, LEAVITT encouraged pt to continue to work getting better. Pt agrees to therapy. Mental Status/Objective Patient Orientation: Person, Place, Time, Situation Therapy Code Descriptions/Definitions Functional [place] Measure: 0=Not Assessed/NA 4=Minimal Assistance 1=Total Assistance 5=Supervision or Setup 2=Maximal Assistance 6=Modified [place] 3=Moderate Assistance 7=Complete [place] ADL-Treatment Pt reluctantly agreed to sponge bath, declined shower. LEAVITT encouraged pt to bathe and change clothing. Increased assistance given for bathing and dressing due to pt's mood and unwillingness to initially participate in therapy. Pt dec lined oral care stating that he hasn't worn his dentures in 2 years and does not eat with them. Pt able to set own self up for breakfast and use regular utensils. Pt noticeably increasing scanning toward L. After therapy, pt requested to lay back in bed then transferred into bed. Safety measures in place. Call light/phone in reach. All needs met in room. Therapy Code Descriptions/Definitions Functional [place] Measure: 0=Not Assessed/NA 4=Minimal Assistance 1=Total Assistance 5=Supervision or Setup 2=Maximal Assistance 6=Modified [place] 3=Moderate Assistance 7=Complete [place] Therapy Quality Codes: 6 Independent with activity with or without an assistive device 5 Patient requires set up or clean up by helper. Patient completes activity by themselves 4 Supervision or touching assist (CGA). [place] provide cues , steadying assist 3 The helper provides less than half the effort to complete the activity 2 The helper provides more than half the effort to complete the activity 1 Dependent. The helper does all the effort to complete an activity 7 Patient refused to complete or attempt activity 9 The patient did not perform the activity before the current illness or injury 88 Not attempted due to Medical conditions or safety concerns Eating (FIM): 5 (Pt shown new way to obtain utensils from napkin. Pt able to use utensils and bring food to mouth. Pt able to scan L/R side of plate for food. Pt able to open containers with R hand. Shows no movement with L hand.) Bathing Location: Abdomen, Buttocks OT Short Term Goals Short Term Goals Eating(FIM): 5 Grooming(FIM): 5 Bathing(FIM): 4 Upper Body Dressing(FIM): 4 Lower Body Dressing(FIM): 4 Toileting(FIM): 3 Transfers (B,C,W/C) (FIM): 4 Toilet/Commode Transfer(FIM): 3 Shower Transfer(FIM): 4 1=Demonstrate adherence to instructed precautions during ADL tasks. 2=Patient will verbalize/demonstrate understanding of assistive devices/modifications for ADL. 3=Patient will improve strength/tolerance for activity to enable patient to perform ADL's. OT Care Home Goals Unleavened Dough Mixer Goals Eating (FIM): 6 Eating (QC): 6 Groomin Oral Hygiene (QC): 6 Bathing(FIM): 6 Shower/Bathe Self (QC): 6 Upper Body Dressing(FIM): 6 Upper Body Dressing (QC): 6 Lower Body Dressing(FIM): 5 Lower Body Dressing (QC): 4 On/Off Footwear (QC): 5 Toileting(FIM): 5 Toileting Hygiene (QC): 4 Transfers (B,C,W/C) (FIM): 6 Toilet/Commode Transfer(FIM): 6 Toilet/Commode Transfer (QC): 6 Shower Transfer(FIM): 6 Additional Goals: 1-Demonstrate ADL Tasks, 2-Verbalize Understanding, 3- ImproveStrength/Merritt 1=Demonstrate adherence to instructed precautions during ADL tasks. 2=Patient will verbalize/demonstrate understanding of assistive devices/modifications for ADL. 3=Patient will improve strength/tolerance for activity to enable patient to perform ADL's. OT Education/Plan Problem List/Assessment Assessment: Decreased Activ Tolerance, Decreased Safety Aware, Decreased UE Strength, Impaired Coordination, Impaired Funct Balance, Impaired Self-Care Skills, Restricted Funct UE ROM, Visual-Perceptual Deficit pt presents with functional limitations affecting areas of ADLs and functional transfers with the above mention deficits including decrease proprioception. pt would benefit from skilled OT Services to address above mention deficits and increase independence with ADLS and functional transfers. Discharge Recommendations Plan/Recommendations: Continue POC Treatment Plan/Plan of Care Patient would benefit from OT for education, treatment and training to promote independence in ADL's, mobility, safety and/or upper extremity function for ADL's. Plan of Care: ADL Retraining, Caregiver Training, Concurrent Therapy, Functional Mobility, Group Exercise/Act as Ind, UE Funct Exercise/Act, UE Neuromus Re-Ed/Coord, Visual/Perceptual Retrain, W/C Management Training Treatment Duration: Mar 15, 2019 Frequency: At least 5 of 7 days/Wk (IRF) Estimated Hrs Per Day: 1 hour per day (60-90 minutes per day ) Agreement: Yes Rehab Potential: Fair Time/GCodes Start Time: 06:50 Stop Time: 07:50 Total Time Billed (hr/min): 60 Billed Treatment Time 1 visit-ADL 4 (60 min) JALIL DUPONT Feb 24, 2019 07:29
[2019-02-24 08:40] VITALS: BP 138/71
[2019-02-24] MEDS: SENNA W/DOCUSATE (SENOKOT S) TABLET PO SCH ×2 (08:47→20:31)
[2019-02-24] MEDS: FAMOTIDINE 20 MG (PEPCID) TABLET PO SCH (08:47)
[2019-02-24] MEDS: lisINopril 10 MG (PRINIVIL) TABLET PO SCH (08:47)
[2019-02-24] MEDS: amLODIPine 5 MG (NORVASC) TAB PO SCH (08:47)
[2019-02-24] MEDS: CARVEDILOL 12.5 MG (COREG) TABLET PO SCH ×2 (08:47→20:29)
[2019-02-24] MEDS: NICOTINE 21 MG (NICODERM) PATCH TD SCH (08:48)
[2019-02-24] MEDS: CLOPIDOGREL 75 MG (PLAVIX) TABLET PO SCH (08:48)
[2019-02-24] MEDS: ASPIRIN E.C. 81 MG (ECOTRIN) TAB PO SCH (08:48)
[2019-02-24] MEDS: RT-ALBUTEROL/IPRATROPIUM 3 ML (DUONEB) VIAL INH SCH ×2 (10:00→15:30)
--- NOTE | 2019-02-24 10:36 | Progress Note - Hospitalist ---
LESLEY DE LA GARZA [facility] 02/24/19 1036: Progress Note Jarret had a much better night sleep He was much more coherent this morning Begin planning with SW and Placement for LTC options IRENE SWEENEY DO 02/24/192033: Supervisory-Addendum Brief Verification & Attestation Participated in pt care: history, MDM, physical Personally performed: exam, history, MDM, supervision of care Care discussed with: Medical Student Procedures: n/a Results interpretation: Verified all documentation Verification and Attestation of Medical Student E/M Service A medical student performed and documented this service in my presence. I reviewed and verified all information documented by the medical student and made modifications to such information, when appropriate. I personally performed the physical exam and medical decision making. Irene Sweeney, Feb 24, 2019,20:34 LESLEY DE LA GARZA [facility] [place] Feb 24, 2019 10:36 IRENE SWEENEY DO Feb 24, 2019 20:34
--- NOTE | 2019-02-24 11:04 | Physical Therapy Daily Note ---
PT Daily Note-Current Subjective Pt. in bed asleep and very difficult to awaken, falls back asleep even when awakened. Agrees to Rx ans states he may be sleepy because of some meds he took last night Pain Location: No Pain Reported Appearance very groggy at first Mental Status Patient Orientation: Person, Place, Time, Situation Transfers Therapy Code Descriptions/Definitions Functional [place] Measure: 0=Not Assessed/NA 4=Minimal Assistance 1=Total Assistance 5=Supervision or Setup 2=Maximal Assistance 6=Modified [place] 3=Moderate Assistance 7=Complete [place] Therapy Quality Codes: 6 Independent with activity with or without an assistive device 5 Patient requires set up or clean up by helper. Patient completes activity by themselves 4 Supervision or touching assist (CGA). [place] provide cues , steadying assist 3 The helper provides less than half the effort to complete the activity 2 The helper provides more than half the effort to complete the activity 1 Dependent. The helper does all the effort to complete an activity 7 Patient refused to complete or attempt activity 9 The patient did not perform the activity before the current illness or injury 88 Not attempted due to Medical conditions or safety concerns Transfers (B, C, W/C) (FIM): 3 Scootin Rollin Sit to/from Stand: 3 Bed to/from Chair: 3 Gait Training Does the Patient Walk?: Yes Gait (FIM): 1 Distance (FIM): 1=up to 49 ft (15x3) Gait Level of Assist: 3 Gait Persons Needed: 1 Gait Assistive Device: Parallel Bars (at single rail in marcus ) gait at single rail in marcus using right hand at rail and LITHOGRAPHIC PRESS OPERATOR left hand with w/c to follow, narrow SEMAJ, instruction to broaden SEMAJ and take left step, Wheelchair Training Does the Pt Use a Wheelchair?: Yes Wheelchair (FIM): 2 Wheelchair Distance: 1=up to 49 ft (25ftx4) Wheelchair Level of Assist: 3 Type of Wheelchair: Manual needs assist to brake w/c on right as well as propel, instructed in steering using one foot and one hand Exercises Supine Ex: Bridging, Ankle pumps, Quad Set, Rolling, Glut sets, Heel Slides, Short Arc Quads, Scooting, Straight leg raise, Hip abd/add Supine Reps: 15 assisted Assessment Current Status: Good Progress gives full effort, BP123/72, HR 70 bpm, O2 sats 96% PT Short Term Goals Short Term Goals Time Frame: Feb 21, 2019 Transfers (B,C,W/C) (FIM): 4 Gait (FIM): 2 Gait Distance Comment: 50' Gait Level of Assist: 4 Gait Assistive Device: Walker Weston Wheelchair Distance: 50' PT [facility]dc Goals Greenhouse Technician Goals PT Greenhouse Technician Goals Time Frame: Mar 07, 2019 Transfers (B,C,W/C) (FIM): 5 Sit to Lying (QC): 4 Lying-Sitting on Side/Bed(QC): 4 Sit to Stand (QC): 4 Rollin Roll Left to Right (QC): 4 Chair/Aen-am-Meudn Xfer(QC): 4 Car Transfer (QC): 4 Gait (FIM): 2 Distance: 100' Walk 10 feet (QC): 4 Walk 10ft-Uneven Surface(QC): 4 Walk 50ft with 2 Turns (QC): 4 Gait Level of Assist: 4 Gait Assistive Device: Walker Weston Stairs (FIM): 2 # of Steps: 4 1 Step (curb) (QC): 3 4 Steps (QC): 3 Stairs Level Of Assist: 4 PT Plan Treatment/Plan Treatment Plan: Continue Plan of Care Treatment Plan: Bed Mobility, Education, Functional Activity Merr[place], Functional Strength, Group Therapy, Gait, Safety, Therapeutic Exercise, Transfers Treatment Duration: Mar 07, 2019 Frequency: At least 5 of 7 days/Wk (IRF) Estimated Hrs Per Day: 1.5 hours per day Patient and/or Family Agrees t: Yes Safety Risks/Education Patient Education: Gait Training, Transfer Techniques, Correct Positioning, W/C Management, Disease Process, Safety Issues Teaching Recipient: Patient Teaching Methods: Demonstration, Discussion Response to Teaching: Verbalize Understanding, Return Demonstration, Reinforcement Needed Time/GCodes Time In: 900 Time Out: 1000 Total Billed Treatment Time: 60 Total Billed Treatment 1,FA20m,GT10m,EX15m,WC15m LARS ALICEA BEAD PICKER Feb 24, 2019 11:04
--- NOTE | 2019-02-24 11:41 | Speech Therapy Daily Note ---
Speech Daily Progress Note Subjective Date Seen by Provider: Feb 24, 2019 Time Seen by Provider: 00:30 The patient was sitting up in his recliner reading a novel when I entered his room. Objective The patient completed a series of problem solving scenarios with pictures "what's wrong with this picture?" at 90% with min to mod verbal cues. Assessment Assessment Current Status: Good Progress Treatment Plan Continue Plan of Care Communication Comprehension: 5 Expression: 4 Social Cognition Social Interaction: 3 Problem Solvin Memory: 3 Speech Short Term Goals Short Term Goals Short Term Goals 1) Patient will demonstrate sustained attention, memory and sequencing for task performance with 80% accuracy. 2) Patient will demonstrate effective communication of wants/needs to staff and caregivers with 80% accuracy. Speech Long-Term Goals Long-Term Goals The patient will improve cognitive-communication skills in order to return to his former living situation safely. Speech-Plan Patient/Family Goals Patient/Family Goals: The patient plans on returning home with family support post rehab. Treatment Plan Speech Therapy Treatment Plan: Continue Plan of Care The patient has progressed very well with ST. Treatment Duration: Feb 26, 2019 Frequency: 5 times per week Estimated Hrs Per Day: .5 hour per day Rehab Potential: Fair Barriers to Learning: The patient's recent CVA with related cognitive deficits Pt/Family Agrees to Plan: Yes Safety Risks/Education Teaching Recipient: Patient Teaching Methods: Demonstration, Discussion Response to Teaching: Verbalize Understanding, Return Demonstration Education Topics Provided: Continued safety upon his return home. Time Speech Therapy Time In: 10:00 Speech Therapy Time Out: 10:30 Total Billed Time: 30 Billed Treatment Time 1WILBER [address] ST Feb 24, 2019 11:41
--- NOTE | 2019-02-24 14:49 | Therapy Group Daily Note ---
Therapy Daily Group Note Patient Education Topic Other List Below (environmental safety) Exercises LE Seated Exercise, UE Exercise Session Ratio (pt:therapist): 4:1 Goal of Session: Education on ARU Expectations, Safety with Transfers Goal Met for this Session: Yes Pt Benefit of Group: Contributions to Others, F/U Use of Strategies @Home, Increased Functional Safety, Increased Functional Strength, Improved Cognition, Recognition of Peers, Socialization Other/Notes Pt transported via w/c to [facility] for OT/PT group. Group consisted of introductions (name, place living, personal pet peeve), socialization, environmental sign Bingo, ARU expectations and UE/LE seated exercises. Pt introduced self appropriately and actively listened to peers. Pt acknowledged understanding of educational topics by giving personal story and own strategies. Pt was able to follow directions and complete UE/LE seated exercises with assist due to diagnosis. After therapy, pt lying in bed with call light/phone in reach. All needs met in room. Start Time: 13:00 Stop Time: 14:00 Total Billed Treatment Time: 60 Total Billed Treatment 1-GRP JALIL DUPONT Feb 24, 2019 14:49
[2019-02-24] MEDS ORDERED: RT-ALBUTEROL/IPRATROPIUM 3 ML (DUONEB) VIAL INH PRN (15:45)
[2019-02-24] MEDS: TAMSULOSIN 0.4 MG (FLOMAX) CAP PO SCH (17:03)
--- NOTE | 2019-02-24 17:28 | NUR ---
CNA LTC met with patient to review team conference summary. Patient is performing transfers with moderate assistance, to ambulate very short distances of 15-50 feet, has decreased active range of motion, requires max assist for dressing and bathing and min assist for sit to stand activity. As patient's progression appears to be stagnant, team has recommended patient's progress be rediscussed on Friday, to determine appropriate discharge date. CNA LTC inquired if patient believes family is capable of providing necessary assistance, patient believes this is possible as he has a large family support that he resides with. CNA LTC will reach out to patient's family to inquire about their capabilities providing necessary care, to discuss the need for a ramp if patient were to return home, in the need for family training. Patient is in agreement with team discussing progress on .
[2019-02-24 17:36] VITALS: BP 102/66
--- NOTE | 2019-02-24 20:28 | PM&R Progress Note ---
Subjective HPI/CC On Admission Date Seen by Provider: Feb 24, 2019 Time Seen by Provider: 08:30 Chief complaint: Debility following CVA with left-sided weakness History of present illness: This is a 73-year-old white male clinic patient of formerly [facility] who accepted upon transfer from [facility] hospitalist service after I transferred him there on 02/05/2019 after he was admitted for suspicion of TIA and CVA and although CT scan showed no evidence of any stroke carotid artery ultrasound at [facility] at that time with stroke protocol revealed critical carotid artery stenosis requiring transfer to vascular care assessment. He had a history of right stent placement in the carotid artery in the past and a right-sided carotid endarterectomy in 1999 and continued to smoke since that time. He was transferred to [facility] maintained on Plavix aspirin and statin therapy along with antihypertensive meds and was seen by neurology and vascular surgery. Renal insufficiency returned back to baseline at 1.4 so IV fluids were discontinued. Patient was managed aggressively and underwent a left carotid stent placement due to critical stenosis on 02/08/[address] Sherman and continue to have the left upper extremity weakness. He was improving at that time. In shipping hand hours of 02/09/2019 patient suffered an acute CVA confirmed on CT scan even while maintained on Plavix and aspirin. Patient was not deemed a TPA candidate at that time once again. He was found to have a brain aneurysm 3 mm in the A1 segment of the brain but no intervention was planned. CT confirmed the acute infarct involving the watershed distribution between MCA and [employer] territory on the right as well as a small lacunar infarct along the centrum semi-ovale on the right and within the right parietal lobe. He was transported to [facility] inpatient rehab by his daughter 1 of 6 children who lives in [place]. He currently is leaning over to the left because of inability to sit straight in the wheelchair. This indicates a profound loss of function and will require at least 14 days of inpatient rehab for recovery in order to return to some sort of status to be able to return home to live independently and assist with regaining independence with ADLs. He is wheezing currently so I did order duo nebs 3 times daily scheduled. Smoking cessation was counseled on nicotine patch order was placed. Considering the numerous strokes he has had even while being on Plavix and aspirin it is concerning and his prognosis is guarded for additional strokes and even more extensive debility. His barriers to returning home include: Unable to ambulate at this current time wheelchair-bound and home not wheelchair accessible Lives alone but family is involved in his care so likely will need major supervision will need to arrange that prior to discharge Clinical stability following stroke even though on Plavix and aspirin and statin therapy so will need to assure he has been adequately risk stratified in order to decrease the chance of additional strokes prior to discharge home Subjective/Events-last exam Very drowsy most of the time Will inmate a psych eval because he appears to be very depressed Bed alarm maintained Very restless at night Remains total care at night when he is drowsy No more melena, bowel movement was normal color today Maintain on Pepcid twice a day Will recheck Friday to see if he can improve at all or he may need to go to skilled or return back to the family if they are willing to take care of him Working hard with therapy and very motivated. Conferred with RN Reviewed therapy notes Review of Systems General: Fatigue Neurological: Weakness, Numbness, Incoordination Objective Exam Vital Signs Vital Signs Date Time Temp Pulse Resp B/P (MAP) Pulse Ox O2 Delivery O2 Flow Rate FiO2 02/24/19 17:36 98.8 74 20 102/66 (78) 95 Room Air Capillary Refill : General Appearance: No Apparent Distress, WD/WN, Chronically ill, Thin, Other (fatigued, disheveled) HEENT: PERRL/EOMI, TMs Normal, Normal ENT Inspection, Pharynx Normal, Moist Mucous Membranes Neck: Full Range of Motion, Normal Inspection, Non Tender, Supple Respiratory: Chest Non Tender, Lungs Clear, Normal Breath Sounds, No Accessory Muscle Use, No Respiratory Distress, Wheezing Cardiovascular: Regular Rate, Rhythm, No Edema, No Gallop, No JVD, No Murmur Gastrointestinal: Normal Bowel Sounds, No Organomegaly, No Pulsatile Mass, Non Tender, Soft Back: Normal Inspection, No CVA Tenderness, No Vertebral Tenderness Extremity: Normal Capillary Refill, Normal Inspection, Normal Range of Motion, Non Tender, No Calf Tenderness, No Pedal Edema Neurologic/Psychiatric: Alert, Oriented x3, Normal Mood/Affect, Abnormal Cerebellar Tests, Abnormal composite layup worker II-XII (left), Abnormal Gait, Motor Weakness (left upper and lower 3/5 strength), Other (stuttering) Skin: Normal Color, Warm/Dry Lymphatic: No Adenopathy Results/Procedures Lab Patient resulted labs reviewed. FIM Transfers Therapy Code Descriptions/Definitions Functional [place] Measure: 0=Not Assessed/NA 4=Minimal Assistance 1=Total Assistance 5=Supervision or Setup 2=Maximal Assistance 6=Modified [place] 3=Moderate Assistance 7=Complete [place] Therapy Quality Codes: 6 Independent with activity with or without an assistive device 5 Patient requires set up or clean up by helper. Patient completes activity by themselves 4 Supervision or touching assist (CGA). [place] provide cues , steadying assist 3 The helper provides less than half the effort to complete the activity 2 The helper provides more than half the effort to complete the activity 1 Dependent. The helper does all the effort to complete an activity 7 Patient refused to complete or attempt activity 9 The patient did not perform the activity before the current illness or injury 88 Not attempted due to Medical conditions or safety concerns Transfers (B, C, W/C) (FIM): 3 Scootin Rollin Roll Left to Right (QC): 3 Supine to/from Sit: 3 Sit to/from Stand: 3 Sit to Lying (QC): 2 Sit to Stand (QC): 4 Chair/Hpy-jj-Kzxgh Xfer(QC): 2 Bed to/from Chair: 3 Car Transfer (QC): 2 Gait Training Does the Patient Walk?: Yes Gait (FIM): 1 Distance (FIM): 1=up to 49 ft (15x3) Distance: 20'x3 Walk 10 feet (QC): 1 Walk 50 ft with 2 Turns(QC): 1 Gait Level of Assist: 3 Gait Persons Needed: 1 Gait Assistive Device: Parallel Bars (at single rail in marcus ) Wheelchair Training Does the Pt Use a Wheelchair?: Yes Wheelchair (FIM): 2 Wheelchair Distance: 1=up to 49 ft (25ftx4) Distance: 50' Wheelchair Level of Assist: 3 Type of Wheelchair: Manual Mental Status/Objective Comprehension: 5 Expression: 4 Social Interaction: 3 Problem Solvin Memory: 3 ADL-Treatment Feedin (Pt shown new way to obtain utensils from napkin. Pt able to use utensils and bring food to mouth. Pt able to scan L/R side of plate for food. Pt able to open containers with R hand. Shows no movement with L hand.) Eating (QC): 4 Groomin (Pt brushed hair at sink sitting in w/c. Pt declined brushing teeth and washing face.) Oral Hygiene (QC): 2 Bathing Location: Abdomen, Buttocks Shower/Bathe Self (QC): 3 Upper Body Dressing (QC): 2 Lower Body Dressing (QC): 2 On/Off Footwear (QC): 2 Toiletin Toileting Hygiene (QC): 1 Toilet/Commode Transfer: 3 Toilet Transfer (QC): 3 Shower: 4 Assessment/Plan Assessment and Plan Assess & Plan/Chief Complaint Assessment: CVA w/left sided weakness 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 now improved COPD Smoker cessation counseled Dark stools resolved s/p EGD/Colon Leukopenia HTN HLP GIB no source of bleed on scopes Gastritis placed on H2 rohit Left arm skin tear requiring Dr Kumar consultation Plan: Gastritis treatment ASA and Plavix and statin to resume IRF protocols Wound care right arm NHP Minimize interruptions during the night Eval if family can care for him at home (1) CVA (cerebral vascular accident) Status: Acute Qualifiers: CVA mechanism: unspecified Qualified Codes: I63.9 - Cerebral infarction, unspecified (2) 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 Status: Acute (3) Back pain Status: Chronic Qualifiers: Back pain location: back pain in unspecified location Chronicity: unspecified Back pain laterality: unspecified Qualified Codes: M54.9 - Dorsalgia, unspecified (4) Dark stools Status: Acute (5) Impulsive Status: Acute (6) Leukopenia Status: Acute Qualifiers: Leukopenia type: unspecified Qualified Codes: D72.819 - Decreased white blood cell count, unspecified (7) Anemia Status: Chronic Qualifiers: Anemia type: unspecified type Qualified Codes: D64.9 - Anemia, unspecified (8) Hypertension Status: Chronic Qualifiers: Hypertension type: essential hypertension Qualified Codes: I10 - Essential (primary) hypertension (9) COPD (chronic obstructive pulmonary disease) Status: Chronic Qualifiers: COPD type: unspecified COPD Qualified Codes: J44.9 - Chronic obstructive pulmonary disease, unspecified (10) Hyperlipidemia Status: Chronic Qualifiers: Hyperlipidemia type: mixed hyperlipidemia Qualified Codes: E78.2 - Mixed hyperlipidemia (11) Renal insufficiency Status: Chronic (12) Wheezing Status: Acute (13) Carotid stenosis Status: Chronic Qualifiers: Laterality: bilateral Qualified Codes: I65.23 - Occlusion and stenosis of bilateral carotid arteries (14) Left-sided weakness Status: Acute (15) BPH (benign prostatic hyperplasia) Status: Chronic Qualifiers: Lower urinary tract symptom presence: unspecified whether lower urinary tract symptoms present Qualified Codes: N40.0 - Benign prostatic hyperplasia without lower urinary tract symptoms (16) Risk for falls Status: Acute (17) Smoker Status: Chronic HEBERT BAKER DO Feb 24, 2019 20:28
[2019-02-24 20:29] VITALS: BP 110/61
[2019-02-24] MEDS: ATORVASTATIN 80 MG (LIPITOR) TABLET PO SCH (20:30)
[2019-02-24] MEDS: ACETAMINOPHEN 500 MG TAB (TYLENOL) PO PRN (20:30)
[2019-02-24] MEDS: MELATONIN 3 MG TABLET PO SCH (20:30)
[2019-02-25 05:17] VITALS: BP 100/65
--- NOTE | 2019-02-25 07:52 | Occupational Ther Daily Note ---
OT Current Status-Daily Note Subjective PT asleep in chair upon OT arrival. Pt says he slept good last night. Pt agrees to shower. Mental Status/Objective Patient Orientation: Person, Place, Time, Situation Therapy Code Descriptions/Definitions Functional [place] Measure: 0=Not Assessed/NA 4=Minimal Assistance 1=Total Assistance 5=Supervision or Setup 2=Maximal Assistance 6=Modified [place] 3=Moderate Assistance 7=Complete [place] ADL-Treatment Therapy Code Descriptions/Definitions Functional [place] Measure: 0=Not Assessed/NA 4=Minimal Assistance 1=Total Assistance 5=Supervision or Setup 2=Maximal Assistance 6=Modified [place] 3=Moderate Assistance 7=Complete [place] Therapy Quality Codes: 6 Independent with activity with or without an assistive device 5 Patient requires set up or clean up by helper. Patient completes activity by themselves 4 Supervision or touching assist (CGA). [place] provide cues , steadying assist 3 The helper provides less than half the effort to complete the activity 2 The helper provides more than half the effort to complete the activity 1 Dependent. The helper does all the effort to complete an activity 7 Patient refused to complete or attempt activity 9 The patient did not perform the activity before the current illness or injury 88 Not attempted due to Medical conditions or safety concerns Eating (FIM): 7 (Pt states that he does not use dentures when eating. Pt able to cut up food with utensils and bring food to mouth properly. Pt able to take lid off of coffee self using R hand. No movement in L hand noted. Pt needed 1 verbal cue to scan to the L to find piece of toast. ) Eating (QC): 6 Bathing (FIM): 4 (Pt able to wash, rinse, and dry front half of self. Pt required assist to wash and rinse right UE and buttocks. Pt had 1 LOB during standing while cleansing buttocks, unable to right self.) Bathing Location: L Arm, L Upper Leg, R Upper Leg, L Lower Leg (including foot), R Lower Leg (including foot), Chest, Abdomen, Perineal Area Shower/Bathe Self (QC): 3 Upper Body (FIM): 3 (Pt required Mod Assist to doff long sleeve shirt. After 1 verbal cue, pt able to initiate donning L hand in shirt first, assist to thread. Pt able to don shirt over head and with visual cue threaded R arm. ) Upper Body Dressing (QC): 2 Lower Body Dressing (FIM): 1 (Pt needed verbal cues to place L leg into pants first and to problem solve when LE got caught in pant leg. Pt able to intiate picking up L foot to place into pants. Pt able to don R pant leg self. Pt required Assist 2X to don pants above waist. ) Lower Body Dressing (QC): 1 On/Off Footwear (QC): 2 (After direction on one handed technique to don socks, pt able to don R sock. Assist with L sock.) Transfers (B, C, W/C) (FIM): 3 (Pt required assist for L foot placement. Pt required verbal cueing to reach for arm rests before sitting down. ) Shower Transfer(FIM): 4 (Pt required w/c, grabbar, and tub bench, min A. ) Other Treatment Pt participated in L UE PROM to increase AROM. Movement noted with shldr extension, elbow flex/ext, wrist flex/ext and forearm pronation. Pt left in chair. Call light and phone in reach. Pts needs met. Education OT Patient Education: Modified ADL techniques Teaching Recipient: Patient Teaching Methods: Demonstration Response to Teaching: Verbalize Understanding, Return Demonstration, Reinforcement Needed OT Short Term Goals Short Term Goals Eating(FIM): 5 Grooming(FIM): 5 Bathing(FIM): 4 Upper Body Dressing(FIM): 4 Lower Body Dressing(FIM): 4 Toileting(FIM): 3 Transfers (B,C,W/C) (FIM): 4 Toilet/Commode Transfer(FIM): 3 Shower Transfer(FIM): 4 1=Demonstrate adherence to instructed precautions during ADL tasks. 2=Patient will verbalize/demonstrate understanding of assistive devices/modifications for ADL. 3=Patient will improve strength/tolerance for activity to enable patient to perform ADL's. OT Site Manager Goals Site Manager Goals Eating (FIM): 6 Eating (QC): 6 Groomin Oral Hygiene (QC): 6 Bathing(FIM): 6 Shower/Bathe Self (QC): 6 Upper Body Dressing(FIM): 6 Upper Body Dressing (QC): 6 Lower Body Dressing(FIM): 5 Lower Body Dressing (QC): 4 On/Off Footwear (QC): 5 Toileting(FIM): 5 Toileting Hygiene (QC): 4 Transfers (B,C,W/C) (FIM): 6 Toilet/Commode Transfer(FIM): 6 Toilet/Commode Transfer (QC): 6 Shower Transfer(FIM): 6 Additional Goals: 1-Demonstrate ADL Tasks, 2-Verbalize Understanding, 3- ImproveStrength/Merr[place] 1=Demonstrate adherence to instructed precautions during ADL tasks. 2=Patient will verbalize/demonstrate understanding of assistive devices /modifications for ADL. 3=Patient will improve strength/tolerance for activity to enable patient to perform ADL's. OT Education/Plan Problem List/Assessment Assessment: Decreased Activ Tolerance, Decreased Safety Aware, Decreased UE Strength, Impaired Cognition, Impaired Coordination, Impaired Funct Balance, Impaired Self-Care Skills, Restricted Funct UE ROM, Visual-Perceptual Deficit pt presents with functional limitations affecting areas of ADLs and functional transfers with the above mention deficits including decrease proprioception. pt would benefit from skilled OT Services to address above mention deficits and increase independence with ADLS and functional transfers. Discharge Recommendations Plan/Recommendations: Continue POC Treatment Plan/Plan of Care Patient would benefit from OT for education, treatment and training to promote independence in ADL's, mobility, safety and/or upper extremity function for ADL's. Plan of Care: ADL Retraining, Caregiver Training, Concurrent Therapy, Functional Mobility, Group Exercise/Act as Ind, UE Funct Exercise/Act, UE Neuromus Re-Ed/Coord, Visual/Perceptual Retrain, W/C Management Training Treatment Duration: Mar 15, 2019 Frequency: At least 5 of 7 days/Wk (IRF) Estimated Hrs Per Day: 1 hour per day (60-90 minutes per day ) Agreement: Yes Rehab Potential: Fair Time/GCodes Start Time: 07:00 Stop Time: 08:15 Total Time Billed (hr/min): 75 Billed Treatment Time 1 visit-4 ADL (60 min) NM (15 min) JALIL DUPONT Feb 25, 2019 07:52
--- NOTE | 2019-02-25 08:41 | Progress Note - Hospitalist ---
LESLEY DE LA GARZA [facility] 02/25/19 0841: Progress Note Jarret slept well last night no acute events Mood and affect have shown decline over the last 48 hrs - consulting Behavioral Health Continue to monitor IRENE SWEENEY DO 02/25/192041: Supervisory-Addendum Brief Verification & Attestation Participated in pt care: history, MDM, physical Personally performed: exam, history, MDM, supervision of care Care discussed with: Medical Student Procedures: n/a Results interpretation: Verified all documentation Verification and Attestation of Medical Student E/M Service A medical student performed and documented this service in my presence. I reviewed and verified all information documented by the medical student and made modifications to such information, when appropriate. I personally performed the physical exam and medical decision making. Irene Sweeney, Feb 25, 2019,20:42 [address] [facility] Feb 25, 2019 08:41 IRENE SWEENEY DO Feb 25, 2019 20:42
--- NOTE | 2019-02-25 08:51 | NUR ---
CONVEYOR INSTALLER contacted patient's daughter, Rosalina to review team conference summary. Rosalina states that patient and family have decided that patient will temporarily reside with her, as patient's spouse is also residing there at this time. Rosalina states her home has entry rep access in the rear of the house. Patient spoke with siblings and plan to be available for family training on Friday, 03/01 at 10 a.m. CONVEYOR INSTALLER also sent insurance updates to [employer] requesting additional days.
[2019-02-25] MEDS: ASPIRIN E.C. 81 MG (ECOTRIN) TAB PO SCH (09:07)
[2019-02-25] MEDS: NICOTINE 21 MG (NICODERM) PATCH TD SCH (09:07)
[2019-02-25] MEDS: amLODIPine 5 MG (NORVASC) TAB PO SCH (09:07)
[2019-02-25] MEDS: CARVEDILOL 12.5 MG (COREG) TABLET PO SCH ×2 (09:07→21:22)
[2019-02-25] MEDS: CLOPIDOGREL 75 MG (PLAVIX) TABLET PO SCH (09:08)
[2019-02-25] MEDS: SENNA W/DOCUSATE (SENOKOT S) TABLET PO SCH ×2 (09:08→21:23)
[2019-02-25] MEDS: lisINopril 10 MG (PRINIVIL) TABLET PO SCH (09:08)
[2019-02-25] MEDS: FAMOTIDINE 20 MG (PEPCID) TABLET PO SCH (09:08)
--- NOTE | 2019-02-25 09:23 | PM&R Progress Note ---
Subjective HPI/CC On Admission Date Seen by Provider: Feb 25, 2019 Time Seen by Provider: 09:15 Chief complaint: Debility following CVA with left-sided weakness History of present illness: This is a 73-year-old white male clinic patient of [facility] who accepted upon transfer from [facility] hospitalist service after I transferred him there on 02/05/2019 after he was admitted for suspicion of TIA and CVA and although CT scan showed no evidence of any stroke carotid artery ultrasound at [facility] at that time with stroke protocol revealed critical carotid artery stenosis requiring transfer to vascular care assessment. He had a history of right stent placement in the carotid artery in the past and a right-sided carotid endarterectomy in 1999 and continued to smoke since that time. He was transferred to [facility] maintained on Plavix aspirin and statin therapy along with antihypertensive meds and was seen by neurology and vascular surgery. Renal insufficiency returned back to baseline at 1.4 so IV fluids were discontinued. Patient was managed aggressively and underwent a left carotid stent placement due to critical stenosis on 02/08/[address] Sherman and continue to have the left upper extremity weakness. He was improving at that time. In final block press operator hours of 02/09/2019 patient suffered an acute CVA confirmed on CT scan even while maintained on Plavix and aspirin. Patient was not deemed a TPA candidate at that time once again. He was found to have a brain aneurysm 3 mm in the A1 segment of the brain but no intervention was planned. CT confirmed the acute infarct involving the watershed distribution between MCA and [employer] territory on the right as well as a small lacunar infarct along the centrum semi-ovale on the right and within the right parietal lobe. He was transported to [facility] inpatient rehab by his daughter 1 of 6 children who lives in [place]. He currently is leaning over to the left because of inability to sit straight in the wheelchair. This indicates a profound loss of function and will require at least 14 days of inpatient rehab for recovery in order to return to some sort of status to be able to return home to live independently and assist with regaining independence with ADLs. He is wheezing currently so I did order duo nebs 3 times daily scheduled. Smoking cessation was counseled on nicotine patch order was placed. Considering the numerous strokes he has had even while being on Plavix and aspirin it is concerning and his prognosis is guarded for additional strokes and even more extensive debility. His barriers to returning home include: Unable to ambulate at this current time wheelchair-bound and home not wheelchair accessible Lives alone but family is involved in his care so likely will need major supervision will need to arrange that prior to discharge Clinical stability following stroke even though on Plavix and aspirin and statin therapy so will need to assure he has been adequately risk stratified in order to decrease the chance of additional strokes prior to discharge home Subjective/Events-last exam Pt much improved. Behavioral health consult still pending. Very alert today, slept well last night, not leaning to the left at all, holding himself stable and walking a lot better. Probably has restless leg syndrome per the night nurse Had a BM X2 Eating and drinking well. Psych consult today? Discontinued the nebulizer treatments per his request yesterday. Working hard with therapy and very motivated. Conferred with RN Reviewed therapy notes Review of Systems Neurological: Weakness, Numbness, Incoordination Objective Exam Vital Signs Vital Signs Date Time Temp Pulse Resp B/P (MAP) Pulse Ox O2 Delivery O2 Flow Rate FiO2 02/25/19 19:24 Room Air 02/25/19 05:17 97.8 83 20 100/65 (77) 94 Capillary Refill : General Appearance: No Apparent Distress, WD/WN, Chronically ill, Thin, Other (fatigued, disheveled) HEENT: PERRL/EOMI, TMs Normal, Normal ENT Inspection, Pharynx Normal, Moist Mucous Membranes Neck: Full Range of Motion, Normal Inspection, Non Tender, Supple Respiratory: Chest Non Tender, Lungs Clear, Normal Breath Sounds, No Accessory Muscle Use, No Respiratory Distress, Wheezing Cardiovascular: Regular Rate, Rhythm, No Edema, No Gallop, No JVD, No Murmur Gastrointestinal: Normal Bowel Sounds, No Organomegaly, No Pulsatile Mass, Non Tender, Soft Back: Normal Inspection, No CVA Tenderness, No Vertebral Tenderness Extremity: Normal Capillary Refill, Normal Inspection, Normal Range of Motion, Non Tender, No Calf Tenderness, No Pedal Edema Neurologic/Psychiatric: Alert, Oriented x3, Normal Mood/Affect, Abnormal Cerebellar Tests, Abnormal client development manager II-XII (left), Abnormal Gait, Motor Weakness (left upper and lower 3/5 strength), Other (stuttering) Skin: Normal Color, Warm/Dry Lymphatic: No Adenopathy Results/Procedures Lab Patient resulted labs reviewed. FIM Transfers Therapy Code Descriptions/Definitions Functional [place] Measure: 0=Not Assessed/NA 4=Minimal Assistance 1=Total Assistance 5=Supervision or Setup 2=Maximal Assistance 6=Modified [place] 3=Moderate Assistance 7=Complete [place] Therapy Quality Codes: 6 Independent with activity with or without an assistive device 5 Patient requires set up or clean up by helper. Patient completes activity by themselves 4 Supervision or touching assist (CGA). [place] provide cues , steadying assist 3 The helper provides less than half the effort to complete the activity 2 The helper provides more than half the effort to complete the activity 1 Dependent. The helper does all the effort to complete an activity 7 Patient refused to complete or attempt activity 9 The patient did not perform the activity before the current illness or injury 88 Not attempted due to Medical conditions or safety concerns Transfers (B, C, W/C) (FIM): 4 (Pt required assist for L foot placement. Pt required verbal cueing ) Scootin Rollin Roll Left to Right (QC): 3 Supine to/from Sit: 3 Sit to/from Stand: 3 Sit to Lying (QC): 2 Sit to Stand (QC): 4 Chair/Nmw-sk-Kovar Xfer(QC): 2 Bed to/from Chair: 3 Car Transfer (QC): 2 Gait Training Does the Patient Walk?: Yes Gait (FIM): 1 Distance (FIM): 1=up to 49 ft (15x3) Distance: 20'x3 Walk 10 feet (QC): 1 Walk 50 ft with 2 Turns(QC): 1 Gait Level of Assist: 3 Gait Persons Needed: 1 Gait Assistive Device: Parallel Bars (at single rail in marcus ) Wheelchair Training Does the Pt Use a Wheelchair?: Yes Wheelchair (FIM): 2 Wheelchair Distance: 1=up to 49 ft (25ftx4) Distance: 50' Wheelchair Level of Assist: 3 Type of Wheelchair: Manual Mental Status/Objective Comprehension: 5 Expression: 4 Social Interaction: 3 Problem Solvin Memory: 3 ADL-Treatment Feedin (Pt able to cut up food with utensils and bring food to mouth properly. Pt able to take lid off of coffee self using R hand. No movement in L hand noted. Pt needed 1 verbal cue to scan to the L to find piece of toast, set up. ) Eating (QC): 4 Groomin (Pt brushed hair at sink sitting in w/c. Pt declined brushing teeth and washing face.) Oral Hygiene (QC): 2 Bathing Location: Abdomen, Buttocks Shower/Bathe Self (QC): 3 Upper Extremity Dressin (Pt required Mod Assist to doff long sleeve shirt. Pt able to initiate donning L hand in shirt first. Pt able to don shirt over hea d and into R arm with 1 verbal cues. ) Upper Body Dressing (QC): 2 Lower Extremity Dressin (Pt needed verbal cues to place L leg into pants first. Pt able to intiate picking up L foot to place into pants. Pt able to don R pant leg self. Pt required Assist 2X to don pants above waist. ) Lower Body Dressing (QC): 2 On/Off Footwear (QC): 2 Toiletin Toileting Hygiene (QC): 1 Toilet/Commode Transfer: 3 Toilet Transfer (QC): 3 Shower: 4 Assessment/Plan Assessment and Plan Assess & Plan/Chief Complaint Assessment: CVA w/left sided weakness 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 now improved COPD Smoker cessation counseled Dark stools resolved s/p EGD/Colon Leukopenia HTN HLP GIB no source of bleed on scopes Gastritis placed on H2 rohit Left arm skin tear requiring Dr Kumar consultation Plan: Gastritis treatment to continue ASA and Plavix and statin to resume IRF protocols Wound care right arm NHP Minimize interruptions during the night Eval if family can care for him at home Improved today (1) CVA (cerebral vascular accident) Status: Acute Qualifiers: CVA mechanism: unspecified Qualified Codes: I63.9 - Cerebral infarction, unspecified (2) 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 Status: Acute (3) Back pain Status: Chronic Qualifiers: Back pain location: back pain in unspecified location Chronicity: unspecified Back pain laterality: unspecified Qualified Codes: M54.9 - Dorsalgia, unspecified (4) Dark stools Status: Acute (5) Impulsive Status: Acute (6) Leukopenia Status: Acute Qualifiers: Leukopenia type: unspecified Qualified Codes: D72.819 - Decreased white blood cell count, unspecified (7) Anemia Status: Chronic Qualifiers: Anemia type: unspecified type Qualified Codes: D64.9 - Anemia, unspecified (8) Hypertension Status: Chronic Qualifiers: Hypertension type: essential hypertension Qualified Codes: I10 - Essential (primary) hypertension (9) COPD (chronic obstructive pulmonary disease) Status: Chronic Qualifiers: COPD type: unspecified COPD Qualified Codes: J44.9 - Chronic obstructive pulmonary disease, unspecified (10) Hyperlipidemia Status: Chronic Qualifiers: Hyperlipidemia type: mixed hyperlipidemia Qualified Codes: E78.2 - Mixed hyperlipidemia (11) Renal insufficiency Status: Chronic (12) Wheezing Status: Acute (13) Carotid stenosis Status: Chronic Qualifiers: Laterality: bilateral Qualified Codes: I65.23 - Occlusion and stenosis of bilateral carotid arteries (14) Left-sided weakness Status: Acute (15) BPH (benign prostatic hyperplasia) Status: Chronic Qualifiers: Lower urinary tract symptom presence: unspecified whether lower urinary tract symptoms present Qualified Codes: N40.0 - Benign prostatic hyperplasia without lower urinary tract symptoms (16) Risk for falls Status: Acute (17) Smoker Status: Chronic HEBERT BAKER DO Feb 25, 2019 09:23
--- NOTE | 2019-02-25 09:59 | Physical Therapy Daily Note ---
PT Daily Note-Current Subjective Patient in recliner pre tx, agrees to PT, has no complaints of pain Appearance Patient in recliner post tx with nurse call, phone, tray, chair alarm on. Patient needs to use the restroom after treatment and he ambulates to the restroom with min assist with SCOOP DRIVER, urinates but gets it on his pants, ambulates back to his recliner and pants are changed with max assist. Mental Status Patient Orientation: Person, Place, Situation Transfers Therapy Code Descriptions/Definitions Functional [place] Measure: 0=Not Assessed/NA 4=Minimal Assistance 1=Total Assistance 5=Supervision or Setup 2=Maximal Assistance 6=Modified [place] 3=Moderate Assistance 7=Complete [place] Therapy Quality Codes: 6 Independent with activity with or without an assistive device 5 Patient requires set up or clean up by helper. Patient completes activity by themselves 4 Supervision or touching assist (CGA). [place] provide cues , steadying assist 3 The helper provides less than half the effort to complete the activity 2 The helper provides more than half the effort to complete the activity 1 Dependent. The helper does all the effort to complete an activity 7 Patient refused to complete or attempt activity 9 The patient did not perform the activity before the current illness or injury 88 Not attempted due to Medical conditions or safety concerns Transfers (B, C, W/C) (FIM): 3 Sit to/from Stand: 4 Bed to/from Chair: 3 SPT CGA to the right and mod assist to the left. Gait Training Gait (FIM): 1 Distance: 20'x3 Gait Level of Assist: 4 Gait Persons Needed: 1 Gait Assistive Device: Cane Single Point Patient ambulated with min assist (a hard min assist, almost mod assist) using a SPC, he was able to advance his left leg much better and overall balance was improved. Wheelchair Training Does the Pt Use a Wheelchair?: Yes Wheelchair (FIM): 4 Distance: 150'x2 Wheelchair Level of Assist: 4 Type of Wheelchair: Manual Exercises NuStep Minutes: 10 NuStep Workload: 5 Treatments LE exercise, toileting, ambulation, WC mobility Assessment Current Status: Fair Progress improved ambulation PT Short Term Goals Short Term Goals Time Frame: Feb 21, 2019 Transfers (B,C,W/C) (FIM): 4 Gait (FIM): 2 Gait Distance Comment: 50' Gait Level of Assist: 4 Gait Assistive Device: Walker [place]on Wheelchair Distance: 50' PT [facility] Goals Paper Cup Machine Operator Goals PT Paper Cup Machine Operator Goals Time Frame: Mar 07, 2019 Transfers (B,C,W/C) (FIM): 5 Sit to Lying (QC): 4 Lying-Sitting on Side/Bed(QC): 4 Sit to Stand (QC): 4 Rollin Roll Left to Right (QC): 4 Chair/Cud-ff-Phltz Xfer(QC): 4 Car Transfer (QC): 4 Gait (FIM): 2 Distance: 100' Walk 10 feet (QC): 4 Walk 10ft-Uneven Surface(QC): 4 Walk 50ft with 2 Turns (QC): 4 Gait Level of Assist: 4 Gait Assistive Device: Walker [place]on Stairs (FIM): 2 # of Steps: 4 1 Step (curb) (QC): 3 4 Steps (QC): 3 Stairs Level Of Assist: 4 PT Plan Problem List Problem List: Activity Tolerance, Functional Strength, Safety, Balance, Gait, Transfer, Bed Mobility, ROM Treatment/Plan Treatment Plan: Continue Plan of Care Treatment Plan: Bed Mobility, Education, Functional Activity [place], Functional Strength, Group Therapy, Gait, Safety, Therapeutic Exercise, Transfers Treatment Duration: Mar 07, 2019 Frequency: At least 5 of 7 days/Wk (IRF) Estimated Hrs Per Day: 1.5 hours per day Patient and/or Family Agrees t: Yes Safety Risks/Education Patient Education: Gait Training, Transfer Techniques, Correct Positioning, W/C Management, Safety Issues Teaching Recipient: Patient Teaching Methods: Demonstration, Discussion Response to Teaching: Reinforcement Needed Time/GCodes Time In: 0900 Time Out: 1000 Total Billed Treatment Time: 60 Total Billed Treatment 1 visit [facility] 15' GT 20' EX 10' FA 15' VERENA FREEMAN PT Feb 25, 2019 09:59
--- NOTE | 2019-02-25 11:07 | Speech Therapy Daily Note ---
Speech Daily Progress Note Subjective Date Seen by Provider: Feb 25, 2019 Time Seen by Provider: 00:30 The patient stated he was very sleepy due to not being able to sleep well last night. Objective The patient completed a series of safety awareness scenarios with pictures at 80% with min verbal cues. Assessment Assessment Current Status: Good Progress Treatment Plan Continue Plan of Care Communication Comprehension: 5 Expression: 4 Social Cognition Social Interaction: 3 Problem Solvin Memory: 3 Speech Short Term Goals Short Term Goals Short Term Goals 1) Patient will demonstrate sustained attention, memory and sequencing for task performance with 80% accuracy. 2) Patient will demonstrate effective communication of wants/needs to staff and caregivers with 80% accuracy. Speech Senior Care Goals Ply Splicer Goals The patient will improve cognitive-communication skills in order to return to his former living situation safely. Speech-Plan Patient/Family Goals Patient/Family Goals: The patient plans on returning home with family post rehab. Treatment Plan Speech Therapy Treatment Plan: Continue Plan of Care The patient continues to progress with ST goals. Treatment Duration: Mar 05, 2019 Frequency: 5 times per week Estimated Hrs Per Day: .5 hour per day Rehab Potential: Fair Barriers to Learning: Patient's current CVA debilities Pt/Family Agrees to Plan: Yes Safety Risks/Education Teaching Recipient: Patient Teaching Methods: Demonstration, Discussion Response to Teaching: Verbalize Understanding, Return Demonstration Education Topics Provided: Continued communication of his wants and needs. Time Speech Therapy Time In: 10:00 Speech Therapy Time Out: 10:30 Total Billed Time: 30 Billed Treatment Time 1W[address] Feb 25, 2019 11:07
--- NOTE | 2019-02-25 14:29 | Physical Therapy Daily Note ---
PT Daily Note-Current Subjective Pt reports he is drowsy Agrees to participate with therapy Transfers Therapy Code Descriptions/Definitions Functional [place] Measure: 0=Not Assessed/NA 4=Minimal Assistance 1=Total Assistance 5=Supervision or Setup 2=Maximal Assistance 6=Modified [place] 3=Moderate Assistance 7=Complete [place] Therapy Quality Codes: 6 Independent with activity with or without an assistive device 5 Patient requires set up or clean up by helper. Patient completes activity by themselves 4 Supervision or touching assist (CGA). [place] provide cues , steadying assist 3 The helper provides less than half the effort to complete the activity 2 The helper provides more than half the effort to complete the activity 1 Dependent. The helper does all the effort to complete an activity 7 Patient refused to complete or attempt activity 9 The patient did not perform the activity before the current illness or injury 88 Not attempted due to Medical conditions or safety concerns Treatments Seated B LE ther ex x 10 each with active ther ex right and AAROM left for AP, LAQ, hip flexion and hip abduction in seated position x 10 each; in semireclined performed HS, SAQ, hip abduction x 10 each. Pt in chair with legs elevated and needs met post treatment. Assessment Very drowsy and had difficulty keeping him awake to participate with therapy. PT Short Term Goals Short Term Goals Time Frame: Feb 21, 2019 Transfers (B,C,W/C) (FIM): 4 Gait (FIM): 2 Gait Distance Comment: 50' Gait Level of Assist: 4 Gait Assistive Device: Walker Weston Wheelchair Distance: 150'x2 PT [facility] Goals [facility] Goals PT [facility] Goals Time Frame: Mar 07, 2019 Transfers (B,C,W/C) (FIM): 5 Sit to Lying (QC): 4 Lying-Sitting on Side/Bed(QC): 4 Sit to Stand (QC): 4 Rollin Roll Left to Right (QC): 4 Chair/Oer-tk-Nmbpy Xfer(QC): 4 Car Transfer (QC): 4 Gait (FIM): 2 Distance: 100' Walk 10 feet (QC): 4 Walk 10ft-Uneven Surface(QC): 4 Walk 50ft with 2 Turns (QC): 4 Gait Level of Assist: 4 Gait Assistive Device: Walker [place] Stairs (FIM): 2 # of Steps: 4 1 Step (curb) (QC): 3 4 Steps (QC): 3 Stairs Level Of Assist: 4 PT Plan Problem List Problem List: Activity Tolerance, Functional Strength, Safety, Balance, Gait, Transfer, Bed Mobility Treatment/Plan Treatment Plan: Continue Plan of Care Treatment Plan: Bed Mobility, Education, Functional Activity [place], Functional Strength, Group Therapy, Gait, Safety, Therapeutic Exercise, Transfers Treatment Duration: Mar 07, 2019 Frequency: At least 5 of 7 days/Wk (IRF) Estimated Hrs Per Day: 1.5 hours per day Patient and/or Family Agrees t: Yes Family training planned for early next week. Discharge Recommendations Therapy D/C Recommendations: Physical Therapy Home Care Time/GCodes Time In: 1400 Time Out: 1415 Total Billed Treatment Time: 15 Total Billed Treatment visit EX 15 JALIL FRANCISCO PT Feb 25, 2019 14:28
--- NOTE | 2019-02-25 15:13 | Behavioral Health Consult ---
Consult- Consult Date Seen by Provider: Feb 25, 2019 Time Seen by Provider: 13:00 Date: 02/25/19 CPT Code: 54289 Psychodiagnostic Examination, 48054 +Interactive Complexity, 1 unit(s) Start Time: 1:00 pm Stop Time: 1:40 pm Chief Complaint: depression Referral: Jarret Mariscal is a 73-year-old, , male referred by Dr. Sweeney for a clinical diagnostic assessment. Information for this evaluation was gathered from self-report, medical records, and telehealth case manager. Presenting Problem: The presenting clinical problem is depression. Jarret reported he has been in the hospital since the , so it has been 21 days. He stated he has trouble with his heart and his has lung cancer. He reported his went home from the hospital yesterday and he is worried about her. He stated he does not want her to but knows that she is going to. He reported he wants to go home and hopes he will be told he can on Friday. He stated he plans to return to his home with his and four sons. He reported his daughter and her four kids will likely be at the house a lot. He stated his grandkids are ages two to eight years old and one has spina bifida. He reported his four sons have mostly lived at home. He stated his sons have left at times, but always returned. He reported one of his sons works at [employer], one is a terrence, and one deals in [employer]. He never said what his fourth son does. He reported his long-term memory is good, but he has problems with his short-term m helix. He did repeat information during the appointment. He knew the date but said that it was Friday instead of . He reported he has trouble keeping track of days. He stated he keeps track of appointments by writing them on his calendar. He reported his sleep and appetite are good. He denied any depression. He reported frustration with not improving as quick as he would like. Overall symptoms observed or reported requiring current level of care include anergia, familial stress/strain, medical problems, memory problems, and worry. Observations/Mental Status: Jarret arrived on time for the appointment and was alone. Overall appearance was unremarkable clinically. Jarret appeared to be an adequate historian. Observed gait and gross motor movements indicated poor balance/coordination. In regards to pain, no problems were reported. Fabien general approach to the evaluation was cooperative. Orientation was intact for person, place, time, and situation. Jarret evidenced good understanding of the reason for the appointment. Fabien in-session behavior was cooperative. The predominant mood was generally euthymic with restricted affect. Immediate attention and concentration was grossly intact. Memory functioning appeared to be impaired with short-term recall difficulties. Level of intellectual functioning compared to same age peers was estimated to be in the average range. Thought processes were found to be generally logical, coherent and goal directed. Thought content appeared normal. There was no report or evidence of hallucinations or delusions. Psychomotor functioning was within normal limits. Tone of voice was normal and controlled. Expressive speech was marked by stuttering. Eye contact was good. Insight was average. Overall, style of interac ting during the appointment was appropriate and motivated. Current/Previous Mental Health Treatment: Past psychiatric history was reported as none. History of self or other harm none reported. Medical History: Medical conditions were reported by Jarret as two strokes and heart problems. He reported he recovered from his first stroke well and it affected his right side. He stated he is having a harder time recovering from this stroke and he has left sided weakness. Drug allergies: none reported. Current physician is [facility]. Recreational Drug Usage: Substance abuse history was reported as problems with alcohol over 40 years ago and has not drank alcohol in 40 years. Educational and Vocational Histories: Jarret reported he retired nine years ago. He stated he worked for the [employer] for 13 years. Family and Social Histories: Jarret currently lives with his and four sons. He reported he has some friends that have visited him in the hospital. He reported he enjoys hunting and fishing. 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 He reported frustration with his progress and worry about his and grandkids. Following current assessment, presenting problem and symptoms appear consistent with a preliminary diagnosis of F43.23 Adjustment Disorder with Mixed Anxiety and Depressed Mood. Current emotional symptoms are of mild intensity. Overall, prognosis is estimated to be fair. Therapist talked with him about medication and therapy. Currently, he does not want medication or therapy. He agreed to schedule an appointment is he is not adjusting to the changes in his functioning and his wifes health. He does appear to have some mild cognitive deficits and he seems to be aware of these. ICD-10 Diagnostic Impressions: F43.23 Adjustment Disorder with Mixed Anxiety and Depressed Mood F41.9 Unspecified Neurocognitive Disorder ROBE GOMEZ Feb 25, 2019 15:13
[2019-02-25 16:00] VITALS: BP 125/70
[2019-02-25] MEDS: TAMSULOSIN 0.4 MG (FLOMAX) CAP PO SCH (17:11)
[2019-02-25] MEDS: MELATONIN 3 MG TABLET PO SCH (21:23)
[2019-02-25] MEDS: ATORVASTATIN 80 MG (LIPITOR) TABLET PO SCH (21:23)
[2019-02-26 05:12] VITALS: BP 104/60
--- NOTE | 2019-02-26 07:15 | Occupational Ther Daily Note ---
OT Current Status-Daily Note Subjective Pt alert, sitting in recliner. Pt states that he had a restless night. Pt agrees to therapy. No c/o pain. Mental Status/Objective Patient Orientation: Person, Place, Time, Situation Therapy Code Descriptions/Definitions Functional [place] Measure: 0=Not Assessed/NA 4=Minimal Assistance 1=Total Assistance 5=Supervision or Setup 2=Maximal Assistance 6=Modified [place] 3=Moderate Assistance 7=Complete [place] ADL-Treatment Therapy Code Descriptions/Definitions Functional [place] Measure: 0=Not Assessed/NA 4=Minimal Assistance 1=Total Assistance 5=Supervision or Setup 2=Maximal Assistance 6=Modified [place] 3=Moderate Assistance 7=Complete [place] Therapy Quality Codes: 6 Independent with activity with or without an assistive device 5 Patient requires set up or clean up by helper. Patient completes activity by themselves 4 Supervision or touching assist (CGA). [place] provide cues , steadying assist 3 The helper provides less than half the effort to complete the activity 2 The helper provides more than half the effort to complete the activity 1 Dependent. The helper does all the effort to complete an activity 7 Patient refused to complete or attempt activity 9 The patient did not perform the activity before the current illness or injury 88 Not attempted due to Medical conditions or safety concerns Eating (FIM): 7 (Pt able to remove utensils from napkin using R hand. Pt uses utensils to cut and bring food to mouth properly. Pt able to remove lid with R hand. No L hand movement noted. Pt able to scan plate for food on L side. ) Eating (QC): 6 Upper Body (FIM): 3 (Pt required assist to don/doff L arm in shirt. Pt able to don/doff R shirt self with assist to find shirt hole. Pt able to pull shirt over head using R hand. Pt attempted to adjust back of shirt with R hand. No spontaneous arm movement noted. ) Upper Body Dressing (QC): 3 Transfers (B, C, W/C) (FIM): 4 (Pt requires assist for L foot placement before standing. ) Other Treatment Pt taken to therapy gym in w/c. Pt participated in L UE AAROM during shoulder flexion/extension, abduction, and horizontal external/internal rotation in supine. With verbal cues pt able to push L LE off edge of mat then close SBA to push self up to sitting from supine. Mod A for SPT. Pt taken back to room. Pt in chair, call light and phone in reach, all pts needs met. OT Short Term Goals Short Term Goals Eating(FIM): 5 Grooming(FIM): 5 Bathing(FIM): 4 Upper Body Dressing(FIM): 4 Lower Body Dressing(FIM): 4 Toileting(FIM): 3 Transfers (B,C,W/C) (FIM): 4 Toilet/Commode Transfer(FIM): 3 Shower Transfer(FIM): 4 1=Demonstrate adherence to instructed precautions during ADL tasks. 2=Patient will verbalize/demonstrate understanding of assistive devices/ modifications for ADL. 3=Patient will improve strength/tolerance for activity to enable patient to perform ADL's. OT Care Home Goals Care Home Goals Eating (FIM): 6 Eating (QC): 6 Groomin Oral Hygiene (QC): 6 Bathing(FIM): 6 Shower/Bathe Self (QC): 6 Upper Body Dressing(FIM): 6 Upper Body Dressing (QC): 6 Lower Body Dressing(FIM): 5 Lower Body Dressing (QC): 4 On/Off Footwear (QC): 5 Toileting(FIM): 5 Toileting Hygiene (QC): 4 Transfers (B,C,W/C) (FIM): 6 Toilet/Commode Transfer(FIM): 6 Toilet/Commode Transfer (QC): 6 Shower Transfer(FIM): 6 Additional Goals: 1-Demonstrate ADL Tasks, 2-Verbalize Understanding, 3- ImproveStrength/Merritt 1=Demonstrate adherence to instructed precautions during ADL tasks. 2=Patient will verbalize/demonstrate understanding of assistive devices/modifications for ADL. 3=Patient will improve strength/tolerance for activity to enable patient to perform ADL's. OT Education/Plan Problem List/Assessment Assessment: Decreased UE Strength, Impaired Coordination, Impaired Funct Balance, Impaired I ADL's, Impaired Self-Care Skills pt presents with functional limitations affecting areas of ADLs and functional transfers with the above mention deficits including decrease proprioception. pt would benefit from skilled OT Services to address above mention deficits and increase independence with ADLS and functional transfers. Discharge Recommendations Plan/Recommendations: Continue POC Treatment Plan/Plan of Care Patient would benefit from OT for education, treatment and training to promote independence in ADL's, mobility, safety and/or upper extremity function for ADL's. Plan of Care: ADL Retraining, Caregiver Training, Concurrent Therapy, Functional Mobility, Group Exercise/Act as Ind, UE Funct Exercise/Act, UE Ramirez romus Re-Ed/Coord, Visual/Perceptual Retrain, W/C Management Training Treatment Duration: Mar 15, 2019 Frequency: At least 5 of 7 days/Wk (IRF) Estimated Hrs Per Day: 1 hour per day (60-90 minutes per day ) Agreement: Yes Rehab Potential: Fair Time/GCodes Start Time: 07:00 Stop Time: 08:00 Total Time Billed (hr/min): 60 Billed Treatment Time 1 visit 3 ADL (45 min) NM (15 min) JALIL DUPONT Feb 26, 2019 07:15
--- NOTE | 2019-02-26 08:52 | Progress Note - Hospitalist ---
LESLEY DE [facility] G[facility] 02/26/19 0852: Progress Note Jarret had another sleepless night per nursing, patient reports he slept great Adult Behavior completed eval - pt refuses medication but will attend therapy o/p per report Planing to D/c home with plenty of family support, per MEDICAL TRANSPORT SPECIALIST. Family training on Friday IRENE SWEENEY DO 02/26/19 7139: Supervisory-Addendum Brief Verification & Attestation Participated in pt care: history, MDM, physical Personally performed: exam, history, MDM, supervision of care Care discussed with: Medical Student Procedures: n/a Results interpretation: Verified all documentation Verification and Attestation of Medical Student E/M Service A medical student performed and documented this service in my presence. I reviewed and verified all information documented by the medical student and made modifications to such information, when appropriate. I personally performed the physical exam and medical decision making. Irene Sweeney, Feb 26, 2019,21:39 LESLEY DE [facility] G[facility] Feb 26, 2019 08:52 IRENE SWEENEY DO Feb 26, 2019 21:39
[2019-02-26 09:48] VITALS: BP 121/67
[2019-02-26] MEDS: CLOPIDOGREL 75 MG (PLAVIX) TABLET PO SCH (09:54)
[2019-02-26] MEDS: SENNA W/DOCUSATE (SENOKOT S) TABLET PO SCH ×2 (09:54→20:09)
[2019-02-26] MEDS: NICOTINE 21 MG (NICODERM) PATCH TD SCH (09:54)
[2019-02-26] MEDS: CARVEDILOL 12.5 MG (COREG) TABLET PO SCH ×3 (09:54→20:11)
[2019-02-26] MEDS: ASPIRIN E.C. 81 MG (ECOTRIN) TAB PO SCH (09:54)
[2019-02-26] MEDS: amLODIPine 5 MG (NORVASC) TAB PO SCH ×2 (09:55→12:04)
[2019-02-26] MEDS: FAMOTIDINE 20 MG (PEPCID) TABLET PO SCH (09:55)
[2019-02-26] MEDS: lisINopril 10 MG (PRINIVIL) TABLET PO SCH ×2 (09:55→12:05)
--- NOTE | 2019-02-26 09:55 | Physical Therapy Daily Note ---
PT Daily Note-Current Subjective Patient in recliner pre tx, agrees to PT, has no complaints of pain. Patient is very drowsy and falls asleep during any break in activity. Appearance Patient in recliner post tx with nurse call, phone, tray, all needs met, chair alarm on, legs elevated. Mental Status Patient Orientation: Person, Place, Situation Transfers Therapy Code Descriptions/Definitions Functional [place] Measure: 0=Not Assessed/NA 4=Minimal Assistance 1=Total Assistance 5=Supervision or Setup 2=Maximal Assistance 6=Modified [place] 3=Moderate Assistance 7=Complete [place] Therapy Quality Codes: 6 Independent with activity with or without an assistive device 5 Patient requires set up or clean up by helper. Patient completes activity by themselves 4 Supervision or touching assist (CGA). Darling provide cues , steadying assist 3 The helper provides less than half the effort to complete the activity 2 The helper provides more than half the effort to complete the activity 1 Dependent. The helper does all the effort to complete an activity 7 Patient refused to complete or attempt activity 9 The patient did not perform the activity before the current illness or injury 88 Not attempted due to Medical conditions or safety concerns Transfers (B, C, W/C) (FIM): 3 Sit to/from Stand: 4 Bed to/from Chair: 3 CGA for SPT to the right and mod assist to the left, needs cues for positioning and safety. Gait Training Gait (FIM): 1 Distance: 20'x4 Gait Level of Assist: 4 Gait Persons Needed: 1 Gait Assistive Device: Cane Single Point Patient ambulated 3 times using a SPC with min assist to help with balance and weight shifting (hard min assist, almost mod assist), attempted 1 bout of ambulation using a rolling walker but he still cant bench inspector well enough to keep his left arm on the walker Wheelchair Training Does the Pt Use a Wheelchair?: Yes Wheelchair (FIM): 3 Distance: 100', 150' Wheelchair Level of Assist: 3 Type of Wheelchair: Manual Exercises toe touch to step x15 on each side, side stepping in parallel bars x8 with min assist, LAQ LLE 5 min Treatments ambulation, WC mobility, sidestepping, LE exercise. Assessment Current Status: Fair Progress slowly improving balance and ambulation, patient is not able to purely abduct his left leg, he needs to turn and face forward so he can substitute his quads PT Short Term Goals Short Term Goals Time Frame: Feb 21, 2019 Transfers (B,C,W/C) (FIM): 4 Gait (FIM): 2 Gait Distance Comment: 50' Gait Level of Assist: 4 Gait Assistive Device: Walker Weston Wheelchair Distance: 150'x2 PT Fci Goals Shoe Handler Goals PT Shoe Handler Goals Time Frame: Mar 07, 2019 Transfers (B,C,W/C) (FIM): 5 Sit to Lying (QC): 4 Lying-Sitting on Side/Bed(QC): 4 Sit to Stand (QC): 4 Rollin Roll Left to Right (QC): 4 Chair/[id number] Xfer(QC): 4 Car Transfer (QC): 4 Gait (FIM): 2 Distance: 100' Walk 10 feet (QC): 4 Walk 10ft-Uneven Surface(QC): 4 Walk 50ft with 2 Turns (QC): 4 Gait Level of Assist: 4 Gait Assistive Device: Walker Weston Stairs (FIM): 2 # of Steps: 4 1 Step (curb) (QC): 3 4 Steps (QC): 3 Stairs Level Of Assist: 4 PT Plan Problem List Problem List: Activity Tolerance, Functional Strength, Safety, Balance, Gait, Transfer, Bed Mobility, ROM Treatment/Plan Treatment Plan: Continue Plan of Care Treatment Plan: Bed Mobility, Education, Functional Activity Merritt, Functional Strength, Group Therapy, Gait, Safety, Therapeutic Exercise, Transfers Treatment Duration: Mar 07, 2019 Frequency: At least 5 of 7 days/Wk (IRF) Estimated Hrs Per Day: 1.5 hours per day Patient and/or Family Agrees t: Yes Safety Risks/Education Patient Education: Gait Training, Transfer Techniques, Correct Positioning, W/C Management, Safety Issues Teaching Recipient: Patient Teaching Methods: Demonstration, Discussion Response to Teaching: Reinforcement Needed Time/GCodes Time In: 0900 Time Out: 1000 Total Billed Treatment Time: 60 Total Billed Treatment 1 visit GT 30' WCH 15' EX 15' VERENA FREEMAN PT Feb 26, 2019 09:54
--- NOTE | 2019-02-26 10:09 | PM&R Progress Note ---
Subjective HPI/CC On Admission Date Seen by Provider: Feb 26, 2019 Time Seen by Provider: 09:45 Chief complaint: Debility following CVA with left-sided weakness History of present illness: This is a 73-year-old white male clinic patient of [facility] who accepted upon transfer from [facility] hospitalist service after I transferred him there on 02/05/2019 after he was admitted for suspicion of TIA and CVA and although CT scan showed no evidence of any stroke carotid artery ultrasound at [facility] at that time with stroke protocol revealed critical carotid artery stenosis requiring transfer to vascular care assessment. He had a history of right stent placement in the carotid artery in the past and a right-sided carotid endarterectomy in 1999 and continued to smoke since that time. He was transferred to [facility] maintained on Plavix aspirin and statin therapy along with antihypertensive meds and was seen by neurology and vascular surgery. Renal insufficiency returned back to baseline at 1.4 so IV fluids were discontinued. Patient was managed aggressively and underwent a left carotid stent placement due to critical stenosis on 02/08/[address] Sherman and continue to have the left upper extremity weakness. He was improving at that time. In engraver letter hours of 02/09/2019 patient suffered an acute CVA confirmed on CT scan even while maintained on Plavix and aspirin. Patient was not deemed a TPA candidate at that time once again. He was found to have a brain aneurysm 3 mm in the A1 segment of the brain but no intervention was planned. 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 He was transported to [facility] inpatient rehab by his daughter 1 of 6 children who lives in [place]. He currently is leaning over to the left because of inability to sit straight in the wheelchair. This indicates a profound loss of function and will require at least 14 days of inpatient rehab for recovery in order to return to some sort of status to be able to return home to live independently and assist with regaining independence with ADLs. He is wheezing currently so I did order duo nebs 3 times daily scheduled. Smoking cessation was counseled on nicotine patch order was placed. Considering the numerous strokes he has had even while being on Plavix and aspirin it is concerning and his prognosis is guarded for additional strokes and even more extensive debility. His barriers to returning home include: Unable to ambulate at this current time wheelchair-bound and home not wheelchair accessible Lives alone but family is involved in his care so likely will need major supervision will need to arrange that prior to discharge Clinical stability following stroke even though on Plavix and aspirin and statin therapy so will need to assure he has been adequately risk stratified in order to decrease the chance of additional strokes prior to discharge home Subjective/Events-last exam Family is willing to take care of him at home and they will be here for training Alert and doing very well Air mattress will be tried because he hates the bed Does not really sleep well but that is a chronic issue it appears Hemoglobin 9.2 Declined any psych meds He just is frustrated he denies any significant depression Check meds and labs Reviewed therapy notes Conferred with target developer of Systems General: Fatigue Neurological: Weakness, Numbness, Incoordination Objective Exam Vital Signs Vital Signs Date Time Temp Pulse Resp B/P (MAP) Pulse Ox O2 Delivery O2 Flow Rate FiO2 02/26/19 16:00 97.8 80 20 128/74 (92) 92 Room Air Capillary Refill : General Appearance: No Apparent Distress, WD/WN, Chronically ill, Thin, Other (fatigued, disheveled) HEENT: PERRL/EOMI, TMs Normal, Normal ENT Inspection, Pharynx Normal, Moist Mucous Membranes Neck: Full Range of Motion, Normal Inspection, Non Tender, Supple Respiratory: Chest Non Tender, Lungs Clear, Normal Breath Sounds, No Accessory Muscle Use, No Respiratory Distress, Wheezing Cardiovascular: Regular Rate, Rhythm, No Edema, No Gallop, No JVD, No Murmur Gastrointestinal: Normal Bowel Sounds, No Organomegaly, No Pulsatile Mass, Non Tender, Soft Back: Normal Inspection, No CVA Tenderness, No Vertebral Tenderness Extremity: Normal Capillary Refill, Normal Inspection, Normal Range of Motion, Non Tender, No Calf Tenderness, No Pedal Edema Neurologic/Psychiatric: Alert, Oriented x3, Normal Mood/Affect, Abnormal Cerebellar Tests, Abnormal portfolio assistant II-XII (left), Abnormal Gait, Motor Weakness (left upper and lower 3/5 strength), Other (stuttering) Skin: Normal Color, Warm/Dry Lymphatic: No Adenopathy Results/Procedures Lab Patient resulted labs reviewed. FIM Transfers Therapy Code Descriptions/Definitions Functional [place] Measure: 0=Not Assessed/NA 4=Minimal Assistance 1=Total Assistance 5=Supervision or Setup 2=Maximal Assistance 6=Modified [place] 3=Moderate Assistance 7=Complete [place] Therapy Quality Codes: 6 Independent with activity with or without an assistive device 5 Patient requires set up or clean up by helper. Patient completes activity by themselves 4 Supervision or touching assist (CGA). [place] provide cues , steadying assist 3 The helper provides less than half the effort to complete the activity 2 The helper provides more than half the effort to complete the activity 1 Dependent. The helper does all the effort to complete an activity 7 Patient refused to complete or attempt activity 9 The patient did not perform the activity before the current illness or injury 88 Not attempted due to Medical conditions or safety concerns Transfers (B, C, W/C) (FIM): 3 Scootin Rollin Roll Left to Right (QC): 3 Supine to/from Sit: 3 Sit to/from Stand: 4 Sit to Lying (QC): 2 Sit to Stand (QC): 4 Chair/Ftp-cv-Ttqjs Xfer(QC): 2 Bed to/from Chair: 3 Car Transfer (QC): 2 Gait Training Does the Patient Walk?: Yes Gait (FIM): 1 Distance (FIM): 1=up to 49 ft (15x3) Distance: 20'x4 Walk 10 feet (QC): 1 Walk 50 ft with 2 Turns(QC): 1 Gait Level of Assist: 4 Gait Persons Needed: 1 Gait Assistive Device: Cane Single Point Wheelchair Training Does the Pt Use a Wheelchair?: Yes Wheelchair (FIM): 3 Wheelchair Distance: 1=up to 49 ft (25ftx4) Distance: 100', 150' Wheelchair Level of Assist: 3 Type of Wheelchair: Manual Mental Status/Objective Comprehension: 5 Expression: 4 Social Interaction: 3 Problem Solvin Memory: 3 ADL-Treatment Feedin (Pt able to remove utensils from napkin using R hand. Pt uses utensils to cut and bring food to mouth properly. Pt able to remove lid with R hand. No L hand movement noted. Pt able to scan plate for food on L side. ) Eating (QC): 6 Groomin (Pt brushed hair at sink sitting in w/c. Pt declined brushing teeth and washing face.) Oral Hygiene (QC): 2 Bathin (Pt able to wash, rinse, and dry front half of self. Pt required assist to wash and rinse right UE and buttocks. Pt had 1 LOB during standing while cleansing buttocks, unable to right self.) Bathing Location: L Arm, L Upper Leg, R Upper Leg, L Lower Leg (including foot), R Lower Leg (including foot), Chest, Abdomen, Perineal Area Shower/Bathe Self (QC): 3 Upper Extremity Dressin (Pt required assist to don/doff L arm in shirt. Pt able to don/doff R shirt self with assist to find shirt hole. Pt able to pull shirt over head using R hand. Pt attempted to adjust back of shirt with R hand. No spontaneous arm movement noted. ) Upper Body Dressing (QC): 2 Lower Extremity Dressin (Pt needed verbal cues to place L leg into pants first and to problem solve when LE got caught in pant leg. Pt able to intiate picking up L foot to place into pants. Pt able to don R pant leg self. Pt required Assist 2X to don pants above waist. ) Lower Body Dressing (QC): 1 On/Off Footwear (QC): 2 (After direction on one handed technique to don socks, pt able to don R sock. Assist with L sock.) Toiletin Toileting Hygiene (QC): 1 Toilet/Commode Transfer: 3 Toilet Transfer (QC): 3 Shower: 4 (Pt required w/c, grabbar, and tub bench, min A. 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 COPD Smoker cessation counseled Dark stools resolved s/p EGD/Colon Leukopenia HTN HLP GIB no source of bleed on scopes Gastritis placed on H2 rohit Left arm skin tear requiring Dr Kumar consultation Plan: Gastritis treatment to continue ASA and Plavix and statin to resume IRF protocols Wound care right arm NHP Minimize interruptions during the night Eval if family can care for him at home Improved today Air mattress to attempt to help sleeping DC home once family trained (1) CVA (cerebral vascular accident) Status: Acute Qualifiers: CVA mechanism: unspecified Qualified Codes: I63.9 - Cerebral infarction, unspecified (2) 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 Status: Acute (3) Back pain Status: Chronic Qualifiers: Back pain location: back pain in unspecified location Chronicity: unspecif ied Back pain laterality: unspecified Qualified Codes: M54.9 - Dorsalgia, unspecified (4) Dark stools Status: Acute (5) Impulsive Status: Acute (6) Leukopenia Status: Acute Qualifiers: Leukopenia type: unspecified Qualified Codes: D72.819 - Decreased white blood cell count, unspecified (7) Anemia Status: Chronic Qualifiers: Anemia type: unspecified type Qualified Codes: D64.9 - Anemia, unspecified (8) Hypertension Status: Chronic Qualifiers: Hypertension type: essential hypertension Qualified Codes: I10 - Essential (primary) hypertension (9) COPD (chronic obstructive pulmonary disease) Status: Chronic Qualifiers: COPD type: unspecified COPD Qualified Codes: J44.9 - Chronic obstructive pulmonary disease, unspecified (10) Hyperlipidemia Status: Chronic Qualifiers: Hyperlipidemia type: mixed hyperlipidemia Qualified Codes: E78.2 - Mixed hyperlipidemia (11) Renal insufficiency Status: Chronic (12) Wheezing Status: Acute (13) Carotid stenosis Status: Chronic Qualifiers: Laterality: bilateral Qualified Codes: I65.23 - Occlusion and stenosis of bilateral carotid arteries (14) Left-sided weakness Status: Acute (15) BPH (benign prostatic hyperplasia) Status: Chronic Qualifiers: Lower urinary tract symptom presence: unspecified whether lower urinary tract symptoms present Qualified Codes: N40.0 - Benign prostatic hyperplasia without lower urinary tract symptoms (16) Risk for falls Status: Acute (17) Smoker Status: Chronic HEBERT BAKER DO Feb 26, 2019 10:09
--- NOTE | 2019-02-26 11:08 | Speech Therapy Daily Note ---
Speech Daily Progress Note Subjective Date Seen by Provider: Feb 26, 2019 Time Seen by Provider: 00:30 The patient was sitting in his recliner drinking coffee and watching the weather channel. Objective The patient completed fill in the blank sentences at 80% with min to mod verbal cues and/or repetitions. Assessment Assessment Current Status: Good Progress Treatment Plan Continue Plan of Care Communication Comprehension: 5 Expression: 4 Social Cognition Social Interaction: 3 Problem Solvin Memory: 3 Speech Short Term Goals Short Term Goals Short Term Goals 1) Patient will demonstrate sustained attention, memory and sequencing for task performance with 80% accuracy. 2) Patient will demonstrate effective communication of wants/needs to staff and caregivers with 80% accuracy. Speech Social Media Marketing Specialist Goals Alf Goals The patient will improve cognitive-communication skills in order to return to his former living situation safely. Speech-Plan Patient/Family Goals Patient/Family Goals: The patient plans on returning to his home with family upon discharge from rehab. Treatment Plan Speech Therapy Treatment Plan: Continue Plan of Care The patient has made good progress with skilled services. Treatment Duration: Mar 05, 2019 Frequency: 5 times per week Estimated Hrs Per Day: .5 hour per day Rehab Potential: Fair Barriers to Learning: Patient has some residual cognitive deficits. Pt/Family Agrees to Plan: Yes Safety Risks/Education Teaching Recipient: Patient Teaching Methods: Demonstration, Discussion Response to Teaching: Verbalize Understanding, Return Demonstration Education Topics Provided: Continued safety within his room Time Speech Therapy Time In: 10:00 Speech Therapy Time Out: 10:30 Total Billed Time: 30 Billed Treatment Time [address] Feb 26, 2019 11:08
--- NOTE | 2019-02-26 14:23 | Therapy Group Daily Note ---
Therapy Daily Group Note Patient Education Topic Home Safety, Fall Prevention, Home Safety, Energy Cons Session Ratio (pt:therapist): 3:1 Goal of Session: Education on ARU Expectations, Energy Conservation Tech., Home Safety Strategies, Memory Strategies, Safety with Transfers Goal Met for this Session: Yes Pt Benefit of Group: Contributions to Others, F/U Use of Strategies @Home, Increased Functional Safety, Improved Cognition, Recognition of Peers, Socialization Other/Notes Pt transported via wheelchair to [facility] for OT group. Group consisted of introductions (name, and fun fact about patient), socialization, ARU expectations, energy conservation techniques, home safety strategies, and memory strategies. Pt introduced self appropriately and actively listened to peers. pt participate in matching memory game with peer with moderate difficulty with task. pt given handout of energy conservation techniques to incorporate in every day living. Pt acknowledged understanding of hand out by giving personal strategies of how to incorporate techniques within person daily life. After therapy, pt sitting in recliner chair, with call light/phone in reach. All needs met in room. Start Time: 13:00 Stop Time: 14:05 Total Billed Treatment GRP 65 minutes JENNIFER GUEVARA OT Feb 26, 2019 14:23
[2019-02-26 16:00] VITALS: BP 128/74
[2019-02-26] MEDS: TAMSULOSIN 0.4 MG (FLOMAX) CAP PO SCH (17:20)
[2019-02-26] MEDS: ACETAMINOPHEN 500 MG TAB (TYLENOL) PO PRN (20:08)
[2019-02-26] MEDS: ATORVASTATIN 80 MG (LIPITOR) TABLET PO SCH (20:08)
[2019-02-26] MEDS: MELATONIN 3 MG TABLET PO SCH (20:08)
[2019-02-27 06:00] VITALS: BP 102/64
--- NOTE | 2019-02-27 07:56 | Physical Therapy Daily Note ---
PT Daily Note-Current Subjective Pt agreeable to PT session. States he is very tired today but would like to work on the NuStep. Would like to go back to bed after PT. Pain Numeric Pain Scale: 0-No Pain Appearance Pt sitting up in recliner resting head on bedside table upon arrival. Pt sitting up in recliner at end of session, assisted with ordering breakfast, call light, phone and bedside table within reach. Mental Status Patient Orientation: Person, Place, Time, Eyes Open, Situation Transfers Therapy Code Descriptions/Definitions Functional [place] Measure: 0=Not Assessed/NA 4=Minimal Assistance 1=Total Assistance 5=Supervision or Setup 2=Maximal Assistance 6=Modified [place] 3=Moderate Assistance 7=Complete [place] Therapy Quality Codes: 6 Independent with activity with or without an assistive device 5 Patient requires set up or clean up by helper. Patient completes activity by themselves 4 Supervision or touching assist (CGA). [place] provide cues , steadying vlad t 3 The helper provides less than half the effort to complete the activity 2 The helper provides more than half the effort to complete the activity 1 Dependent. The helper does all the effort to complete an activity 7 Patient refused to complete or attempt activity 9 The patient did not perform the activity before the current illness or injury 88 Not attempted due to Medical conditions or safety concerns Transfers (B, C, W/C) (FIM): 4 Sit to/from Stand: 4 (CGA) L side lean, min A stand pivot to L, CGA stand pivot to R Wheelchair Training Does the Pt Use a Wheelchair?: Yes Wheelchair (FIM): 1 Wheelchair Distance: 1=up to 49 ft Distance: 100 Wheelchair Level of Assist: 3 Type of Wheelchair: Manual veers L, minimal use of LE's to assist in propelling, constant skilled instruction required, us of RUE to propel, pt following inst for locking and unlocking of brakes Exercises NuStep Minutes: 15 NuStep Workload: 4 (RUE, BLE's) Treatments transfers, safety, L side awareness training, education, strengthening, W/c mobility, functional mobility, activity tolerance, balance Assessment Current Status: Good Progress PT Short Term Goals Short Term Goals Time Frame: Feb 21, 2019 Transfers (B,C,W/C) (FIM): 4 Gait (FIM): 2 Gait Distance Comment: 50' Gait Level of Assist: 4 Gait Assistive Device: Walker [place] Wheelchair Distance: 100', 150' PT Residential Goals Residential Goals PT Informatics Developer Goals Time Frame: Mar 07, 2019 Transfers (B,C,W/C) (FIM): 5 Sit to Lying (QC): 4 Lying-Sitting on Side/Bed(QC): 4 Sit to Stand (QC): 4 Rollin Roll Left to Right (QC): 4 Chair/Ovs-ga-Popmc Xfer(QC): 4 Car Transfer (QC): 4 Gait (FIM): 2 Distance: 100' Walk 10 feet (QC): 4 Walk 10ft-Uneven Surface(QC): 4 Walk 50ft with 2 Turns (QC): 4 Gait Level of Assist: 4 Gait Assistive Device: Walker [place] Stairs (FIM): 2 # of Steps: 4 1 Step (curb) (QC): 3 4 Steps (QC): 3 Stairs Level Of Assist: 4 PT Plan Treatment/Plan Treatment Plan: Continue Plan of Care Treatment Plan: Bed Mobility, Education, Functional Activity [place], Functional Strength, Group Therapy, Gait, Safety, Therapeutic Exercise, Transfers Treatment Duration: Mar 07, 2019 Frequency: At least 5 of 7 days/Wk (IRF) Estimated Hrs Per Day: 1.5 hours per day Patient and/or Family Agrees t: Yes Safety Risks/Education Patient Education: Transfer Techniques, Reviewed Precautions, Correct Positioning, Safety Issues Teaching Recipient: Patient Teaching Methods: Demonstration, Discussion Response to Teaching: Verbalize Understanding, Return Demonstration, Reinforcement Needed Time/GCodes Time In: 750 Time Out: 833 Total Billed Treatment Time: 43 Total Billed Treatment 1 visit, WC x15 min, EX x15 min, FA x13 min STEPHANIE CANNON FILM MASKER Feb 27, 2019 07:56
[2019-02-27] MEDS: NICOTINE 21 MG (NICODERM) PATCH TD SCH (09:37)
[2019-02-27] MEDS: SENNA W/DOCUSATE (SENOKOT S) TABLET PO SCH ×2 (09:37→20:29)
[2019-02-27] MEDS: lisINopril 10 MG (PRINIVIL) TABLET PO SCH (09:38)
[2019-02-27] MEDS: CARVEDILOL 12.5 MG (COREG) TABLET PO SCH ×2 (09:40→20:29)
[2019-02-27] MEDS: FAMOTIDINE 20 MG (PEPCID) TABLET PO SCH (09:40)
[2019-02-27] MEDS: ASPIRIN E.C. 81 MG (ECOTRIN) TAB PO SCH (09:41)
[2019-02-27] MEDS: amLODIPine 5 MG (NORVASC) TAB PO SCH (09:41)
[2019-02-27] MEDS: CLOPIDOGREL 75 MG (PLAVIX) TABLET PO SCH (09:41)
--- NOTE | 2019-02-27 12:25 | PM&R Progress Note ---
Subjective HPI/CC On Admission Date Seen by Provider: Feb 27, 2019 Time Seen by Provider: 12:10 Chief complaint: Debility following CVA with left-sided weakness History of present illness: This is a 73-year-old white male clinic patient of [facility] who accepted upon transfer from [facility] hospitalist service after I transferred him there on 02/05/2019 after he was admitted for suspicion of TIA and CVA and although CT scan showed no evidence of any stroke carotid artery ultrasound at [facility] at that time with stroke protocol revealed critical carotid artery stenosis requiring transfer to vascular care assessment. He had a history of right stent placement in the carotid artery in the past and a right-sided carotid endarterectomy in 1999 and continued to smoke since that time. He was transferred to [facility] maintained on Plavix aspirin and statin therapy along with antihypertensive meds and was seen by neurology and vascular surgery. Renal insufficiency returned back to baseline at 1.4 so IV fluids were discontinued. Patient was managed aggressively and underwent a left carotid stent placement due to critical stenosis on 02/08/[address] Sherman and continue to have the left upper extremity weakness. He was improving at that time. In family program specialist hours of 02/09/2019 patient suffered an acute CVA confirmed on CT scan even while maintained on Plavix and aspirin. Patient was not deemed a TPA candidate at that time once again. He was found to have a brain aneurysm 3 mm in the A1 segment of the brain but no intervention was planned. CT confirmed the acute infarct involving the watershed distribution between MCA and FITNESS FLOOR ATTENDANT territory on the right as well as a small lacunar infarct along the centrum semi-ovale on the right and within the right parietal lobe. He was transported to [facility] inpatient rehab by his daughter 1 of 6 children who lives in [place]. He currently is leaning over to the left because of inability to sit straight in the wheelchair. This indicates a profound loss of function and will require at least 14 days of inpatient rehab for recovery in order to return to some sort of status to be able to return home to live independently and assist with regaining independence with ADLs. He is wheezing currently so I did order duo nebs 3 times daily scheduled. Smoking cessation was counseled on nicotine patch order was placed. Considering the numerous strokes he has had even while being on Plavix and aspirin it is concerning and his prognosis is guarded for additional strokes and even more extensive debility. His barriers to returning home include: Unable to ambulate at this current time wheelchair-bound and home not wheelchair accessible Lives alone but family is involved in his care so likely will need major supervision will need to arrange that prior to discharge Clinical stability following stroke even though on Plavix and aspirin and statin therapy so will need to assure he has been adequately risk stratified in order to decrease the chance of additional strokes prior to discharge home Subjective/Events-last exam Family is willing to take care of him at home and they will be here for training this upcoming week Alert and doing very well and seems to be improving by leaps and bounds now Air mattress was a huge success in helping him sleep last night Hemoglobin 9.2 on yesterday's labs Declined any psych meds when behavioral health was consulted He just is frustrated he denies any significant depression Check meds and labs Reviewed therapy notes Conferred with insurance processing clerk of Systems Neurological: Weakness, Numbness, Incoordination Objective Exam Vital Signs Vital Signs Date Time Temp Pulse Resp B/P (MAP) Pulse Ox O2 Delivery O2 Flow Rate FiO2 02/27/19 17:18 97.0 78 20 106/68 (81) 96 Room Air Capillary Refill : General Appearance: No Apparent Distress, WD/WN, Chronically ill, Thin, Other (fatigued, disheveled) HEENT: PERRL/EOMI, TMs Normal, Normal ENT Inspection, Pharynx Normal, Moist Mucous Membranes Neck: Full Range of Motion, Normal Inspection, Non Tender, Supple Respiratory: Chest Non Tender, Lungs Clear, Normal Breath Sounds, No Accessory Muscle Use, No Respiratory Distress, Wheezing Cardiovascular: Regular Rate, Rhythm, No Edema, No Gallop, No JVD, No Murmur Gastrointestinal: Normal Bowel Sounds, No Organomegaly, No Pulsatile Mass, Non Tender, Soft Back: Normal Inspection, No CVA Tenderness, No Vertebral Tenderness Extremity: Normal Capillary Refill, Normal Inspection, Normal Range of Motion, Non Tender, No Calf Tenderness, No Pedal Edema Neurologic/Psychiatric: Alert, Oriented x3, Normal Mood/Affect, Abnormal Cerebellar Tests, Abnormal estate and trust tax principal II-XII (left), Abnormal Gait, Motor Weakness (left upper and lower 3/5 strength), Other (stuttering) Skin: Normal Color, Warm/Dry Lymphatic: No Adenopathy Results/Procedures Lab Patient resulted labs reviewed. FIM Transfers Therapy Code Descriptions/Definitions Functional [place] Measure: 0=Not Assessed/NA 4=Minimal Assistance 1=Total Assistance 5=Supervision or Setup 2=Maximal Assistance 6=Modified [place] 3=Moderate Assistance 7=Complete [place] Therapy Quality Codes: 6 Independent with activity with or without an assistive device 5 Patient requires set up or clean up by helper. Patient completes activity by themselves 4 Supervision or touching assist (CGA). [place] provide cues , steadying assist 3 The helper provides less than half the effort to complete the activity 2 The helper provides more than half the effort to complete the activity 1 Dependent. The helper does all the effort to complete an activity 7 Patient refused to complete or attempt activity 9 The patient did not perform the activity before the current illness or injury 88 Not attempted due to Medical conditions or safety concerns Transfers (B, C, W/C) (FIM): 4 Scootin Rollin Roll Left to Right (QC): 3 Supine to/from Sit: 3 Sit to/from Stand: 4 (CGA) Sit to Lying (QC): 2 Sit to Stand (QC): 4 Chair/Tgo-up-Kydlm Xfer(QC): 2 Bed to/from Chair: 3 Car Transfer (QC): 2 Gait Training Does the Patient Walk?: Yes Gait (FIM): 1 Distance (FIM): 1=up to 49 ft (15x3) Distance: 20'x4 Walk 10 feet (QC): 1 Walk 50 ft with 2 Turns(QC): 1 Gait Level of Assist: 4 Gait Persons Needed: 1 Gait Assistive Device: Cane Single Point Wheelchair Training Does the Pt Use a Wheelchair?: Yes Wheelchair (FIM): 1 Wheelchair Distance: 1=up to 49 ft Distance: 100 Wheelchair Level of Assist: 3 Type of Wheelchair: Manual Mental Status/Objective Comprehension: 5 Expression: 4 Social Interaction: 3 Problem Solvin Memory: 3 ADL-Treatment Feedin (Pt able to remove utensils from napkin using R hand. Pt uses sanjeev nsils to cut and bring food to mouth properly. Pt able to remove lid with R hand. No L hand movement noted. Pt able to scan plate for food on L side. ) Eating (QC): 6 Groomin (Pt brushed hair at sink sitting in w/c. Pt declined brushing teeth and washing face.) Oral Hygiene (QC): 2 Bathin (Pt able to wash, rinse, and dry front half of self. Pt required assist to wash and rinse right UE and buttocks. Pt had 1 LOB during standing while cleansing buttocks, unable to right self.) Bathing Location: L Arm, L Upper Leg, R Upper Leg, L Lower Leg (including foot), R Lower Leg (including foot), Chest, Abdomen, Perineal Area Shower/Bathe Self (QC): 3 Upper Extremity Dressin (Pt required assist to don/doff L arm in shirt. Pt able to don/doff R shirt self with assist to find shirt hole. Pt able to pull shirt over head using R hand. Pt attempted to adjust back of shirt with R hand. No spontaneous arm movement noted. ) Upper Body Dressing (QC): 3 Lower Extremity Dressin (Pt needed verbal cues to place L leg into pants first and to problem solve when LE got caught in pant leg. Pt able to intiate picking up L foot to place into pants. Pt able to don R pant leg self. Pt required Assist 2X to don pants above waist. ) Lower Body Dressing (QC): 1 On/Off Footwear (QC): 2 (After direction on one handed technique to don socks, pt able to don R sock. Assist with L sock.) Toiletin Toileting Hygiene (QC): 1 Toilet/Commode Transfer: 3 Toilet Transfer (QC): 3 Shower: 4 (Pt required w/c, grabbar, and tub bench, min A. 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 COPD Smoker cessation counseled Dark stools resolved s/p EGD/Colon Leukopenia HTN HLP GIB no source of bleed on scopes Gastritis placed on H2 rohit Left arm skin tear requiring Dr Kumar consultation Plan: Gastritis treatment to continue ASA and Plavix and statin to be maintained IRF protocols Wound care right arm NHP Minimize interruptions during the night DC home once family trained Improved today Air mattress has really helped his sleep now DC home once family trained (1) CVA (cerebral vascular accident) Status: Acute Qualifiers: CVA mechanism: unspecified Qualified Codes: I63.9 - Cerebral infarction, unspecified (2) 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 Status: Acute (3) Back pain Status: Chronic Qualifiers: Back pain location: back pain in unspecified location Chronicity: unspecified Back pain laterality: unspecified Qualified Codes: M54.9 - Dorsalgia, unspecified (4) Dark stools Status: Acute (5) Impulsive Status: Acute (6) Leukopenia Status: Acute Qualifiers: Leukopenia type: unspecified Qualified Codes: D72.819 - Decreased white blood cell count, unspecified (7) Anemia Status: Chronic Qualifiers: Anemia type: unspecified type Qualified Codes: D64.9 - Anemia, unspecified (8) Hypertension Status: Chronic Qualifiers: Hypertension type: essential hypertension Qualified Codes: I10 - Essential (primary) hypertension (9) COPD (chronic obstructive pulmonary disease) Status: Chronic Qualifiers: COPD type: unspecified COPD Qualified Codes: J44.9 - Chronic obstructive pulmonary disease, unspecified (10) Hyperlipidemia Status: Chronic Qualifiers: Hyperlipidemia type: mixed hyperlipidemia Qualified Codes: E78.2 - Mixed hyperlipidemia (11) Renal insufficiency Status: Chronic (12) Wheezing Status: Acute (13) Carotid stenosis Status: Chronic Qualifiers: Laterality: bilateral Qualified Codes: I65.23 - Occlusion and stenosis of bilateral carotid arteries (14) Left-sided weakness Status: Acute (15) BPH (benign prostatic hyperplasia) Status: Chronic Qualifiers: Lower urinary tract symptom presence: unspecified whether lower urinary tract symptoms present Qualified Codes: N40.0 - Benign prostatic hyperplasia without lower urinary tract symptoms (16) Risk for falls Status: Acute (17) Smoker Status: Chronic HEBERT BAKER DO Feb 27, 2019 12:25
[2019-02-27 17:18] VITALS: BP 106/68
[2019-02-27] MEDS: TAMSULOSIN 0.4 MG (FLOMAX) CAP PO SCH (18:56)
[2019-02-27] MEDS: ATORVASTATIN 80 MG (LIPITOR) TABLET PO SCH (20:29)
[2019-02-27] MEDS: MELATONIN 3 MG TABLET PO SCH (20:29)
--- NOTE | 2019-02-27 21:00 | NUR ---
Outer dressing to left upper arm not changed at this time as it had just been changed by day shift RN Helio Hobbs RN less than and hour ago. Cont to monitor.
[2019-02-28 06:03] VITALS: BP 112/66
[2019-02-28] MEDS: CLOPIDOGREL 75 MG (PLAVIX) TABLET PO SCH (08:26)
[2019-02-28] MEDS: FAMOTIDINE 20 MG (PEPCID) TABLET PO SCH (08:26)
[2019-02-28] MEDS: ASPIRIN E.C. 81 MG (ECOTRIN) TAB PO SCH (08:26)
[2019-02-28] MEDS: CARVEDILOL 12.5 MG (COREG) TABLET PO SCH ×2 (08:27→19:37)
[2019-02-28] MEDS: amLODIPine 5 MG (NORVASC) TAB PO SCH (08:27)
[2019-02-28] MEDS: lisINopril 10 MG (PRINIVIL) TABLET PO SCH (08:27)
[2019-02-28] MEDS: NICOTINE 21 MG (NICODERM) PATCH TD SCH (08:27)
[2019-02-28] MEDS: SENNA W/DOCUSATE (SENOKOT S) TABLET PO SCH ×2 (08:27→20:34)
[2019-02-28 08:32] VITALS: BP 108/65
--- NOTE | 2019-02-28 12:02 | PM&R Progress Note ---
Subjective HPI/CC On Admission Date Seen by Provider: Feb 28, 2019 Time Seen by Provider: 11:45 Chief complaint: Debility following CVA with left-sided weakness History of present illness: This is a 73-year-old white male clinic patient of [facility] who accepted upon transfer from [facility] hospitalist service after I transferred him there on 02/05/2019 after he was admitted for suspicion of TIA and CVA and although CT scan showed no evidence of any stroke carotid artery ultrasound at [facility] at that time with stroke protocol revealed critical carotid artery stenosis requiring transfer to vascular care assessment. He had a history of right stent placement in the carotid artery in the past and a right-sided carotid endarterectomy in 1999 and continued to smoke since that time. He was transferred to [facility] maintained on Plavix aspirin and statin therapy along with antihypertensive meds and was seen by neurology and vascular surgery. Renal insufficiency returned back to baseline at 1.4 so IV fluids were discontinued. Patient was managed aggressively and underwent a left carotid stent placement due to critical stenosis on 02/08/[address] Sherman and continue to have the left upper extremity weakness. He was improving at that time. In primary class teacher hours of 02/09/2019 patient suffered an acute CVA confirmed on CT scan even while maintained on Plavix and aspirin. Patient was not deemed a TPA candidate at that time once again. He was found to have a brain aneurysm 3 mm in the A1 segment of the brain but no intervention was planned. CT confirmed the acute infarct involving the watershed distribution between MCA and WRINGER OPERATOR territory on the right as well as a small lacunar infarct along the centrum semi-ovale on the right and within the right parietal lobe. He was transported to [facility] inpatient rehab by his daughter 1 of 6 children who lives in [place]. He currently is leaning over to the left because of inability to sit straight in the wheelchair. This indicates a profound loss of function and will require at least 14 days of inpatient rehab for recovery in order to return to some sort of status to be able to return home to live independently and assist with regaining independence with ADLs. He is wheezing currently so I did order duo nebs 3 times daily scheduled. Smoking cessation was counseled on nicotine patch order was placed. Considering the numerous strokes he has had even while being on Plavix and aspirin it is concerning and his prognosis is guarded for additional strokes and even more extensive debility. His barriers to returning home include: Unable to ambulate at this current time wheelchair-bound and home not wheelchair accessible Lives alone but family is involved in his care so likely will need major supervision will need to arrange that prior to discharge Clinical stability following stroke even though on Plavix and aspirin and statin therapy so will need to assure he has been adequately risk stratified in order to decrease the chance of additional strokes prior to discharge home Subjective/Events-last exam Family is willing to take care of him at home and they will be here for training this week Alert and doing very well and seems to be improving by leaps and bounds now Air mattress was a huge success in helping him sleep every night now Hemoglobin 9.2 on previous labs so will check tomorrow Very motivated Held BP meds today for mild hypotension Left arm is doing well Check meds and labs Reviewed therapy notes Conferred with customer resource specialist of Systems General: Fatigue Neurological: Weakness, Numbness, Incoordination Objective Exam Vital Signs Vital Signs Date Time Temp Pulse Resp B/P (MAP) Pulse Ox O2 Delivery O2 Flow Rate FiO2 02/28/19 09:45 Room Air 02/28/19 08:32 90 18 108/65 (79) 96 02/28/19 06:03 97.0 Capillary Refill : General Appearance: No Apparent Distress, WD/WN, Chronically ill, Thin, Other (fatigued, disheveled) HEENT: PERRL/EOMI, TMs Normal, Normal ENT Inspection, Pharynx Normal, Moist Mucous Membranes Neck: Full Range of Motion, Normal Inspection, Non Tender, Supple Respiratory: Chest Non Tender, Lungs Clear, Normal Breath Sounds, No Accessory Muscle Use, No Respiratory Distress, Wheezing Cardiovascular: Regular Rate, Rhythm, No Edema, No Gallop, No JVD, No Murmur Gastrointestinal: Normal Bowel Sounds, No Organomegaly, No Pulsatile Mass, Non Tender, Soft Back: Normal Inspection, No CVA Tenderness, No Vertebral Tenderness Extremity: Normal Capillary Refill, Normal Inspection, Normal Range of Motion, Non Tender, No Calf Tenderness, No Pedal Edema Neurologic/Psychiatric: Alert, Oriented x3, Normal Mood/Affect, Abnormal Cerebellar Tests, Abnormal sewing machine operator zipper II-XII (left), Abnormal Gait, Motor Weakness (left upper and lower 3/5 strength), Other (stuttering) Skin: Normal Color, Warm/Dry Lymphatic: No Adenopathy Results/Procedures Lab Patient resulted labs reviewed. FIM Transfers Therapy Code Descriptions/Definitions Functional [place] Measure: 0=Not Assessed/NA 4=Minimal Assistance 1=Total Assistance 5=Supervision or Setup 2=Maximal Assistance 6=Modified [place] 3=Moderate Assistance 7=Complete [place] Therapy Quality Codes: 6 Independent with activity with or without an assistive device 5 Patient requires set up or clean up by helper. Patient completes activity by themselves 4 Supervision or touching assist (CGA). [place] provide cues , steadying assist 3 The helper provides less than half the effort to complete the activity 2 The helper provides more than half the effort to complete the activity 1 Dependent. The helper does all the effort to complete an activity 7 Patient refused to complete or attempt activity 9 The patient did not perform the activity before the current illness or injury 88 Not attempted due to Medical conditions or safety concerns Transfers (B, C, W/C) (FIM): 4 Scootin Rollin Roll Left to Right (QC): 3 Supine to/from Sit: 3 Sit to/from Stand: 4 (CGA) Sit to Lying (QC): 2 Sit to Stand (QC): 4 Chair/Bry-bh-Mbwid Xfer(QC): 2 Bed to/from Chair: 3 Car Transfer (QC): 2 Gait Training Does the Patient Walk?: Yes Gait (FIM): 1 Distance (FIM): 1=up to 49 ft (15x3) Distance: 20'x4 Walk 10 feet (QC): 1 Walk 50 ft with 2 Turns(QC): 1 Gait Level of Assist: 4 Gait Persons Needed: 1 Gait Assistive Device: Cane Single Point Wheelchair Training Does the Pt Use a Wheelchair?: Yes Wheelchair (FIM): 1 Wheelchair Distance: 1=up to 49 ft Distance: 100 Wheelchair Level of Assist: 3 Type of Wheelchair: Manual Mental Status/Objective Comprehension: 5 Expression: 4 Social Interaction: 3 Problem Solvin Memory: 3 ADL-Treatment Feedin (Pt able to remove utensils from napkin using R hand. Pt uses utensils to cut and bring food to mouth properly. Pt able to remove lid with R hand. No L hand movement noted. Pt able to scan plate for food on L side. ) Eating (QC): 6 Groomin (Pt brushed hair at sink sitting in w/c. Pt declined brushing teeth and washing face.) Oral Hygiene (QC): 2 Bathin (Pt able to wash, rinse, and dry front half of self. Pt required assist to wash and rinse right UE and buttocks. Pt had 1 LOB during standing while cleansing buttocks, unable to right self.) Bathing Location: L Arm, L Upper Leg, R Upper Leg, L Lower Leg (including foot), R Lower Leg (including foot), Chest, Abdomen, Perineal Area Shower/Bathe Self (QC): 3 Upper Extremity Dressin (Pt required assist to don/doff L arm in shirt. Pt able to don/doff R shirt self with assist to find shirt hole. Pt able to pull shirt over head using R hand. Pt attempted to adjust back of shirt with R hand. No spontaneous arm movement noted. ) Upper Body Dressing (QC): 3 Lower Extremity Dressin (Pt needed verbal cues to place L leg into pants first and to problem solve when LE got caught in pant leg. Pt able to intiate picking up L foot to place into pants. Pt able to don R pant leg self. Pt required Assist 2X to don pants above waist. ) Lower Body Dressing (QC): 1 On/Off Footwear (QC): 2 (After direction on one handed technique to don socks, pt able to don R sock. Assist with L sock.) Toiletin Toileting Hygiene (QC): 1 Toilet/Commode Transfer: 3 Toilet Transfer (QC): 3 Shower: 4 (Pt required w/c, grabbar, and tub bench, min A. 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 COPD Smoker cessation counseled Dark stools resolved s/p EGD/Colon Leukopenia HTN HLP GIB no source of bleed on scopes Gastritis placed on H2 rohit Left arm skin tear requiring Dr Kumar consultation Plan: Gastritis treatment to continue ASA and Plavix and statin to be maintained IRF protocols Wound care right arm appears to be healing DC home once family trained Improved today Air mattress has really helped his sleep now DC home once family trained (1) CVA (cerebral vascular accident) Status: Acute Qualifiers: CVA mechanism: unspecified Qualified Codes: I63.9 - Cerebral infarction, unspecified (2) 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 Status: Acute (3) Back pain Status: Chronic Qualifiers: Back pain location: back pain in unspecified location Chronicity: unspecified Back pain laterality: unspecified Qualified Codes: M54.9 - Dorsalgia, unspecified (4) Dark stools Status: Acute (5) Impulsive Status: Acute (6) Leukopenia Status: Acute Qualifiers: Leukopenia type: unspecified Qualified Codes: D72.819 - Decreased white b lood cell count, unspecified (7) Anemia Status: Chronic Qualifiers: Anemia type: unspecified type Qualified Codes: D64.9 - Anemia, unspecified (8) Hypertension Status: Chronic Qualifiers: Hypertension type: essential hypertension Qualified Codes: I10 - Essential (primary) hypertension (9) COPD (chronic obstructive pulmonary disease) Status: Chronic Qualifiers: COPD type: unspecified COPD Qualified Codes: J44.9 - Chronic obstructive pulmonary disease, unspecified (10) Hyperlipidemia Status: Chronic Qualifiers: Hyperlipidemia type: mixed hyperlipidemia Qualified Codes: E78.2 - Mixed hyperlipidemia (11) Renal insufficiency Status: Chronic (12) Wheezing Status: Acute (13) Carotid stenosis Status: Chronic Qualifiers: Laterality: bilateral Qualified Codes: I65.23 - Occlusion and stenosis of bilateral carotid arteries (14) Left-sided weakness Status: Acute (15) BPH (benign prostatic hyperplasia) Status: Chronic Qualifiers: Lower urinary tract symptom presence: unspecified whether lower urinary tract symptoms present Qualified Codes: N40.0 - Benign prostatic hyperplasia without lower urinary tract symptoms (16) Risk for falls Status: Acute (17) Smoker Status: Chronic HEBERT BAKER DO Feb 28, 2019 12:02
[2019-02-28] MEDS: TAMSULOSIN 0.4 MG (FLOMAX) CAP PO SCH (17:16)
[2019-02-28 17:27] VITALS: BP 118/74
[2019-02-28] MEDS: ATORVASTATIN 80 MG (LIPITOR) TABLET PO SCH (20:34)
[2019-02-28] MEDS: MELATONIN 3 MG TABLET PO SCH (20:34)
[2019-03-01 05:23] LABS: BASOPHILS % (AUTO) 1 % (0-10); EOSINOPHILS # (AUTO) 0.1 10^3/uL (0.0-0.3); EOSINOPHILS % (AUTO) 2 % (0-10); HEMATOCRIT 28 % (40-54); LYMPHOCYTES # (AUTO) 1.2 X 10^3 (1.0-4.0); LYMPHOCYTES % (AUTO) 26 % (12-44); MEAN CORPUSCULAR HEMOGLOBIN 31 PG (25-34); MEAN CORPUSCULAR HGB CONC 33 G/DL (32-36); MEAN CORPUSCULAR VOLUME 94 FL (80-99); MEAN PLATELET VOLUME 9.7 FL (7.4-10.4); MONOCYTES # (AUTO) 0.5 X 10^3 (0.0-1.0); MONOCYTES % (AUTO) 10 % (0-12); NEUTROPHILS % (AUTO) 62 % (42-75); PLATELET COUNT 268 10^3/uL (130-400); RED CELL DISTRIBUTION WIDTH 15.2 % (10.0-14.5); WHITE BLOOD COUNT 4.8 10^3/uL (4.3-11.0)
[2019-03-01 05:36] VITALS: BP 118/75
[2019-03-01 05:44] LABS: ALBUMIN 3.5 GM/DL (3.2-4.5); BILIRUBIN,TOTAL 0.3 MG/DL (0.1-1.0); CREATININE SERUM 1.24 MG/DL (0.60-1.30); POTASSIUM 4.3 MMOL/L (3.6-5.0); TOTAL PROTEIN 5.9 GM/DL (6.4-8.2)
--- NOTE | 2019-03-01 08:04 | Occupational Ther Daily Note ---
OT Current Status-Daily Note Subjective Pt alert and eating in chair upon OT arrival. Pt agrees to therapy. Mental Status/Objective Patient Orientation: Person, Place, Time, Situation Therapy Code Descriptions/Definitions Functional [place] Measure: 0=Not Assessed/NA 4=Minimal Assistance 1=Total Assistance 5=Supervision or Setup 2=Maximal Assistance 6=Modified [place] 3=Moderate Assistance 7=Complete [place] ADL-Treatment Therapy Code Descriptions/Definitions Functional [place] Measure: 0=Not Assessed/NA 4=Minimal Assistance 1=Total Assistance 5=Supervision or Setup 2=Maximal Assistance 6=Modified [place] 3=Moderate Assistance 7=Complete [place] Therapy Quality Codes: 6 Independent with activity with or without an assistive device 5 Patient requires set up or clean up by helper. Patient completes activity by themselves 4 Supervision or touching assist (CGA). [place] provide cues , steadying assist 3 The helper provides less than half the effort to complete the activity 2 The helper provides more than half the effort to complete the activity 1 Dependent. The helper does all the effort to complete an activity 7 Patient refused to complete or attempt activity 9 The patient did not perform the activity before the current illness or injury 88 Not attempted due to Medical conditions or safety concerns Eating (FIM): 5 (Pt able to open straw wrapper but required assist to place straw in lid. Pt able to take off coffee lid self. Pt able to use utensils to cut food and bring food to mouth properly. Pt squeezed jelly using R hand on to toast. Pt scanned plate for food, set up.) Eating (QC): 5 Grooming (FIM): 5 (Pt able to shave while sitting in chair, set up.) Bathing (FIM): 4 (Pt elected to sponge bathe. Pt able to wash L LUE/UE self. Pt required assist to wash R LUE/UE. Pt able to wash face and chest self. Pt able to dry L LUE/UE, face, and chest self. Required assist to dry R LUE/UE. ) Bathing Location: L Arm, R Arm, Chest, Abdomen Shower/Bathe Self (QC): 3 Upper Body (FIM): 4 (Pt used L hand to grasp jacket sleeve to assist R arm self. Pt able to use R hand to doff L sleeve. shirt. Pt required Min assist to doff R arm out of tshirt. Pt used R arm to doff L arm out of tshirt. Pt able to thread L arm through sleeve ) Upper Body Dressing (QC): 3 Transfers (B, C, W/C) (FIM): 4 (Pt required platform walker. Pt able to put L arm onto platform self. Pt ambulated self to w/c CGA. Required verbal cues to use L leg. ) Other Treatment Pt was taken by w/c to therapy gym. Using arm skateboard for gravity/resistance eliminated task with horizontal shldr abd/add movement, pt worked on grasping a mcnamara bag in L hand and sliding L arm over to right side and releasing mcnamara bag, then grasping mcnamara bag from R side and sliding arm back to L side to release 5x. Pts L arm was placed on a pillow case to eliminate resistance, completed shldr protraction/retraction 5x's, assist needed to decreased compensatory patterns. Pt participated in hand strengthening and AROM of L digits. Pt was taken back to room. Pt used platform walker to transfer back to chair, call light and phone in reach. Safety measures in place. OT Short Term Goals Short Term Goals Eating(FIM): 5 Grooming(FIM): 5 Bathing(FIM): 4 Upper Body Dressing(FIM): 4 Lower Body Dressing(FIM): 4 Toileting(FIM): 3 Transfers (B,C,W/C) (FIM): 4 Toilet/Commode Transfer(FIM): 3 Shower Transfer(FIM): 4 1=Demonstrate adherence to instructed precautions during ADL tasks. 2=Patient will verbalize/demonstrate understanding of assistive devices/modifications for ADL. 3=Patient will improve strength/tolerance for activity to enable patient to perform ADL's. OT Senior Living Goals Senior Living Goals Eating (FIM): 6 Eating (QC): 6 Groomin Oral Hygiene (QC): 6 Bathing(FIM): 6 Shower/Bathe Self (QC): 6 Upper Body Dressing(FIM): 6 Upper Body Dressing (QC): 6 Lower Body Dressing(FIM): 5 Lower Body Dressing (QC): 4 On/Off Footwear (QC): 5 Toileting(FIM): 5 Toileting Hygiene (QC): 4 Transfers (B,C,W/C) (FIM): 6 Toilet/Commode Transfer(FIM): 6 Toilet/Commode Transfer (QC): 6 Shower Transfer(FIM): 6 Additional Goals: 1-Demonstrate ADL Tasks, 2-Verbalize Understanding, 3- ImproveStrength/[place] 1=Demonstrate adherence to instructed precautions during ADL tasks. 2=Patient will verbalize/demonstrate understanding of assistive devic es/modifications for ADL. 3=Patient will improve strength/tolerance for activity to enable patient to perform ADL's. OT Education/Plan Problem List/Assessment Assessment: Decreased UE Strength, Impaired Coordination, Impaired Funct Balance, Impaired Self-Care Skills pt presents with functional limitations affecting areas of ADLs and functional transfers with the above mention deficits including decrease proprioception. pt would benefit from skilled OT Services to address above mention deficits and increase independence with ADLS and functional transfers. Discharge Recommendations Plan/Recommendations: Continue POC Treatment Plan/Plan of Care Patient would benefit from OT for education, treatment and training to promote independence in ADL's, mobility, safety and/or upper extremity function for ADL's. Plan of Care: ADL Retraining, Caregiver Training, Concurrent Therapy, Functional Mobility, Group Exercise/Act as Ind, UE Funct Exercise/Act, UE Neuromus Re-Ed/Coord, Visual/Perceptual Retrain, W/C Management Training Treatment Duration: Mar 15, 2019 Frequency: At least 5 of 7 days/Wk (IRF) Estimated Hrs Per Day: 1 hour per day (60-90 minutes per day ) Agreement: Yes Rehab Potential: Fair Time/GCodes Start Time: 07:00 Stop Time: 08:00 Total Time Billed (hr/min): 60 Billed Treatment Time 1 visit 2 ADL (30 min) NM 2 (30 min) JALIL DUPONT Mar 01, 2019 08:04
--- NOTE | 2019-03-01 08:08 | PM&R Progress Note ---
Subjective HPI/CC On Admission Date Seen by Provider: Mar 01, 2019 Time Seen by Provider: 08:00 Chief complaint: Debility following CVA with left-sided weakness History of present illness: This is a 73-year-old white male clinic patient of [facility] who accepted upon transfer from [facility] hospitalist service after I transferred him there on 02/05/2019 after he was admitted for suspicion of TIA and CVA and although CT scan showed no evidence of any stroke carotid artery ultrasound at [facility] at that time with stroke protocol revealed critical carotid artery stenosis requiring transfer to vascular care assessment. He had a history of right stent placement in the carotid artery in the past and a right-sided carotid endarterectomy in 1999 and continued to smoke since that time. He was transferred to [facility] maintained on Plavix aspirin and statin therapy along with antihypertensive meds and was seen by neurology and vascular surgery. Renal insufficiency returned back to baseline at 1.4 so IV f luids were discontinued. Patient was managed aggressively and underwent a left carotid stent placement due to critical stenosis on 02/08/[address] Sherman and continue to have the left upper extremity weakness. He was improving at that time. In district agent hours of 02/09/2019 patient suffered an acute CVA confirmed on CT scan even while maintained on Plavix and aspirin. Patient was not deemed a TPA candidate at that time once again. He was found to have a brain aneurysm 3 mm in the A1 segment of the brain but no intervention was planned. CT confirmed the acute infarct involving the watershed distribution between MCA and HAND BUFFER territory on the right as well as a small lacunar infarct along the centrum semi-ovale on the right and within the right parietal lobe. He was transported to [facility] inpatient rehab by his daughter 1 of 6 children who lives in [place]. He currently is leaning over to the left because of inability to sit straight in the wheelchair. This indicates a profound loss of function and will require at least 14 days of inpatient rehab for recovery in order to return to some sort of status to be able to return home to live independently and assist with regaining independence with ADLs. He is wheezing currently so I did order duo nebs 3 times daily scheduled. Smoking cessation was counseled on nicotine patch order was placed. Considering the numerous strokes he has had even while being on Plavix and aspirin it is concerning and his prognosis is guarded for additional strokes and even more extensive debility. His barriers to returning home include: Unable to ambulate at this current time wheelchair-bound and home not wheelchair accessible Lives alone but family is involved in his care so likely will need major supervision will need to arrange that prior to discharge Clinical stability following stroke even though on Plavix and aspirin and statin therapy so will need to assure he has been adequately risk stratified in order to decrease the chance of additional strokes prior to discharge home Subjective/Events-last exam Skin tear is much improved of the left arm Hgb remains stable at 9.0 BUN of 31 Transferring much better Family training at 10 o'clock today Already had a BM this morning Overall feels much better and much stronger Left arm is doing well Check meds and labs Reviewed therapy notes 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 General: Fatigue Neurological: Weakness, Numbness, Incoordination Objective Exam Vital Signs Vital Signs Date Time Temp Pulse Resp B/P (MAP) Pulse Ox O2 Delivery O2 Flow Rate FiO2 03/01/19 20:39 Room Air 03/01/19 17:39 98.7 89 20 143/77 (99) 98 Capillary Refill : General Appearance: No Apparent Distress, WD/WN, Chronically ill, Thin, Other (fatigued, disheveled) HEENT: PERRL/EOMI, TMs Normal, Normal ENT Inspection, Pharynx Normal, Moist Mucous Membranes Neck: Full Range of Motion, Normal Inspection, Non Tender, Supple Respiratory: Chest Non Tender, Lungs Clear, Normal Breath Sounds, No Accessory Muscle Use, No Respiratory Distress, Wheezing Cardiovascular: Regular Rate, Rhythm, No Edema, No Gallop, No JVD, No Murmur Gastrointestinal: Normal Bowel Sounds, No Organomegaly, No Pulsatile Mass, Non Tender, Soft Back: Normal Inspection, No CVA Tenderness, No Vertebral Tenderness Extremity: Normal Capillary Refill, Normal Inspection, Normal Range of Motion, Non Tender, No Calf Tenderness, No Pedal Edema Neurologic/Psychiatric: Alert, Oriented x3, Normal Mood/Affect, Abnormal Cerebellar Tests, 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 FIM Transfers Therapy Code Descriptions/Definitions Functional [place] Measure: 0=Not Assessed/NA 4=Minimal Assistance 1=Total Assistance 5=Supervision or Setup 2=Maximal Assistance 6=Modified [place] 3=Moderate Assistance 7=Complete [place] Therapy Quality Codes: 6 Independent with activity with or without an assistive device 5 Patient requires set up or clean up by helper. Patient completes activity by themselves 4 Supervision or touching assist (CGA). [place] provide cues , steadying assist 3 The helper provides less than half the effort to complete the activity 2 The helper provides more than half the effort to complete the activity 1 Dependent. The helper does all the effort to complete an activity 7 Patient refused to complete or attempt activity 9 The patient did not perform the activity before the current illness or injury 88 Not attempted due to Medical conditions or safety concerns Transfers (B, C, W/C) (FIM): 4 Scootin Rollin Roll Left to Right (QC): 3 Supine to/from Sit: 3 Sit to/from Stand: 4 (CGA) Sit to Lying (QC): 2 Sit to Stand (QC): 4 Chair/Hph-zp-Omsmt Xfer(QC): 2 Bed to/from Chair: 3 Car Transfer (QC): 2 Gait Training Does the Patient Walk?: Yes Gait (FIM): 1 Distance (FIM): 1=up to 49 ft (15x3) Distance: 20'x4 Walk 10 feet (QC): 1 Walk 50 ft with 2 Turns(QC): 1 Gait Level of Assist: 4 Gait Persons Needed: 1 Gait Assistive Device: Cane Single Point Wheelchair Training Does the Pt Use a Wheelchair?: Yes Wheelchair (FIM): 1 Wheelchair Distance: 1=up to 49 ft Distance: 100 Wheelchair Level of Assist: 3 Type of Wheelchair: Manual Mental Status/Objective Comprehension: 5 Expression: 4 Social Interaction: 3 Problem Solvin Memory: 3 ADL-Treatment Feedin (Pt able to remove utensils from napkin using R hand. Pt uses utensils to cut and bring food to mouth properly. Pt able to remove lid with R hand. No L hand movement noted. Pt able to scan plate for food on L side. ) Eating (QC): 6 Groomin (Pt brushed hair at sink sitting in w/c. Pt declined brushing teeth and washing face.) Oral Hygiene (QC): 2 Bathin (Pt able to wash, rinse, and dry front half of self. Pt required assist to wash and rinse right UE and buttocks. Pt had 1 LOB during standing while cleansing buttocks, unable to right self.) Bathing Location: L Arm, L Upper Leg, R Upper Leg, L Lower Leg (including foot), R Lower Leg (including foot), Chest, Abdomen, Perineal Area Shower/Bathe Self (QC): 3 Upper Extremity Dressin (Pt required assist to don/doff L arm in shirt. Pt able to don/doff R shirt self with assist to find shirt hole. Pt able to pull shirt over head using R hand. Pt attempted to adjust back of shirt with R hand. No spontaneous arm movement noted. ) Upper Body Dressing (QC): 3 Lower Extremity Dressin (Pt needed verbal cues to place L leg into pants first and to problem solve when LE got caught in pant leg. Pt able to intiate picking up L foot to place into pants. Pt able to don R pant leg self. Pt required Assist 2X to don pants above waist. ) Lower Body Dressing (QC): 1 On/Off Footwear (QC): 2 (After direction on one handed technique to don socks, pt able to don R sock. Assist with L sock.) Toiletin Toileting Hygiene (QC): 1 Toilet/Commode Transfer: 3 Toilet Transfer (QC): 3 Shower: 4 (Pt required w/c, grabbar, and tub bench, min A. 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 COPD Smoker cessation counseled Dark stools resolved s/p EGD/Colon Leukopenia HTN HLP GIB no source of bleed on scopes Gastritis placed on H2 rohit Left arm skin tear requiring Dr Kumar consultation Plan: Gastritis treatment to continue ASA and Plavix and statin to be maintained IRF protocols Wound care right arm appears to be healing DC home once family trained Improved today Air mattress has really helped his sleep now DC home once family trained (1) CVA (cerebral vascular accident) Status: Acute Qualifiers: CVA mechanism: unspecified Qualified Codes: I63.9 - Cerebral infarction, unspecified (2) 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 Status: Acute (3) Back pain Status: Chronic Qualifiers: Back pain location: back pain in unspecified location Chronicity: unspecified Back pain laterality: unspecified Qualified Codes: M54.9 - Dorsalgia, unspecified (4) Dark stools Status: Acute (5) Impulsive Status: Acute (6) Leukopenia Status: Acute Qualifiers: Leukopenia type: unspecified Qualified Codes: D72.819 - Decreased white blood cell count, unspecified (7) Anemia Status: Chronic Qualifiers: Anemia type: unspecified type Qualified Codes: D64.9 - Anemia, unspecified (8) Hypertension Status: Chronic Qualifiers: Hypertension type: essential hypertension Qualified Codes: I10 - Essential (primary) hypertension (9) COPD (chronic obstructive pulmonary disease) Status: Chronic Qualifiers: COPD type: unspecified COPD Qualified Codes: J44.9 - Chronic obstructive pulmonary disease, unspecified (10) Hyperlipidemia Status: Chronic Qualifiers: Hyperlipidemia type: mixed hyperlipidemia Qualified Codes: E78.2 - Mixed hyperlipidemia (11) Renal insufficiency Status: Chronic (12) Wheezing Status: Acute (13) Carotid stenosis Status: Chronic Qualifiers: Laterality: bilateral Qualified Codes: I65.23 - Occlusion and stenosis of bilateral carotid arteries (14) Left-sided weakness Status: Acute (15) BPH (benign prostatic hyperplasia) Status: Chronic Qualifiers: Lower urinary tract symptom presence: unspecified whether lower urinary tract symptoms present Qualified Codes: N40.0 - Benign prostatic hyperplasia without lower urinary tract symptoms (16) Risk for falls Status: Acute (17) Smoker Status: Chronic HEBERT BAKER DO Mar 01, 2019 08:08
[2019-03-01 08:09] VITALS: BP 118/73
[2019-03-01] MEDS: CARVEDILOL 12.5 MG (COREG) TABLET PO SCH ×2 (08:13→20:14)
[2019-03-01] MEDS: amLODIPine 5 MG (NORVASC) TAB PO SCH (08:14)
[2019-03-01] MEDS: lisINopril 10 MG (PRINIVIL) TABLET PO SCH (08:14)
[2019-03-01] MEDS: NICOTINE 21 MG (NICODERM) PATCH TD SCH (08:16)
[2019-03-01] MEDS: CLOPIDOGREL 75 MG (PLAVIX) TABLET PO SCH (08:16)
[2019-03-01] MEDS: FAMOTIDINE 20 MG (PEPCID) TABLET PO SCH (08:16)
[2019-03-01] MEDS: ASPIRIN E.C. 81 MG (ECOTRIN) TAB PO SCH (08:16)
[2019-03-01] MEDS: SENNA W/DOCUSATE (SENOKOT S) TABLET PO SCH ×2 (08:20→21:20)
--- NOTE | 2019-03-01 09:43 | NUR ---
Patient scheduled for family training today at 10am. Addendum: 03/01/19 at 1301 by BIJU SALAS Following discussion of patient's progress, patient has made significant progress since last week. Team will plan to re-evaluate progress and discharge planning at Team Conference on 03/03. Patient and family are agreeable to this. Per therapy, family training was successful.
--- NOTE | 2019-03-01 09:57 | Physical Therapy Daily Note ---
PT Daily Note-Current Subjective Patient in recliner pre tx, agrees to PT, has no complaints of pain at rest. Appearance Patient needs to use the restroom after ambulating back to his room, he needs as sist standing and getting his pants back up. Patient has a small BM and urinates. Patient in recliner post tx with nurse call, phone, tray, all needs met, chair alarm on. Mental Status Patient Orientation: Person, Place, Situation Transfers Therapy Code Descriptions/Definitions Functional [place] Measure: 0=Not Assessed/NA 4=Minimal Assistance 1=Total Assistance 5=Supervision or Setup 2=Maximal Assistance 6=Modified [place] 3=Moderate Assistance 7=Complete [place] Therapy Quality Codes: 6 Independent with activity with or without an assistive device 5 Patient requires set up or clean up by helper. Patient completes activity by themselves 4 Supervision or touching assist (CGA). [place] provide cues , steadying assist 3 The helper provides less than half the effort to complete the activity 2 The helper provides more than half the effort to complete the activity 1 Dependent. The helper does all the effort to complete an activity 7 Patient refused to complete or attempt activity 9 The patient did not perform the activity before the current illness or inju ry 88 Not attempted due to Medical conditions or safety concerns Transfers (B, C, W/C) (FIM): 4 Scootin Rollin Supine to/from Sit: 4 Sit to/from Stand: 4 Bed to/from Chair: 4 SPT min assist to the left side, cues for hand placement and safety. Left neglect, needs cues for looking in the right direction. Gait Training Gait (FIM): 2 Distance: 100', 50', 120' Gait Level of Assist: 4 Gait Persons Needed: 1 Gait Assistive Device: Cane Single Point Min assist, unsteady, much better step through and balance than last week, left leg gets tired with activity, better weight shifting. Exercises Supine Ex: Heel Slides, Short Arc Quads, Straight leg raise, Hip abd/add Supine Reps: 15 LAQ alternating for 5 min NuStep Minutes: 15 NuStep Workload: 5 Treatments LE exercise, bed mobility and transfers, ambulation, toileting Assessment Current Status: Fair Progress improved balance and weight shifting PT Short Term Goals Short Term Goals Time Frame: Feb 21, 2019 Transfers (B,C,W/C) (FIM): 4 Gait (FIM): 2 Gait Distance Comment: 50' Gait Level of Assist: 4 Gait Assistive Device: Walker [place] Wheelchair Distance: 100 PT Assisted Goals Assisted Goals PT Assisted Goals Time Frame: Mar 07, 2019 Transfers (B,C,W/C) (FIM): 5 Sit to Lying (QC): 4 Lying-Sitting on Side/Bed(QC): 4 Sit to Stand (QC): 4 Rollin Roll Left to Right (QC): 4 Chair/Ket-il-Mssur Xfer(QC): 4 Car Transfer (QC): 4 Gait (FIM): 2 Distance: 100' Walk 10 feet (QC): 4 Walk 10ft-Uneven Surface(QC): 4 Walk 50ft with 2 Turns (QC): 4 Gait Level of Assist: 4 Gait Assistive Device: Walker [place] Stairs (FIM): 2 # of Steps: 4 1 Step (curb) (QC): 3 4 Steps (QC): 3 Stairs Level Of Assist: 4 PT Plan Problem List Problem List: Activity Tolerance, Functional Strength, Safety, Balance, Gait, Transfer, Bed Mobility, ROM Treatment/Plan Treatment Plan: Continue Plan of Care Treatment Plan: Bed Mobility, Education, Functional Activity [place], Functional Strength, Group Therapy, Gait, Safety, Therapeutic Exercise, Transfers Treatment Duration: Mar 07, 2019 Frequency: At least 5 of 7 days/Wk (IRF) Estimated Hrs Per Day: 1.5 hours per day Patient and/or Family Agrees t: Yes Safety Risks/Education Patient Education: Gait Training, Transfer Techniques, Correct Positioning, Safety Issues Teaching Recipient: Patient Teaching Methods: Demonstration, Discussion Response to Teaching: Reinforcement Needed Time/GCodes Time In: 0900 Time Out: 1000 Total Billed Treatment Time: 60 Total Billed Treatment 1 visit GT 25' EX 35' VERENA FREEMAN PT Mar 01, 2019 09:57
--- NOTE | 2019-03-01 13:04 | Occupational Ther Daily Note ---
OT Current Status-Daily Note Subjective Pt alert, sitting in recliner. Pt agrees to therapy. No c/o pain. Mental Status/Objective Patient Orientation: Person, Place, Time, Situation Therapy Code Descriptions/Definitions Functional [place] Measure: 0=Not Assessed/NA 4=Minimal Assistance 1=Total Assistance 5=Supervision or Setup 2=Maximal Assistance 6=Modified [place] 3=Moderate Assistance 7=Complete [place] ADL-Treatment Therapy Code Descriptions/Definitions Functional [place] Measure: 0=Not Assessed/NA 4=Minimal Assistance 1=Total Assistance 5=Supervision or Setup 2=Maximal Assistance 6=Modified [place] 3=Moderate Assistance 7=Complete [place] Therapy Quality Codes: 6 Independent with activity with or without an assistive device 5 Patient requires set up or clean up by helper. Patient completes activity by themselves 4 Supervision or touching assist (CGA). [place] provide cues , steadying assist 3 The helper provides less than half the effort to complete the activity 2 The helper provides more than half the effort to complete the activity 1 Dependent. The helper does all the effort to complete an activity 7 Patient refused to complete or attempt activity 9 The patient did not perform the activity before the current illness or injury 88 Not attempted due to Medical conditions or safety concerns Other Treatment Family training completed with daughter and son. 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 Educated family with dressing techniques, functional transfers and ambulation with platform FWW. Family demonstrated ability and understanding to complete transfers and mobility with pt. Pt demonstrates increased mobility with UE/LE's during functional tasks. Pt completed tub bench transfer with verbal cues and min A for sit <--> stand then able to lift own legs into tub and scoot self on bench. Min A to don shirt, doffed shirt by self. After therapy, pt sitting in recliner with call light/phone in reach. OT Short Term Goals Short Term Goals Eating(FIM): 5 Grooming(FIM): 5 Bathing(FIM): 4 Upper Body Dressing(FIM): 4 Lower Body Dressing(FIM): 4 Toileting(FIM): 3 Transfers (B,C,W/C) (FIM): 4 Toilet/Commode Transfer(FIM): 3 Shower Transfer(FIM): 4 1=Demonstrate adherence to instructed precautions during ADL tasks. 2=Patient will verbalize/demonstrate understanding of assistive devices/modifications for ADL. 3=Patient will improve strength/tolerance for activity to enable patient to perform ADL's. OT Assembler Show Motor Goals Correction Goals Eating (FIM): 6 Eating (QC): 6 Groomin Oral Hygiene (QC): 6 Bathing(FIM): 6 Shower/Bathe Self (QC): 6 Upper Body Dressing(FIM): 6 Upper Body Dressing (QC): 6 Lower Body Dressing(FIM): 5 Lower Body Dressing (QC): 4 On/Off Footwear (QC): 5 Toileting(FIM): 5 Toileting Hygiene (QC): 4 Transfers (B,C,W/C) (FIM): 6 Toilet/Commode Transfer(FIM): 6 Toilet/Commode Transfer (QC): 6 Shower Transfer(FIM): 6 Additional Goals: 1-Demonstrate ADL Tasks, 2-Verbalize Understanding, 3- ImproveStrength/Merritt 1=Demonstrate adherence to instructed precautions during ADL tasks. 2=Patient will verbalize/demonstrate understanding of assistive devices/modifications for ADL. 3=Patient will improve strength/tolerance for activity to enable patient to perform ADL's. OT Education/Plan Problem List/Assessment Assessment: Impaired Self-Care Skills, Restricted Funct UE ROM pt presents with functional limitations affecting areas of ADLs and functional transfers with the above mention deficits including decrease proprioception. pt would benefit from skilled OT Services to address above mention deficits and increase independence with ADLS and functional transfers. Discharge Recommendations Plan/Recommendations: Continue POC Treatment Plan/Plan of Care Patient would benefit from OT for education, treatment and training to promote independence in ADL's, mobility, safety and/or upper extremity function for ADL's. Plan of Care: ADL Retraining, Caregiver Training, Concurrent Therapy, Functional Mobility, Group Exercise/Act as Ind, UE Funct Exercise/Act, UE Neuromus Re-Ed/Coord, Visual/Perceptual Retrain, W/C Management Training Treatment Duration: Mar 15, 2019 Frequency: At least 5 of 7 days/Wk (IRF) Estimated Hrs Per Day: 1 hour per day (60-90 minutes per day ) Agreement: Yes Rehab Potential: Fair Time/GCodes Start Time: 10:00 Stop Time: 10:30 Total Time Billed (hr/min): 60 Billed Treatment Time 1 visit-FA 2 (30 min) JALIL DUPONT Mar 01, 2019 13:04
--- NOTE | 2019-03-01 14:08 | Speech Therapy Daily Note ---
Speech Daily Progress Note Subjective Date Seen by Provider: Mar 01, 2019 Time Seen by Provider: 00:30 The patient was finishing his lunch when I entered his room. Objective The patient completed a series of safety scenario cards for "what is wrong with this picture" with 90% accuracy given minimal verbal cues. Assessment Assessment Current Status: Good Progress Treatment Plan Continue Plan of Care Communication Comprehension: 5 Expression: 4 Social Cognition Social Interaction: 3 Problem Solvin Memory: 3 Speech Short Term Goals Short Term Goals Short Term Goals 1) Patient will demonstrate sustained attention, memory and sequencing for task performance with 80% accuracy. 2) Patient will demonstrate effective communication of wants/needs to staff and caregivers with 80% accuracy. Speech Plaster Block Layer Goals Plaster Block Layer Goals The patient will improve cognitive-communication skills in order to return to his former living situation safely. Speech-Plan Patient/Family Goals Patient/Family Goals: The patient plans on living with his daughter for a few weeks post rehab. Treatment Plan Speech Therapy Treatment Plan: Continue Plan of Care The patient has made good progress toward meeting ST goals. 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 Time Speech Therapy Time In: 13:30 Speech Therapy Time Out: 14:00 Total Billed Time: 30 Billed Treatment Time 1, ALFRED Neal Mar 01, 2019 14:08
--- NOTE | 2019-03-01 15:53 | NUR ---
Pastoral care visit.
[2019-03-01] MEDS: TAMSULOSIN 0.4 MG (FLOMAX) CAP PO SCH (17:34)
[2019-03-01 17:39] VITALS: BP 143/77
[2019-03-01] MEDS: ATORVASTATIN 80 MG (LIPITOR) TABLET PO SCH (20:15)
[2019-03-01] MEDS: MELATONIN 3 MG TABLET PO SCH (20:15)
[2019-03-02 06:02] VITALS: BP 132/65
--- NOTE | 2019-03-02 07:51 | Occupational Ther Daily Note ---
OT Current Status-Daily Note Subjective Pt asleep in chair upon OT arrival. Pt states he is feeling tired today. Pt agrees to therapy. Mental Status/Objective Patient Orientation: Person, Place, Time, Situation Therapy Code Descriptions/Definitions Functional [place] Measure: 0=Not Assessed/NA 4=Minimal Assistance 1=Total Assistance 5=Supervision or Setup 2=Maximal Assistance 6=Modified [place] 3=Moderate Assistance 7=Complete [place] ADL-Treatment Therapy Code Descriptions/Definitions Functional [place] Measure: 0=Not Assessed/NA 4=Minimal Assistance 1=Total Assistance 5=Supervision or Setup 2=Maximal Assistance 6=Modified [place] 3=Moderate Assistance 7=Complete [place] Therapy Quality Codes: 6 Independent with activity with or without an assistive device 5 Patient requires set up or clean up by helper. Patient completes activity by themselves 4 Supervision or touching assist (CGA). [place] provide cues , steadying assist 3 The helper provides less than half the effort to complete the activity 2 The helper provides more than half the effort to complete the activity 1 Dependent. The helper does all the effort to complete an activity 7 Patient refused to complete or attempt activity 9 The patient did not perform the activity before the current illness or injury 88 Not attempted due to Medical conditions or safety concerns Eating (FIM): 7 (Pt able to use utensils to cut up food and bring food to mouth properly. Pt able to scan plate for food. Pt able to remove lids self. Pt used L hand movement to grasp a piece of toast. ) Bathing (FIM): 3 (Pt required assist rinsing buttocks and cleanse R arm. Pt able to cleanse/rinse/dry, L arm, chest, legs, and venus area self. Pt required assist in standing to while holding onto grabbar with L hand and cleansed buttocks with R hand. Pt able to squeeze soap onto wash cloth self.) Bathing Location: L Arm, L Upper Leg, R Upper Leg, L Lower Leg (including foot), R Lower Leg (including foot), Chest, Abdomen, Buttocks, Perineal Area Shower/Bathe Self (QC): 3 Upper Body (FIM): 3 (Pt able to doff shirt after initiation from [place]. Pt donned shirt with assist to initiate and pull down in back.) Upper Body Dressing (QC): 3 Lower Body Dressing (FIM): 3 (Pt able to doff briefs, pants, and socks self with assist in standing. Pt required assist to get L foot into brief leg. Pt able to hike briefs above waist self with assist to stand. Assist to pick pants off floor then able to grasp onto pants and hike above waist with assist to stand. Pt able to doff socks self. Pt required assist to don L sock above toes but managed socks over rest of foot. ) Lower Body Dressing (QC): 2 On/Off Footwear (QC): 2 Toileting (FIM): 3 (Pt able to manage clothing before and after voiding and BM using platform walker and assist in standing. Pt required CGA for steadying while cleansing self. ) Toileting Hygiene (QC): 2 Transfers (B, C, W/C) (FIM): 4 (Min A and verbal cues for L neglect and L foot positioning. Pt required use of platform walker. Pt able to place L arm on platform self.) Toilet/Commode Transfer (FIM): 4 (Pt requires grab bar, platform walker, min A.) Toilet Transfer (QC): 3 Shower Transfer(FIM): 4 (Pt required platform walker, grab bar, and shower chair, min A. ) Other Treatment Pt participated in AROM exercise performing flexion/extension and horizontal abd/add 2 reps 5x each. Pt left in chair, call light and phone in reach, all needs met. Education OT Patient Education: Modified ADL techniques Teaching Recipient: Patient Teaching Methods: Demonstration Response to Teaching: Verbalize Understanding, Return Demonstration OT Short Term Goals Short Term Goals Eating(FIM): 5 Grooming(FIM): 5 Bathing(FIM): 4 Upper Body Dressing(FIM): 4 Lower Body Dressing(FIM): 4 Toileting(FIM): 3 Transfers (B,C,W/C) (FIM): 4 Toilet/Commode Transfer(FIM): 3 Shower Transfer(FIM): 4 1=Demonstrate adherence to instructed precautions during ADL tasks. 2=Patient will verbalize/demonstrate understanding of assistive devices/modifications for ADL. 3=Patient will improve strength/tolerance for activity to enable patient to perform ADL's. OT Longterm Goals Formula Maker Goals Eating (FIM): 6 Eating (QC): 6 Groomin Oral Hygiene (QC): 6 Bathing(FIM): 6 Shower/Bathe Self (QC): 6 Upper Body Dressing(FIM): 6 Upper Body Dressing (QC): 6 Lower Body Dressing(FIM): 5 Lower Body Dressing (QC): 4 On/Off Footwear (QC): 5 Toileting(FIM): 5 Toileting Hygiene (QC): 4 Transfers (B,C,W/C) (FIM): 6 Toilet/Commode Transfer(FIM): 6 Toilet/Commode Transfer (QC): 6 Shower Transfer(FIM): 6 Additional Goals: 1-Demonstrate ADL Tasks, 2-Verbalize Understanding, 3- ImproveStrength/[place] 1=Demonstrate adherence to instructed precautions during ADL tasks. 2=Patient will verbalize/demonstrate understanding of assistive devices/modifications for ADL. 3=Patient will improve strength/tolerance for activity to enable patient to perform ADL's. OT Education/Plan Problem List/Assessment Assessment: Decreased Safety Aware, Decreased UE Strength, Impaired Coordination, Impaired Funct Balance, Impaired Self-Care Skills pt presents with functional limitations affecting areas of ADLs and functional transfers with the above mention deficits including decrease proprioception. pt would benefit from skilled OT Services to address above mention deficits and increase independence with ADLS and functional transfers. Discharge Recommendations Plan/Recommendations: Continue POC Treatment Plan/Plan of Care Patient would benefit from OT for education, treatment and training to promote independence in ADL's, mobility, safety and/or upper extremity function for ADL's. Plan of Care: ADL Retraining, Caregiver Training, Concurrent Therapy, Functional Mobility, Group Exercise/Act as Ind, UE Funct Exercise/Act, UE Neuromus Re-Ed/Coord, Visual/Perceptual Retrain, W/C Management Training Treatment Duration: Mar 15, 2019 Frequency: At least 5 of 7 days/Wk (IRF) Estimated Hrs Per Day: 1 hour per day (60-90 minutes per day ) Agreement: Yes Rehab Potential: Fair Time/GCodes Start Time: 06:45 Stop Time: 08:00 Total Time Billed (hr/min): 75 Billed Treatment Time 1 visit-ADL 5 (75 min) JALIL DUPONT Mar 02, 2019 07:51
[2019-03-02 08:14] VITALS: BP 114/66
[2019-03-02] MEDS: ASPIRIN E.C. 81 MG (ECOTRIN) TAB PO SCH (08:15)
[2019-03-02] MEDS: CLOPIDOGREL 75 MG (PLAVIX) TABLET PO SCH (08:15)
[2019-03-02] MEDS: amLODIPine 5 MG (NORVASC) TAB PO SCH (08:15)
[2019-03-02] MEDS: CARVEDILOL 12.5 MG (COREG) TABLET PO SCH ×2 (08:15→20:36)
[2019-03-02] MEDS: FAMOTIDINE 20 MG (PEPCID) TABLET PO SCH (08:16)
[2019-03-02] MEDS: lisINopril 10 MG (PRINIVIL) TABLET PO SCH (08:16)
[2019-03-02] MEDS: SENNA W/DOCUSATE (SENOKOT S) TABLET PO SCH ×3 (08:16→20:36)
[2019-03-02] MEDS: NICOTINE 21 MG (NICODERM) PATCH TD SCH (08:16)
--- NOTE | 2019-03-02 08:45 | PM&R Progress Note ---
Subjective HPI/CC On Admission Date Seen by Provider: Mar 02, 2019 Time Seen by Provider: 08:45 Chief complaint: Debility following CVA with left-sided weakness History of present illness: This is a 73-year-old white male clinic patient of [facility] who accepted upon transfer from [facility] hospitalist service after I transferred him there on 02/05/2019 after he was admitted for suspicion of TIA and CVA and although CT scan showed no evidence of any stroke carotid artery ultrasound at [facility] at that time with stroke protocol revealed critical carotid artery stenosis requiring transfer to vascular care assessment. He had a history of right stent placement in the carotid artery in the past and a right-sided carotid endarterectomy in 1999 and continued to smoke since that time. He was transferred to [facility] maintained on Plavix aspirin and statin therapy along with antihypertensive meds and was seen by neurology and vascular surgery. Renal insufficiency returned back to baseline at 1.4 so IV fluids were discontinued. Patient was managed aggressively and underwent a left carotid stent placement due to critical stenosis on 02/08/[address] Sherman and continue to have the left upper extremity weakness. He was improving at that time. 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 Patient was not deemed a TPA candidate at that time once again. He was found to have a brain aneurysm 3 mm in the A1 segment of the brain but no intervention was planned. CT confirmed the acute infarct involving the watershed distribution between MCA and [employer]ARD territory on the right as well as a small lacunar infarct along the centrum semi-ovale on the right and within the right parietal lobe. He was transported to [facility] inpatient rehab by his daughter 1 of 6 children who lives in [place]. He currently is leaning over to the left because of inability to sit straight in the wheelchair. This indicates a profound loss of function and will require at least 14 days of inpatient rehab for recovery in order to return to some sort of status to be able to return home to live independently and assist with regaining independence with ADLs. He is wheezing currently so I did order duo nebs 3 times daily scheduled. Smoking cessation was counseled on nicotine patch order was placed. Considering the numerous strokes he has had even while being on Plavix and aspirin it is concerning and his prognosis is guarded for additional strokes and even more extensive debility. His barriers to returning home include: Unable to ambulate at this current time wheelchair-bound and home not wheelchair accessible Lives alone but family is involved in his care so likely will need major supervision will need to arrange that prior to discharge Clinical stability following stroke even though on Plavix and aspirin and statin therapy so will need to assure he has been adequately risk stratified in order to decrease the chance of additional strokes prior to discharge home Subjective/Events-last exam Pt doing very well. Family training went well yesterday. No pain is reported. Pt sleeping well at night. Takes a lot of breaks and naps. Has not required nebulizer treatments or oxygen supplementation. Left arm is doing well Check meds and labs Reviewed therapy notes Conferred with recreation supervisor of Systems Neurological: Weakness, Numbness, Incoordination Objective Exam Vital Signs Vital Signs Date Time Temp Pulse Resp B/P (MAP) Pulse Ox O2 Delivery O2 Flow Rate FiO2 03/02/19 20:10 Room Air 03/02/19 17:55 98.5 95 20 160/82 (108) 97 Capillary Refill : General Appearance: No Apparent Distress, WD/WN, Chronically ill, Thin, Other (fatigued, disheveled) HEENT: PERRL/EOMI, TMs Normal, Normal ENT Inspection, Pharynx Normal, Moist Mucous Membranes Neck: Full Range of Motion, Normal Inspection, Non Tender, Supple Respiratory: Chest Non Tender, Lungs Clear, Normal Breath Sounds, No Accessory Muscle Use, No Respiratory Distress, Wheezing Cardiovascular: Regular Rate, Rhythm, No Edema, No Gallop, No JVD, No Murmur Gastrointestinal: Normal Bowel Sounds, No Organomegaly, No Pulsatile Mass, Non Tender, Soft Back: Normal Inspection, No CVA Tenderness, No Vertebral Tenderness Extremity: Normal Capillary Refill, Normal Inspection, Normal Range of Motion, Non Tender, No Calf Tenderness, No Pedal Edema Neurologic/Psychiatric: Alert, Oriented x3, Normal Mood/Affect, Abnormal Cerebellar Tests, Abnormal blower and compressor assembler II-XII (left), Abnormal Gait, Motor Weakness (left upper and lower 3/5 strength), Other (stuttering) Skin: Normal Color, Warm/Dry Lymphatic: No Adenopathy Results/Procedures Lab Patient resulted labs reviewed. FIM Transfers Therapy Code Descriptions/Definitions Functional [place] Measure: 0=Not Assessed/NA 4=Minimal Assistance 1=Total Assistance 5=Supervision or Setup 2=Maximal Assistance 6=Modified [place] 3=Moderate Assistance 7=Complete [place] Therapy Quality Codes: 6 Independent with activity with or without an assistive device 5 Patient requires set up or clean up by helper. Patient completes activity by themselves 4 Supervision or touching assist (CGA). [place] provide cues , steadying assist 3 The helper provides less than half the effort to complete the activity 2 The helper provides more than half the effort to complete the activity 1 Dependent. The helper does all the effort to complete an activity 7 Patient refused to complete or attempt activity 9 The patient did not perform the activity before the current illness or injury 88 Not attempted due to Medical conditions or safety concerns Transfers (B, C, W/C) (FIM): 4 (Pt required platform walker. Pt able to put L arm onto platform self. Pt ambulated self to w/c CGA. Required verbal cues to use L leg. ) Scootin Rollin Roll Left to Right (QC): 3 Supine to/from Sit: 4 Sit to/from Stand: 4 Sit to Lying (QC): 2 Sit to Stand (QC): 4 Chair/Jup-ta-Lpogn Xfer(QC): 2 Bed to/from Chair: 4 Car Transfer (QC): 2 Gait Training Does the Patient Walk?: Yes Gait (FIM): 2 Distance (FIM): 1=up to 49 ft (15x3) Distance: 100', 50', 120' Walk 10 feet (QC): 1 Walk 50 ft with 2 Turns(QC): 1 Gait Level of Assist: 4 Gait Persons Needed: 1 Gait Assistive Device: Cane Single Point Wheelchair Training Does the Pt Use a Wheelchair?: Yes Wheelchair (FIM): 1 Wheelchair Distance: 1=up to 49 ft Distance: 100 Wheelchair Level of Assist: 3 Type of Wheelchair: Manual Mental Status/Objective Comprehension: 5 Expression: 4 Social Interaction: 3 Problem Solvin Memory: 3 ADL-Treatment Feedin (Pt able to open straw wrapper but required assist to place straw in lid. Pt able to take off coffee lid self. Pt able to use utensils to cut food and bring food to mouth properly. Pt squeezed jelly using R hand on to toast. Pt scanned plate for food, set up.) Eating (QC): 5 Groomin (Pt able to shave while sitting in chair, set up.) Oral Hygiene (QC): 2 Bathin (Pt required assist rinsing buttocks and cleanse R arm. Pt able to cleanse, L arm, chest, buttocks, legs, and venus area self. Pt able to squeeze soap onto wash cloth self.) Bathing Location: L Arm, L Upper Leg, R Upper Leg, L Lower Leg (including foot), R Lower Leg (including foot), Chest, Abdomen, Buttocks, Perineal Area Shower/Bathe Self (QC): 3 Upper Extremity Dressin Upper Body Dressing (QC): 3 Lower Extremity Dressin (Pt able to doff briefs, pants, and socks self. Pt required assist to get L foot into brief leg. Pt able to don pants self. Pt able to hike briefs above waist self. Pt required assist to pick pants off floor. Pt able to grasp onto pants and hike above waist self. ) Lower Body Dressing (QC): 1 On/Off Footwear (QC): 2 (After direction on one handed technique to don socks, pt able to don R sock. Assist with L sock.) Toiletin Toileting Hygiene (QC): 1 Toilet/Commode Transfer: 3 Toilet Transfer (QC): 3 Shower: 4 (Pt required w/c, grabbar, and tub bench, min A. 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 COPD Smoker cessation counseled Dark stools resolved s/p EGD/Colon Leukopenia HTN HLP GIB no source of bleed on scopes Gastritis placed on H2 rohit Left arm skin tear requiring Dr Kumar consultation Plan: Gastritis treatment to continue ASA and Plavix and statin to be maintained IRF protocols Wound care right arm appears to be healing DC home once family trained Improved today Air mattress has really helped his sleep now DC home once family trained (1) CVA (cerebral vascular accident) Status: Acute Qualifiers: CVA mechanism: unspecified Qualified Codes: I63.9 - Cerebral infarction, unspecified (2) 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 Status: Acute (3) Back pain Status: Chronic Qualifiers: Back pain location: back pain in unspecified location Chronicity: unspecified Back pain laterality: unspecified Qualified Codes: M54.9 - Dorsalgia, unspecified (4) Dark stools Status: Acute (5) Impulsive Status: Acute (6) Leukopenia Status: Acute Qualifiers: Leukopenia type: unspecified Qualified Codes: D72.819 - Decreased white blood cell count, unspecified (7) Anemia Status: Chronic Qualifiers: Anemia type: unspecified type Qualified Codes: D64.9 - Anemia, unspecified (8) Hypertension Status: Chronic Qualifiers: Hypertension type: essential hypertension Qualified Codes: I10 - Essential (primary) hypertension (9) COPD (chronic obstructive pulmonary disease) Status: Chronic Qualifiers: COPD type: unspecified COPD Qualified Codes: J44.9 - Chronic obstructive pulmonary disease, unspecified (10) Hyperlipidemia Status: Chronic Qualifiers: Hyperlipidemia type: mixed hyperlipidemia Qualified Codes: E78.2 - Mixed hyperlipidemia (11) Renal insufficiency Status: Chronic (12) Wheezing Status: Acute (13) Carotid stenosis Status: Chronic Qualifiers: Laterality: bilateral Qualified Codes: I65.23 - Occlusion and stenosis of bilateral carotid arteries (14) Left-sided weakness Status: Acute (15) BPH (benign prostatic hyperplasia) Status: Chronic Qualifiers: Lower urinary tract symptom presence: unspecified whether lower urinary tr act symptoms present Qualified Codes: N40.0 - Benign prostatic hyperplasia without lower urinary tract symptoms (16) Risk for falls Status: Acute (17) Smoker Status: Chronic HEBERT BAKER DO Mar 02, 2019 08:45
--- NOTE | 2019-03-02 09:31 | NUR ---
Clinical updates submitted to [employer], requesting 7 additional days with a discharge on 03/09/19. Addendum: 03/02/19 at 1446 by OCTOBER Quinn SALAS Received approval for 7 additional days, with a discharge on 03/09/19.
--- NOTE | 2019-03-02 09:54 | Physical Therapy Daily Note ---
PT Daily Note-Current Subjective Patient in bed pre tx, agrees to PT, very drowsy, no complaints of pain. Appearance Patient in recliner post tx with nurse call, phone, tray, chair alarm on. Mental Status Patient Orientation: Person, Place, Situation Transfers Therapy Code Descriptions/Definitions Functional [place] Measure: 0=Not Assessed/NA 4=Minimal Assistance 1=Total Assistance 5=Supervision or Setup 2=Maximal Assistance 6=Modified [place] 3=Moderate Assistance 7=Complete [place] Therapy Quality Codes: 6 Independent with activity with or without an assistive device 5 Patient requires set up or clean up by helper. Patient completes activity by themselves 4 Supervision or touching assist (CGA). [place] provide cues , steadying assist 3 The helper provides less than half the effort to complete the activity 2 The helper provides more than half the effort to complete the activity 1 Dependent. The helper does all the effort to complete an activity 7 Patient refused to complete or attempt activity 9 The patient did not perform the activity before the current illness or injury 88 Not attempted due to Medical conditions or safety concerns Transfers (B, C, W/C) (FIM): 4 Supine to/from Sit: 4 Sit to/from Stand: 4 Bed to/from Chair: 4 sit to stand CGA, supine <-> sit min assist Gait Training Gait (FIM): 4 Distance: 150'x2 Gait Level of Assist: 4 Gait Persons Needed: 1 Gait Assistive Device: Cane Single Point Patient has better balance and weight shifting but still needs min assist, better foot clearance during stepping and step-through on the left side. He has significant left neglect and needs frequent cues for direction, he will always turn to the right side. Exercises Supine Ex: Ankle pumps, Heel Slides, Short Arc Quads, Straight leg raise, Hip abd/add Supine Reps: 20 (LLE) NuStep Minutes: 15 NuStep Workload: 5 Treatments bed mobility and transfers, ambulation, LE exercise Assessment Current Status: Fair Progress improving balance and ambulation PT Short Term Goals Short Term Goals Time Frame: Feb 21, 2019 Transfers (B,C,W/C) (FIM): 4 Gait (FIM): 2 Gait Distance Comment: 50' Gait Level of Assist: 4 Gait Assistive Device: Walker [place] Wheelchair Distance: 100 PT Watch Crystal Grinder Goals Watch Crystal Grinder Goals PT Mcfp Goals Time Frame: Mar 07, 2019 Transfers (B,C,W/C) (FIM): 5 Sit to Lying (QC): 4 Lying-Sitting on Side/Bed(QC): 4 Sit to Stand (QC): 4 Rollin Roll Left to Right (QC): 4 Chair/Zrh-hq-Aadqo Xfer(QC): 4 Car Transfer (QC): 4 Gait (FIM): 2 Distance: 100' Walk 10 feet (QC): 4 Walk 10ft-Uneven Surface(QC): 4 Walk 50ft with 2 Turns (QC): 4 Gait Level of Assist: 4 Gait Assistive Device: Walker [place] Stairs (FIM): 2 # of Steps: 4 1 Step (curb) (QC): 3 4 Steps (QC): 3 Stairs Level Of Assist: 4 PT Plan Problem List Problem List: Activity Tolerance, Functional Strength, Safety, Balance, Gait, Transfer, Bed Mobility, ROM Treatment/Plan Treatment Plan: Continue Plan of Care Treatment Plan: Bed Mobility, Education, Functional Activity [place], Functional Strength, Group Therapy, Gait, Safety, Therapeutic Exercise, Transfers Treatment Duration: Mar 07, 2019 Frequency: At least 5 of 7 days/Wk (IRF) Estimated Hrs Per Day: 1.5 hours per day Patient and/or Family Agrees t: Yes Safety Risks/Education Patient Education: Gait Training, Transfer Techniques, Correct Positioning, Safety Issues Teaching Recipient: Patient Teaching Methods: Demonstration, Discussion Response to Teaching: Reinforcement Needed Time/GCodes Time In: 0900 Time Out: 1000 Total Billed Treatment Time: 60 Total Billed Treatment 1 visit GT 20' EX 30' FA 10' VERENA FREEMAN PT Mar 02, 2019 09:54
--- NOTE | 2019-03-02 13:55 | Physical Therapy Daily Note ---
PT Daily Note-Current Subjective Patient in recliner pre tx, agrees to PT, has no complaints of pain. Appearance Patient in recliner post tx with nurse call, phone, tray, all needs met, chair alarm on. Mental Status Patient Orientation: Person, Place, Situation Transfers Therapy Code Descriptions/Definitions Functional [place] Measure: 0=Not Assessed/NA 4=Minimal Assistance 1=Total Assistance 5=Supervision or Setup 2=Maximal Assistance 6=Modified [place] 3=Moderate Assistance 7=Complete [place] Therapy Quality Codes: 6 Independent with activity with or without an assistive device 5 Patient requires set up or clean up by helper. Patient completes activity by themselves 4 Supervision or touching assist (CGA). [place] provide cues , steadying assist 3 The helper provides less than half the effort to complete the activity 2 The helper provides more than half the effort to complete the activity 1 Dependent. The helper does all the effort to complete an activity 7 Patient refused to complete or attempt activity 9 The patient did not perform the activity before the current illness or injury 88 Not attempted due to Medical conditions or safety concerns Sit to/from Stand: 4 Bed to/from Chair: 4 Gait Training Gait (FIM): 4 Distance: 150'x2 Gait Level of Assist: 4 Gait Persons Needed: 1 Gait Assistive Device: Cane Single Point min assist for balance, cues for safety and direction Treatments transfers, ambulation Assessment Current Status: Fair Progress improving ambulation PT Short Term Goals Short Term Goals Time Frame: Feb 21, 2019 Transfers (B,C,W/C) (FIM): 4 Gait (FIM): 2 Gait Distance Comment: 50' Gait Level of Assist: 4 Gait Assistive Device: Walker [place]on Wheelchair Distance: 100 PT Printed Circuit Boards Stripper Etcher Goals Printed Circuit Boards Stripper Etcher Goals PT Printed [employer] Boards Stripper Etcher Goals Time Frame: Mar 07, 2019 Transfers (B,C,W/C) (FIM): 5 Sit to Lying (QC): 4 Lying-Sitting on Side/Bed(QC): 4 Sit to Stand (QC): 4 Rollin Roll Left to Right (QC): 4 Chair/Bll-to-Tjkfz Xfer(QC): 4 Car Transfer (QC): 4 Gait (FIM): 2 Distance: 100' Walk 10 feet (QC): 4 Walk 10ft-Uneven Surface(QC): 4 Walk 50ft with 2 Turns (QC): 4 Gait Level of Assist: 4 Gait Assistive Device: Walker [place] Stairs (FIM): 2 # of Steps: 4 1 Step (curb) (QC): 3 4 Steps (QC): 3 Stairs Level Of Assist: 4 PT Plan Problem List Problem List: Activity Tolerance, Functional Strength, Safety, Balance, Gait, Transfer, Bed Mobility, ROM Treatment/Plan Treatment Plan: Continue Plan of Care Treatment Plan: Bed Mobility, Education, Functional Activity [place], Functional Strength, Group Therapy, Gait, Safety, Therapeutic Exercise, Transfers Treatment Duration: Mar 07, 2019 Frequency: At least 5 of 7 days/Wk (IRF) Estimated Hrs Per Day: 1.5 hours per day Patient and/or Family Agrees t: Yes Safety Risks/Education Patient Education: Gait Training, Transfer Techniques, Correct Positioning, Safety Issues Teaching Recipient: Patient Teaching Methods: Demonstration, Discussion Response to Teaching: Reinforcement Needed Time/GCodes Time In: 1340 Time Out: 1355 Total Billed Treatment Time: 15 Total Billed Treatment 1 visit GT 15' VERENA FREEMAN PT Mar 02, 2019 13:55
--- NOTE | 2019-03-02 16:02 | Speech Therapy Daily Note ---
Speech Daily Progress Note Subjective Date Seen by Provider: Mar 02, 2019 Time Seen by Provider: 00:30 The patient was sitting in his recliner and shaving with his electric shaver. Objective The patient completed problem solving tasks with sequencing cards at 80% with minimal verbal and/or verbal cues. Assessment Assessment Current Status: Good Progress Treatment Plan Continue Plan of Care Communication Comprehension: 5 Expression: 4 Social Cognition Social Interaction: 3 Problem Solvin Memory: 3 Speech Short Term Goals Short Term Goals Short Term Goals 1) Patient will demonstrate sustained attention, memory and sequencing for task performance with 80% accuracy. 2) Patient will demonstrate effective communication of wants/needs to staff and caregivers with 80% accuracy. Speech Director [employer]ing Goals Penit[facility]iary Goals The patient will improve cognitive-communication skills in order to return to his former living situation safely. Speech-Plan Patient/Family Goals Patient/Family Goals: The patient plans on living with his daughter upon discharge. Treatment Plan Speech Therapy Treatment Plan: Continue Plan of Care The patient's level of alertness has significantly improved. 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 Time Speech Therapy Time In: 11:30 Speech Therapy Time Out: 12:00 Total Billed Time: 30 Billed Treatment Time [address] Mar 02, 2019 16:02
[2019-03-02] MEDS: TAMSULOSIN 0.4 MG (FLOMAX) CAP PO SCH (17:07)
[2019-03-02 17:55] VITALS: BP 160/82
[2019-03-02] MEDS: ALPRAZolam 0.25 MG (XANAX) TAB PO PRN (20:34)
[2019-03-02] MEDS: MELATONIN 3 MG TABLET PO SCH (20:35)
[2019-03-02] MEDS: ATORVASTATIN 80 MG (LIPITOR) TABLET PO SCH (20:36)
[2019-03-03 05:00] VITALS: BP 121/74
--- NOTE | 2019-03-03 07:02 | Occupational Ther Daily Note ---
OT Current Status-Daily Note Subjective Pt alert, sitting in recliner. Pt agrees to therapy. No c/o pain. Mental Status/Objective Patient Orientation: Person, Place, Time, Situation Therapy Code Descriptions/Definitions Functional [place] Measure: 0=Not Assessed/NA 4=Minimal Assistance 1=Total Assistance 5=Supervision or Setup 2=Maximal Assistance 6=Modified [place] 3=Moderate Assistance 7=Complete [place] ADL-Treatment Pt is demonstrating increased L UE AROM during all ADLs. Pt continues to need strengthening and coordination for L UE. Pt is able to hold onto knife and butter toast with B UE's. Pt declined shower and changing clothing. Pt able to don R shoe by self, assist to initiate shoe over toes then pt completed donning L shoe. Therapy Code Descriptions/Definitions Functional [place] Measure: 0=Not Assessed/NA 4=Minimal Assistance 1=Total Assistance 5=Supervision or Setup 2=Maximal Assistance 6=Modified [place] 3=Moderate Assistance 7=Complete [place] Therapy Quality Codes: 6 Independent with activity with or without an assistive device 5 Patient requires set up or clean up by helper. Patient completes activity by themselves 4 Supervision or touching assist (CGA). [place] provide cues , steadying assist 3 The helper provides less than half the effort to complete the activity 2 The helper provides more than half the effort to complete the activity 1 Dependent. The helper does all the effort to complete an activity 7 Patient refused to complete or attempt activity 9 The patient did not perform the activity before the current illness or i njury 88 Not attempted due to Medical conditions or safety concerns Eating (FIM): 7 (Pt able to use utensils properly and bring food to mouth. Pt able to spread butter and jelly on toast using B UE's. Pt able to scan plate for food. ) Eating (QC): 6 Transfers (B, C, W/C) (FIM): 4 (Pt required cane. Pt needs verbal cues bring L foot forward and to make sure pt knows where chair is before sitting. ) Other Treatment Pt ambulated to therapy gym using cane with min A, cues for wt shift.Pt participated in arm bike exercise to duration 15 min with 20 watt resistance. Pt required 6 rest breaks due to decreased activity tolerance and easily distracted. Pt used L arm only to peddle arm bike for duration 4 min. Pt ambulated back to room using cane with min A. Pt sitting in chair, phone and call light in reach, pts needs met. OT Short Term Goals Short Term Goals Eating(FIM): 5 Grooming(FIM): 5 Bathing(FIM): 4 Upper Body Dressing(FIM): 4 Lower Body Dressing(FIM): 4 Toileting(FIM): 3 Transfers (B,C,W/C) (FIM): 4 Toilet/Commode Transfer(FIM): 3 Shower Transfer(FIM): 4 1=Demonstrate adherence to instructed precautions during ADL tasks. 2=Patient will verbalize/demonstrate understanding of assistive devices/modifications for ADL. 3=Patient will improve strength/tolerance for activity to enable patient to perform ADL's. OT Fruit Farmer Goals Skilled Nursing Goals Eating (FIM): 6 Eating (QC): 6 Groomin Oral Hygiene (QC): 6 Bathing(FIM): 6 Shower/Bathe Self (QC): 6 Upper Body Dressing(FIM): 6 Upper Body Dressing (QC): 6 Lower Body Dressing(FIM): 5 Lower Body Dressing (QC): 4 On/Off Footwear (QC): 5 Toileting(FIM): 5 Toileting Hygiene (QC): 4 Transfers (B,C,W/C) (FIM): 6 Toilet/Commode Transfer(FIM): 6 Toilet/Commode Transfer (QC): 6 Shower Transfer(FIM): 6 Additional Goals: 1-Demonstrate ADL Tasks, 2-Verbalize Understanding, 3- ImproveStrength/[place] 1=Demonstrate adherence to instructed precautions during ADL tasks. 2=Patient will verbalize/demonstrate understanding of assistive devices/modifications for ADL. 3=Patient will improve strength/tolerance for activity to enable patient to perform ADL's. OT Education/Plan Problem List/Assessment Assessment: Decreased UE Strength, Impaired Coordination, Impaired Funct Balance, Impaired Self-Care Skills pt presents with functional limitations affecting areas of ADLs and functional transfers with the above mention deficits including decrease proprioception. pt would benefit from skilled OT Services to address above mention deficits and increase independence with ADLS and functional transfers. Discharge Recommendations Plan/Recommendations: Continue POC Treatment Plan/Plan of Care Patient would benefit from OT for education, treatment and training to promote independence in ADL's, mobility, safety and/or upper extremity function for ADL's. Plan of Care: ADL Retraining, Caregiver Training, Concurrent Therapy, Functional Mobility, Group Exercise/Act as Ind, UE Funct Exercise/Act, UE Neuromus Re-Ed/Coord, Visual/Perceptual Retrain, W/C Management Training Treatment Duration: Mar 15, 2019 Frequency: At least 5 of 7 days/Wk (IRF) Estimated Hrs Per Day: 1 hour per day (60-90 minutes per day ) Agreement: Yes Rehab Potential: Fair Time/GCodes Start Time: 06:55 Stop Time: 07:55 Total Time Billed (hr/min): 60 Billed Treatment Time 1 visit- ADL 2 (30 min) EX 1 (20 min) FA 1 (10 min) JALIL DUPONT Mar 03, 2019 07:02
[2019-03-03 08:19] VITALS: BP 139/75
[2019-03-03 09:42] VITALS: BP 129/74
[2019-03-03 09:50] VITALS: BP 123/74
[2019-03-03] MEDS: NICOTINE 21 MG (NICODERM) PATCH TD SCH (09:55)
[2019-03-03] MEDS: CARVEDILOL 12.5 MG (COREG) TABLET PO SCH ×2 (09:55→19:56)
[2019-03-03] MEDS: CLOPIDOGREL 75 MG (PLAVIX) TABLET PO SCH (09:55)
[2019-03-03] MEDS: lisINopril 10 MG (PRINIVIL) TABLET PO SCH (09:56)
[2019-03-03] MEDS: ASPIRIN E.C. 81 MG (ECOTRIN) TAB PO SCH (09:56)
[2019-03-03] MEDS: FAMOTIDINE 20 MG (PEPCID) TABLET PO SCH (09:56)
[2019-03-03] MEDS: SENNA W/DOCUSATE (SENOKOT S) TABLET PO SCH ×2 (09:56→19:34)
--- NOTE | 2019-03-03 09:56 | PM&R Progress Note ---
Subjective HPI/CC On Admission Date Seen by Provider: Mar 03, 2019 Time Seen by Provider: 09:00 Chief complaint: Debility following CVA with left-sided weakness History of present illness: This is a 73-year-old white male clinic patient of [facility] who accepted upon transfer from [facility] hospitalist service after I transferred him there on 02/05/2019 after he was admitted for suspicion of TIA and CVA and although CT scan showed no evidence of any stroke carotid artery ultrasound at [facility] at that time with stroke protocol revealed critical carotid artery stenosis requiring transfer to vascular care assessment. He had a history of right stent placement in the carotid artery in the past and a right-sided carotid endarterectomy in 1999 and continued to smoke since that time. He was transferred to [facility] maintained on Plavix aspirin and statin therapy along with antihypertensive meds and was seen by neurology and vascular surgery. Renal insufficiency returned back to baseline at 1.4 so IV fluids were discontinued. Patient was managed aggressively and underwent a left carotid stent placement due to critical stenosis on 02/08/[address] Sherman and continue to have the left upper extremity weakness. He was improving at that time. In filler block inserter remover hours of 02/09/2019 patient suffered an acute CVA confirmed on CT scan even while maintained on Plavix and aspirin. Patient was not deemed a TPA candidate at that time once again. He was found to have a brain aneurysm 3 mm in the A1 segment of the brain but no intervention was planned. CT confirmed the acute infarct involving the watershed distribution between MCA and DRY ICE MAKER territory on the right as well as a small lacunar infarct along the centrum semi-ovale on the right and within the right parietal lobe. He was transported to [facility] inpatient rehab by his daughter 1 of 6 children who lives in [place]. He currently is leaning over to the left because of inability to sit straight in the wheelchair. This indicates a profound loss of function and will require at least 14 days of inpatient rehab for recovery in order to return to some sort of status to be able to return home to live independently and assist with regaining independence with ADLs. He is wheezing currently so I did order duo nebs 3 times daily scheduled. Smoking cessation was counseled on nicotine patch order was placed. Considering the numerous strokes he has had even while being on Plavix and aspirin it is concerning and his prognosis is guarded for additional strokes and even more extensive debility. His barriers to returning home include: Unable to ambulate at this current time wheelchair-bound and home not wheelchair accessible Lives alone but family is involved in his care so likely will need major supervision will need to arrange that prior to discharge Clinical stability following stroke even though on Plavix and aspirin and statin therapy so will need to assure he has been adequately risk stratified in order to decrease the chance of additional strokes prior to discharge home Subjective/Events-last exam Discharge plan is 03/09/19. Walking very well. Skin tear improved on the left upper arm. Holding BP medication most of the time so will hold Norvasc of 5 Mg today and from here on out. Had a BM yesterday. Had a fall in bathroom today, no injury. Family training went well and they will continue taking care of him when he goes home Check meds and labs Reviewed therapy notes Conferred with fluoroscope operator of Systems Neurological: Weakness, Numbness, Incoordination Objective Exam Vital Signs Vital Signs Date Time Temp Pulse Resp B/P (MAP) Pulse Ox O2 Delivery O2 Flow Rate FiO2 03/03/19 21:18 Room Air 03/03/19 19:57 66 105/52 (69) 03/03/19 18:00 96.6 16 97 Capillary Refill : General Appearance: No Apparent Distress, WD/WN, Chronically ill, Thin, Other (fatigued, disheveled) HEENT: PERRL/EOMI, TMs Normal, Normal ENT Inspection, Pharynx Normal, Moist Mucous Membranes Neck: Full Range of Motion, Normal Inspection, Non Tender, Supple Respiratory: Chest Non Tender, Lungs Clear, Normal Breath Sounds, No Accessory Muscle Use, No Respiratory Distress, Wheezing Cardiovascular: Regular Rate, Rhythm, No Edema, No Gallop, No JVD, No Murmur Gastrointestinal: Normal Bowel Sounds, No Organomegaly, No Pulsatile Mass, Non Tender, Soft Back: Normal Inspection, No CVA Tenderness, No Vertebral Tenderness Extremity: Normal Capillary Refill, Normal Inspection, Normal Range of Motion, Non Tender, No Calf Tenderness, No Pedal Edema Neurologic/Psychiatric: Alert, Oriented x3, Normal Mood/Affect, Abnormal Cerebellar Tests, Abnormal teacher resource II-XII (left), Abnormal Gait, Motor Weakness (left upper and lower 3/5 strength), Other (stuttering) Skin: Normal Color, Warm/Dry Lymphatic: No Adenopathy Results/Procedures Lab Patient resulted labs reviewed. FIM Transfers Therapy Code Descriptions/Definitions Functional [place] Measure: 0=Not Assessed/NA 4=Minimal Assistance 1=Total Assistance 5=Supervision or Setup 2=Maximal Assistance 6=Modified [place] 3=Moderate Assistance 7=Complete [place] Therapy Quality Codes: 6 Independent with activity with or without an assistive device 5 Patient requires set up or clean up by helper. Patient completes activity by themselves 4 Supervision or touching assist (CGA). [place] provide cues , steadying assist 3 The helper provides less than half the effort to complete the activity 2 The helper provides more than half the effort to complete the activity 1 Dependent. The helper does all the effort to complete an activity 7 Patient refused to complete or attempt activity 9 The patient did not perform the activity before the current illness or injury 88 Not attempted due to Medical conditions or safety concerns Transfers (B, C, W/C) (FIM): 4 (Pt required cane. Pt needs verbal cues bring L foot forward and to make sure pt knows where chair is before sitting. ) Scootin Rollin Roll Left to Right (QC): 3 Supine to/from Sit: 4 Sit to/from Stand: 4 Sit to Lying (QC): 2 Sit to Stand (QC): 4 Chair/Aoz-jl-Mnzwu Xfer(QC): 2 Bed to/from Chair: 4 Car Transfer (QC): 2 Gait Training Does the Patient Walk?: Yes Gait (FIM): 4 Distance (FIM): 1=up to 49 ft (15x3) Distance: 150'x2 Walk 10 feet (QC): 1 Walk 50 ft with 2 Turns(QC): 1 Gait Level of Assist: 4 Gait Persons Needed: 1 Gait Assistive Device: Cane Single Point Wheelchair Training Does the Pt Use a Wheelchair?: Yes Wheelchair (FIM): 1 Wheelchair Distance: 1=up to 49 ft Distance: 100 Wheelchair Level of Assist: 3 Type of Wheelchair: Manual Mental Status/Objective Comprehension: 5 Expression: 4 Social Interaction: 3 Problem Solvin Memory: 3 ADL-Treatment Feedin (Pt able to use utensils properly and bring food to mouth. Pt able to spread butter and jelly on toast using B UE's. Pt able to scan plate for food. ) Eating (QC): 6 Groomin (Pt able to shave while sitting in chair, set up.) Oral Hygiene (QC): 2 Bathin (Pt required assist rinsing buttocks and cleanse R arm. Pt able to cleanse/rinse/dry, L arm, chest, legs, and venus area self. Pt required assist in standing to while holding onto grabbar with L hand and cleansed buttocks with R hand. Pt able to squeeze soap onto wash cloth self.) Bathing Location: L Arm, L Upper Leg, R Upper Leg, L Lower Leg (including fo ot), R Lower Leg (including foot), Chest, Abdomen, Buttocks, Perineal Area Shower/Bathe Self (QC): 3 Upper Extremity Dressin (Pt able to doff shirt after initiation from LEAVITT. Pt donned shirt with assist to initiate and pull down in back.) Upper Body Dressing (QC): 3 Lower Extremity Dressin (Pt able to doff briefs, pants, and socks self with assist in standing. Pt required assist to get L foot into brief leg. Pt able to hike briefs above waist self with assist to stand. Assist to pick pants off floor then able to grasp onto pants and hike above waist with assist to stand. Pt able to doff socks self. Pt required assist to don L sock above toes but managed socks over rest of foot. ) Lower Body Dressing (QC): 2 On/Off Footwear (QC): 2 Toiletin (Pt able to manage clothing before and after voiding and BM using platform walker and assist in standing. Pt required CGA for steadying while cleansing self. ) Toileting Hygiene (QC): 2 Toilet/Commode Transfer: 4 (Pt requires grab bar, platform walker, min A.) Toilet Transfer (QC): 3 Shower: 4 (Pt required platform walker, grab bar, and shower chair, min A. 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 COPD Smoker cessation counseled Dark stools resolved s/p EGD/Colon Leukopenia HTN HLP GIB no source of bleed on scopes Gastritis placed on H2 rohit Left arm skin tear requiring Dr Kumar consultation in midst of complete healing Plan: Gastritis treatment to continue ASA and Plavix and statin to be maintained IRF protocols Wound care right arm appears to be healing Improved today Air mattress has really helped his sleep now DC home once completely recovered as much as possible for catastrophic CVA (1) CVA (cerebral vascular accident) Status: Acute Qualifiers: CVA mechanism: unspecified Qualified Codes: I63.9 - Cerebral infarction, unspecified (2) 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 Status: Acute (3) Back pain Status: Chronic Qualifiers: Back pain location: back pain in unspecified location Chronicity: unspecified Back pain laterality: unspecified Qualified Codes: M54.9 - Dorsalgia, unspecified (4) Dark stools Status: Acute (5) Impulsive Status: Acute (6) Leukopenia Status: Acute Qualifiers: Leukopenia type: unspecified Qualified Codes: D72.819 - Decreased white blood cell count, unspecified (7) Anemia Status: Chronic Qualifiers: Anemia type: unspecified type Qualified Codes: D64.9 - Anemia, unspecified (8) Hypertension Status: Chronic Qualifiers: Hypertension type: essential hypertension Qualified Codes: I10 - Essential (primary) hypertension (9) COPD (chronic obstructive pulmonary disease) Status: Chronic Qualifiers: COPD type: unspecified COPD Qualified Codes: J44.9 - Chronic obstructive pulmonary disease, unspecified (10) Hyperlipidemia Status: Chronic Qualifiers: Hyperlipidemia type: mixed hyperlipidemia Qualified Codes: E78.2 - Mixed hyperlipidemia (11) Renal insufficiency Status: Chronic (12) Wheezing Status: Acute (13) Carotid stenosis Status: Chronic Qualifiers: Laterality: bilateral Qualified Codes: I65.23 - Occlusion and stenosis of bilateral carotid arteries (14) Left-sided weakness Status: Acute (15) BPH (benign prostatic hyperplasia) Status: Chronic Qualifiers: Lower urinary tract symptom presence: unspecified whether lower urinary tract symptoms present Qualified Codes: N40.0 - Benign prostatic hyperplasia without lower urinary tract symptoms (16) Risk for falls Status: Acute (17) Smoker Status: Chronic HEBERT BAKER DO Mar 03, 2019 09:56
--- NOTE | 2019-03-03 10:45 | Physical Therapy Daily Note ---
PT Daily Note-Current Subjective Patient in recliner pre tx, agrees to PT, has no complaints of pain. Patient had a fall earlier and states that he doesn't have any pain resulting from that. Appearance Patient in recliner post tx with nurse call, phone, tray, all needs met, chair alarm on. Mental Status Patient Orientation: Person, Place, Situation Transfers Therapy Code Descriptions/Definitions Functional [place] Measure: 0=Not Assessed/NA 4=Minimal Assistance 1=Total Assistance 5=Supervision or Setup 2=Maximal Assistance 6=Modified [place] 3=Moderate Assistance 7=Complete [place] Therapy Quality Codes: 6 Independent with activity with or without an assistive device 5 Patient requires set up or clean up by helper. Patient completes activity by themselves 4 Supervision or touching assist (CGA). [place] provide cues , steadying assist 3 The helper provides less than half the effort to complete the activity 2 The helper provides more than half the effort to complete the activity 1 Dependent. The helper does all the effort to complete an activity 7 Patient refused to complete or attempt activity 9 The patient did not perform the activity before the current illness or injury 88 Not attempted due to Medical conditions or safety concerns Transfers (B, C, W/C) (FIM): 4 Scootin Rollin Supine to/from Sit: 5 Sit to/from Stand: 4 Bed to/from Chair: 4 min assist SPT to the left side, CGA to the right, cues for safety and hand placement Gait Training Gait (FIM): 4 Distance: 200', 150' Gait Level of Assist: 4 Gait Persons Needed: 1 Gait Assistive Device: Cane Single Point Min assist with balance, patient needs cues for direction, still leans a little to the left side, better step through and clearance Stair Training Stair Training: Handrails/: 1 handrail Stairs (FIM): 2 #of Steps: 4 1 Step (curb) (QC): 3 4 Steps (QC): 3 Stairs: Pattern: Step to Level of Assist: 4 Patient can go up and down 4 steps using 1 handrail with min assist, needs cues for step placement, impulsive Exercises Supine Ex: Bridging, Heel Slides, Straight leg raise, Hip abd/add Supine Reps: 20 LAQ LLE with 2# ankle weight for 5 min NuStep Minutes: 15 NuStep Workload: 5 Treatments LE exercise, bed mobility and transfers, ambulation Assessment Current Status: Fair Progress slowly progressing mobility but patient has poor safety due to left neglect and impulsiveness. PT Short Term Goals Short Term Goals Time Frame: Feb 21, 2019 Transfers (B,C,W/C) (FIM): 4 Gait (FIM): 2 Gait Distance Comment: 50' Gait Level of Assist: 4 Gait Assistive Device: Walker [place] Wheelchair Distance: 100 PT Animal Shelter Manager Goals Mcfp Goals PT Mcfp Goals Time Frame: Mar 07, 2019 Transfers (B,C,W/C) (FIM): 5 Sit to Lying (QC): 4 Lying-Sitting on Side/Bed(QC): 4 Sit to Stand (QC): 4 Rollin Roll Left to Right (QC): 4 Chair/Pae-uh-Eopup Xfer(QC): 4 Car Transfer (QC): 4 Gait (FIM): 2 Distance: 100' Walk 10 feet (QC): 4 Walk 10ft-Uneven Surface(QC): 4 Walk 50ft with 2 Turns (QC): 4 Gait Level of Assist: 4 Gait Assistive Device: Walker [place] Stairs (FIM): 2 # of Steps: 4 1 Step (curb) (QC): 3 4 Steps (QC): 3 Stairs Level Of Assist: 4 PT Plan Problem List Problem List: Activity Tolerance, Functional Strength, Safety, Balance, Gait, Transfer, Bed Mobility, ROM Treatment/Plan Treatment Plan: Continue Plan of Care Treatment Plan: Bed Mobility, Education, Functional Activity [place], Functional Strength, Group Therapy, Gait, Safety, Therapeutic Exercise, Transfers Treatment Duration: Mar 07, 2019 Frequency: At least 5 of 7 days/Wk (IRF) Estimated Hrs Per Day: 1.5 hours per day Patient and/or Family Agrees t: Yes Safety Risks/Education Patient Education: Gait Training, Transfer Techniques, Steps, Correct Positioning, Safety Issues Teaching Recipient: Patient Teaching Methods: Demonstration, Discussion Response to Teaching: Reinforcement Needed Time/GCodes Time In: 0950 Time Out: 1050 Total Billed Treatment Time: 60 Total Billed Treatment 1 visit EX 35' GT 25' VERENA FREEMAN PT Mar 03, 2019 10:45
--- NOTE | 2019-03-03 12:14 | Speech Therapy Daily Note ---
Speech Daily Progress Note Subjective Date Seen by Provider: Mar 03, 2019 Time Seen by Provider: 00:30 Patient was resting in his chair when I entered his room. He stated "they wore me out" referring to his OT session. Objective The patient completed safety awareness tasks presented verbally "What would you do if....?" at 85% with min verbal cues. Assessment Assessment Current Status: Good Progress Treatment Plan Continue Plan of Care Communication Comprehension: 5 Expression: 4 Social Cognition Social Interaction: 3 Problem Solvin Memory: 3 Speech Short Term Goals Short Term Goals Short Term Goals 1) Patient will demonstrate sustained attention, memory and sequencing for task performance with 80% accuracy. 2) Patient will demonstrate effective communication of wants/needs to staff and caregivers with 80% accuracy. Speech Clinical Massage Therapist Goals Clinical Massage Therapist Goals The patient will improve cognitive-communication skills in order to return to his former living situation safely. Speech-Plan Patient/Family Goals Patient/Family Goals: Patient will live with his daughter upon discharge from skilled rehab. Treatment Plan Speech Therapy Treatment Plan: Continue Plan of Care Patient has made good progress toward meeting ST goals. Treatment Duration: Mar 09, 2019 Frequency: 5 times per week Estimated Hrs Per Day: .5 hour per day Rehab Potential: Fair Barriers to Learning: Patient has residual cognitive deficits due to recent CVA Pt/Family Agrees to Plan: Yes Safety Risks/Education Teaching Recipient: Patient Teaching Methods: Demonstration, Discussion Response to Teaching: Verbalize Understanding, Return Demonstration Education Topics Provided: Continued safety awareness when he returns home. Time Speech Therapy Time In: 08:30 Speech Therapy Time Out: 09:00 Total Billed Time: 30 Billed Treatment Time 1, ALFRED Neal Mar 03, 2019 12:14
--- NOTE | 2019-03-03 14:17 | Therapy Group Daily Note ---
Therapy Daily Group Note Patient Education Topic Home Safety Session Ratio (pt:therapist): 3:1 Goal of Session: Use of Adaptive Equipment Goal Met for this Session: Yes Pt Benefit of Group: Contributions to Others, F/U Use of Strategies @Home, Increased Functional Safety, Improved Cognition, Recognition of Peers, Socialization Other/Notes Pt transported via w/c to OT/PT group. Group consisted of introductions (name, place living, favorite invention), socialization, education for AE for home and community use. Pt introduced self appropriately and actively listened to peers. Pt acknowledged understanding of educational topic by giving own personal story and a strategy that worked for them personally. After group, pt sitting in re cliner with call light/phone in reach. Safety measures in place. All needs met in room. Start Time: 12:40 Stop Time: 13:50 Total Billed Treatment Time: 70 Total Billed Treatment 1-GRP JALIL DUPONT Mar 03, 2019 14:17
--- NOTE | 2019-03-03 15:07 | NUR ---
SPANISH INSTRUCTOR met with patient to review team conference summary. Patient is currently completing transfers, ambulation, 4 steps, upper body ADL's and showering with min assist, he requires mod assist for lower body ADLs and continues to present with left-sided visual neglect. As patient has family that has engaged in family training and feels confident in being able to provide necessary assistance for patient, team has recommended patient proceed with discharge on 93 with home health services for RN, PT and OT. Patient is agreeable to this. SPANISH INSTRUCTOR will continue to follow.
[2019-03-03] MEDS: TAMSULOSIN 0.4 MG (FLOMAX) CAP PO SCH (17:06)
[2019-03-03 18:00] VITALS: BP 118/72
[2019-03-03] MEDS: ATORVASTATIN 80 MG (LIPITOR) TABLET PO SCH (19:56)
[2019-03-03] MEDS: MELATONIN 3 MG TABLET PO SCH (19:56)
[2019-03-03 19:57] VITALS: BP 105/52
[2019-03-04 06:24] VITALS: BP 105/66
--- NOTE | 2019-03-04 07:24 | Occupational Ther Daily Note ---
OT Current Status-Daily Note Subjective Pt alert in chair upon OT arrival. Pt stated that he did not sleep well last night and was very tired today. Noted during therapy that pt leaning to left increased and decreased attention span. Mental Status/Objective Patient Orientation: Person, Place, Time, Situation Therapy Code Descriptions/Definitions Functional [place] Measure: 0=Not Assessed/NA 4=Minimal Assistance 1=Total Assistance 5=Supervision or Setup 2=Maximal Assistance 6=Modified [place] 3=Moderate Assistance 7=Complete [place] ADL-Treatment Sitting at sink, pt washed and dried face using wash rag by self. Therapy Code Descriptions/Definitions Functional [place] Measure: 0=Not Assessed/NA 4=Minimal Assistance 1=Total Assistance 5=Supervision or Setup 2=Maximal Assistance 6=Modified [place] 3=Moderate Assistance 7=Complete [place] Therapy Quality Codes: 6 Independent with activity with or without an assistive device 5 Patient requires set up or clean up by helper. Patient completes activity by themselves 4 Supervision or touching assist (CGA). [place] provide cues , steadying assist 3 The helper provides less than half the effort to complete the activity 2 The helper provides more than half the effort to complete the activity 1 Dependent. The helper does all the effort to complete an activity 7 Patient refused to complete or attempt activity 9 The patient did not perform the activity before the current illness or inju ry 88 Not attempted due to Medical conditions or safety concerns Eating (FIM): 7 (Pt able to scan plate for food. Pt able to manage utensils and bring food to mouth properly. Pt able to don coffee lid by self. ) Eating (QC): 6 Grooming (FIM): 5 (Pt able to shave face by self using R hand. No movement in L hand noted, set up. ) Oral Hygiene (QC): 6 Toileting (FIM): 3 (Pt able to cleanse self after voiding and BM. Pt required assist to adjust and manipulate clothing. Pt required Min A for steadying while cleansing. ) Toileting Hygiene (QC): 4 Transfers (B, C, W/C) (FIM): 3 (Pt used cane and required Min A for steadying. Pt quite lethargic today. ) Toilet/Commode Transfer (FIM): 4 (Pt required cane and grab bar. Pt needed verbal cues to move L foot and to move closer to toilet before sitting. ) Toilet Transfer (QC): 4 Other Treatment Pt ambulated approximately 50ft with cane with Mod A, pt transported in w/c the rest of the way to therapy gym. Pt participated in fine motor strengthening activity to increase finger strength and coordination. Pt inserted smaller pegs into peg board using R hand. Pt would grasp pegs using L hand with verbal cues, frequently used R hand to place pegs in peg board, occasionally would grasp with L transfer to R hand then place. Pt used L hand to grasp bigger pegs after verbal cues. Pt used L hand to remove pegs from peg board. Pt required 5 rest breaks due to decreased activity tolerance and easily distracted. Increased leaning toward L, verbal and physical cues to come back to midline. Pt transported back to room in w/c. Pt in chair with call light and phone in reach, all needs met. OT Short Term Goals Short Term Goals Eating(FIM): 5 Grooming(FIM): 5 Bathing(FIM): 4 Upper Body Dressing(FIM): 4 Lower Body Dressing(FIM): 4 Toileting(FIM): 3 Transfers (B,C,W/C) (FIM): 4 Toilet/Commode Transfer(FIM): 3 Shower Transfer(FIM): 4 1=Demonstrate adherence to instructed precautions during ADL tasks. 2=Patient will verbalize/demonstrate understanding of assistive devices/modifications for ADL. 3=Patient will improve strength/tolerance for activity to enable patient to perform ADL's. OT Mcfp Goals Mcfp Goals Eating (FIM): 6 Eating (QC): 6 Groomin Oral Hygiene (QC): 6 Bathing(FIM): 6 Shower/Bathe Self (QC): 6 Upper Body Dressing(FIM): 6 Upper Body Dressing (QC): 6 Lower Body Dressing(FIM): 5 Lower Body Dressing (QC): 4 On/Off Footwear (QC): 5 Toileting(FIM): 5 Toileting Hygiene (QC): 4 Transfers (B,C,W/C) (FIM): 6 Toilet/Commode Transfer(FIM): 6 Toilet/Commode Transfer (QC): 6 Shower Transfer(FIM): 6 Additional Goals: 1-Demonstrate ADL Tasks, 2-Verbalize Understanding, 3- ImproveStrength/[place] 1=Demonstrate adherence to instructed precautions during ADL tasks. 2=Patient will verbalize/demonstrate understanding of assistive devices/modifications for ADL. 3=Patient will improve strength/tolerance for activity to enable patient to perform ADL's. OT Education/Plan Problem List/Assessment Assessment: Decreased Safety Aware, Impaired Cognition, Impaired Coordination, Impaired Funct Balance, Impaired Self-Care Skills, Restricted Funct UE ROM pt presents with functional limitations affecting areas of ADLs and functional transfers with the above mention deficits including decrease proprioception. pt would benefit from skilled OT Services to address above mention deficits and increase independence with ADLS and functional transfers. Discharge Recommendations Plan/Recommendations: Continue POC Treatment Plan/Plan of Care Patient would benefit from OT for education, treatment and training to promote independence in ADL's, mobility, safety and/or upper extremity function for ADL's. Plan of Care: ADL Retraining, Caregiver Training, Concurrent Therapy, Functional Mobility, Group Exercise/Act as Ind, UE Funct Exercise/Act, UE Neuromus Re-Ed/Coord, Visual/Perceptual Retrain, W/C Management Training Treatment Duration: Mar 15, 2019 Frequency: At least 5 of 7 days/Wk (IRF) Estimated Hrs Per Day: 1 hour per day (60-90 minutes per day ) Agreement: Yes Rehab Potential: Fair Time/GCodes Start Time: 06:45 Stop Time: 08:00 Total Time Billed (hr/min): 75 Billed Treatment Time 1 visit- ADL 2 (30 min) EX 3 (45 min) JALIL DUPONT Mar 04, 2019 07:24
[2019-03-04] MEDS: CARVEDILOL 12.5 MG (COREG) TABLET PO SCH ×2 (08:30→20:41)
[2019-03-04] MEDS: SENNA W/DOCUSATE (SENOKOT S) TABLET PO SCH ×2 (08:30→20:39)
[2019-03-04] MEDS: CLOPIDOGREL 75 MG (PLAVIX) TABLET PO SCH (08:30)
[2019-03-04] MEDS: lisINopril 10 MG (PRINIVIL) TABLET PO SCH (08:30)
[2019-03-04] MEDS: ASPIRIN E.C. 81 MG (ECOTRIN) TAB PO SCH (08:30)
[2019-03-04] MEDS: FAMOTIDINE 20 MG (PEPCID) TABLET PO SCH (08:30)
[2019-03-04] MEDS: NICOTINE 21 MG (NICODERM) PATCH TD SCH (08:31)
--- NOTE | 2019-03-04 08:31 | Wound Care Assessment ---
Wound Care Assessment Date Seen by Provider: Mar 04, 2019 Time Seen by Provider: 07:50 Chief Complaint Ulcers L arm. HPI The patient is a 73 year old male with multiple superficial skin tears of L arm, in a setting of neglect due to R sided stroke. Skin tears are over a week old, and redundant skin is no longer mobile. Xeroform dressings ordered. 02/20/19 Interval Note: No complaint referable to L arm. The wounds are stable with Xeroform dressings. Nursing notes a lot of drainage from posterior L upper arm skin tear. More frequent dressing changes and elevation ordered. Will follow. 03/04/19 Interval Note: Wounds reported stable by nursing staff. Patient in Physical Therapy at time of interview. Continue Xeroform dressings. Will sign off. Past Medical History: Admits Heart Disease (Recent and remote carotid stenting with stroke, L sided weakness. COPD), Admits Peripheral Artery Disease Recreational Drug Use: No Alcohol Use: Denies Use Review of Systems Pulmonary: No Dyspnea Exam Vital Signs Date Time Temp Pulse Resp B/P (MAP) Pulse Ox O2 Delivery O2 Flow Rate FiO2 03/04/19 06:24 97.4 81 18 105/66 (79) 97 Room Air Capillary Refill : General Appearance: no apparent distress Respiratory: no respiratory distress Extremities: other (L arm dressings intact.) Assessment/Plan/Dx 1. Multiple skin tears L arm. Plan: The wounds are stable with Xeroform. Will sign off. MANA SERRANO MD Mar 04, 2019 08:31
--- NOTE | 2019-03-04 09:05 | PM&R Progress Note ---
Subjective HPI/CC On Admission Date Seen by Provider: Mar 04, 2019 Time Seen by Provider: 08:30 Chief complaint: Debility following CVA with left-sided weakness History of present illness: This is a 73-year-old white male clinic patient of [facility] who accepted upon transfer from [facility] hospitalist service after I transferred him there on 02/05/2019 after he was admitted for suspicion of TIA and CVA and although CT scan showed no evidence of any stroke carotid artery ultrasound at [facility] at that time with stroke protocol revealed critical carotid artery stenosis requiring transfer to vascular care assessment. He had a history of right stent placement in the carotid artery in the past and a right-sided carotid endarterectomy in 1999 and continued to smoke since that time. He was transferred to [facility] maintained on Plavix aspirin and statin therapy along with antihypertensive meds and was seen by neurology and vascular surgery. Renal insufficiency returned back to baseline at 1.4 so IV fluids were discontinued. Patient was managed aggressively and underwent a left carotid stent placement due to critical stenosis on 02/08/[address] Sherman and continue to have the left upper extremity weakness. He was improving at that time. 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 Patient was not deemed a TPA candidate at that time once again. He was found to have a brain aneurysm 3 mm in the A1 segment of the brain but no intervention was planned. 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 He was transported to [facility] inpatient rehab by his daughter 1 of 6 children who lives in [place]. He currently is leaning over to the left because of inability to sit straight in the wheelchair. This indicates a profound loss of function and will require at least 14 days of inpatient rehab for recovery in order to return to some sort of status to be able to return home to live independently and assist with regaining independence with ADLs. He is wheezing currently so I did order duo nebs 3 times daily scheduled. Smoking cessation was counseled on nicotine patch order was placed. Considering the numerous strokes he has had even while being on Plavix and aspirin it is concerning and his prognosis is guarded for additional strokes and even more extensive debility. His barriers to returning home include: Unable to ambulate at this current time wheelchair-bound and home not wheelchair accessible Lives alone but family is involved in his care so likely will need major supervision will need to arrange that prior to discharge Clinical stability following stroke even though on Plavix and aspirin and statin therapy so will need to assure he has been adequately risk stratified in order to decrease the chance of additional strokes prior to discharge home Subjective/Events-last exam Dr. Kumar has discontinues monitoring because the left arm wound has healed nicely. Had a BM today. Not sleeping well but that appear to be more of a chronic issue and anything I give him makes him too drowsy to participate in therapy so this is a struggle. Sleeping now with his head on the bedside table. Denies any pain. No SOB. Check meds and labs Reviewed therapy notes Conferred with r and d lab technician of Systems General: Fatigue Objective Exam Vital Signs Vital Signs Date Time Temp Pulse Resp B/P (MAP) Pulse Ox O2 Delivery O2 Flow Rate FiO2 03/04/19 20:40 Room Air 03/04/19 16:46 97.6 72 16 121/73 (89) 94 Capillary Refill : General Appearance: No Apparent Distress, WD/WN, Chronically ill, Thin, Other (fatigued, disheveled) HEENT: PERRL/EOMI, TMs Normal, Normal ENT Inspection, Pharynx Normal, Moist Mucous Membranes Neck: Full Range of Motion, Normal Inspection, Non Tender, Supple Respiratory: Chest Non Tender, Lungs Clear, Normal Breath Sounds, No Accessory Muscle Use, No Respiratory Distress, Wheezing Cardiovascular: Regular Rate, Rhythm, No Edema, No Gallop, No JVD, No Murmur Gastrointestinal: Normal Bowel Sounds, No Organomegaly, No Pulsatile Mass, Non Tender, Soft Back: Normal Inspection, No CVA Tenderness, No Vertebral Tenderness Extremity: Normal Capillary Refill, Normal Inspection, Normal Range of Motion, Non Tender, No Calf Tenderness, No Pedal Edema Neurologic/Psychiatric: Alert, Oriented x3, Normal Mood/Affect, Abnormal Cerebellar Tests, Abnormal satellite communications engineer II-XII (left), Abnormal Gait, Motor Weakness (left upper and lower 3/5 strength), Other (stuttering) Skin: Normal Color, Warm/Dry Lymphatic: No Adenopathy Results/Procedures Lab Patient resulted labs reviewed. FIM Transfers Therapy Code Descriptions/Definitions Functional [place] Measure: 0=Not Assessed/NA 4=Minimal Assistance 1=Total Assistance 5=Supervision or Setup 2=Maximal Assistance 6=Modified [place] 3=Moderate Assistance 7=Complete [place] Therapy Quality Codes: 6 Independent with activity with or without an assistive device 5 Patient requires set up or clean up by helper. Patient completes activity by themselves 4 Supervision or touching assist (CGA). [place] provide cues , steadying assist 3 The helper provides less than half the effort to complete the activity 2 The helper provides more than half the effort to complete the activity 1 Dependent. The helper does all the effort to complete an activity 7 Patient refused to complete or attempt activity 9 The patient did not perform the activity before the current illness or injury 88 Not attempted due to Medical conditions or safety concerns Transfers (B, C, W/C) (FIM): 4 Scootin Rollin Roll Left to Right (QC): 3 Supine to/from Sit: 5 Sit to/from Stand: 4 Sit to Lying (QC): 2 Sit to Stand (QC): 4 Chair/Aov-dp-Axeji Xfer(QC): 2 Bed to/from Chair: 4 Car Transfer (QC): 2 Gait Training Does the Patient Walk?: Yes Gait (FIM): 4 Distance (FIM): 1=up to 49 ft (15x3) Distance: 200', 150' Walk 10 feet (QC): 1 Walk 50 ft with 2 Turns(QC): 1 Gait Level of Assist: 4 Gait Persons Needed: 1 Gait Assistive Device: Cane Single Point Wheelchair Training Does the Pt Use a Wheelchair?: Yes Wheelchair (FIM): 1 Wheelchair Distance: 1=up to 49 ft Distance: 100 Wheelchair Level of Assist: 3 Type of Wheelchair: Manual Stair Training Stair Training: Handrails/: 1 handrail Stairs (FIM): 2 #of Steps: 4 1 Step (curb) (QC): 3 4 Steps (QC): 3 Stairs: Pattern: Step to Level of Assist: 4 Mental Status/Objective Comprehension: 5 Expression: 4 Social Interaction: 3 Problem Solvin Memory: 3 ADL-Treatment Feedin (Pt able to use utensils properly and bring food to mouth. Pt able to spread butter and jelly on toast using B UE's. Pt able to scan plate for food. ) Eating (QC): 6 Groomin (Pt able to shave while sitting in chair, set up.) Oral Hygiene (QC): 2 Bathin (Pt required assist rinsing buttocks and cleanse R arm. Pt able to cleanse/rinse/dry, L arm, chest, legs, and venus area self. Pt required assist in standing to while holding onto grabbar with L hand and cleansed buttocks with R hand. Pt able to squeeze soap onto wash cloth self.) Bathing Location: L Arm, L Upper Leg, R Upper Leg, L Lower Leg (including foot), R Lower Leg (including foot), Chest, Abdomen, Buttocks, Perineal Area Shower/Bathe Self (QC): 3 Upper Extremity Dressin (Pt able to doff shirt after initiation from [place]. Pt donned shirt with assist to initiate and pull down in back.) Upper Body Dressing (QC): 3 Lower Extremity Dressin (Pt able to doff briefs, pants, and socks self with assist in standing. Pt required assist to get L foot into brief leg. Pt able to hike briefs above waist self with assist to stand. Assist to pick pants off floor then able to grasp onto pants and hike above waist with assist to stand. Pt able to doff socks self. Pt required assist to don L sock above toes but managed socks over rest of foot. ) Lower Body Dressing (QC): 2 On/Off Footwear (QC): 2 Toiletin (Pt able to manage clothing before and after voiding and BM using platform walker and assist in standing. Pt required CGA for steadying while cleansing self. ) Toileting Hygiene (QC): 2 Toilet/Commode Transfer: 4 (Pt requires grab bar, platform walker, min A.) Toilet Transfer (QC): 3 Shower: 4 (Pt required platform walker, grab bar, and shower chair, min A. 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 COPD Smoker cessation counseled Dark stools resolved s/p EGD/Colon Leukopenia HTN HLP GIB no source of bleed on scopes Gastritis placed on H2 rohit Left arm skin tear requiring Dr Kumar consultation in midst of complete healing Plan: Gastritis treatment to continue ASA and Plavix and statin to be maintained IRF protocols Wound care right arm appears to be healing Improved today Air mattress has really helped his sleep now DC home once completely recovered as much as possible for catastrophic CVA (1) CVA (cerebral vascular accident) Status: Acute Qualifiers: CVA mechanism: unspecified Qualified Codes: I63.9 - Cerebral infarction, unspecified (2) 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 Status: Acute (3) Back pain Status: Chronic Qualifiers: Back pain location: back pain in unspecified location Chronicity: unspecified Back pain laterality: unspecified Qualified Codes: M54.9 - Dorsalgia, unspecified (4) Dark stools Status: Acute (5) Impulsive Status: Acute (6) Leukopenia Status: Acute Qualifiers: Leukopenia type: unspecified Qualified Codes: D72.819 - Decreased white blood cell count, unspecified (7) Anemia Status: Chronic Qualifiers: Anemia type: unspecified type Qualified Codes: D64.9 - Anemia, unspecified (8) Hypertension Status: Chronic Qualifiers: Hypertension type: essential hypertension Qualified Codes: I10 - Essential (primary) hypertension (9) COPD (chronic obstructive pulmonary disease) Status: Chronic Qualifiers: COPD type: unspecified COPD Qualified Codes: J44.9 - Chronic obstructive pulmonary disease, unspecified (10) Hyperlipidemia Status: Chronic Qualifiers: Hyperlipidemia type: mixed hyperlipidemia Qualified Codes: E78.2 - Mixed hyperlipidemia (11) Renal insufficiency Status: Chronic (12) Wheezing Status: Acute (13) Carotid stenosis Status: Chronic Qualifiers: Laterality: bilateral Qualified Codes: I65.23 - Occlusion and stenosis of bilateral carotid arteries (14) Left-sided weakness Status: Acute (15) BPH (benign prostatic hyperplasia) Status: Chronic Qualifiers: Lower urinary tract symptom presence: unspecified whether lower urinary tract symptoms present Qualified Codes: N40.0 - Benign prostatic hyperplasia without lower urinary tract symptoms (16) Risk for falls Status: Acute (17) Smoker Status: Chronic HEBERT BAKER DO Mar 04, 2019 09:04
--- NOTE | 2019-03-04 11:05 | Physical Therapy Daily Note ---
PT Daily Note-Current Subjective Pt sitting in recliner with chair alarm on upon arrival. Pt agrees to PT. Pain Location: No Pain Reported Mental Status Patient Orientation: Person, Place, Situation Pt remembers falling yesterday on L side but reports no pain today. Transfers Therapy Code Descriptions/Definitions Functional [place] Measure: 0=Not Assessed/NA 4=Minimal Assistance 1=Total Assistance 5=Supervision or Setup 2=Maximal Assistance 6=Modified [place] 3=Moderate Assistance 7=Complete [place] Therapy Quality Codes: 6 Independent with activity with or without an assistive device 5 Patient requires set up or clean up by helper. Patient completes activity by themselves 4 Supervision or touching assist (CGA). [place] provide cues , steadying assist 3 The helper provides less than half the effort to complete the activity 2 The helper provides more than half the effort to complete the activity 1 Dependent. The helper does all the effort to complete an activity 7 Patient refused to complete or attempt activity 9 The patient did not perform the activity before the current illness or injury 88 Not attempted due to Medical conditions or safety concerns Scootin Sit to/from Stand: 5 Sit to Stand (QC): 5 Weight Bearing Full Weight Bearing Full Weight Bearing Gait Training Does the Patient Walk?: Yes Gait (FIM): 4 Distance (FIM): 3=150 ft Distance: 150' Walk 10 feet (QC): 4 Walk 50 ft with 2 Turns(QC): 4 Walk 150 ft (QC): 4 Gait Level of Assist: 4 Gait Persons Needed: 1 Gait Assistive Device: Cane Single Point Pt leans toward L side when ambulating. Pt needs VC to slow yeyo to increase control. Wheelchair Training Does the Pt Use a Wheelchair?: No Exercises Seated Therapy Exercises: Ankle pumps, Long arc quads, Hip flexion, Kicking activity Seated Reps: 20 NuStep Minutes: 15 NuStep Workload: 5 Treatments Pt transfers from chair to standing. Pt ambulates in hallway with assistance fr om EXPORT SALES ASSISTANT. Pt uses NuStep for 15m at WL 5 then short RB before completing Seated Ex. Pt ambulates in hallway in route to room. Pt transfers back to bed in L side lying position. Pt resting in bed at end of tx with all needs met, call light in hand. Assessment Current Status: Good Progress Pt needs to have VC for safety for slowing yeyo for better control. PT Short Term Goals Short Term Goals Time Frame: Feb 21, 2019 Transfers (B,C,W/C) (FIM): 4 Gait (FIM): 2 Gait Distance Comment: 50' Gait Level of Assist: 4 Gait Assistive Device: Walker [place] Wheelchair Distance: 100 PT Cardiovascular Invasive Specialist Goals Care Home Goals PT Care Home Goals Time Frame: Mar 07, 2019 Transfers (B,C,W/C) (FIM): 5 Sit to Lying (QC): 4 Lying-Sitting on Side/Bed(QC): 4 Sit to Stand (QC): 4 Rollin Roll Left to Right (QC): 4 Chair/Ftf-lw-Oufkp Xfer(QC): 4 Car Transfer (QC): 4 Gait (FIM): 2 Distance: 100' Walk 10 feet (QC): 4 Walk 10ft-Uneven Surface(QC): 4 Walk 50ft with 2 Turns (QC): 4 Gait Level of Assist: 4 Gait Assistive Device: Walker [place] Stairs (FIM): 2 # of Steps: 4 1 Step (curb) (QC): 3 4 Steps (QC): 3 Stairs Level Of Assist: 4 PT Plan Problem List Problem List: Activity Tolerance, Functional Strength, Safety, Balance, Gait Treatment/Plan Treatment Plan: Bed Mobility, Education, Functional Activity [place], Functional Strength, Group Therapy, Gait, Safety, Therapeutic Exercise, Transfers Treatment Duration: Mar 07, 2019 Frequency: At least 5 of 7 days/Wk (IRF) Estimated Hrs Per Day: 1.5 hours per day Patient and/or Family Agrees t: Yes Safety Risks/Education Patient Education: Gait Training, Transfer Techniques, Correct Positioning, Safety Issues Teaching Recipient: Patient Teaching Methods: Discussion Response to Teaching: Verbalize Understanding Time/GCodes Time In: 1000 Time Out: 1100 Total Billed Treatment Time: 60 Total Billed Treatment 1, GT (15m), EX x2 (30m) & FA (15m) LEANDRO VALLADARES EXPORT SALES ASSISTANT Mar 04, 2019 11:05
--- NOTE | 2019-03-04 13:37 | Speech Therapy Daily Note ---
Speech Daily Progress Note Subjective Date Seen by Provider: Mar 04, 2019 Time Seen by Provider: 00:30 The patient was sitting up in his recliner and stated he was just very sleepy. Objective The patient completed a series of fill in the blanks to statements/questions related to daily routine at 80% with minimal cues and/or repetitions. Assessment Assessment Current Status: Good Progress Treatment Plan Continue Plan of Care Communication Comprehension: 5 Expression: 4 Social Cognition Social Interaction: 3 Problem Solvin Memory: 3 Speech Short Term Goals Short Term Goals Short Term Goals 1) Patient will demonstrate sustained attention, memory and sequencing for task performance with 80% accuracy. 2) Patient will demonstrate effective communication of wants/needs to staff and caregivers with 80% accuracy. Speech Mcc Goals Algologist Goals The patient will improve cognitive-communication skills in order to return to his former living situation safely. Speech-Plan Patient/Family Goals Patient/Family Goals: The patient is scheduled to be discharged to his daughter's home next week. Treatment Plan Speech Therapy Treatment Plan: Continue Plan of Care The patient is progressing well with cognitive therapy. Today he did require increased prompts to participate due to being so tired. 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
--- NOTE | 2019-03-04 14:28 | NUR ---
REGIONAL CONTROLLER contacted patient's daughter, Rosalina to review team conference summary and recommendation of discharge on 93. She is agreeable to this discharge date as she is confident in in her abilities to provide necessary care for patient. Family states they will obtain a single-point cane for home use.
--- NOTE | 2019-03-04 15:08 | Physical Therapy Daily Note ---
PT Daily Note-Current Subjective Pt sitting at EOB eating lunch upon arrival. Pt agrees to PT. Pain Location: No Pain Reported Mental Status Patient Orientation: Person, Place, Situation Transfers Therapy Code Descriptions/Definitions Functional [place] Measure: 0=Not Assessed/NA 4=Minimal Assistance 1=Total Assistance 5=Supervision or Setup 2=Maximal Assistance 6=Modified [place] 3=Moderate Assistance 7=Complete [place] Therapy Quality Codes: 6 Independent with activity with or without an assistive device 5 Patient requires set up or clean up by helper. Patient completes activity by themselves 4 Supervision or touching assist (CGA). [place] provide cues , steadying assist 3 The helper provides less than half the effort to complete the activity 2 The helper provides more than half the effort to complete the activity 1 Dependent. The helper does all the effort to complete an activity 7 Patient refused to complete or attempt activity 9 The patient did not perform the activity before the current illness or injury 88 Not attempted due to Medical conditions or safety concerns Weight Bearing Full Weight Bearing Full Weight Bearing Treatments Pt gives pt education on social awareness items especially safety of ambulation & transfers. UNIT SECRETARY gives emphasis on slowing yeyo of movement for better control and to help prevent falls. Pt finishes lunch at end of tx. Pt has all needs met, call light next to pt. Assessment Current Status: Fair Progress Pt listens and responds correctly although retention seems to be difficult. PT Short Term Goals Short Term Goals Time Frame: Feb 21, 2019 Transfers (B,C,W/C) (FIM): 4 Gait (FIM): 2 Gait Distance Comment: 50' Gait Level of Assist: 4 Gait Assistive Device: Walker [place] Wheelchair Distance: 100 PT Mcc Goals Fumigator And Sterilizer Goals PT Mcc Goals Time Frame: Mar 07, 2019 Transfers (B,C,W/C) (FIM): 5 Sit to Lying (QC): 4 Lying-Sitting on Side/Bed(QC): 4 Sit to Stand (QC): 4 Rollin Roll Left to Right (QC): 4 Chair/Zvf-zl-Njyts Xfer(QC): 4 Car Transfer (QC): 4 Gait (FIM): 2 Distance: 100' Walk 10 feet (QC): 4 Walk 10ft-Uneven Surface(QC): 4 Walk 50ft with 2 Turns (QC): 4 Gait Level of Assist: 4 Gait Assistive Device: Walker [place] Stairs (FIM): 2 # of Steps: 4 1 Step (curb) (QC): 3 4 Steps (QC): 3 Stairs Level Of Assist: 4 PT Plan Problem List Problem List: Activity Tolerance, Functional Strength, Safety, Gait Treatment/Plan Treatment Plan: Continue Plan of Care Treatment Plan: Bed Mobility, Education, Functional Activity [place], Functional Strength, Group Therapy, Gait, Safety, Therapeutic Exercise, Transfers Treatment Duration: Mar 07, 2019 Frequency: At least 5 of 7 days/Wk (IRF) Estimated Hrs Per Day: 1.5 hours per day Patient and/or Family Agrees t: Yes Safety Risks/Education Patient Education: Gait Training, Correct Positioning, Safety Issues Teaching Recipient: Patient Teaching Methods: Discussion Response to Teaching: Reinforcement Needed Time/GCodes Time In: 1345 Time Out: 1400 Total Billed Treatment Time: 15 Total Billed Treatment 1, FA (15m) LEANDRO VALLADARES UNIT SECRETARY Mar 04, 2019 15:08
[2019-03-04 16:46] VITALS: BP 121/73
[2019-03-04] MEDS: TAMSULOSIN 0.4 MG (FLOMAX) CAP PO SCH (17:42)
--- NOTE | 2019-03-04 19:17 | NUR ---
bedside report received from GILDA BAIRD, assume care of pt
[2019-03-04 20:30] VITALS: BP 109/66
[2019-03-04] MEDS: ATORVASTATIN 80 MG (LIPITOR) TABLET PO SCH (20:39)
[2019-03-04] MEDS: MELATONIN 3 MG TABLET PO SCH (20:39)
--- NOTE | 2019-03-04 20:39 | NUR ---
b/p 109/66 Coreg held
--- NOTE | 2019-03-04 20:40 | NUR ---
assessments & interventions completed, see assessments & interventions, up in the chair with chair alarm on
--- NOTE | 2019-03-04 21:05 | NUR ---
called to room pt took off shoe on lt foot & pushed foot against bedside table & sustained small skin tear to lt last 2 toes cleaned & bandaid applied advised to leave shoes on until in bed, pt agreed
[2019-03-05 06:53] VITALS: BP 112/66
--- NOTE | 2019-03-05 07:22 | NUR ---
bedside report given to SAVANNAH BAIRD
--- NOTE | 2019-03-05 07:54 | Occupational Ther Daily Note ---
OT Current Status-Daily Note Subjective Pt alert and on toilet commode upon OT arrival. Mental Status/Objective Patient Orientation: Person, Place, Time, Situation Therapy Code Descriptions/Definitions Functional [place] Measure: 0=Not Assessed/NA 4=Minimal Assistance 1=Total Assistance 5=Supervision or Setup 2=Maximal Assistance 6=Modified [place] 3=Moderate Assistance 7=Complete [place] ADL-Treatment Therapy Code Descriptions/Definitions Functional [place] Measure: 0=Not Assessed/NA 4=Minimal Assistance 1=Total Assistance 5=Supervision or Setup 2=Maximal Assistance 6=Modified [place] 3=Moderate Assistance 7=Complete [place] Therapy Quality Codes: 6 Independent with activity with or without an assistive device 5 Patient requires set up or clean up by helper. Patient completes activity by themselves 4 Supervision or touching assist (CGA). [place] provide cues , steadying assist 3 The helper provides less than half the effort to complete the activity 2 The helper provides more than half the effort to complete the activity 1 Dependent. The helper does all the effort to complete an activity 7 Patient refused to complete or attempt activity 9 The patient did not perform the activity before the current illness or injury 88 Not attempted due to Medical conditions or safety concerns Eating (FIM): 5 (Pt required verbal cues to scan tray for utensils on L side. Pt required assist to open butter. Pt used L hand to hold toast and R hand to spread butter with utensils, set up. ) Eating (QC): 5 Bathing (FIM): 3 (Pt squeezed soap on washcloth using R hand, holding washcloth in L hand. Pt washed R arm with L hand by self. Pt needed assist to squeeze soap on head. Pt required Min Assist for steadying while standing to wash buttocks. Pt able to rinse and dry self. ) Bathing Location: L Arm, R Arm, L Upper Leg, R Upper Leg, L Lower Leg (including foot), R Lower Leg (including foot), Chest, Abdomen, Buttocks, Perineal Area Shower/Bathe Self (QC): 3 Upper Body (FIM): 4 (Pt able to pull shirt over head. Pt required assist to find sleeves. Pt able to thread shirt through sleeves self. Pt educated on importance of threading arms through shirt first. ) Upper Body Dressing (QC): 4 Lower Body Dressing (FIM): 3 ( Pt required min assist for steadying while pt stood to doff pants. Pt able to don boxer briefs self, min assist while standing to hike over hips. Pt required assist to thread L leg into pants. Pt able to thread R leg by self, requiring min assist while standing to hike pants above waist. Pt required min assist to adjust clothing on backside. Pt able to put shoes by self. ) Lower Body Dressing (QC): 3 On/Off Footwear (QC): 5 Transfers (B, C, W/C) (FIM): 4 (Pt required cane, verbal cues to position L foot before standing, and min assist for steadying. ) OT Short Term Goals Short Term Goals Eating(FIM): 5 Grooming(FIM): 5 Bathing(FIM): 4 Upper Body Dressing(FIM): 4 Lower Body Dressing(FIM): 4 Toileting(FIM): 3 Transfers (B,C,W/C) (FIM): 4 Toilet/Commode Transfer(FIM): 3 Shower Transfer(FIM): 4 1=Demonstrate adherence to instructed precautions during ADL tasks. 2=Patient will verbalize/demonstrate understanding of assistive devic es/modifications for ADL. 3=Patient will improve strength/tolerance for activity to enable patient to perform ADL's. OT Photo Machine Operator Goals Mcfp Goals Eating (FIM): 6 Eating (QC): 6 Groomin Oral Hygiene (QC): 6 Bathing(FIM): 6 Shower/Bathe Self (QC): 6 Upper Body Dressing(FIM): 6 Upper Body Dressing (QC): 6 Lower Body Dressing(FIM): 5 Lower Body Dressing (QC): 4 On/Off Footwear (QC): 5 Toileting(FIM): 5 Toileting Hygiene (QC): 4 Transfers (B,C,W/C) (FIM): 6 Toilet/Commode Transfer(FIM): 6 Toilet/Commode Transfer (QC): 6 Shower Transfer(FIM): 6 Additional Goals: 1-Demonstrate ADL Tasks, 2-Verbalize Understanding, 3- ImproveStrength/[place] 1=Demonstrate adherence to instructed precautions during ADL tasks. 2=Patient will verbalize/demonstrate understanding of assistive devices/modifications for ADL. 3=Patient will improve strength/tolerance for activity to enable patient to perform ADL's. OT Education/Plan Problem List/Assessment Assessment: Decreased UE Strength pt presents with functional limitations affecting areas of ADLs and functional transfers with the above mention deficits including decrease proprioception. pt would benefit from skilled OT Services to address above mention deficits and increase independence with ADLS and functional transfers. Discharge Recommendations Plan/Recommendations: Continue POC Treatment Plan/Plan of Care Patient would benefit from OT for education, treatment and training to promote independence in ADL's, mobility, safety and/or upper extremity function for ADL's. Plan of Care: ADL Retraining, Caregiver Training, Concurrent Therapy, Functional Mobility, Group Exercise/Act as Ind, UE Funct Exercise/Act, UE Neuromus Re-Ed/Coord, Visual/Perceptual Retrain, W/C Management Training Treatment Duration: Mar 15, 2019 Frequency: At least 5 of 7 days/Wk (IRF) Estimated Hrs Per Day: 1 hour per day (60-90 minutes per day ) Agreement: Yes Rehab Potential: Fair Time/GCodes Start Time: 07:00 Stop Time: 08:00 Total Time Billed (hr/min): 60 Billed Treatment Time 1 visit- ADL 4 (60 min) JALIL DUPONT Mar 05, 2019 07:54
--- NOTE | 2019-03-05 08:58 | Physical Therapy Daily Note ---
PT Daily Note-Current Subjective Patient in recliner pre tx, agrees to PT, has no complains of pain. Appearance Patient in recliner post tx with nurse call, phone, tray, all needs met. Mental Status Patient Orientation: Person, Place, Situation Transfers Therapy Code Descriptions/Definitions Functional [place] Measure: 0=Not Assessed/NA 4=Minimal Assistance 1=Total Assistance 5=Supervision or Setup 2=Maximal Assistance 6=Modified [place] 3=Moderate Assistance 7=Complete [place] Therapy Quality Codes: 6 Independent with activity with or without an assistive device 5 Patient requires set up or clean up by helper. Patient completes activity by themselves 4 Supervision or touching assist (CGA). [place] provide cues , steadying assist 3 The helper provides less than half the effort to complete the activity 2 The helper provides more than half the effort to complete the activity 1 Dependent. The helper does all the effort to complete an activity 7 Patient refused to complete or attempt activity 9 The patient did not perform the activity before the current illness or injury 88 Not attempted due to Medical conditions or safety concerns Transfers (B, C, W/C) (FIM): 4 Sit to/from Stand: 4 Bed to/from Chair: 4 Weight Bearing Full Weight Bearing Full Weight Bearing Gait Training Gait (FIM): 4 Distance: 200'x2, 150' Gait Level of Assist: 4 Gait Persons Needed: 1 Gait Assistive Device: Cane Single Point leans to the left, needs assist with balance, better step through on the left side Exercises LAQ left side with 2# ankle weight 5 min NuStep Minutes: 15 NuStep Workload: 5 Treatments LE exercise, ambulation, transfers Assessment Current Status: Fair Progress improving endurance and balance PT Short Term Goals Short Term Goals Time Frame: Feb 21, 2019 Transfers (B,C,W/C) (FIM): 4 Gait (FIM): 2 Gait Distance Comment: 50' Gait Level of Assist: 4 Gait Assistive Device: Walker [place] Wheelchair Distance: 100 PT Prison Goals Certified Medication Technician Goals PT Prison Goals Time Frame: Mar 07, 2019 Transfers (B,C,W/C) (FIM): 5 Sit to Lying (QC): 4 Lying-Sitting on Side/Bed(QC): 4 Sit to Stand (QC): 4 Rollin Roll Left to Right (QC): 4 Chair/Pbh-xd-Vbaqe Xfer(QC): 4 Car Transfer (QC): 4 Gait (FIM): 2 Distance: 100' Walk 10 feet (QC): 4 Walk 10ft-Uneven Surface(QC): 4 Walk 50ft with 2 Turns (QC): 4 Gait Level of Assist: 4 Gait Assistive Device: Walker [place] Stairs (FIM): 2 # of Steps: 4 1 Step (curb) (QC): 3 4 Steps (QC): 3 Stairs Level Of Assist: 4 PT Plan Problem List Problem List: Activity Tolerance, Functional Strength, Safety, Balance, Gait, Transfer, Bed Mobility Treatment/Plan Treatment Plan: Continue Plan of Care Treatment Plan: Bed Mobility, Education, Functional Activity [place], Functional Strength, Group Therapy, Gait, Safety, Therapeutic Exercise, Transfers Treatment Duration: Mar 07, 2019 Frequency: At least 5 of 7 days/Wk (IRF) Estimated Hrs Per Day: 1.5 hours per day Patient and/or Family Agrees t: Yes Safety Risks/Education Patient Education: Gait Training, Transfer Techniques, Correct Positioning, Safety Issues Teaching Recipient: Patient Teaching Methods: Demonstration, Discussion Response to Teaching: Reinforcement Needed Time/GCodes Time In: 0800 Time Out: 0900 Total Billed Treatment Time: 60 Total Billed Treatment 1 visit EX 20' FA 10' GT 30' VERENA FREEMAN PT Mar 05, 2019 08:58
--- NOTE | 2019-03-05 09:39 | PM&R Progress Note ---
Subjective HPI/CC On Admission Date Seen by Provider: Mar 05, 2019 Time Seen by Provider: 09:00 Chief complaint: Debility following CVA with left-sided weakness History of present illness: This is a 73-year-old white male clinic patient of [facility] who accepted upon transfer from [facility] hospitalist service after I transferred him there on 02/05/2019 after he was admitted for suspicion of TIA and CVA and although CT scan showed no evidence of any stroke carotid artery ultrasound at [facility] at that time with stroke protocol revealed critical carotid artery stenosis requiring transfer to vascular care assessment. He had a history of right stent placement in the carotid artery in the past and a right-sided carotid endarterectomy in 1999 and continued to smoke since that time. He was transferred to [facility] maintained on Plavix aspirin and statin therapy along with antihypertensive meds and was seen by neurology and vascular surgery. Renal insufficiency returned back to baseline at 1.4 so IV fluids were discontinued. Patient was managed aggressively and underwent a left carotid stent placement due to critical stenosis on 02/08/[address] Sherman and continue to have the left upper extremity weakness. He was improving at that time. In brinell tester hours of 02/09/2019 patient suffered an acute CVA confirmed on CT scan even while maintained on Plavix and aspirin. Patient was not deemed a TPA candidate at that time once again. He was found to have a brain aneurysm 3 mm in the A1 segment of the brain but no intervention was planned. CT confirmed the acute infarct involving the watershed distribution between MCA and CONTROL PANEL OPERATOR territory on the right as well as a small lacunar infarct along the centrum semi-ovale on the right and within the right parietal lobe. He was transported to [facility] inpatient rehab by his daughter 1 of 6 children who lives in [place]. He currently is leaning over to the left because of inability to sit straight in the wheelchair. This indicates a profound loss of function and will require at least 14 days of inpatient rehab for recovery in order to return to some sort of status to be able to return home to live independently and assist with regaining independence with ADLs. He is wheezing currently so I did order duo nebs 3 times daily scheduled. Smoking cessation was counseled on nicotine patch order was placed. Considering the numerous strokes he has had even while being on Plavix and aspirin it is concerning and his prognosis is guarded for additional strokes and even more extensive debility. His barriers to returning home include: Unable to ambulate at this current time wheelchair-bound and home not wheelchair accessible Lives alone but family is involved in his care so likely will need major supervision will need to arrange that prior to discharge Clinical stability following stroke even though on Plavix and aspirin and statin therapy so will need to assure he has been adequately risk stratified in order to decrease the chance of additional strokes prior to discharge home Subjective/Events-last exam Patient sleeps a lot in between therapies No falls reported Nurse instructs people to put his shoes on when he gets up because he drags the left foot and it is affecting his skin an abrasion Patient appears to be improving every day We will go home with the family Safety prevention discussed Check meds and labs Reviewed therapy notes Conferred with bladder changer of Systems General: Fatigue Objective Exam Vital Signs Vital Signs Date Time Temp Pulse Resp B/P (MAP) Pulse Ox O2 Delivery O2 Flow Rate FiO2 03/05/19 12:00 98 Room Air 03/05/19 06:53 96.8 76 18 112/66 (81) Capillary Refill : General Appearance: No Apparent Distress, WD/WN, Chronically ill, Thin, Other (fatigued, disheveled) HEENT: PERRL/EOMI, TMs Normal, Normal ENT Inspection, Pharynx Normal, Moist Mucous Membranes Neck: Full Range of Motion, Normal Inspection, Non Tender, Supple Respiratory: Chest Non Tender, Lungs Clear, Normal Breath Sounds, No Accessory Muscle Use, No Respiratory Distress, Wheezing Cardiovascular: Regular Rate, Rhythm, No Edema, No Gallop, No JVD, No Murmur Gastrointestinal: Normal Bowel Sounds, No Organomegaly, No Pulsatile Mass, Non Tender, Soft Back: Normal Inspection, No CVA Tenderness, No Vertebral Tenderness Extremity: Normal Capillary Refill, Normal Inspection, Normal Range of Motion, Non Tender, No Calf Tenderness, No Pedal Edema Neurologic/Psychiatric: Alert, Oriented x3, Normal Mood/Affect, Abnormal Cerebellar Tests, Abnormal informatics scientist II-XII (left), Abnormal Gait, Motor Weakness (left upper and lower 3/5 strength), Other (stuttering) Skin: Normal Color, Warm/Dry Lymphatic: No Adenopathy Results/Procedures Lab Patient resulted labs reviewed. FIM Transfers Therapy Code Descriptions/Definitions Functional [place] Measure: 0=Not Assessed/NA 4=Minimal Assistance 1=Total Assistance 5=Supervision or Setup 2=Maximal Assistance 6=Modified [place] 3=Moderate Assistance 7=Complete [place] Therapy Quality Codes: 6 Independent with activity with or without an assistive device 5 Patient requires set up or clean up by helper. Patient completes activity by themselves 4 Supervision or touching assist (CGA). [place] provide cues , steadying assist 3 The helper provides less than half the effort to complete the activity 2 The helper provides more than half the effort to complete the activity 1 Dependent. The helper does all the effort to complete an activity 7 Patient refused to complete or attempt activity 9 The patient did not perform the activity before the current illness or injury 88 Not attempted due to Medical conditions or safety concerns Transfers (B, C, W/C) (FIM): 4 Scootin Rollin Roll Left to Right (QC): 3 Supine to/from Sit: 5 Sit to/from Stand: 4 Sit to Lying (QC): 2 Sit to Stand (QC): 5 Chair/Ogn-if-Xtjpc Xfer(QC): 2 Bed to/from Chair: 4 Car Transfer (QC): 2 Gait Training Does the Patient Walk?: Yes Gait (FIM): 4 Distance (FIM): 3=150 ft Distance: 200'x2, 150' Walk 10 feet (QC): 4 Walk 50 ft with 2 Turns(QC): 4 Walk 150 ft (QC): 4 Gait Level of Assist: 4 Gait Persons Needed: 1 Gait Assistive Device: Cane Single Point Wheelchair Training Does the Pt Use a Wheelchair?: No Wheelchair (FIM): 1 Wheelchair Distance: 1=up to 49 ft Distance: 100 Wheelchair Level of Assist: 3 Type of Wheelchair: Manual Stair Training Stair Training: Handrails/: 1 handrail Stairs (FIM): 2 #of Steps: 4 1 Step (curb) (QC): 3 4 Steps (QC): 3 Stairs: Pattern: Step to Level of Assist: 4 Mental Status/Objective Comprehension: 5 Expression: 4 Social Interaction: 3 Problem Solvin Memory: 3 ADL-Treatment Feedin (Pt able to scan plate for food. Pt able to manage utensils and brin g food to mouth properly. Pt able to don coffee lid by self. ) Eating (QC): 6 Groomin (Pt able to shave face by self using R hand. No movement in L hand noted, set up. ) Oral Hygiene (QC): 6 Bathin (Pt squeezed soap on washcloth using R hand, holding washcloth in L hand. Pt washed R arm with L hand by self. Pt needed assist to squeeze soap on head. Pt required Min Assist for steadying while standing to wash buttocks. Pt able to rinse and dry self. ) Bathing Location: L Arm, R Arm, L Upper Leg, R Upper Leg, L Lower Leg (including foot), R Lower Leg (including foot), Chest, Abdomen, Buttocks, Perineal Area Shower/Bathe Self (QC): 4 Upper Extremity Dressin (Pt able to pull shirt over head. Pt required assist to find sleeves. Pt able to thread shirt through sleeves self. Pt educated on importance of threading arms through shirt first. ) Upper Body Dressing (QC): 4 Lower Extremity Dressin ( Pt required min assist for steadying while pt stood to doff pants. Pt able to don boxer briefs self, min assist while standing to hike over hips. Pt required assist to thread L leg into pants. Pt able to thread R leg by self, requiring min assist while standing to hike pants above waist. Pt required min assist to adjust clothing on backside. Pt able to put shoes by self. ) Lower Body Dressing (QC): 4 On/Off Footwear (QC): 5 Toiletin Toileting Hygiene (QC): 4 Toilet/Commode Transfer: 4 (Pt required cane and grab bar. Pt needed verbal cues to move L foot and to move closer to toilet before sitting. ) Toilet Transfer (QC): 4 Shower: 4 (Pt required platform walker, grab bar, and shower chair, min A. 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 COPD Smoker cessation counseled Dark stools resolved s/p EGD/Colon Leukopenia HTN HLP GIB no source of bleed on scopes Gastritis placed on H2 rohit Left arm skin tear requiring Dr Kumar consultation in midst of complete healing Plan: Gastritis treatment to continue ASA and Plavix and statin to be maintained IRF protocols Wound care right arm appears to be healing Improved today Air mattress has really helped his sleep now DC home once completely recovered as much as possible for catastrophic CVA (1) CVA (cerebral vascular accident) Status: Acute Qualifiers: CVA mechanism: unspecified Qualified Codes: I63.9 - Cerebral infarction, unspecified (2) 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 Status: Acute (3) Back pain Status: Chronic Qualifiers: Back pain location: back pain in unspecified location Chronicity: unspecified Back pain laterality: unspecified Qualified Codes: M54.9 - Dorsalgia, unspecified (4) Dark stools Status: Acute (5) Impulsive Status: Acute (6) Leukopenia Status: Acute Qualifiers: Leukopenia type: unspecified Qualified Codes: D72.819 - Decreased white blood cell count, unspecified (7) Anemia Status: Chronic Qualifiers: Anemia type: unspecified type Qualified Codes: D64.9 - Anemia, unspecified (8) Hypertension Status: Chronic Qualifiers: Hypertension type: essential hypertension Qualified Codes: I10 - Essential (primary) hypertension (9) COPD (chronic obstructive pulmonary disease) Status: Chronic Qualifiers: COPD type: unspecified COPD Qualified Codes: J44.9 - Chronic obstructive pulmonary disease, unspecified (10) Hyperlipidemia Status: Chronic Qualifiers: Hyperlipidemia type: mixed hyperlipidemia Qualified Codes: E78.2 - Mixed hyperlipidemia (11) Renal insufficiency Status: Chronic (12) Wheezing Status: Acute (13) Carotid stenosis Status: Chronic Qualifiers: Laterality: bilateral Qualified Codes: I65.23 - Occlusion and stenosis of bilateral carotid arteries (14) Left-sided weakness Status: Acute (15) BPH (benign prostatic hyperplasia) Status: Chronic Qualifiers: Lower urinary tract symptom presence: unspecified whether lower urinary tract symptoms present Qualified Codes: N40.0 - Benign prostatic hyperplasia without lower urinary tract symptoms (16) Risk for falls Status: Acute (17) Smoker Status: Chronic HEBERT BAKER DO Mar 05, 2019 09:39
[2019-03-05] MEDS: CARVEDILOL 12.5 MG (COREG) TABLET PO SCH ×2 (11:15→21:21)
[2019-03-05] MEDS: lisINopril 10 MG (PRINIVIL) TABLET PO SCH (11:16)
[2019-03-05] MEDS: SENNA W/DOCUSATE (SENOKOT S) TABLET PO SCH ×2 (11:45→21:21)
[2019-03-05] MEDS: NICOTINE 21 MG (NICODERM) PATCH TD SCH (11:45)
[2019-03-05] MEDS: ASPIRIN E.C. 81 MG (ECOTRIN) TAB PO SCH (11:46)
[2019-03-05] MEDS: FAMOTIDINE 20 MG (PEPCID) TABLET PO SCH (11:46)
[2019-03-05] MEDS: CLOPIDOGREL 75 MG (PLAVIX) TABLET PO SCH (11:46)
--- NOTE | 2019-03-05 14:38 | Therapy Group Daily Note ---
Therapy Daily Group Note Patient Education Topic Home Safety, Fall Prevention, Home Safety, Exercises Exercises LE Seated Exercise, UE Exercise Session Ratio (pt:therapist): 4:1 Goal of Session: Education on ARU Expectations, Home Safety Strategies, UE/LE Strengthing Goal Met for this Session: Yes Pt Benefit of Group: Contributions to Others, F/U Use of Strategies @Home, Increased Functional Safety, Increased Functional Strength, Recognition of Peers, Socialization Other/Notes Each patient participated in group therapy in the common area of rehab. Each patient ambulated or was transported into a seated [place] with the other patients. Each patient had to introduce themselves and answer a question involving memory and recall. Patients then played a home safety jeopardy game with UE and LE exercises at different times. Patients were encouraged to participate with others during the answer time and exercises. Afterward, each patient ambulated or was transported back to their room and placed in bed or recliner with nurse call, phone, tray. Patient benefitted from this group by knowing more about home safety to decrease risk of falling and injury at home. Start Time: 13:00 Stop Time: 14:15 Total Billed Treatment Time: 75 Total Billed Treatment 1 visit GRP 75' VERENA FREEMAN PT Mar 05, 2019 14:38
--- NOTE | 2019-03-05 14:48 | Speech Therapy Daily Note ---
Speech Daily Progress Note Subjective Date Seen by Provider: Mar 05, 2019 Time Seen by Provider: 00:30 The patient was resting in his bed. He stated his back was hurting him today. Objective The patient completed verbally presented questions related to his daily needs with 90% accuracy given minimal cues or repetitions. Assessment Assessment Current Status: Good Progress Treatment Plan Continue Plan of Care Communication Comprehension: 5 Expression: 4 Social Cognition Social Interaction: 3 Problem Solvin Memory: 3 Speech Short Term Goals Short Term Goals Short Term Goals 1) Patient will demonstrate sustained attention, memory and sequencing for task performance with 80% accuracy. 2) Patient will demonstrate effective communication of wants/needs to staff and caregivers with 80% accuracy. Speech Oracle Wms Consultant Goals Halfway Goals The patient will improve cognitive-communication skills in order to return to hi s former living situation safely. Speech-Plan Patient/Family Goals Patient/Family Goals: The patient plans on living with his daughter upon hospital discharge. Treatment Plan Speech Therapy Treatment Plan: Continue Plan of Care The patient has made good progress toward meeting ST goals. Treatment Duration: Mar 09, 2019 Frequency: 5 times per week Estimated Hrs Per Day: .5 hour per day Rehab Potential: Fair Barriers to Learning: Patient's residual cognitive deficits Pt/Family Agrees to Plan: Yes Safety Risks/Education Teaching Recipient: Patient Teaching Methods: Demonstration, Discussion Response to Teaching: Verbalize Understanding, Return Demonstration Education Topics Provided: Continued safety within his room. Time Speech Therapy Time In: 14:15 Speech Therapy Time Out: 14:45 Total Billed Time: 30 Billed Treatment Time 1, WILBER CRUZALFRED ST Mar 05, 2019 14:48
--- NOTE | 2019-03-05 15:15 | NUR ---
HUMIDIFIER ATTENDANT spoke with patient and family regarding options for [facility] services, they are not familiar with the provider list and request HUMIDIFIER ATTENDANT to reach out to [facility] to inquire if they are in-network. Per Kassidy at [facility] they are in-network HUMIDIFIER ATTENDANT notified Heidi at [facility] of referral and recommended services. She will work up referral and will intend to start care on 03/10, as discharge is anticipated for 03/09.
[2019-03-05 17:30] VITALS: BP 133/79
[2019-03-05] MEDS: TAMSULOSIN 0.4 MG (FLOMAX) CAP PO SCH (18:30)
[2019-03-05] MEDS: MELATONIN 3 MG TABLET PO SCH (21:21)
[2019-03-05] MEDS: ATORVASTATIN 80 MG (LIPITOR) TABLET PO SCH (21:21)
[2019-03-06] MEDS: ALPRAZolam 0.25 MG (XANAX) TAB PO PRN ×2 (03:31→21:09)
[2019-03-06 05:52] VITALS: BP 131/71
[2019-03-06] MEDS: CLOPIDOGREL 75 MG (PLAVIX) TABLET PO SCH (09:11)
[2019-03-06] MEDS: lisINopril 10 MG (PRINIVIL) TABLET PO SCH (09:11)
[2019-03-06] MEDS: FAMOTIDINE 20 MG (PEPCID) TABLET PO SCH (09:11)
[2019-03-06] MEDS: CARVEDILOL 12.5 MG (COREG) TABLET PO SCH ×2 (09:11→21:09)
[2019-03-06] MEDS: SENNA W/DOCUSATE (SENOKOT S) TABLET PO SCH ×2 (09:11→21:18)
[2019-03-06] MEDS: NICOTINE 21 MG (NICODERM) PATCH TD SCH (09:11)
[2019-03-06] MEDS: ASPIRIN E.C. 81 MG (ECOTRIN) TAB PO SCH (09:11)
--- NOTE | 2019-03-06 10:34 | PM&R Progress Note ---
Subjective HPI/CC On Admission Date Seen by Provider: Mar 06, 2019 Time Seen by Provider: 10:30 Chief complaint: Debility following CVA with left-sided weakness History of present illness: This is a 73-year-old white male clinic patient of [facility] who accepted upon transfer from [facility] hospitalist service after I transferred him there on 02/05/2019 after he was admitted for suspicion of TIA and CVA and although CT scan showed no evidence of any stroke carotid artery ultrasound at [facility] at that time with stroke protocol revealed critical carotid artery stenosis requiring transfer to vascular care assessment. He had a history of right stent placement in the carotid artery in the past and a right-sided carotid endarterectomy in 1999 and continued to smoke since that time. He was transferred to [facility] maintained on Plavix aspirin and statin therapy along with antihypertensive meds and was seen by neurology and vascular surgery. Renal insufficiency returned back to baseline at 1.4 so IV fluids were discontinued. Patient was managed aggressively and underwent a left carotid stent placement due to critical stenosis on 02/08/[address] Sherman and continue to have the left upper extremity weakness. He was improving at that time. 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 Patient was not deemed a TPA candidate at that time once again. He was found to have a brain aneurysm 3 mm in the A1 segment of the brain but no intervention was planned. CT confirmed the acute infarct involving the watershed distribution between MCA and MAIL SERVICE COORDINATOR territory on the right as well as a small lacunar infarct along the centrum semi-ovale on the right and within the right parietal lobe. He was transported to [facility] inpatient rehab by his daughter 1 of 6 children who lives in [place]. He currently is leaning over to the left because of inability to sit straight in the wheelchair. This indicates a profound loss of function and will require at least 14 days of inpatient rehab for recovery in order to return to some sort of status to be able to return home to live independently and assist with regaining independence with ADLs. He is wheezing currently so I did order duo nebs 3 times daily scheduled. Smoking cessation was counseled on nicotine patch order was placed. Considering the numerous strokes he has had even while being on Plavix and aspirin it is concerning and his prognosis is guarded for additional strokes and even more extensive debility. His barriers to returning home include: Unable to ambulate at this current time wheelchair-bound and home not wheelchair accessible Lives alone but family is involved in his care so likely will need major supervision will need to arrange that prior to discharge Clinical stability following stroke even though on Plavix and aspirin and statin therapy so will need to assure he has been adequately risk stratified in order to decrease the chance of additional strokes prior to discharge home Subjective/Events-last exam Patient sleeps a lot in between therapies No falls reported since last and only one since he has been at IRF Does not sleep well at all and it appears this is a chronic issue Patient appears to be improving every day We will go home with the family Safety prevention discussed BM+ Check meds and labs Reviewed therapy notes 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 [employer] General: Fatigue Pulmonary: Dyspnea Objective Exam Vital Signs Vital Signs Date Time Temp Pulse Resp B/P (MAP) Pulse Ox O2 Delivery O2 Flow Rate FiO2 03/06/19 19:35 97.8 87 16 112/68 (83) 94 Room Air Capillary Refill : General Appearance: No Apparent Distress, WD/WN, Chronically ill, Thin, Other (fatigued, disheveled) HEENT: PERRL/EOMI, TMs Normal, Normal ENT Inspection, Pharynx Normal, Moist Mucous Membranes Neck: Full Range of Motion, Normal Inspection, Non Tender, Supple Respiratory: Chest Non Tender, Lungs Clear, Normal Breath Sounds, No Accessory Muscle Use, No Respiratory Distress, Wheezing Cardiovascular: Regular Rate, Rhythm, No Edema, No Gallop, No JVD, No Murmur Gastrointestinal: Normal Bowel Sounds, No Organomegaly, No Pulsatile Mass, Non Tender, Soft Back: Normal Inspection, No CVA Tenderness, No Vertebral Tenderness Extremity: Normal Capillary Refill, Normal Inspection, Normal Range of Motion, Non Tender, No Calf Tenderness, No Pedal Edema Neurologic/Psychiatric: Alert, Oriented x3, Normal Mood/Affect, Abnormal Cerebellar Tests, Abnormal slot machine mechanic II-XII (left), Abnormal Gait, Motor Weakness (left upper and lower 3/5 strength), Other (stuttering) Skin: Normal Color, Warm/Dry Lymphatic: No Adenopathy Results/Procedures Lab Patient resulted labs reviewed. FIM Transfers Therapy Code Descriptions/Definitions Functional Wetzel Measure: 0=Not Assessed/NA 4=Minimal Assistance 1=Total Assistance 5=Supervision or Setup 2=Maximal Assistance 6=Modified Wetzel 3=Moderate Assistance 7=Complete Wetzel Therapy Quality Codes: 6 Independent with activity with or without an assistive device 5 Patient requires set up or clean up by helper. Patient completes activity by themselves 4 Supervision or touching assist (CGA). [place] provide cues , steadying assist 3 The helper provides less than half the effort to complete the activity 2 The helper provides more than half the effort to complete the activity 1 Dependent. The helper does all the effort to complete an activity 7 Patient refused to complete or attempt activity 9 The patient did not perform the activity before the current illness or injury 88 Not attempted due to Medical conditions or safety concerns Transfers (B, C, W/C) (FIM): 4 (Pt required cane, verbal cues to position L foot before standing, and min assist for steadying. ) Scootin Rollin Roll Left to Right (QC): 3 Supine to/from Sit: 5 Sit to/from Stand: 4 Sit to Lying (QC): 2 Sit to Stand (QC): 5 Chair/Zhs-mj-Siydx Xfer(QC): 2 Bed to/from Chair: 4 Car Transfer (QC): 2 Gait Training Does the Patient Walk?: Yes Gait (FIM): 4 Distance (FIM): 3=150 ft Distance: 200'x2, 150' Walk 10 feet (QC): 4 Walk 50 ft with 2 Turns(QC): 4 Walk 150 ft (QC): 4 Gait Level of Assist: 4 Gait Persons Needed: 1 Gait Assistive Device: Cane Single Point Wheelchair Training Does the Pt Use a Wheelchair?: No Wheelchair (FIM): 1 Wheelchair Distance: 1=up to 49 ft Distance: 100 Wheelchair Level of Assist: 3 Type of Wheelchair: Manual Stair Training Stair Training: Handrails/: 1 handrail Stairs (FIM): 2 #of Steps: 4 1 Step (curb) (QC): 3 4 Steps (QC): 3 Stairs: Pattern: Step to Level of Assist: 4 Mental Status/Objective Comprehension: 5 Expression: 4 Social Interaction: 3 Problem Solvin Memory: 3 ADL-Treatment Feedin (Pt required verbal cues to scan tray for utensils on L side. Pt required assist to open butter. Pt used L hand to hold toast and R hand to spread butter with utensils, set up. ) Eating (QC): 5 Groomin (Pt able to shave face by self using R hand. No movement in L hand noted, set up. ) Oral Hygiene (QC): 6 Bathin (Pt squeezed soap on washcloth using R hand, holding washcloth in L hand. Pt washed R arm with L hand by self. Pt needed assist to squeeze soap on head. Pt required Min Assist for steadying while standing to wash buttocks. Pt able to rinse and dry self. ) Bathing Location: L Arm, R Arm, L Upper Leg, R Upper Leg, L Lower Leg (including foot), R Lower Leg (including foot), Chest, Abdomen, Buttocks, Perineal Area Shower/Bathe Self (QC): 4 Upper Extremity Dressin (Pt able to pull shirt over head. Pt required assist to find sleeves. Pt able to thread shirt through sleeves self. Pt educated on importance of threading arms through shirt first. ) Upper Body Dressing (QC): 4 Lower Extremity Dressin ( Pt required min assist for steadying while pt stood to doff pants. Pt able to don boxer briefs self, min assist while standing to hike over hips. Pt required assist to thread L leg into pants. Pt able to thread R leg by self, requiring min assist while standing to hike pants above waist. Pt required min assist to adjust clothing on backside. Pt able to put shoes by self. ) Lower Body Dressing (QC): 4 On/Off Footwear (QC): 5 Toiletin Toileting Hygiene (QC): 4 Toilet/Commode Transfer: 4 (Pt required cane and grab bar. Pt needed verbal c ues to move L foot and to move closer to toilet before sitting. ) Toilet Transfer (QC): 4 Shower: 4 (Pt required platform walker, grab bar, and shower chair, min A. 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 COPD Smoker cessation counseled Dark stools resolved s/p EGD/Colon Leukopenia HTN HLP GIB no source of bleed on scopes Gastritis placed on H2 rohit Left arm skin tear requiring Dr Kumar consultation in midst of complete healing Sleep disorder Plan: Gastritis treatment to continue ASA and Plavix and statin to be maintained IRF protocols Wound care right arm healed Improved each day Air mattress has really helped his sleep now DC home once completely recovered as much as possible for catastrophic CVA (1) CVA (cerebral vascular accident) Status: Acute Qualifiers: CVA mechanism: unspecified Qualified Codes: I63.9 - Cerebral infarction, unspecified (2) 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 Status: Acute (3) Back pain Status: Chronic Qualifiers: Back pain location: back pain in unspecified location Chronicity: unspecified Back pain laterality: unspecified Qualified Codes: M54.9 - Dorsalgia, unspecified (4) Dark stools Status: Acute (5) Impulsive Status: Acute (6) Leukopenia Status: Acute Qualifiers: Leukopenia type: unspecified Qualified Codes: D72.819 - Decreased white blood cell count, unspecified (7) Anemia Status: Chronic Qualifiers: Anemia type: unspecified type Qualified Codes: D64.9 - Anemia, unspecified (8) Hypertension Status: Chronic Qualifiers: Hypertension type: essential hypertension Qualified Codes: I10 - Essential (primary) hypertension (9) COPD (chronic obstructive pulmonary disease) Status: Chronic Qualifiers: COPD type: unspecified COPD Qualified Codes: J44.9 - Chronic obstructive pulmonary disease, unspecified (10) Hyperlipidemia Status: Chronic Qualifiers: Hyperlipidemia type: mixed hyperlipidemia Qualified Codes: E78.2 - Mixed hyperlipidemia (11) Renal insufficiency Status: Chronic (12) Wheezing Status: Acute (13) Carotid stenosis Status: Chronic Qualifiers: Laterality: bilateral Qualified Codes: I65.23 - Occlusion and stenosis of bilateral carotid arteries (14) Left-sided weakness Status: Acute (15) BPH (benign prostatic hyperplasia) Status: Chronic Qualifiers: Lower urinary tract symptom presence: unspecified whether lower urinary tract symptoms present Qualified Codes: N40.0 - Benign prostatic hyperplasia without lower urinary tract symptoms (16) Risk for falls Status: Acute (17) Smoker Status: Chronic HEBERT BAKER DO Mar 06, 2019 10:34
--- NOTE | 2019-03-06 12:58 | Physical Therapy Daily Note ---
PT Daily Note-Current Subjective Pt agreeable to treatment. Mental Status Patient Orientation: Person, Situation Transfers Therapy Code Descriptions/Definitions Functional Kim[place] Measure: 0=Not Assessed/NA 4=Minimal Assistance 1=Total Assistance 5=Supervision or Setup 2=Maximal Assistance 6=Modified [place] 3=Moderate Assistance 7=Complete Kim[place] Therapy Quality Codes: 6 Independent with activity with or without an assistive device 5 Patient requires set up or clean up by helper. Patient completes activity by themselves 4 Supervision or touching assist (CGA). [place] provide cues , steadying assist 3 The helper provides less than half the effort to complete the activity 2 The helper provides more than half the effort to complete the activity 1 Dependent. The helper does all the effort to complete an activity 7 Patient refused to complete or attempt activity 9 The patient did not perform the activity before the current illness or injury 88 Not attempted due to Medical conditions or safety concerns Transfers (B, C, W/C) (FIM): 4 Scootin Rollin Roll Left to Right (QC): 4 Supine to/from Sit: 4 Sit to/from Stand: 4 Sit to Lying (QC): 4 Sit to Stand (QC): 4 Weight Bearing Full Weight Bearing Full Weight Bearing Gait Training Does the Patient Walk?: Yes Distance: 100ft x2 Gait Level of Assist: 3 Gait Persons Needed: 1 Gait Assistive Device: Walker Platform Exercises Standin way Ex=Flex, Abd, Ext, Marching Standing Reps: 15 Assessment Current Status: Fair Progress Intermittent (L) foot drag during gait. Able to perform standing hip ex on either leg with good stability throughout. PT Short Term Goals Short Term Goals Time Frame: Feb 21, 2019 Transfers (B,C,W/C) (FIM): 4 Gait (FIM): 2 Gait Distance Comment: 50' Gait Level of Assist: 4 Gait Assistive Device: Walker [place] Wheelchair Distance: 100 PT Skilled Nursing Goals Skilled Nursing Goals PT Skilled Nursing Goals Time Frame: Mar 07, 2019 Transfers (B,C,W/C) (FIM): 5 Sit to Lying (QC): 4 Lying-Sitting on Side/Bed(QC): 4 Sit to Stand (QC): 4 Rollin Roll Left to Right (QC): 4 Chair/Nbd-sd-Eyuzs Xfer(QC): 4 Car Transfer (QC): 4 Gait (FIM): 2 Distance: 100' Walk 10 feet (QC): 4 Walk 10ft-Uneven Surface(QC): 4 Walk 50ft with 2 Turns (QC): 4 Gait Level of Assist: 4 Gait Assistive Device: Walker [place] Stairs (FIM): 2 # of Steps: 4 1 Step (curb) (QC): 3 4 Steps (QC): 3 Stairs Level Of Assist: 4 PT Plan Treatment/Plan Treatment Plan: Continue Plan of Care Treatment Plan: Bed Mobility, Education, Functional Activity [place], Functional Strength, Group Therapy, Gait, Safety, Therapeutic Exercise, Transfers Treatment Duration: Mar 07, 2019 Frequency: At least 5 of 7 days/Wk (IRF) Estimated Hrs Per Day: 1.5 hours per day Patient and/or Family Agrees t: Yes Time/GCodes Time In: 0843 Time Out: 0859 Total Billed Treatment Time: 16 Total Billed Treatment 1, gt 16 CAYDEN BETH PT Mar 06, 2019 12:58
[2019-03-06] MEDS: TAMSULOSIN 0.4 MG (FLOMAX) CAP PO SCH (18:07)
[2019-03-06 19:35] VITALS: BP 112/68
[2019-03-06] MEDS: MELATONIN 3 MG TABLET PO SCH (21:09)
[2019-03-06] MEDS: ATORVASTATIN 80 MG (LIPITOR) TABLET PO SCH (21:09)
[2019-03-07 05:45] VITALS: BP 98/59
[2019-03-07] MEDS: NICOTINE 21 MG (NICODERM) PATCH TD SCH (09:10)
[2019-03-07] MEDS: CLOPIDOGREL 75 MG (PLAVIX) TABLET PO SCH (09:11)
[2019-03-07] MEDS: lisINopril 10 MG (PRINIVIL) TABLET PO SCH (09:11)
[2019-03-07] MEDS: SENNA W/DOCUSATE (SENOKOT S) TABLET PO SCH ×2 (09:11→21:15)
[2019-03-07] MEDS: FAMOTIDINE 20 MG (PEPCID) TABLET PO SCH (09:11)
[2019-03-07] MEDS: ASPIRIN E.C. 81 MG (ECOTRIN) TAB PO SCH (09:11)
[2019-03-07] MEDS: CARVEDILOL 12.5 MG (COREG) TABLET PO SCH ×2 (09:12→21:24)
--- NOTE | 2019-03-07 13:30 | PM&R Progress Note ---
Subjective HPI/CC On Admission Date Seen by Provider: Mar 07, 2019 Time Seen by Provider: 11:15 Chief complaint: Debility following CVA with left-sided weakness History of present illness: This is a 73-year-old white male clinic patient of [facility] who accepted upon transfer from [facility] hospitalist service after I transferred him there on 02/05/2019 after he was admitted for suspicion of TIA and CVA and although CT scan showed no evidence of any stroke carotid artery ultrasound at [facility] at that time with stroke protocol revealed critical carotid artery stenosis requiring transfer to vascular care assessment. He had a history of right stent placement in the carotid artery in the past and a right-sided carotid endarterectomy in 1999 and continued to smoke since that time. He was transferred to [facility] maintained on Plavix aspirin and statin therapy along with antihypertensive meds and was seen by neurology and vascular surgery. Renal insufficiency returned back to baseline at 1.4 so IV fluids were discontinued. Patient was managed aggressively and underwent a left carotid stent placement due to critical stenosis on 02/08/[address] Sherman and continue to have the left upper extremity weakness. He was improving at that time. In cleat feeder hours of 02/09/2019 patient suffered an acute CVA confirmed on CT scan even while maintained on Plavix and aspirin. Patient was not deemed a TPA candidate at that time once again. He was found to have a brain aneurysm 3 mm in the A1 segment of the brain but no intervention was planned. 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 He was transported to [facility] inpatient rehab by his daughter 1 of 6 children who lives in [place]. He currently is leaning over to the left because of inability to sit straight in the wheelchair. This indicates a profound loss of function and will require at least 14 days of inpatient rehab for recovery in order to return to some sort of status to be able to return home to live independently and assist with regaining independence with ADLs. He is wheezing currently so I did order duo nebs 3 times daily scheduled. Smoking cessation was counseled on nicotine patch order was placed. Considering the numerous strokes he has had even while being on Plavix and aspirin it is concerning and his prognosis is guarded for additional strokes and even more extensive debility. His barriers to returning home include: Unable to ambulate at this current time wheelchair-bound and home not wheelchair accessible Lives alone but family is involved in his care so likely will need major supervision will need to arrange that prior to discharge Clinical stability following stroke even though on Plavix and aspirin and statin therapy so will need to assure he has been adequately risk stratified in order to decrease the chance of additional strokes prior to discharge home Subjective/Events-last exam Patient sleeps a lot in between therapies since he really does not sleep well at night here No falls reported since last and only one since he has been at IRF until this morning and now has a new skin tear on his lower arm Does not sleep well at all and it appears this is a chronic issue but he says he sleeps well at home Patient appears to be improving every day We will go home with the family Safety prevention discussed BM+ Check meds and labs Reviewed therapy notes Conferred with RN Objective Exam Vital Signs Vital Signs Date Time Temp Pulse Resp B/P (MAP) Pulse Ox O2 Delivery O2 Flow Rate FiO2 03/07/19 20:02 98 Room Air 03/07/19 17:00 97.5 86 16 127/72 (90) Capillary Refill : General Appearance: No Apparent Distress, WD/WN, Chronically ill, Thin, Other (fatigued, disheveled) HEENT: PERRL/EOMI, TMs Normal, Normal ENT Inspection, Pharynx Normal, Moist Mucous Membranes Neck: Full Range of Motion, Normal Inspection, Non Tender, Supple Respiratory: Chest Non Tender, Lungs Clear, Normal Breath Sounds, No Accessory Muscle Use, No Respiratory Distress, Wheezing Cardiovascular: Regular Rate, Rhythm, No Edema, No Gallop, No JVD, No Murmur Gastrointestinal: Normal Bowel Sounds, No Organomegaly, No Pulsatile Mass, Non Tender, Soft Back: Normal Inspection, No CVA Tenderness, No Vertebral Tenderness Extremity: Normal Capillary Refill, Normal Inspection, Normal Range of Motion, Non Tender, No Calf Tenderness, No Pedal Edema Neurologic/Psychiatric: Alert, Oriented x3, Normal Mood/Affect, Abnormal Cerebellar Tests, Abnormal hot metal mixer operator II-XII (left), Abnormal Gait, Motor Weakness (left upper and lower 3/5 strength), Other (stuttering) Skin: Normal Color, Warm/Dry Lymphatic: No Adenopathy Results/Procedures Lab Patient resulted labs reviewed. FIM Transfers Therapy Code Descriptions/Definitions Functional [place] Measure: 0=Not Assessed/NA 4=Minimal Assistance 1=Total Assistance 5=Supervision or Setup 2=Maximal Assistance 6=Modified [place] 3=Moderate Assistance 7=Complete [place] Therapy Quality Codes: 6 Independent with activity with or without an assistive device 5 Patient requires set up or clean up by helper. Patient completes activity by themselves 4 Supervision or touching assist (CGA). [place] provide cues , steadying assist 3 The helper provides less than half the effort to complete the activity 2 The helper provides more than half the effort to complete the activity 1 Dependent. The helper does all the effort to complete an activity 7 Patient refused to complete or attempt activity 9 The patient did not perform the activity before the current illness or injury 88 Not attempted due to Medical conditions or safety concerns Transfers (B, C, W/C) (FIM): 4 Scootin Rollin Roll Left to Right (QC): 4 Supine to/from Sit: 4 Sit to/from Stand: 4 Sit to Lying (QC): 4 Sit to Stand (QC): 4 Chair/Qso-pn-Ufhkq Xfer(QC): 2 Bed to/from Chair: 4 Car Transfer (QC): 2 Gait Training Does the Patient Walk?: Yes Gait (FIM): 4 Distance (FIM): 3=150 ft Distance: 100ft x2 Walk 10 feet (QC): 4 Walk 50 ft with 2 Turns(QC): 4 Walk 150 ft (QC): 4 Gait Level of Assist: 3 Gait Persons Needed: 1 Gait Assistive Device: Walker Platform Wheelchair Training Does the Pt Use a Wheelchair?: No Wheelchair (FIM): 1 Wheelchair Distance: 1=up to 49 ft Distance: 100 Wheelchair Level of Assist: 3 Type of Wheelchair: Manual Stair Training Stair Training: Handrails/: 1 handrail Stairs (FIM): 2 #of Steps: 4 1 Step (curb) (QC): 3 4 Steps (QC): 3 Stairs: Pattern: Step to Level of Assist: 4 Mental Status/Objective Comprehension: 5 Expression: 4 Social Interaction: 3 Problem Solvin Memory: 3 ADL-Treatment Feedin (Pt required verbal cues to scan tray for utensils on L side. Pt required assist to open butter. Pt used L hand to hold toast and R hand to spread butter with utensils, set up. ) Eating (QC): 5 Groomin (Pt able to shave face by self using R hand. No movement in L hand noted, set up. ) Oral Hygiene (QC): 6 Bathin (Pt squeezed soap on washcloth using R hand, holding washcloth in L hand. Pt washed R arm with L hand by self. Pt needed assist to squeeze soap on head. Pt required Min Assist for steadying while standing to wash buttocks. Pt able to rinse and dry self. ) Bathing Location: L Arm, R Arm, L Upper Leg, R Upper Leg, L Lower Leg (including foot), R Lower Leg (including foot), Chest, Abdomen, Buttocks, Perineal Area Shower/Bathe Self (QC): 4 Upper Extremity Dressin (Pt able to pull shirt over head. Pt required assist to find sleeves. Pt able to thread shirt through sleeves self. Pt educated on importance of threading arms through shirt first. ) Upper Body Dressing (QC): 4 Lower Extremity Dressin ( Pt required min assist for steadying while pt stood to doff pants. Pt able to don boxer briefs self, min assist while standing to hike over hips. Pt required assist to thread L leg into pants. Pt able to thread R leg by self, requiring min assist while standing to hike pants above waist. Pt required min assist to adjust clothing on backside. Pt able to put shoes by self. ) Lower Body Dressing (QC): 4 On/Off Footwear (QC): 5 Toiletin Toileting Hygiene (QC): 4 Toilet/Commode Transfer: 4 (Pt required cane and grab bar. Pt needed verbal cues to move L foot and to move closer to toilet before sitting. ) Toilet Transfer (QC): 4 Shower: 4 (Pt required platform walker, grab bar, and shower chair, min A. 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 COPD Smoker cessation counseled Dark stools resolved s/p EGD/Colon Leukopenia HTN HLP GIB no source of bleed on scopes Gastritis placed on H2 rohit Left arm skin tear requiring Dr Kumar consultation in midst of complete healing Sleep disorder Falls Plan: Gastritis treatment to continue ASA and Plavix and statin to be maintained IRF protocols Wound care right arm healed Improved each day Air mattress has really helped his sleep now DC home once completely recovered as much as possible for catastrophic CVA (1) CVA (cerebral vascular accident) Status: Acute Qualifiers: CVA mechanism: unspecified Qualified Codes: I63.9 - Cerebral infarction, unspecified (2) 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 Status: Acute (3) Back pain Status: Chronic Qualifiers: Back pain location: back pain in unspecified location Chronicity: unspecified Back pain laterality: unspecified Qualified Codes: M54.9 - Dorsalgia, unspecified (4) Dark stools Status: Acute (5) Impulsive Status: Acute (6) Leukopenia Status: Acute Qualifiers: Leukopenia type: unspecified Qualified Codes: D72.819 - Decreased white blood cell count, unspecified (7) Anemia Status: Chronic Qualifiers: Anemia type: unspecified type Qualified Codes: D64.9 - Anemia, unspecified (8) Hypertension Status: Chronic Qualifiers: Hypertension type: essential hypertension Qualified Codes: I10 - Essential (primary) hypertension (9) COPD (chronic obstructive pulmonary disease) Status: Chronic Qualifiers: COPD type: unspecified COPD Qualified Codes: J44.9 - Chronic obstructive pulmonary disease, unspecified (10) Hyperlipidemia Status: Chronic Qualifiers: Hyperlipidemia type: mixed hyperlipidemia Qualified Codes: E78.2 - Mixed hyperlipidemia (11) Renal insufficiency Status: Chronic (12) Wheezing Status: Acute (13) Carotid stenosis Status: Chronic Qualifiers: Laterality: bilateral Qualified Codes: I65.23 - Occlusion and stenosis of bilateral carotid arteries (14) Left-sided weakness Status: Acute (15) BPH (benign prostatic hyperplasia) Status: Chronic Qualifiers: Lower urinary tract symptom presence: unspecified whether lower urinary tract symptoms present Qualified Codes: N40.0 - Benign prostatic hyperplasia without lower urinary tract symptoms (16) Risk for falls Status: Acute (17) Smoker Status: Chronic HEBERT BAKER DO Mar 07, 2019 13:30
[2019-03-07 17:00] VITALS: BP 127/72
[2019-03-07] MEDS: TAMSULOSIN 0.4 MG (FLOMAX) CAP PO SCH (18:51)
[2019-03-07] MEDS: RT-ALBUTEROL/IPRATROPIUM 3 ML (DUONEB) VIAL INH SCH (20:02)
[2019-03-07] MEDS: ALPRAZolam 0.25 MG (XANAX) TAB PO PRN (21:15)
[2019-03-07] MEDS: MELATONIN 3 MG TABLET PO SCH (21:15)
[2019-03-07] MEDS: ATORVASTATIN 80 MG (LIPITOR) TABLET PO SCH (21:15)
[2019-03-08 05:40] VITALS: BP 112/65
--- NOTE | 2019-03-08 07:59 | Occupational Ther Daily Note ---
OT Current Status-Daily Note Subjective Pt asleep in chair upon OT arrival. Pt reports only 1-2 hours of sleep last night and is tired. Pt agrees to therapy. Mental Status/Objective Patient Orientation: Person, Place, Situation Therapy Code Descriptions/Definitions Functional [place] Measure: 0=Not Assessed/NA 4=Minimal Assistance 1=Total Assistance 5=Supervision or Setup 2=Maximal Assistance 6=Modified [place] 3=Moderate Assistance 7=Complete [place] ADL-Treatment Therapy Code Descriptions/Definitions Functional [place] Measure: 0=Not Assessed/NA 4=Minimal Assistance 1=Total Assistance 5=Supervision or Setup 2=Maximal Assistance 6=Modified [place] 3=Moderate Assistance 7=Complete [place] Therapy Quality Codes: 6 Independent with activity with or without an assistive device 5 Patient requires set up or clean up by helper. Patient completes activity by themselves 4 Supervision or touching assist (CGA). [place] provide cues , steadying assist 3 The helper provides less than half the effort to complete the activity 2 The helper provides more than half the effort to complete the activity 1 Dependent. The helper does all the effort to complete an activity 7 Patient refused to complete or attempt activity 9 The patient did not perform the activity before the current illness or injury 88 Not attempted due to Medical conditions or safety concerns Eating (FIM): 5 (Pt required assist to open cereal container and milk carton. Pt able to pour milk into cereal container using R hand. Pt able to remove coffee lid self. ) Eating (QC): 5 Grooming (FIM): 6 (Pt does not use dentures and states that he does not cleanse mouth. Pt is able to use electric razor by self and [place] hair all in sitting.) Oral Hygiene (QC): 6 Bathing (FIM): 4 (Pt used L hand to hold wash cloth and use R hand to squeeze soap with 1 verbal cue. Pt used L arm to wash R arm. Pt used R arm to wash rest of body. Pt squeezed soap onto to head using R hand. Pt required Min Assist to steady while standing to wash buttocks. Pt able to rinse and dry by self.) Bathing Location: L Arm, R Arm, L Upper Leg, R Upper Leg, L Lower Leg (including foot), R Lower Leg (including foot), Chest, Abdomen, Buttocks, Perineal Area Shower/Bathe Self (QC): 3 Upper Body (FIM): 4 (Pt able to doff clothing by self using L/R hand. Pt able to thread R arm and head through sleeves. Pt required Min A to thread L arm through sleeve. Pt educated on importance of threading L arm through sleeve first. ) Upper Body Dressing (QC): 3 Lower Body Dressing (FIM): 4 (Pt able to doff clothing by self. Pt able to don clothes above knees by self. Pt required Min Assist for steadying while standing to hike briefs above waist. Pt required assist to adjust clothing in the back. Pt able to don/doff shoes by self. ) Lower Body Dressing (QC): 3 On/Off Footwear (QC): 6 Toileting (FIM): 4 (Pt able to cleanse self after voiding and BM, supervision. CGA while pt uses L hand to hold onto grabbar and R hand to manipulate clothing.) Toileting Hygiene (QC): 4 Transfers (B, C, W/C) (FIM): 4 (Pt required Min Assist during to transfer to w/c. Pt tired this morning. Pt required CGA assist for steadying to transfer to chair. ) Toilet/Commode Transfer (FIM): 4 (Pt required grab bar and cane. Pt required CGA for steadying. ) Toilet Transfer (QC): 3 Shower Transfer(FIM): 4 (Pt required grab bar and shower bench. Pt had 1 LOB in shower. Pt required CGA assist for steadying. ) After therapy, pt sitting in recliner with call light/phone in reach. Safety measures in place. All needs met in room. Education OT Patient Education: Modified ADL techniques Teaching Recipient: Patient Teaching Methods: Discussion Response to Teaching: Reinforcement Needed OT Short Term Goals Short Term Goals Eating(FIM): 5 Grooming(FIM): 5 Bathing(FIM): 4 Upper Body Dressing(FIM): 4 Lower Body Dressing(FIM): 4 Toileting(FIM): 3 Transfers (B,C,W/C) (FIM): 4 Toilet/Commode Transfer(FIM): 3 Shower Transfer(FIM): 4 1=Demonstrate adherence to instructed precautions during ADL tasks. 2=Patient will verbalize/demonstrate understanding of assistive devices/modifications for ADL. 3=Patient will improve strength/tolerance for activity to enable patient to perform ADL's. OT Real Estate Recruiter Goals Real Estate Recruiter Goals Eating (FIM): 6 (not met) Eating (QC): 6 (not) Groomin (met-03/08/2019) Oral Hygiene (QC): 6 Bathing(FIM): 6 (not met) Shower/Bathe Self (QC): 6 (not met) Upper Body Dressing(FIM): 6 (not met) Upper Body Dressing (QC): 6 (not met) Lower Body Dressing(FIM): 5 (not met) Lower Body Dressing (QC): 4 (not met) On/Off Footwear (QC): 5 (met-03/09/2019) Toileting(FIM): 5 (not met) Toileting Hygiene (QC): 4 (not met) Transfers (B,C,W/C) (FIM): 6 (not met) Toilet/Commode Transfer(FIM): 6 (not met) Toilet/Commode Transfer (QC): 6 (not met) Shower Transfer(FIM): 6 (not met) Additional Goals: 1-Demonstrate ADL Tasks, 2-Verbalize Understanding, 3- ImproveStrength/[place] 1=Demonstrate adherence to instructed precautions during ADL tasks. 2=Patient will verbalize/demonstrate understanding of assistive devices/modifications for ADL. 3=Patient will improve strength/tolerance for activity to enable patient to perform ADL's. OT Education/Plan Problem List/Assessment Assessment: Decreased Safety Aware, Impaired Self-Care Skills, Restricted Funct UE ROM pt presents with functional limitations affecting areas of ADLs and functional transfers with the above mention deficits including decrease proprioception. pt would benefit from skilled OT Services to address above mention deficits and i ncrease independence with ADLS and functional transfers. Discharge Recommendations Plan/Recommendations: Continue POC Therapy Discharge Recommendati: Other, See Comments (Pt to go stay with daughter), Post Acute OT Equpiment Recommendations-D/C: Extended Bath Bench Treatment Plan/Plan of Care Patient would benefit from OT for education, treatment and training to promote independence in ADL's, mobility, safety and/or upper extremity function for ADL's. Plan of Care: ADL Retraining, Caregiver Training, Concurrent Therapy, Functional Mobility, Group Exercise/Act as Ind, UE Funct Exercise/Act, UE Neuromus Re-Ed/Coord, Visual/Perceptual Retrain, W/C Management Training Treatment Duration: Mar 15, 2019 Frequency: At least 5 of 7 days/Wk (IRF) Estimated Hrs Per Day: 1 hour per day (60-90 minutes per day ) Agreement: Yes Rehab Potential: Fair Time/GCodes Start Time: 06:45 Stop Time: 07:45 Total Time Billed (hr/min): 60 Billed Treatment Time 1 visit- ADL 4 (60 min) JALIL DUPONT Mar 08, 2019 07:59
[2019-03-08 08:15] LABS: BASOPHILS % (AUTO) 0 % (0-10); EOSINOPHILS # (AUTO) 0.1 10^3/uL (0.0-0.3); EOSINOPHILS % (AUTO) 2 % (0-10); HEMATOCRIT 31 % (40-54); HEMOGLOBIN 9.9 G/DL (13.3-17.7); LYMPHOCYTES # (AUTO) 1.5 X 10^3 (1.0-4.0); LYMPHOCYTES % (AUTO) 25 % (12-44); MEAN CORPUSCULAR HEMOGLOBIN 31 PG (25-34); MEAN CORPUSCULAR HGB CONC 33 G/DL (32-36); MEAN CORPUSCULAR VOLUME 94 FL (80-99); MEAN PLATELET VOLUME 9.5 FL (7.4-10.4); MONOCYTES # (AUTO) 0.6 X 10^3 (0.0-1.0); MONOCYTES % (AUTO) 10 % (0-12); NEUTROPHILS # (AUTO) 3.6 X 10^3 (1.8-7.8); NEUTROPHILS % (AUTO) 62 % (42-75); PLATELET COUNT 289 10^3/uL (130-400); RED CELL DISTRIBUTION WIDTH 15.1 % (10.0-14.5); WHITE BLOOD COUNT 5.8 10^3/uL (4.3-11.0)
[2019-03-08 08:32] LABS: ALBUMIN 3.8 GM/DL (3.2-4.5); BILIRUBIN,TOTAL 0.3 MG/DL (0.1-1.0); CREATININE SERUM 1.33 MG/DL (0.60-1.30); POTASSIUM 4.4 MMOL/L (3.6-5.0); TOTAL PROTEIN 6.7 GM/DL (6.4-8.2)
[2019-03-08 08:37] VITALS: BP 130/57
[2019-03-08] MEDS: NICOTINE 21 MG (NICODERM) PATCH TD SCH (08:42)
[2019-03-08] MEDS: CLOPIDOGREL 75 MG (PLAVIX) TABLET PO SCH (08:42)
[2019-03-08] MEDS: ASPIRIN E.C. 81 MG (ECOTRIN) TAB PO SCH (08:42)
[2019-03-08] MEDS: CARVEDILOL 12.5 MG (COREG) TABLET PO SCH ×2 (08:42→21:42)
[2019-03-08] MEDS: FAMOTIDINE 20 MG (PEPCID) TABLET PO SCH (08:43)
[2019-03-08] MEDS: lisINopril 10 MG (PRINIVIL) TABLET PO SCH (08:43)
[2019-03-08] MEDS: RT-ALBUTEROL/IPRATROPIUM 3 ML (DUONEB) VIAL INH SCH ×2 (08:54→20:49)
--- NOTE | 2019-03-08 08:57 | Physical Therapy Daily Note ---
PT Daily Note-Current Subjective Patient in recliner pre tx, agrees to PT, has no complaints of pain Appearance Patient in recliner post tx with nurse call, phone, tray, all needs met, chair alarm on. Mental Status Patient Orientation: Person, Place, Situation Transfers Therapy Code Descriptions/Definitions Functional [place] Measure: 0=Not Assessed/NA 4=Minimal Assistance 1=Total Assistance 5=Supervision or Setup 2=Maximal Assistance 6=Modified [place] 3=Moderate Assistance 7=Complete [place] Therapy Quality Codes: 6 Independent with activity with or without an assistive device 5 Patient requires set up or clean up by helper. Patient completes activity by themselves 4 Supervision or touching assist (CGA). [place] provide cues , steadying assist 3 The helper provides less than half the effort to complete the activity 2 The helper provides more than half the effort to complete the activity 1 Dependent. The helper does all the effort to complete an activity 7 Patient refused to complete or attempt activity 9 The patient did not perform the activity before the current illness or injury 88 Not attempted due to Medical conditions or safety concerns Transfers (B, C, W/C) (FIM): 4 Scootin Rollin Roll Left to Right (QC): 4 Supine to/from Sit: 5 Sit to/from Stand: 4 Sit to Lying (QC): 4 Sit to Stand (QC): 4 Chair/Sax-oj-Yrhec Xfer(QC): 3 Bed to/from Chair: 4 Car Transfer (QC): 4 Patient performs bed mobility with SBA, supine <-> sit with SBA, sit <-> stand CGA, transfers with min assist to the left and CGA to the right, car transfer min assist. Patient has left neglect and is impulsive. Cues for hand placement and positioning. Weight Bearing Full Weight Bearing Full Weight Bearing Gait Training Gait (FIM): 4 Distance: 250', 150' Walk 10 feet (QC): 3 Walk 50 ft with 2 Turns(QC): 3 Walk 150 ft (QC): 3 Walking 10ft/uneven surface-QC: 3 Gait Level of Assist: 4 Gait Persons Needed: 1 Gait Assistive Device: Cane Single Point Patient can ambulate 250' with a single point cane with min assist (including 50' with at least 2 turns of 90 degrees and 10' over an uneven surface). Patient needs assist with balance, has left neglect, needs cues for direction, is impulsive. Can only use SPC for assistive device because he insists on using any other quad cane or hemiwalker incorrectly. Stair Training Stair Training: Handrails/: 1 handrail Stairs (FIM): 2 #of Steps: 4 1 Step (curb) (QC): 3 4 Steps (QC): 3 Stairs: Pattern: Step to Level of Assist: 4 Patient can go up and down 4 steps using 1 handrail with min assist. Needs cues for step placement with every step because he will try to do it incorrectly. Exercises Supine Ex: Bridging, Heel Slides, Straight leg raise, Hip abd/add Supine Reps: 20 LAQ alternating for 5 min NuStep Minutes: 15 NuStep Workload: 4 Treatments LE exercise, stairs, bed mobility and transfers, ambulation Assessment Current Status: Fair Progress slowly improving general mobility but still high fall risk PT Short Term Goals Short Term Goals Time Frame: Feb 21, 2019 Transfers (B,C,W/C) (FIM): 4 Gait (FIM): 2 Gait Distance Comment: 50' Gait Level of Assist: 4 Gait Assistive Device: Walker [place] Wheelchair Distance: 100 PT Long-Term Goals Senior Process Analyst Goals PT Long-Term Goals Time Frame: Mar 07, 2019 Transfers (B,C,W/C) (FIM): 5 Sit to Lying (QC): 4 Lying-Sitting on Side/Bed(QC): 4 Sit to Stand (QC): 4 Rollin Roll Left to Right (QC): 4 Chair/Cwi-ur-Trlwk Xfer(QC): 4 Car Transfer (QC): 4 Gait (FIM): 2 Distance: 100' Walk 10 feet (QC): 4 Walk 10ft-Uneven Surface(QC): 4 Walk 50ft with 2 Turns (QC): 4 Gait Level of Assist: 4 Gait Assistive Device: Walker [place] Stairs (FIM): 2 # of Steps: 4 1 Step (curb) (QC): 3 4 Steps (QC): 3 Stairs Level Of Assist: 4 PT Plan Problem List Problem List: Activity Tolerance, Functional Strength, Safety, Balance, Gait, Transfer, Bed Mobility Treatment/Plan Treatment Plan: Continue Plan of Care Treatment Plan: Bed Mobility, Education, Functional Activity [place], Functional Strength, Group Therapy, Gait, Safety, Therapeutic Exercise, Transfers Treatment Duration: Mar 07, 2019 Frequency: At least 5 of 7 days/Wk (IRF) Estimated Hrs Per Day: 1.5 hours per day Patient and/or Family Agrees t: Yes Safety Risks/Education Patient Education: Gait Training, Transfer Techniques, Steps, Correct Positioning, Safety Issues Teaching Recipient: Patient Teaching Methods: Demonstration, Discussion Response to Teaching: Reinforcement Needed Time/GCodes Time In: 0800 Time Out: 0900 Total Billed Treatment Time: 60 Total Billed Treatment 1 visit GT 20' FA 10' EX 30' VERENA FREEMAN PT Mar 08, 2019 08:57
[2019-03-08] MEDS: SENNA W/DOCUSATE (SENOKOT S) TABLET PO SCH ×2 (09:15→21:42)
--- NOTE | 2019-03-08 10:11 | PM&R Progress Note ---
Subjective HPI/CC On Admission Date Seen by Provider: Mar 08, 2019 Time Seen by Provider: 10:45 Chief complaint: Debility following CVA with left-sided weakness History of present illness: This is a 73-year-old white male clinic patient of [facility] who accepted upon transfer from [facility] hospitalist service after I transferred him there on 02/05/2019 after he was admitted for suspicion of TIA and CVA and although CT scan showed no evidence of any stroke carotid artery ultrasound at [facility] at that time with stroke protocol revealed critical carotid artery stenosis requiring transfer to vascular care assessment. He had a history of right stent placement in the carotid artery in the past and a right-sided carotid endarterectomy in 1999 and continued to smoke since that time. He was transferred to [facility] maintained on Plavix aspirin and statin therapy along with antihypertensive meds and was seen by neurology and vascular surgery. Renal insufficiency returned back to baseline at 1.4 so IV fl uids were discontinued. Patient was managed aggressively and underwent a left carotid stent placement due to critical stenosis on 02/08/[address] Sherman and continue to have the left upper extremity weakness. He was improving at that time. In on site services specialist hours of 02/09/2019 patient suffered an acute CVA confirmed on CT scan even while maintained on Plavix and aspirin. Patient was not deemed a TPA candidate at that time once again. He was found to have a brain aneurysm 3 mm in the A1 segment of the brain but no intervention was planned. CT confirmed the acute infarct involving the watershed distribution between MCA and CHANNEL MARKETING PROGRAM MANAGER territory on the right as well as a small lacunar infarct along the centrum semi-ovale on the right and within the right parietal lobe. He was transported to [facility] inpatient rehab by his daughter 1 of 6 children who lives in [place]. He currently is leaning over to the left because of inability to sit straight in the wheelchair. This indicates a p rofound loss of function and will require at least 14 days of inpatient rehab for recovery in order to return to some sort of status to be able to return home to live independently and assist with regaining independence with ADLs. He is wheezing currently so I did order duo nebs 3 times daily scheduled. Smoking cessation was counseled on nicotine patch order was placed. Considering the numerous strokes he has had even while being on Plavix and aspirin it is concerning and his prognosis is guarded for additional strokes and even more extensive debility. His barriers to returning home include: Unable to ambulate at this current time wheelchair-bound and home not wheelchair accessible Lives alone but family is involved in his care so likely will need major supervision will need to arrange that prior to discharge Clinical stability following stroke even though on Plavix and aspirin and statin therapy so will need to assure he has been adequately risk stratified in order to decrease the chance of additional strokes prior to discharge home Subjective/Events-last exam Patient sleeps a lot in between therapies since he really does not sleep well at night here No more falls reported Does not sleep well at all and it appears this is a chronic issue but he says he sleeps well at home Patient appears to be improving every day We will go home with the family Safety prevention discussed BM+ Check meds and labs Reviewed therapy notes Conferred with social scientist of Systems Neurological: Weakness, Numbness, Incoordination Objective Exam Vital Signs Vital Signs Date Time Temp Pulse Resp B/P (MAP) Pulse Ox O2 Delivery O2 Flow Rate FiO2 03/08/19 08:54 97 Room Air 03/08/19 08:37 96.7 75 18 130/57 (81) Capillary Refill : General Appearance: No Apparent Distress, WD/WN, Chronically ill, Thin, Other (fatigued, disheveled) HEENT: PERRL/EOMI, TMs Normal, Normal ENT Inspection, Pharynx Normal, Moist Mucous Membranes Neck: Full Range of Motion, Normal Inspection, Non Tender, Supple Respiratory: Chest Non Tender, Lungs Clear, Normal Breath Sounds, No Accessory Muscle Use, No Respiratory Distress, Wheezing Cardiovascular: Regular Rate, Rhythm, No Edema, No Gallop, No JVD, No Murmur Gastrointestinal: Normal Bowel Sounds, No Organomegaly, No Pulsatile Mass, Non Tender, Soft Back: Normal Inspection, No CVA Tenderness, No Vertebral Tenderness Extremity: Normal Capillary Refill, Normal Inspection, Normal Range of Motion, Non Tender, No Calf Tenderness, No Pedal Edema Neurologic/Psychiatric: Alert, Oriented x3, Normal Mood/Affect, Abnormal Cerebellar Tests, Abnormal team coordinator II-XII (left), Abnormal Gait, Motor Weakness (left upper and lower 3/5 strength), Other (stuttering) Skin: Normal Color, Warm/Dry Lymphatic: No Adenopathy Results/Procedures Lab Laboratory Tests 03/08/19 07:59 Patient resulted labs reviewed. FIM Transfers Therapy Code Descriptions/Definitions Functional [place] Measure: 0=Not Assessed/NA 4=Minimal Assistance 1=Total Assistance 5=Supervision or Setup 2=Maximal Assistance 6=Modified [place] 3=Moderate Assistance 7=Complete [place] Therapy Quality Codes: 6 Independent with activity with or without an assistive device 5 Patient requires set up or clean up by helper. Patient completes activity by themselves 4 Supervision or touching assist (CGA). Tamms provide cues , steadying assist 3 The helper provides less than half the effort to complete the activity 2 The helper provides more than half the effort to complete the activity 1 Dependent. The helper does all the effort to complete an activity 7 Patient refused to complete or attempt activity 9 The patient did not perform the activity before the current illness or injury 88 Not attempted due to Medical conditions or safety concerns Transfers (B, C, W/C) (FIM): 4 Scootin Rollin Roll Left to Right (QC): 4 Supine to/from Sit: 5 Sit to/from Stand: 4 Sit to Lying (QC): 4 Sit to Stand (QC): 4 Chair/[id number] Xfer(QC): 3 Bed to/from Chair: 4 Car Transfer (QC): 4 Gait Training Does the Patient Walk?: Yes Gait (FIM): 4 Distance (FIM): 3=150 ft Distance: 250', 150' Walk 10 feet (QC): 3 Walk 50 ft with 2 Turns(QC): 3 Walk 150 ft (QC): 3 Walking 10ft/uneven surface-QC: 3 Gait Level of Assist: 4 Gait Persons Needed: 1 Gait Assistive Device: Cane Single Point Wheelchair Training Does the Pt Use a Wheelchair?: No Wheelchair (FIM): 1 Wheelchair Distance: 1=up to 49 ft Distance: 100 Wheelchair Level of Assist: 3 Type of Wheelchair: Manual Stair Training Stair Training: Handrails/: 1 handrail Stairs (FIM): 2 #of Steps: 4 1 Step (curb) (QC): 3 4 Steps (QC): 3 Stairs: Pattern: Step to Level of Assist: 4 Mental Status/Objective Comprehension: 5 Expression: 4 Social Interaction: 3 Problem Solvin Memory: 3 ADL-Treatment Feedin (Pt required assist to open cereal container and milk carton. Pt able to pour milk into cereal container using R hand. Pt able to remove coffee lid self. ) Eating (QC): 5 Groomin (Pt able to shave face by self using R hand. No movement in L hand noted, set up. ) Oral Hygiene (QC): 6 Bathin (Pt used L hand to hold wash cloth and use R hand to squeeze soap with 1 verbal cue. Pt used L arm to wash R arm. Pt used R arm to wash rest of body. Pt squeezed soap onto to head using R hand. Pt required Min Assist to steady while standing to wash buttocks. Pt able to rinse and dry by self.) Bathing Location: L Arm, R Arm, L Upper Leg, R Upper Leg, L Lower Leg (including foot), R Lower Leg (including foot), Chest, Abdomen, Buttocks, Perineal Area Shower/Bathe Self (QC): 4 Upper Extremity Dressin (Pt able to doff clothing by self using L/R hand. Pt able to thread R arm and head through sleeves. Pt required Min A to thread L arm through sleeve. Pt educated on importance of threading L arm through sleeve first. ) Upper Body Dressing (QC): 4 Lower Extremity Dressin (Pt able to doff clothing by self. Pt able to don clothes above knees by self. Pt required Min Assist for steadying while standing to hike briefs above waist. Pt required assist to adjust clothing in the back. Pt able to don/doff shoes by self. ) Lower Body Dressing (QC): 4 On/Off Footwear (QC): 5 Toiletin (Pt able to cleanse self after voiding and BM, supervision. ) Toileting Hygiene (QC): 5 Toilet/Commode Transfer: 4 (Pt required grab bar and cane. Pt required CGA for steadying. ) Toilet Transfer (QC): 5 Shower: 4 (Pt required grab bar and shower bench. Pt had 1 LOB in shower. Pt required CGA assist for steadying. 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 COPD Smoker cessation counseled Dark stools resolved s/p EGD/Colon Leukopenia HTN HLP GIB no source of bleed on scopes Gastritis placed on H2 rohit Left arm skin tear requiring Dr Kumar consultation in midst of complete healing Sleep disorder Falls Plan: Gastritis treatment to continue ASA and Plavix and statin to be maintained IRF protocols Wound care right arm healed Improved each day Air mattress has really helped his sleep now DC home once completely recovered as much as possible for catastrophic CVA Fall risk (1) CVA (cerebral vascular accident) Status: Acute Qualifiers: CVA mechanism: unspecified Qualified Codes: I63.9 - Cerebral infarction, unspecified (2) 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 Status: Acute (3) Back pain Status: Chronic Qualifiers: Back pain location: back pain in unspecified location Chronicity: unspecified Back pain laterality: unspecified Qualified Codes: M54.9 - Dorsalgia, unspecified (4) Dark stools Status: Acute (5) Impulsive Status: Acute (6) Leukopenia Status: Acute Qualifiers: Leukopenia type: unspecified Qualified Codes: D72.819 - Decreased white blood cell count, unspecified (7) Anemia Status: Chronic Qualifiers: Anemia type: unspecified type Qualified Codes: D64.9 - Anemia, unspecified (8) Hypertension Status: Chronic Qualifiers: Hypertension type: essential hypertension Qualified Codes: I10 - Essential (primary) hypertension (9) COPD (chronic obstructive pulmonary disease) Status: Chronic Qualifiers: COPD type: unspecified COPD Qualified Codes: J44.9 - Chronic obstructive pulmonary disease, unspecified (10) Hyperlipidemia Status: Chronic Qualifiers: Hyperlipidemia type: mixed hyperlipidemia Qualified Codes: E78.2 - Mixed hyperlipidemia (11) Renal insufficiency Status: Chronic (12) Wheezing Status: Acute (13) Carotid stenosis Status: Chronic Qualifiers: Laterality: bilateral Qualified Codes: I65.23 - Occlusion and stenosis of bilateral carotid arteries (14) Left-sided weakness Status: Acute (15) BPH (benign prostatic hyperplasia) Status: Chronic Qualifiers: Lower urinary tract symptom presence: unspecified whether lower urinary tract symptoms present Qualified Codes: N40.0 - Benign prostatic hyperplasia without lower urinary tract symptoms (16) Risk for falls Status: Acute (17) Smoker Status: Chronic HEBERT BAKER DO Mar 08, 2019 10:11
--- NOTE | 2019-03-08 10:28 | Speech Therapy Daily Note ---
Speech Daily Progress Note Subjective Date Seen by Provider: Mar 08, 2019 Time Seen by Provider: 00:30 The patient was resting in his chair when I entered his room. He stated "they wore me out" referring to OT and PT. Assessment Assessment Current Status: Good Progress Treatment Plan Continue Plan of Care Communication Comprehension: 6 Expression: 6 Social Cognition Social Interaction: 7 Problem Solvin Memory: 7 Speech Short Term Goals Short Term Goals Short Term Goals 1) Patient will demonstrate sustained attention, memory and sequencing for task performance with 80% accuracy. 2) Patient will demonstrate effective communication of wants/needs to staff and caregivers with 80% accuracy. Speech Alf Goals Sales Agent Trading Stamps Goals The patient will improve cognitive-communication skills in order to return to his former living situation safely. Speech-Plan Patient/Family Goals Patient/Family Goals: The patient is scheduled to be discharged tomorrow. He will be living with his daughter and other family. Treatment Plan Speech Therapy Treatment Plan: Continue Plan of Care The patient has met his ST goals. Treatment Duration: Mar 09, 2019 Frequency: 5 times per week Estimated Hrs Per Day: .5 hour per day Rehab Potential: Fair Barriers to Learning: The patient has had some cognitive residual affects from recent CVA. Pt/Family Agrees to Plan: Yes Safety Risks/Education Teaching Recipient: Patient Teaching Methods: Demonstration, Discussion Response to Teaching: Verbalize Understanding, Return Demonstration Education Topics Provided: Continued safety within his home environment. Time Speech Therapy Time In: 09:30 Speech Therapy Time Out: 10:00 Total Billed Time: 30 Billed Treatment Time 1, ALFRED Neal Mar 08, 2019 10:28
--- NOTE | 2019-03-08 14:27 | Therapy Group Daily Note ---
Therapy Daily Group Note Patient Education Topic Exercises Exercises LE Seated Exercise, UE Exercise Session Ratio (pt:therapist): 3:1 Goal of Session: Education on ARU Expectations, UE/LE Strengthing Goal Met for this Session: Yes Pt Benefit of Group: Contributions to Others, Increased Functional Strength, Improved Cognition, Recognition of Peers, Socialization Other/Notes Pt transported via w/c to [facility] for OT/PT group. Group consisted of introductions (name, place living, first job), socialization, description/expectations of ARU, benefits of exercise and pt lead exercises. Pt able to introduced self appropriately and actively listened to peers. Pt acknowledged understanding of educational topics by leading own exercise and giving personal experiences. Pt tolerated exercises well and actively participated when other pt's led exercises. Pt acknowledged understanding of ARU description by affirmative gestures. After therapy, pt sitting in recliner. Call light/phone in reach. All needs met in room. Start Time: 12:40 Stop Time: 13:50 Total Billed Treatment Time: 70 Total Billed Treatment 1-[facility] JALIL DUPONT Mar 08, 2019 14:27
[2019-03-08 17:00] VITALS: BP 127/80
[2019-03-08] MEDS: TAMSULOSIN 0.4 MG (FLOMAX) CAP PO SCH (17:00)
--- NOTE | 2019-03-08 19:20 | NUR ---
bedside report received from TATIANA BAIRD, assume care of pt
--- NOTE | 2019-03-08 21:30 | NUR ---
assessments & interventions completed, see assessments & interventions, b/p 117/84 Coreg held, pt refused Ban
[2019-03-08] MEDS: ATORVASTATIN 80 MG (LIPITOR) TABLET PO SCH (21:38)
[2019-03-08] MEDS: MELATONIN 3 MG TABLET PO SCH (21:41)
[2019-03-09 06:11] VITALS: BP 114/65
[2019-03-09] MEDS: RT-ALBUTEROL/IPRATROPIUM 3 ML (DUONEB) VIAL INH SCH (06:33)
--- NOTE | 2019-03-09 07:21 | NUR ---
bedside report given to STACI BAIRD
[2019-03-09 07:53] VITALS: BP 115/66
[2019-03-09] MEDS: CARVEDILOL 12.5 MG (COREG) TABLET PO SCH (07:57)
[2019-03-09] MEDS: ASPIRIN E.C. 81 MG (ECOTRIN) TAB PO SCH (07:57)
[2019-03-09] MEDS: CLOPIDOGREL 75 MG (PLAVIX) TABLET PO SCH (07:57)
[2019-03-09] MEDS: SENNA W/DOCUSATE (SENOKOT S) TABLET PO SCH (07:57)
[2019-03-09] MEDS: lisINopril 10 MG (PRINIVIL) TABLET PO SCH (07:57)
[2019-03-09] MEDS: FAMOTIDINE 20 MG (PEPCID) TABLET PO SCH (07:57)
[2019-03-09] MEDS: NICOTINE 21 MG (NICODERM) PATCH TD SCH (07:58)
--- NOTE | 2019-03-09 09:00 | NUR ---
Per Dr. Kumar, continue daily dressing changes to left upper arm. F/U as outpatient in 1-2 weeks.
[2019-03-09] MEDS ORDERED: LISI10TA2 PO ×2 (09:31)
[2019-03-09] MEDS ORDERED: ATOR80TA76 PO ×2 (09:31)
[2019-03-09] MEDS ORDERED: NICO-588 TD ×2 (09:31)
[2019-03-09] MEDS ORDERED: CLOP75TA28 PO ×2 (09:31)
[2019-03-09] MEDS ORDERED: ACHD5005 PO ×2 (09:31)
[2019-03-09] MEDS ORDERED: FAMO-119 PO ×2 (09:31)
--- NOTE | 2019-03-09 09:34 | D/C HH Face to Face Order ---
D/C Face to Face Orders Reconcile Patient Problems Problems Reviewed?: Yes Instructions for Patient Via Rachel Guerrilla RF, Patient Instructions/FollowUp: [facility] in 1 week Physician to follow Patient: [facility] Discharge Diet for Home: No Restrictions Patient Problems: CVA with left sided weakness Goals for Patient: Return to independent living Patient Data-Allergies,Ht & Wt Patient Allergies: Coded Allergies: NKANo Known Allergies (Unverified Allergy, Mild, 05/17/09) Height (Feet): 5 Height (Inches): 7.00 Weight (Pounds): 147 Weight (Ounces): 1.6 Home Health Need/Face to Face Date of Face to Face: Mar 09, 2019 Clinical Findings: Generalized weakness and fatigue, Muscle weakness, Unsteady gait I have seen Pt [id number]: Yes Discharged To: Home Diagnosis/Conditions: CVA Patient is Homebound due to: Cate fall risk due to instabilty, Muscle weakness Homebound Status Due to the above stated illness, injury or surgical procedure (medical condition or diagnosis) and associated clinical findings, the patient is home bound because of his/her inability to leave home except with aid of a supportive device and/or person AND leaving the home requires a considerable and taxing effort or is medically contraindicated. Pt req the following assistanc: [facility] Home Health Nursing Orders Home Health Services Order: Nursing Services, [employer]-Evaluate & Treat, Physical Therapy-Evaluate & Treat Certify Stmt I certify that this patient is under my care and that I, a nurse practitioner or a physician; a radiology assistant working with me, had a face to face encounter that - meets the physician face to face encounter requirements with this patient as dated. HEBERT BAKER DO Mar 09, 2019 09:34
--- NOTE | 2019-03-09 09:38 | Discharge Summary ---
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 COPD Smoker cessation counseled Dark stools resolved s/p EGD/Colon Leukopenia HTN HLP GIB no source of bleed on scopes Gastritis placed on H2 rohit Left arm skin tear requiring Dr Kumar consultation in midst of complete healing Sleep disorder Falls Plan: Gastritis treatment to continue ASA and Plavix and statin to be maintained IRF protocols Wound care right arm healed Improved each day Air mattress has really helped his sleep now DC home once completely recovered as much as possible for catastrophic CVA Discharge Summary Discharge Physical Examination Allergies: Coded Allergies: NKANo Known Allergies (Unverified Allergy, Mild, 05/17/09) Vitals & I&Os Vital Signs Date Time Temp Pulse Resp B/P (MAP) Pulse Ox O2 Delivery O2 Flow Rate FiO2 03/09/19 11:53 73 18 133/66 93 Room Air 03/09/19 11:00 98.2 General Appearance: Alert, Oriented X3, Cooperative Respiratory: Clear to Auscultation Cardiovascular: Regular Rate Neuro: Other (left sided paresis and neglect) Psych/Mental Status: Mental Status NL, Mood NL Hospital Course Was the Problem List Reviewed?: Yes Hospital course: Pt had an uneventful hospital course for 25 days, he did suffer two very small minor falls resulting in skin tear of his left arm, and then he had a skin tear there from [facility] when he was hospitalized there prior to transferring back here. He participated in all therapy, left-sided neglect and weakness was quite profound but he was maintained on Plavix and Aspirin and did have Hemoccult positive stools and decreased Hgb, he did undergo EGD and colonoscopy showing gastritis so he was maintained on H2 blockers with good results. His Hgb remains stable. He did not require transfusion. Overall his BP remains stable while maintained on low dose BP medication of Lisinopril and Beta rohit. Nebulizer treatments were discontinued, he had no significant problems with exacerbation of COPD that was not managed conservatively with nebulizer treatments and IS. Family training in suit, he was deemed stable for discharge with family with home healthcare nurse, PT and OT. He will have close follow-up with [facility] and I did send his medications into [facility]. His prior level of functioning was independent but now with the catastrophic left-sided weakness from the stroke he was able to navigate with a walker in assistance and help with ADLs and will continue his recovery at home. Labs (last 24 hrs) Laboratory Tests 02/14/19 06:00: White Blood Count 2.1L, Red Blood Count 3.54L, Hemoglobin 10.7L, Hematocrit 32L, Mean Corpuscular Volume 92, Mean Corpuscular Hemoglobin 30, Mean Corpuscular Hemoglobin Concent 33, Red Cell Distribution Width 14.6H, Platelet Count 263, Mean Platelet Volume 9.7, Neutrophils (%) (Auto) 26L, Lymphocytes (%) (Auto) 53H , Monocytes (%) (Auto) 17H, Eosinophils (%) (Auto) 2, Basophils (%) (Auto) 2, Neutrophils # (Auto) 0.5L, Lymphocytes # (Auto) 1.1, Monocytes # (Auto) 0.3, Eosinophils # (Auto) 0.1, Basophils # (Auto) 0.0, Sodium Level 137, Potassium Level 4.1, Chloride Level 106, Carbon Dioxide Level 19L, Anion Gap 12, Blood Urea Nitrogen 23H, Creatinine 1.30, Estimat Glomerular Filtration Rate 54, BUN/Creatinine Ratio 18, Glucose Level 91, Calcium Level 9.2, Corrected Calcium 9.7, Total Bilirubin 0.5, Aspartate Amino Transf (AST/SGOT) 18, Alanine Aminotransferase (ALT/SGPT) 14, Alkaline Phosphatase 61, Total Protein 5.9L, Albumin 3.4 02/14/19 17:00: Stool Occult Blood Immunoassay POSITIVEH 02/15/19 08:18: White Blood Count 3.3L, Red Blood Count 3.65L, Hemoglobin 11.2L, Hematocrit 33L, Mean Corpuscular Volume 92, Mean Corpuscular Hemoglobin 31, Mean Corpuscular Hemoglobin Concent 34, Red Cell Distribution Width 14.4, Platelet Count 306, Mean Platelet Volume 9.8, Neutrophils (%) (Auto) 39L, Lymphocytes (%) (Auto) 45H , Monocytes (%) (Auto) 14H, Eosinophils (%) (Auto) 1, Basophils (%) (Auto) 1, Neutrophils # (Auto) 1.3L, Lymphocytes # (Auto) 1.5, Monocytes # (Auto) 0.5, Eosinophils # (Auto) 0.0, Basophils # (Auto) 0.0, Sodium Level 141, Potassium Level 4.3, Chloride Level 106, Carbon Dioxide Level 24, Anion Gap 11, Blood Urea Nitrogen 32H, Creatinine 1.61H, Estimat Glomerular Filtration Rate 42, BUN/Creatinine Ratio 20, Glucose Level 108H, Calcium Level 9.6, Corrected Calcium 9.8, Total Bilirubin 0.4, Aspartate Amino Transf (AST/SGOT) 25, Alanine Aminotransferase (ALT/SGPT) 20, Alkaline Phosphatase 69, Total Protein 6.3L, Albumin 3.8 02/16/19 05:45: White Blood Count 4.1L, Red Blood Count 3.35L, Hemoglobin 10.0L, Hematocrit 31L, Mean Corpuscular Volume 92, Mean Corpuscular Hemoglobin 30, Mean Corpuscular Hemoglobin Concent 32, Red Cell Distribution Width 14.7H, Platelet Count 287, Mean Platelet Volume 9.5, Neutrophils (%) (Auto) 42, Lymphocytes (%) (Auto) 41, Monocytes (%) (Auto) 15H, Eosinophils (%) (Auto) 2, Basophils (%) (Auto) 1, Neutrophils # (Auto) 1.7L, Lymphocytes # (Auto) 1.7, Monocytes # (Auto) 0.6, Eosinophils # (Auto) 0.1, Basophils # (Auto) 0.0, Sodium Level 142, Potassium Level 4.6, Chloride Level 106, Carbon Dioxide Level 25, Anion Gap 11, Blood Urea Nitrogen 32H, Creatinine 1.37H, Estimat Glomerular Filtration Rate 51, BUN/Creatinine Ratio 23, Glucose Level 86, Calcium Level 9.1, Corrected Calcium 9.7, Total Bilirubin 0.4, Aspartate Amino Transf (AST/SGOT) 20, Alanine Aminotransferase (ALT/SGPT) 20, Alkaline Phosphatase 67, Total Protein 5.6L, Albumin 3.3 02/17/19 06:30: White Blood Count 4.3, Red Blood Count 3.34L, Hemoglobin 10.3L, Hematocrit 31L, Mean Corpuscular Volume 93, Mean Corpuscular Hemoglobin 31, Mean Corpuscular Hemoglobin Concent 33, Red Cell Distribution Width 14.6H, Platelet Count 283, Mean Platelet Volume 9.4, Sodium Level 139, Potassium Level 4.3, Chloride Level 104, Carbon Dioxide Level 26, Anion Gap 9, Blood Urea Nitrogen 26H, Creatinine 1.09, Estimat Glomerular Filtration Rate > 60, BUN/Creatinine Ratio 24, Glucose Level 86, Calcium Level 8.8, Corrected Calcium 9.3, Total Bilirubin 0.4, Aspartate Amino Transf (AST/SGOT) 20, Alanine Aminotransferase (ALT/SGPT) 19, Alkaline Phosphatase 60, Total Protein 5.7L, Albumin 3.4 02/19/19 06:20: White Blood Count 4.6, Red Blood Count 3.28L, Hemoglobin 10.1L, Hematocrit 31L, Mean Corpuscular Volume 93, Mean Corpuscular Hemoglobin 31, Mean Corpuscular Hemoglobin Concent 33, Red Cell Distribution Width 14.7H, Platelet Count 321, Mean Platelet Volume 9.3, Sodium Level 140, Potassium Level 4.4, Chloride Level 106, Carbon Dioxide Level 25, Anion Gap 9, Blood Urea Nitrogen 36H, Creatinine 1.39H, Estimat Glomerular Filtration Rate 50, BUN/Creatinine Ratio 26, Glucose Level 99, Calcium Level 8.9, Corrected Calcium 9.2, Total Bilirubin 0.4, Aspartate Amino Transf (AST/SGOT) 30, Alanine Aminotransferase (ALT/SGPT) 24, Alkaline Phosphatase 64, Total Protein 6.0L, Albumin 3.6, Neutrophils (%) (Auto) 60, Lymphocytes (%) (Auto) 29, Monocytes (%) (Auto) 9, Eosinophils (%) (Auto) 1, Basophils (%) (Auto) 1, Neutrophils # (Auto) 2.8, Lymphocytes # (Auto) 1.3, Monocytes # (Auto) 0.4, Eosinophils # (Auto) 0.0, Basophils # (Auto) 0.0 02/23/19 05:25: White Blood Count 6.1, Red Blood Count 2.97L, Hemoglobin 9.2L, Hematocrit 28L, Mean Corpuscular Volume 94, Mean Corpuscular Hemoglobin 31, Mean Corpuscular Hemoglobin Concent 33, Red Cell Distribution Width 14.9H, Platelet Count 274, Mean Platelet Volume 9.4, Sodium Level 140, Potassium Level 4.8, Chloride Level 108H, Carbon Dioxide Level 23, Anion Gap 9, Blood Urea Nitrogen 32H, Creatinine 1.62H, Estimat Glomerular Filtration Rate 42, BUN/Creatinine Ratio 20, Glucose Level 100, Calcium Level 8.8, Corrected Calcium 9.3, Total Bilirubin 0.5, Aspartate Amino Transf (AST/SGOT) 16, Alanine Aminotransferase (ALT/SGPT) 18, Alkaline Phosphatase 72, Total Protein 5.7L, Albumin 3.4, Neutrophils (%) (Auto) 75, Lymphocytes (%) (Auto) 18, Monocytes (%) (Auto) 6, Eosinophils (%) (Auto) 1, Basophils (%) (Auto) 1, Neutrophils # (Auto) 4.5, Lymphocytes # (Auto) 1.1, Monocytes # (Auto) 0.4, Eosinophils # (Auto) 0.0, Basophils # (Auto) 0.0 03/01/19 04:56: White Blood Count 4.8, Red Blood Count 2.94L, Hemoglobin 9.0L, Hematocrit 28L, Mean Corpuscular Volume 94, Mean Corpuscular Hemoglobin 31, Mean Corpuscular Hemoglobin Concent 33, Red Cell Distribution Width 15.2H, Platelet Count 268, Mean Platelet Volume 9.7, Sodium Level 141, Potassium Level 4.3, Chloride Level 108H, Carbon Dioxide Level 23, Anion Gap 10, Blood Urea Nitrogen 31H, Creatinine 1.24, Estimat Glomerular Filtration Rate 57, BUN/Creatinine Ratio 25, Glucose Level 92, Calcium Level 9.0, Corrected Calcium 9.4, Total Bilirubin 0.3, Aspartate Amino Transf (AST/SGOT) 19, Alanine Aminotransferase (ALT/SGPT) 21, Alkaline Phosphatase 76, Total Protein 5.9L, Albumin 3.5, Neutrophils (%) (Auto) 62, Lymphocytes (%) (Auto) 26, Monocytes (%) (Auto) 10, Eosinophils (%) (Auto) 2, Basophils (%) (Auto) 1, Neutrophils # (Auto) 3.0, Lymphocytes # (Auto) 1.2, Monocytes # (Auto) 0.5, Eosinophils # (Auto) 0.1, Basophils # (Auto) 0.0 03/08/19 07:59: White Blood Count 5.8, Red Blood Count 3.23L, Hemoglobin 9.9L, Hematocrit 31L, Mean Corpuscular Volume 94, Mean Corpuscular Hemoglobin 31, Mean Corpuscular Hemoglobin Concent 33, Red Cell Distribution Width 15.1H, Platelet Count 289, Mean Platelet Volume 9.5, Neutrophils (%) (Auto) 62, Lymphocytes (%) (Auto) 25, Monocytes (%) (Auto) 10, Eosinophils (%) (Auto) 2, Basophils (%) (Auto) 0, Neutrophils # (Auto) 3.6, Lymphocytes # (Auto) 1.5, Monocytes # (Auto) 0.6, Eosinophils # (Auto) 0.1, Basophils # (Auto) 0.0, Sodium Level 139, Potassium Level 4.4, Chloride Level 106, Carbon Dioxide Level 25, Anion Gap 8, Blood Urea Nitrogen 22H, Creatinine 1.33H, Estimat Glomerular Filtration Rate 52, BUN/Creatinine Ratio 17, Glucose Level 84, Calcium Level 9.0, Corrected Calcium 9.2, Total Bilirubin 0.3, Aspartate Amino Transf (AST/SGOT) 22, Alanine Aminotransferase (ALT/SGPT) 21, Alkaline Phosphatase 97, Total Protein 6.7, Albumin 3.8 Pending Labs Laboratory Tests 02/14/19 06:00: White Blood Count 2.1, Red Blood Count 3.54, Hemoglobin 10.7, Hematocrit 32, Mean Corpuscular Volume 92, Mean Corpuscular Hemoglobin 30, Mean Corpuscular Hemoglobin Concent 33, Red Cell Distribution Width 14.6, Platelet Count 263, Mean Platelet Volume 9.7, Neutrophils (%) (Auto) 26, Lymphocytes (%) (Auto) 53, Monocytes (%) (Auto) 17, Eosinophils (%) (Auto) 2, Basophils (%) (Auto) 2, Neutrophils # (Auto) 0.5, Lymphocytes # (Auto) 1.1, Monocytes # (Auto) 0.3, Eosinophils # (Auto) 0.1, Basophils # (Auto) 0.0, Sodium Level 137, Potassium Level 4.1, Chloride Level 106, Carbon Dioxide Level 19, Anion Gap 12, Blood Urea Nitrogen 23, Creatinine 1.30, Estimat Glomerular Filtration Rate 54, BUN/Creatinine Ratio 18, Glucose Level 91, Calcium Level 9.2, Corrected Calcium 9.7, Total Bilirubin 0.5, Aspartate Amino Transf (AST/SGOT) 18, Alanine Aminotransferase (ALT/SGPT) 14, Alkaline Phosphatase 61, Total Protein 5.9, Albumin 3.4 02/14/19 17:00: Stool Occult Blood Immunoassay POSITIVE 02/15/19 08:18: White Blood Count 3.3, Red Blood Count 3.65, Hemoglobin 11.2, Hematocrit 33, Mean Corpuscular Volume 92, Mean Corpuscular Hemoglobin 31, Mean Corpuscular Hemoglobin Concent 34, Red Cell Distribution Width 14.4, Platelet Count 306, M braxton Platelet Volume 9.8, Neutrophils (%) (Auto) 39, Lymphocytes (%) (Auto) 45, Monocytes (%) (Auto) 14, Eosinophils (%) (Auto) 1, Basophils (%) (Auto) 1, Neutrophils # (Auto) 1.3, Lymphocytes # (Auto) 1.5, Monocytes # (Auto) 0.5, Eosinophils # (Auto) 0.0, Basophils # (Auto) 0.0, Sodium Level 141, Potassium Level 4.3, Chloride Level 106, Carbon Dioxide Level 24, Anion Gap 11, Blood Urea Nitrogen 32, Creatinine 1.61, Estimat Glomerular Filtration Rate 42, BUN/Creatinine Ratio 20, Glucose Level 108, Calcium Level 9.6, Corrected Calcium 9.8, Total Bilirubin 0.4, Aspartate Amino Transf (AST/SGOT) 25, Alanine Aminotransferase (ALT/SGPT) 20, Alkaline Phosphatase 69, Total Protein 6.3, Albumin 3.8 02/16/19 05:45: White Blood Count 4.1, Red Blood Count 3.35, Hemoglobin 10.0, Hematocrit 31, Mean Corpuscular Volume 92, Mean Corpuscular Hemoglobin 30, Mean Corpuscular Hemoglobin Concent 32, Red Cell Distribution Width 14.7, Platelet Count 287, Mean Platelet Volume 9.5, Neutrophils (%) (Auto) 42, Lymphocytes (%) (Auto) 41, Monocytes (%) (Auto) 15, Eosinophils (%) (Auto) 2, Basophils (%) (Auto) 1, Neutrophils # (Auto) 1.7, Lymphocytes # (Auto) 1.7, Monocytes # (Auto) 0.6, Eosinophils # (Auto) 0.1, Basophils # (Auto) 0.0, Sodium Level 142, Potassium Level 4.6, Chloride Level 106, Carbon Dioxide Level 25, Anion Gap 11, Blood Urea Nitrogen 32, Creatinine 1.37, Estimat Glomerular Filtration Rate 51, BUN/Creatinine Ratio 23, Glucose Level 86, Calcium Level 9.1, Corrected Calcium 9.7, Total Bilirubin 0.4, Aspartate Amino Transf (AST/SGOT) 20, Alanine Aminotransferase (ALT/SGPT) 20, Alkaline Phosphatase 67, Total Protein 5.6, Albumin 3.3 02/17/19 06:30: White Blood Count 4.3, Red Blood Count 3.34, Hemoglobin 10.3, Hematocrit 31, Mean Corpuscular Volume 93, Mean Corpuscular Hemoglobin 31, Mean Corpuscular Hemoglobin Concent 33, Red Cell Distribution Width 14.6, Platelet Count 283, Mean Platelet Volume 9.4, Sodium Level 139, Potassium Level 4.3, Chloride Level 104, Carbon Dioxide Level 26, Anion Gap 9, Blood Urea Nitrogen 26, Creatinine 1.09, Estimat Glomerular Filtration Rate > 60, BUN/Creatinine Ratio 24, Glucose Level 86, Calcium Level 8.8, Corrected Calcium 9.3, Total Bilirubin 0.4, Aspartate Amino Transf (AST/SGOT) 20, Alanine Aminotransferase (ALT/SGPT) 19, Alkaline Phosphatase 60, Total Protein 5.7, Albumin 3.4 02/19/19 06:20: White Blood Count 4.6, Red Blood Count 3.28, Hemoglobin 10.1, Hematocrit 31, Mean Corpuscular Volume 93, Mean Corpuscular Hemoglobin 31, Mean Corpuscular Hemoglobin Concent 33, Red Cell Distribution Width 14.7, Platelet Count 321, Mean Platelet Volume 9.3, Sodium Level 140, Potassium Level 4.4, Chloride Level 106, Carbon Dioxide Level 25, Anion Gap 9, Blood Urea Nitrogen 36, Creatinine 1.39, Estimat Glomerular Filtration Rate 50, BUN/Creatinine Ratio 26, Glucose Level 99, Calcium Level 8.9, Corrected Calcium 9.2, Total Bilirubin 0.4, Aspartate Amino Transf (AST/SGOT) 30, Alanine Aminotransferase (ALT/SGPT) 24, Alkaline Phosphatase 64, Total Protein 6.0, Albumin 3.6, Neutrophils (%) (Auto) 60, Lymphocytes (%) (Auto) 29, Monocytes (%) (Auto) 9, Eosinophils (%) (Auto) 1, Basophils (%) (Auto) 1, Neutrophils # (Auto) 2.8, Lymphocytes # (Auto) 1.3, Monocytes # (Auto) 0.4, Eosinophils # (Auto) 0.0, Basophils # (Auto) 0.0 02/23/19 05:25: White Blood Count 6.1, Red Blood Count 2.97, Hemoglobin 9.2, Hematocrit 28, Mean Corpuscular Volume 94, Mean Corpuscular Hemoglobin 31, Mean Corpuscular Hemoglobin Concent 33, Red Cell Distribution Width 14.9, Platelet Count 274, Mean Platelet Volume 9.4, Sodium Level 140, Potassium Level 4.8, Chloride Level 108, Carbon Dioxide Level 23, Anion Gap 9, Blood Urea Nitrogen 32, Creatinine 1.62, Estimat Glomerular Filtration Rate 42, BUN/Creatinine Ratio 20, Glucose Level 100, Calcium Level 8.8, Corrected Calcium 9.3, Total Bilirubin 0.5, Aspartate Amino Transf (AST/SGOT) 16, Alanine Aminotransferase (ALT/SGPT) 18, Alkaline Phosphatase 72, Total Protein 5.7, Albumin 3.4, Neutrophils (%) (Auto) 75, Lymphocytes (%) (Auto) 18, Monocytes (%) (Auto) 6, Eosinophils (%) (Auto) 1, Basophils (%) (Auto) 1, Neutrophils # (Auto) 4.5, Lymphocytes # (Auto) 1.1, Monocytes # (Auto) 0.4, Eosinophils # (Auto) 0.0, Basophils # (Auto) 0.0 03/01/19 04:56: White Blood Count 4.8, Red Blood Count 2.94, Hemoglobin 9.0, Hematocrit 28, Mean Corpuscular Volume 94, Mean Corpuscular Hemoglobin 31, Mean Corpuscular Hemoglobin Concent 33, Red Cell Distribution Width 15.2, Platelet Count 268, Mean Platelet Volume 9.7, Sodium Level 141, Potassium Level 4.3, Chloride Level 108, Carbon Dioxide Level 23, Anion Gap 10, Blood Urea Nitrogen 31, Creatinine 1 .24, Estimat Glomerular Filtration Rate 57, BUN/Creatinine Ratio 25, Glucose Level 92, Calcium Level 9.0, Corrected Calcium 9.4, Total Bilirubin 0.3, Aspartate Amino Transf (AST/SGOT) 19, Alanine Aminotransferase (ALT/SGPT) 21, Alkaline Phosphatase 76, Total Protein 5.9, Albumin 3.5, Neutrophils (%) (Auto) 62, Lymphocytes (%) (Auto) 26, Monocytes (%) (Auto) 10, Eosinophils (%) (Auto) 2, Basophils (%) (Auto) 1, Neutrophils # (Auto) 3.0, Lymphocytes # (Auto) 1.2, Monocytes # (Auto) 0.5, Eosinophils # (Auto) 0.1, Basophils # (Auto) 0.0 03/08/19 07:59: White Blood Count 5.8, Red Blood Count 3.23, Hemoglobin 9.9, Hematocrit 31, Mean Corpuscular Volume 94, Mean Corpuscular Hemoglobin 31, Mean Corpuscular Hemoglobin Concent 33, Red Cell Distribution Width 15.1, Platelet Count 289, Mean Platelet Volume 9.5, Neutrophils (%) (Auto) 62, Lymphocytes (%) (Auto) 25, Monocytes (%) (Auto) 10, Eosinophils (%) (Auto) 2, Basophils (%) (Auto) 0, Neutrophils # (Auto) 3.6, Lymphocytes # (Auto) 1.5, Monocytes # (Auto) 0.6, Eosinophils # (Auto) 0.1, Basophils # (Auto) 0.0, Sodium Level 139, Potassium Level 4.4, Chloride Level 106, Carbon Dioxide Level 25, Anion Gap 8, Blood Urea Nitrogen 22, Creatinine 1.33, Estimat Glomerular Filtration Rate 52, BUN/Creatinine Ratio 17, Glucose Level 84, Calcium Level 9.0, Corrected Calcium 9.2, Total Bilirubin 0.3, Aspartate Amino Transf (AST/SGOT) 22, Alanine Aminotransferase (ALT/SGPT) 21, Alkaline Phosphatase 97, Total Protein 6.7, Albumin 3.8 Discharge Home Medications: Active Scripts Active Pepcid (Famotidine) 20 Mg Tablet 20 Mg PO BID Hydrocodone/Acetaminophen 5/325mg Tablet (Acetaminophen/Hydrocodone Bitart) 1 Tab Tab 1 Tab PO Q4H PRN Lisinopril 10 Mg Tablet 10 Mg PO DAILY Atorvastatin Calcium 80 Mg Tablet 80 Mg PO HS Clopidogrel (Clopidogrel Bisulfate) 75 Mg Tablet 75 Mg PO DAILY Nicotine Patch (Nicotine) 1 Each Patch.td24 21 Mg TD DAILY@0900 Reported Aspirin EC (Aspirin) 81 Mg Tablet.dr 81 Mg PO HS Proventil Hfa (Albuterol Sulfate) 6.7 Gm Hfa.aer.ad 2 Puff INH Q4H PRN Flomax (Tamsulosin HCl) 0.4 Mg Cap 0.4 Mg PO DAILY Carvedilol 6.25 Mg Tablet 6.25 Mg PO BID Instructions to patient/family Please see electronic discharge instructions given to patient. 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 Status: Acute (3) Back pain Status: Chronic Qualifiers: Qualified Codes: M54.9 - Dorsalgia, unspecified (4) Dark stools Status: Acute (5) Impulsive Status: Acute (6) Leukopenia Status: Acute Qualifiers: Qualified Codes: D72.819 - Decreased white blood cell count, unspecified (7) Anemia Status: Chronic Qualifiers: Qualified Codes: D64.9 - Anemia, unspecified (8) Hypertension Status: Chronic Qualifiers: Qualified Codes: I10 - Essential (primary) hypertension (9) COPD (chronic obstructive pulmonary disease) Status: Chronic Qualifiers: Qualified Codes: J44.9 - Chronic obstructive pulmonary disease, unspecified (10) Hyperlipidemia Status: Chronic Qualifiers: Qualified Codes: E78.2 - Mixed hyperlipidemia (11) Renal insufficiency Status: Chronic (12) Wheezing Status: Acute (13) Carotid stenosis Status: Chronic Qualifiers: Qualified Codes: I65.23 - Occlusion and stenosis of bilateral carotid arteries (14) Left-sided weakness Status: Acute (15) BPH (benign prostatic hyperplasia) Status: Chronic Qualifiers: Qualified Codes: N40.0 - Benign prostatic hyperplasia without lower urinary tract symptoms (16) Risk for falls Status: Acute (17) Smoker Status: Chronic HEBERT BAKER DO Mar 09, 2019 09:38
[2019-03-09 11:00] VITALS: BP 133/66
--- NOTE | 2019-03-09 11:11 | NUR ---
Dressing change to left upper arm skin tears. Daughter at bedside and education provided. Skin tears cleansed with NS. Covered with Xeroform, Gauze, and Kerlix. Secured with Medipore tape and [place]. Supplies sent with patient. Patient to F/U with Dr. Kumar on 03/17/19 at 08:00 AM and [place] on 03/15/19 at 2:00 PM.
[2019-03-09 11:53] VITALS: BP 133/66
--- NOTE | 2019-03-09 15:34 | Therapy Team Discharge Summary ---
Therapy Discharge Summary Discharge Recommendations Date of Discharge Mar 09, 2019 at 11:00 Therapy D/C Recommendations: Physical Therapy Home Care Physical Therapy Patient came to rehab following a CVA. Upon evaluation patient performed bed mobility with min assist, supine <-> sit with mod assist, sit <-> stand with mod assist, transfers with mod assist, car transfer with max assist (per nursing report), ambulated 15' with a hemiwalker with mod assist, was dependent for wheelchair mobility, no stairs. Patient has been performing bed mobility and transfer training, balance and endurance training, functional strengthening, stair training, gait training, and education. 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 Now, patient performs bed mobility with SBA, supine <-> sit with SBA, sit <-> stand CGA, transfers with min assist to the left and CGA to the right, car transfer min assist, ambulate 250' with a single point cane with min assist (including 50' with at least 2 turns of 90 degrees and 10' over an uneven surface), and can go up and down 4 steps using 1 handrail with min assist. Patient was discharged from this facility today and will be discharged from PT at this time. Occupational Therapy Decreased Safety Aware, Impaired Self-Care Skills, Restricted Funct UE ROM PT Fdc Goals Kelp Cutter Goals PT Fdc Goals Time Frame: Mar 07, 2019 Transfers (B,C,W/C) (FIM): 5 Roll Left to Right (QC): 4 Sit to Lying (QC): 4 Lying-Sitting on Side/Bed(QC): 4 Sit to Stand (QC): 4 Chair/[id number] Xfer(QC): 4 Car Transfer (QC): 4 Gait (FIM): 2 Distance: 100' Walk 10 feet (QC): 4 Walk 10ft-Uneven Surface(QC): 4 Walk 50ft with 2 Turns (QC): 4 Gait Level of Assist: 4 Gait Assistive Device: Walker Weston Stairs (FIM): 2 # of Steps: 4 1 Step (curb) (QC): 3 4 Steps (QC): 3 Stairs Level Of Assist: 4 OT Kelp Cutter Goals Kelp Cutter Goals Eating (FIM): 6 (not met) Eating (QC): 6 (not) Oral Hygiene (QC): 6 Grooming(FIM): 6 (met-03/08/2019) Bathing(FIM): 6 (not met) Shower/Bathe Self (QC): 6 (not met) Upper Body Dressing(FIM): 6 (not met) Upper Body Dressing (QC): 6 (not met) Lower Body Dressing(FIM): 5 (not met) Lower Body Dressing (QC): 4 (not met) On/Off Footwear (QC): 5 (met-03/09/2019) Toileting(FIM): 5 (not met) Toileting Hygiene (QC): 4 (not met) Transfers (B,C,W/C) (FIM): 6 (not met) Toilet/Commode Transfer(FIM): 6 (not met) Toilet/Commode Transfer (QC): 6 (not met) Shower Transfer(FIM): 6 (not met) Additional Goals: 1-Demonstrate ADL Tasks, 2-Verbalize Understanding, 3- ImproveStrength/Merritt 1=Demonstrate adherence to instructed precautions during ADL tasks. 2=Patient will verbalize/demonstrate understanding of assistive devices/modifications for ADL. 3=Patient will improve strength/tolerance for activity to enable patient to perform ADL's. Speech Kelp Cutter Goals Fdc Goals The patient will improve cognitive-communication skills in order to return to his former living situation safely. VERENA FREEMAN PT Mar 09, 2019 15:34
--- NOTE | 2019-03-10 06:16 | Progress Note - Hospitalist ---
[facility] 03/10/19 0616: Progress Note Pt is a 73 y.o male. Prior to hospitalization, he was able to play with his 4 grandchildren, go fishing and camping often with his 4 sons, and ambulate with only intermittent use of a cane. Pt lives with his 4 sons in a 2 story house but states his bed room is on the first floor. To gain entry into his house through the front door he must go up 4 steps; there are railing by the stairs that he uses to aide him up the stairs. He had been able to shower by himself prior to hospitalization but is now worried he may fall; states he will talk to his sons about installing grab-rails in the shower. Pt hopes to be able to go fishing and camping and play with his grandchildren again after he fully recovers and expresses desire to continue with the exercises he was introduced to while at the rehab facility. IRENE BAKER DO 03/10/19 1138: Supervisory-Addendum Brief Verification & Attestation Participated in pt care: history, MDM, physical Personally performed: exam, history, MDM, supervision of care Care discussed with: Medical Student Procedures: n/a Results interpretation: Verified all documentation Verification and Attestation of Medical Student E/M Service A medical student performed and documented this service in my presence. I reviewed and verified all information documented by the medical student and made modifications to such information, when appropriate. I personally performed the physical exam and medical decision making. Irene Baker Mar 10, 2019,11:38 ISAIJOVONDIOGO [facility] Mar 10, 2019 06:16 IRENE BAKER DO Mar 10, 2019 11:38
--- NOTE | 2019-03-10 10:45 | Therapy Team Discharge Summary ---
Therapy Discharge Summary Discharge Recommendations Date of Discharge Mar 09, 2019 at 11:00 Therapy D/C Recommendations: Physical Therapy Home Care Occupational Therapy Decreased Safety Aware, Impaired Self-Care Skills, Restricted Funct UE ROM Speech-Language Pathology The patient was admitted to the ARU s/p CVA. The patient was given the SLUMS at bedside with a very low score in the dementia range. The patient did make excellent progress and met all of the ST goals. The patient discharged to home on 03/09/19. He was discharged from skilled ST at that time as well. PT Polisher Brass Goals Retirement Goals PT Retirement Goals Time Frame: Mar 07, 2019 Transfers (B,C,W/C) (FIM): 5 Roll Left to Right (QC): 4 Sit to Lying (QC): 4 Lying-Sitting on Side/Bed(QC): 4 Sit to Stand (QC): 4 Chair/Btd-bz-Qxwel Xfer(QC): 4 Car Transfer (QC): 4 Gait (FIM): 2 Distance: 100' Walk 10 feet (QC): 4 Walk 10ft-Uneven Surface(QC): 4 Walk 50ft with 2 Turns (QC): 4 Gait Level of Assist: 4 Gait Assistive Device: Walker Weston Stairs (FIM): 2 # of Steps: 4 1 Step (curb) (QC): 3 4 Steps (QC): 3 Stairs Level Of Assist: 4 OT Retirement Goals Polisher Brass Goals Eating (FIM): 6 (not met) Eating (QC): 6 (not) Oral Hygiene (QC): 6 Grooming(FIM): 6 (met-03/08/2019) Bathing(FIM): 6 (not met) Shower/Bathe Self (QC): 6 (not met) Upper Body Dressing(FIM): 6 (not met) Upper Body Dressing (QC): 6 (not met) Lower Body Dressing(FIM): 5 (not met) Lower Body Dressing (QC): 4 (not met) On/Off Footwear (QC): 5 (met-03/09/2019) Toileting(FIM): 5 (not met) Toileting Hygiene (QC): 4 (not met) Transfers (B,C,W/C) (FIM): 6 (not met) Toilet/Commode Transfer(FIM): 6 (not met) Toilet/Commode Transfer (QC): 6 (not met) Shower Transfer(FIM): 6 (not met) Additional Goals: 1-Demonstrate ADL Tasks, 2-Verbalize Understanding, 3- ImproveStrength/Merritt 1=Demonstrate adherence to instructed precautions during ADL tasks. 2=Patient will verbalize/demonstrate understanding of assistive devices/modifications for ADL. 3=Patient will improve strength/tolerance for activity to enable patient to perform ADL's. Speech Retirement Goals Polisher Brass Goals The patient will improve cognitive-communication skills in order to return to hi s former living situation safely. Met ALFRED CRUZ Mar 10, 2019 10:45
--- NOTE | 2019-03-10 12:03 | Therapy Team Discharge Summary ---
Therapy Discharge Summary Discharge Recommendations Date of Discharge Mar 09, 2019 at 11:00 Therapy D/C Recommendations: Physical Therapy Home Care Occupational Therapy OT has focused on increasing indep with ADLS, functional transfers, neuro re- education, UE ROM/ Strength, use of AE/ DME, energy conservation techniques, decrease neglect, and overall safety with functional tasks. at time of d/c pt was performing eating with set up, grooming MOD I, and MIN A with bathing, UB dressing, LB dressing, toileting, and functional transfers. pt d/c home with daughter. recommended additional OT Services to continue address deficits and for safety transition to home. Decreased Safety Aware, Impaired Self-Care Skills, Restricted Funct UE ROM PT Scientific Director Goals Usp Goals PT Usp Goals Time Frame: Mar 07, 2019 Transfers (B,C,W/C) (FIM): 5 Roll Left to Right (QC): 4 Sit to Lying (QC): 4 Lying-Sitting on Side/Bed(QC): 4 Sit to Stand (QC): 4 Chair/Pkv-jh-Ifgcp Xfer(QC): 4 Car Transfer (QC): 4 Gait (FIM): 2 Distance: 100' Walk 10 feet (QC): 4 Walk 10ft-Uneven Surface(QC): 4 Walk 50ft with 2 Turns (QC): 4 Gait Level of Assist: 4 Gait Assistive Device: Walker Weston Stairs (FIM): 2 # of Steps: 4 1 Step (curb) (QC): 3 4 Steps (QC): 3 Stairs Level Of Assist: 4 OT Usp Goals Scientific Director Goals Eating (FIM): 6 (not met) Eating (QC): 6 (not) Oral Hygiene (QC): 6 Grooming(FIM): 6 (met-03/08/2019) Bathing(FIM): 6 (not met) Shower/Bathe Self (QC): 6 (not met) Upper Body Dressing(FIM): 6 (not met) Upper Body Dressing (QC): 6 (not met) Lower Body Dressing(FIM): 5 (not met) Lower Body Dressing (QC): 4 (not met) On/Off Footwear (QC): 5 (met-03/09/2019) Toileting(FIM): 5 (not met) Toileting Hygiene (QC): 4 (not met) Transfers (B,C,W/C) (FIM): 6 (not met) Toilet/Commode Transfer(FIM): 6 (not met) Toilet/Commode Transfer (QC): 6 (not met) Shower Transfer(FIM): 6 (not met) Additional Goals: 1-Demonstrate ADL Tasks, 2-Verbalize Understanding, 3- ImproveStrength/Merritt 1=Demonstrate adherence to instructed precautions during ADL tasks. 2=Patient will verbalize/demonstrate understanding of assistive devices/modifications for ADL. 3=Patient will improve strength/tolerance for activity to enable patient to perform ADL's. Speech Usp Goals Usp Goals The patient will improve cognitive-communication skills in order to return to his former living situation safely. Met JENNIFER GUEVARA OT Mar 10, 2019 12:03
== END 2019-03-09 11:00 | disposition home health service (06) | DRG 57 ==
PROVIDERS: ADMIT Internal Medicine; ATTEND Internal Medicine
DX: I69.354 Hemiplegia and hemiparesis following cerebral infarction affecting left non-dominant side (principal); I69.823 Fluency disorder following other cerebrovascular disease; I69.398 Other sequelae of cerebral infarction; R41.4 Neurologic neglect syndrome; M21.372 Foot drop, left foot; I65.23 Occlusion and stenosis of bilateral carotid arteries; I12.9 Hypertensive chronic kidney disease with stage 1 through stage 4 chronic kidney disease, or unspecified chronic kidney disease; N18.9 Chronic kidney disease, unspecified; K92.1 Melena; J44.9 Chronic obstructive pulmonary disease, unspecified; F17.210 Nicotine dependence, cigarettes, uncomplicated; N40.0 Benign prostatic hyperplasia without lower urinary tract symptoms; E78.2 Mixed hyperlipidemia; S41.112A Laceration without foreign body of left upper arm, initial encounter; S51.812A Laceration without foreign body of left forearm, initial encounter; G60.9 Hereditary and idiopathic neuropathy, unspecified; B35.1 Tinea unguium; K20.9 Esophagitis, unspecified; K29.70 Gastritis, unspecified, without bleeding; R29.6 Repeated falls; D72.819 Decreased white blood cell count, unspecified; G47.9 Sleep disorder, unspecified; Z66 Do not resuscitate; Z95.820 Peripheral vascular angioplasty status with implants and grafts; Z79.02 Long term (current) use of antithrombotics/antiplatelets; Z79.82 Long term (current) use of aspirin
CPT/HCPCS: 36415; 73030; 73090; 80053; 82274; 85025; 85027; 94640; 94664; 94760

== ENCOUNTER 2019-03-11 08:03 | Emergency (ER) | payer MEDICARE ==
[~2019-03-11] VITALS: Ht 170.2 cm; Wt 66.7 kg
[~2019-03-11 08:03] MED LIST changes: +ACET-2267 PO; +ACHD5005 PO; +ALBU6.7H8 INH; +AMLO5TAB9 PO; +ASPI-983 PO; +ATOR80TA76 PO; -CALCIUM CARBONATE 500 MG (TUMS) TAB.CHEW PO PRN; +CLOP75TA28 PO; -DOCUSATE SODIUM 100 MG (COLACE) CAP PO PRN; +ENOX40DI13 SQ; +FAMO-119 PO; -HYDROcodone/APAP 5 MG/325 MG (LORTAB) TAB PO PRN; +LISI10TA2 PO; -LOPERAMIDE 2 MG (IMODIUM) TABLET PO PRN; -MELATONIN 3 MG TABLET PO PRN; +NICO-588 TD; -ONDANSETRON 4 MG (ZOFRAN) ORAL DISSOLVE TAB PO PRN; +PANT40TA2 PO; -POLYETHYLENE GLYCOL 17 GM (MIRALAX) PACK PO PRN; +PRAV40TA2 PO; -diphenhydrAMINE 25 MG TAB (BENADRYL) PO PRN
[2019-03-11] MEDS ORDERED: RT-ALBUTEROL/IPRATROPIUM 3 ML (DUONEB) VIAL ONE (08:09)
--- NOTE | 2019-03-11 08:15 | NUR ---
RT HERE FOR BREATHING TX.
[2019-03-11] MEDS ORDERED: RT-ALBUTEROL SULF 2.5 MG/3 ML PRE-MIX VIAL ONE (08:18)
--- NOTE | 2019-03-11 08:27 | ED General ---
General Chief Complaint: Upper Extremity Stated Complaint: OPEN WOUND Nursing Triage Note: ASSISTED PT OUT OF CAR. STATES HE HAS A WOUND ON HIS LEFT UPPER ARM AFTER A FALL 2 WEEKS AGO. SOMEONE WAS CHANGING THE DRESSING THIS AM AND THE WOUND WOULD NOT QUIT BLEEDING. Nursing Sepsis Screen: No Definite Risk Source of Information: Patient Exam Limitations: No Limitations History of Present Illness Date Seen by Provider: Mar 11, 2019 Time Seen by Provider: 07:59 Initial Comments Here with report of wound on the left upper arm that is bleeding. Apparently had a fall couple weeks ago and had a skin tear. They were changing his dressing this morning and the dressing was stuck to the wound. When they pulled it off started bleeding. Patient is on blood thinner secondary to stroke and wound continued to bleed. Also has small abrasion to the top of the left foot that they wanted checked out. Patient is somewhat dyspneic currently. Apparently he smokes quite a bit and after getting out of the hospital return to smoking. Denies fever or chills. Denies nausea or vomiting. Otherwise doing okay. He does have albuterol inhalers at home but not a nebulizer. Timing/Duration: 1 Hour Severity: Mild Associated Systoms: Cough; No Fever/Chills, No Nausea/Vomiting; Shortness of Air Allergies and Home Medications Allergies Coded Allergies: NKANo Known Allergies (Unverified Allergy, Mild, 05/17/09) Home Medications Albuterol Sulfate 6.7 Gm Hfa.aer.ad, 2 PUFF INH Q4H PRN for SHORTNESS OF BREATH, (Reported) Aspirin 81 Mg Tablet.dr, 81 MG PO HS, (Reported) Atorvastatin Calcium 80 Mg Tablet, 80 MG PO HS Prescribed by: HEBERT BAKER on 03/09/19930 Carvedilol 6.25 Mg Tablet, 6.25 MG PO BID, (Reported) Clopidogrel Bisulfate 75 Mg Tablet, 75 MG PO DAILY Prescribed by: HEBERT BAKER on 03/09/19930 Famotidine 20 Mg Tablet, 20 MG PO BID Prescribed by: HEBERT BAKER on 03/09/19930 Hydrocodone Bit/Acetaminophen 1 Tab Tab, 1 TAB PO Q4H PRN for MOD Prescribed by: HEBERT BAKER on 03/09/19930 Lisinopril 10 Mg Tablet, 10 MG PO DAILY Prescribed by: HEBERT BAKER on 03/09/19930 Nicotine 1 Each Patch.td24, 21 MG TD DAILY@0900 Prescribed by: HEBERT BAKER on 03/09/19930 Tamsulosin HCl 0.4 Mg Cap, 0.4 MG PO DAILY, (Reported) Patient Home Medication List Home Medication List Reviewed: Yes Review of Systems Review of Systems Constitutional: see HPI; No chills, No fever Respiratory: cough, short of breath, wheezing Cardiovascular: no symptoms reported Skin: see HPI, change in color, lesions Psychiatric/Neurological: No Symptoms Reported Past Xhqagjn-Gycmvs-Wnmzbu Hx Past Med/Social Hx: Reviewed Nursing Past Med/Soc Hx Patient Social History Alcohol Use: Denies Use Recreational Drug Use: No Smoking Status: Current Everyday Smoker Type Used: Cigarettes Recent Foreign Travel: No Contact w/Someone Who Travel: No Recent Infectious Disease Expo: No Recent Hopitalizations: Yes ([facility]) Immunizations Up To Date Tetanus Booster (TDap): Less than 5yrs Seasonal Allergies Seasonal Allergies: Yes (HAYFEVER) Past Medical History Surgeries: Yes (HERNIA REPAIRx2) Abdominal, Vascular Surgery Respiratory: Yes COPD Currently Using CPAP: No Currently Using BIPAP: No Cardiac: Yes (BRAIN ANEURYSM, BILAT CAROTID STENOSIS) High Cholesterol, Hypertension, Peripheral Vascular Neurological: Yes Stroke Genitourinary: Yes (TIA, UTI, CHRONIC KIDNEY DX) Benign Prostatic Hyperpl, Prostate Problems Gastrointestinal: Yes Abdominal Hernia Musculoskeletal: Yes Arthritis, Chronic Back Pain Endocrine: No HEENT: No (PT DENIES) Loss of Vision: Denies Hearing Impairment: Hard of Hearing Cancer: No Did You Recieve Any Treatments: No Psychosocial: No Anxiety Integumentary: Yes (BRUISES EASILY, THIN, FRAGILE SKIN) Recent Skin Changes Blood Disorders: No Family Medical History Reviewed Nursing Family Hx No Pertinent Family Hx Family HX: Father when the patinet was 7 from appendicitis, Mother is also , but lived to 82 years old. Patient cannot remember her COD. He is one of 5 siblings. Brother from cancer (type, unknown), and sister from what he states her heart exploded. Physical Exam Vital Signs Vital Signs - First Documented 03/11/19 08:04 Temp 96.6 Pulse 79 Resp 16 B/P (MAP) 155/84 (107) Pulse Ox 95 O2 Delivery Room Air Capillary Refill : Less Than 3 Seconds Height, Weight, BMI Height: 5'7.00" Weight: 147lbs. 0.6oz. 66.805641yi; 23.3 BMI Method:Stated General Appearance: No Apparent Distress, WD/WN Respiratory: Accessory Muscle Use, Expiration, Wheezing Cardiovascular: Regular Rate, Rhythm, No Murmur Neurologic/Psychiatric: Alert, Oriented x3 Skin: Warm/Dry, Ecchymosis, Other (skin tear that is quite large to the left upper arm. Bleeding in the distal portions were skin tear flap does not overlap underlying tissue. Bleeding controlled with gentle pressure. Small abrasion to the top of the left foot that otherwise looks like it is healing well.) Progress/Results/Core Measures Suspected Sepsis Recent Fever Within 48 Hours: No Infection Criteria Present: None New/Unexplained Altered Menta: No Sepsis Screen: No Definite Risk SIRS Temperature:96.6 Pulse: 79 Respiratory Rate: 16 Blood Pressure 155 /84 Mean: 107 Results/Orders My Orders Orders - STEPHANE MAO MD Albuterol/Ipra Inhalation Soln (Duoneb I (03/11/19 08:09) Albuterol Pre-Mix Nebs (Rt) (Proventil (03/11/19 08:18) Medications Given in ED Current Medications Medications Dose Ordered Sig/Joe Route Start Time Stop Time Status Last Admin Dose Admin Albuterol Sulfate 2.5 mg STK-MED ONCE .ROUTE 03/11/19 08:18 03/11/19 08:26 DC 03/11/19 08:26 2.5 MG Albuterol/ Ipratropium 3 ml STK-MED ONCE .ROUTE 03/11/19 08:09 03/11/19 08:17 DC 03/11/19 08:16 3 ML Vital Signs/I&O 03/11/19 03/11/19 03/11/19 03/11/19 08:04 08:18 08:26 08:34 Temp 96.6 Pulse 79 Resp 16 B/P (MAP) 155/84 (107) Pulse Ox 95 99 95 98 O2 Delivery Room Air Room Air Room Air Room Air Capillary Refill : Less Than 3 Seconds Blood Pressure Mean: 107 Progress Note : Progress Note Seen and evaluated. Dressing taken down from left upper arm. Wound evaluated. Xeroform gauze with 4 x 4 backing placed and secured with gauze roll. Bleeding seems to be controlled. Wound to the left foot was cleaned and antibiotic ointment and dressing applied. Secured with gauze roll. Patient somewhat dyspneic. Does have history of COPD. Does continue to smoke. Duo neb ordered and we will reevaluate for further nebs after that. Monitor patient. 0856: Patient received 2 more albuterol treatments as well. It did significantly help. Patient has albuterol MDI inhaler with him but it was noted to be empty. We will go ahead and get him a prescription for that. Bleeding has stopped. Discharged home with return precautions. Patient verbalize understanding instructions and agreement with plan. Departure Impression Primary Impression: Bleeding from wound Additional Impression: COPD (chronic obstructive pulmonary disease) Qualified Codes: J42 - Unspecified chronic bronchitis Disposition: HOME, SELF-CARE Condition: Improved Departure-Patient Inst. Decision time for Depature: 09:05 Referrals: [facility] (PCP/Family) Primary Care Physician Patient Instructions: Chronic Obstructive Pulmonary Disease (COPD), Including Emphysema, Wound Care (DC) Add. Discharge Instructions: All discharge instructions reviewed with patient and/or family. Voiced understanding. Continue local wound care. If the bandages stuck to the wound, he may soak it with warm water prior to removing the dressing. Continue to use inhaler. Keep appointment next week as scheduled. You would benefit from nebulizer machine at home and you should discuss this with her doctor. Return for worse pain, fever, vomiting, weakness, breathing problems or other concerns as needed. You should stop smoking. Scripts Albuterol Sulfate (Proventil Hfa) 6.7 Gm Hfa.aer.ad 2 PUFF INH Q4H PRN for SHORTNESS OF BREATH, #1 INHALER 1 Refill Prov: STEPHANE MAO MD 03/11/19 STEPHANE MAO MD Mar 11, 2019 08:27
[2019-03-11] MEDS ORDERED: RT-ALBUINH INH (09:07)
[2019-03-11 09:15] VITALS: BP 132/77
== END 2019-03-11 09:15 | disposition home or self-care (01) ==
LOC: EDUNIT# 08:03 → ER 08:06
DX: L76.22 Postprocedural hemorrhage of skin and subcutaneous tissue following other procedure (principal); J44.9 Chronic obstructive pulmonary disease, unspecified; S40.022D Contusion of left upper arm, subsequent encounter; S90.812D Abrasion, left foot, subsequent encounter; I12.9 Hypertensive chronic kidney disease with stage 1 through stage 4 chronic kidney disease, or unspecified chronic kidney disease; N18.9 Chronic kidney disease, unspecified; I73.9 Peripheral vascular disease, unspecified; E78.00 Pure hypercholesterolemia, unspecified; F41.9 Anxiety disorder, unspecified; F17.210 Nicotine dependence, cigarettes, uncomplicated; Z79.82 Long term (current) use of aspirin; Z79.02 Long term (current) use of antithrombotics/antiplatelets; Z98.890 Other specified postprocedural states; Z86.73 Personal history of transient ischemic attack (TIA), and cerebral infarction without residual deficits; W19.XXXD Unspecified fall, subsequent encounter
CPT/HCPCS: 94640

== ENCOUNTER 2019-05-11 12:32 | Emergency (ER) | payer MEDICARE ==
[~2019-05-11] VITALS: Ht 170.1 cm; Wt 70.9 kg
[~2019-05-11 12:32] MED LIST changes: +RT-ALBUINH INH
--- NOTE | 2019-05-11 13:33 | Diagnostic Imaging Report ---
INDICATION: Fall with injury to head. TECHNIQUE: Multiple contiguous axial images were obtained through the brain without the use of intravenous contrast. Auto Exposure Controls were utilized during the CT exam to meet ALARA standards for radiation dose reduction. Noncontrast brain CT is performed. COMPARISON: Comparison made to 02/04/2019. FINDINGS: There are diffuse atrophic changes. There is an infarct in the right parietal lobe which appears to be chronic but was not present on the CT of 02/04/2019. There is no sign of hemorrhage or subdural or epidural collection. There is left-sided scalp swelling. There are old lacunar infarcts in the left lenticular nucleus and in the left deep frontal white matter. These findings are unchanged compared to the prior study. Ventricles are normal in size for age. Calvarial windows show no acute fracture. There is mucosal thickening in the left maxillary sinus. There is extensive mucosal thickening and fluid in the right maxillary sinus. IMPRESSION: Underlying atrophic changes. Old lacunar infarcts in the right lenticular nucleus and deep frontal white matter. There is an infarct in the right parietal cortex which appears old but was not present on 02/04/2019. There is no acute hemorrhage. There is underlying sinus disease in the maxillary sinuses. Dictated by: Dictated on workstation # [id number]
--- NOTE | 2019-05-11 14:30 | NUR ---
ED staff assist x2 in transfering pt to bedside commode to urinate. Lt lower extremity weakness noted.
--- NOTE | 2019-05-11 14:55 | ED Fall/Injury ---
General Chief Complaint: Trauma-Non Activation Stated Complaint: FALL;HEAD INJ Nursing Triage Note: Reports discomfort to Lt ankle, Lt knee, Lt hip, and Lt shoulder. Denies loc, neck pain, or back pain. Reports to have hit head. Superficial abrasion noted to Rt scalp with dried blood. Source: patient Exam Limitations: no limitations (LABERTA ALEX Expert MARIE) History of Present Illness Date Seen by Provider: May 11, 2019 Time Seen by Provider: 14:18 Initial Comments pt is a 73 y/o male with PMH of multiple CVAs, COPD, dyslipidemia, and HTN, anti coagulated on clopidogrel, who presents to the ED S/P fall from chair at home. pt states he was sitting in his wheelchair on the porch but he had the wheels unlocked; as he moved in his chair the wheelchair rolled off the porch causing him to fall out and hit his L head on the ground. Denies LOC or AMS. Pt was able to ambulate after the fall. pt lives at home and has a caregiver on regular basis. Other than scalp wound on the left he denies any other sx at this time. Denies any preceding sx that may have lead to his fall. Pt's last tetanus shot was 2 months ago when he went to the ED for another episode of fall. No further complaints at this time. Location Injury Occurred: Home Occurred: just prior to arrival Injuries/Pain Location: head Context: other (rolled off chair) Loss of Consciousness: no loss of consciousness Associated Symptoms (Fall): Headache (mild, left sided) (ALBERTA ALEX Expert MARIE) Initial Comments Here with report of fall after his wheelchair rolled down the porch and he fell out and hit his head and left shoulder on the ground. Complains of left-sided head pain with bleeding controlled and now with left shoulder pain. Also has other joint pain but states those are chronic and not changed. Tetanus is up-to-date. Occurred: just prior to arrival (approximately 30 minutes prior to arrival), this afternoon Severity: moderate Injuries/Pain Location: head, upper extremity Context: other (rolled off chair) Loss of Consciousness: no loss of consciousness Associated Symptoms (Fall): Headache (mild, left sided); No Muscle Spasms, No Neck Pain (STEPHANE MAO MD) Allergies and Home Medications Allergies Coded Allergies: RAISAANo Known Allergies (Unverified Allergy, Mild, 05/17/09) Home Medications Albuterol Sulfate 6.7 Gm Hfa.aer.ad, 2 PUFF INH Q4H PRN for SHORTNESS OF BREATH, (Reported) Albuterol Sulfate 6.7 Gm Hfa.aer.ad, 2 PUFF INH Q4H PRN for SHORTNESS OF BREATH Prescribed by: STEPHANE MAO on 03/11/19906 Aspirin 81 Mg Tablet.dr, 81 MG PO HS, (Reported) Atorvastatin Calcium 80 Mg Tablet, 80 MG PO HS Prescribed by: HEBERT BAKER on 03/09/19930 Carvedilol 6.25 Mg Tablet, 6.25 MG PO BID, (Reported) Clopidogrel Bisulfate 75 Mg Tablet, 75 MG PO DAILY Prescribed by: HEBERT BAKER on 03/09/19930 Famotidine 20 Mg Tablet, 20 MG PO BID Prescribed by: HEBERT BAKER on 03/09/19930 Hydrocodone Bit/Acetaminophen 1 Tab Tab, 1 TAB PO Q4H PRN for MOD Prescribed by: HEBERT BAKER on 03/09/19930 Lisinopril 10 Mg Tablet, 10 MG PO DAILY Prescribed by: HEBERT BAKER on 03/09/19930 Nicotine 1 Each Patch.td24, 21 MG TD DAILY@0900 Prescribed by: HEBERT BAKER on 03/09/19930 Tamsulosin HCl 0.4 Mg Cap, 0.4 MG PO DAILY, (Reported) Patient Home Medication List Home Medication List Reviewed: Yes (STEPHANE MAO MD) Review of Systems Review of Systems Constitutional: No chills, No diaphoresis, No dizziness, No fever, No malaise Eyes: Denies Blindness, Denies Blurred Vision Respiratory: No cough; short of breath (chronic, COPD); No wheezing Cardiovascular: No chest pain, No edema, No palpitations Gastrointestinal: No abdominal pain, No constipation, No diarrhea, No nausea, No vomiting Genitourinary: No dysuria, No frequency, No hematuria Musculoskeletal: No back pain; joint pain (chronic); No muscle pain Skin: No dryness, No rash Psychiatric/Neurological: Denies Anxiety, Denies Depressed; Headache; Denies Numbness, Denies Paresthesia (ALBERTA ALEX [facility]) Constitutional: see HPI Eyes: No Symptoms Reported Ears, Nose, Mouth, Throat: no symptoms reported Respiratory: see HPI, wheezing Gastrointestinal: no symptoms reported Musculoskeletal: joint pain (chronic) Skin: see HPI, lesions (left-sided head) Psychiatric/Neurological: Denies Anxiety; Headache (STEPHANE MAO MD) All Other Systems Reviewed Negative Unless Noted: Yes (STEPHANE MAO MD) Past Hdrisvv-Qsjnnw-Laudqf Hx Past Med/Social Hx: Reviewed Nursing Past Med/Soc Hx (STEPHANE MAO MD) Patient Social History Alcohol Use: Denies Use Recreational Drug Use: No Type Used: Cigarettes 2nd Hand Smoke Exposure: Yes Recent Foreign Travel: No Contact w/Someone Who Travel: No Recent Infectious Disease Expo: No Recent Hopitalizations: Yes ([facility] Alcohol Use: Denies Use Recreational Drug Use: No Smoking Status: Current Everyday Smoker (STEPHANE MAO MD) Immunizations Up To Date Tetanus Booster (TDap): Less than 5yrs ([facility]) Seasonal Allergies Seasonal Allergies: Yes (HAYFEVER) ([facility] Past Medical History Surgeries: Yes (HERNIA REPAIRx2) Abdominal, Vascular Surgery Respiratory: Yes COPD Currently Using CPAP: No Currently Using BIPAP: No Cardiac: Yes (BRAIN ANEURYSM, BILAT CAROTID STENOSIS) High Cholesterol, Hypertension, Peripheral Vascular Neurological: Yes Stroke Genitourinary: Yes (TIA, UTI, CHRONIC KIDNEY DX) Benign Prostatic Hyperpl, Prostate Problems Gastrointestinal: Yes Abdominal Hernia Musculoskeletal: Yes Arthritis, Chronic Back Pain Endocrine: No HEENT: No (PT DENIES) Loss of Vision: Denies Hearing Impairment: Hard of Hearing Cancer: No Did You Recieve Any Treatments: No Psychosocial: No Anxiety Integumentary: Yes (BRUISES EASILY, THIN, FRAGILE SKIN) Recent Skin Changes Blood Disorders: No ([facility] ALEX [facility]) Family Medical History Reviewed Nursing Family Hx (STEPHANE MAO MD) No Pertinent Family Hx Family HX: Father when the patinet was 7 from appendicitis, Mother is also , but lived to 82 years old. Patient cannot remember her COD. He is one of 5 siblings. Brother from cancer (type, unknown), and sister from what he states her heart exploded. ([facility]) No Pertinent Family Hx (STEPHANE MAO MD) Physical Exam Vital Signs Vital Signs - First Documented 05/11/19 12:44 Temp 36.4 Pulse 93 Resp 22 B/P (MAP) 122/85 (97) (STEPHANE MAO MD) Vital Signs Capillary Refill : Less Than 3 Seconds ([facility]ERTA ALEX [facility]) Height, Weight, BMI Height: 5'7.00" Weight: 147lbs. 0.6oz. [id number]; 24.00 BMI Method:Stated General Appearance: WD/WN, no apparent distress HEENT: PERRL/EOMI, normal ENT inspection, other (quarter sized abrasion to left temporal scalp; dried blood and matted hair noted but no active bleeding) Neck: non-tender, full range of motion, supple, normal inspection Cardiovascular: normal peripheral pulses, regular rate, rhythm, no edema, no ga llop, no JVD, no murmur Respiratory: chest non-tender, no respiratory distress, no accessory muscle use, crackles (Coarse, inspiratory) Gastrointestinal: normal bowel sounds, non tender, soft, no organomegaly, no pulsatile mass Back: normal inspection, no CVA tenderness, no vertebral tenderness Extremities: normal range of motion, non-tender, normal inspection, no pedal edema, no calf tenderness, normal capillary refill, pelvis stable Neurologic/Psychiatric: alert, normal mood/affect, oriented x 3 Skin: normal color, warm/dry Lymphatic: no adenopathy ([facility]ERTA ALEX [facility]) General Appearance: WD/WN, no apparent distress HEENT: PERRL/EOMI, pharynx normal Neck: non-tender, full range of motion, supple, normal inspection Cardiovascular: regular rate, rhythm, no murmur Respiratory: no respiratory distress, wheezing (mild trace bilateral) Gastrointestinal: non tender, soft Back: normal inspection, no CVA tenderness, no vertebral tenderness Extremities: non-tender, normal inspection Neurologic/Psychiatric: alert, oriented x 3 Skin: normal color, warm/dry (STEPHANE MAO MD) [place] Coma Score Best Eye Response: (4) Open Spontaneously Best Verbal Response: (5) Oriented Best Motor Response: (6) Obeys Commands (STEPHANE MAO MD) Progress/Results/Core Measures Results/Orders My Orders Orders - STEPHANE MAO MD Ct Head Wo (05/11/19 12:50) Shoulder, Left, 3 Views (05/11/19 15:16) Hydrocodone/Apap 5/325 Tablet (Lortab 5 (05/11/19 16:15) (STEPHANE MAO MD) Medications Given in ED Current Medications Medications Dose Ordered Sig/Joe Route Start Time Stop Time Status Last Admin Dose Admin Acetaminophen/ Hydrocodone Bitart 1 tab ONCE ONCE PO 05/11/19 16:15 05/11/19 16:16 DC 05/11/19 16:19 1 TAB (STEPHANE MAO MD) Vital Signs/I&O 05/11/19 12:44 Temp 36.4 Pulse 93 Resp 22 B/P (MAP) 122/85 (97) (STEPHANE MAO MD) Blood Pressure Mean: 97 POS Progress Progress Note : Time: 14:18 Progress Note Seen and Evaluated. Pt here s/p fall, anticoagulated on Clopidogrel. CT of head was ordered and came back negative for any signs if acute hemorrhaging. Mental status is at baseline at this time, no distress noted. Scalp abrasion not acti vely bleeding. Pt now complains of L shoulder pain as well. Will order XR of the said UE. (ALBERTA ALEX) Progress Note : Progress Note Have seen and evaluated the patient and agree with above except as indicated. I have directed the plan of care. CT head ordered. After declaration of left shoulder pain, left shoulder x-ray ordered. Monitor patient. 1616: Hydrocodone 5/325 one tab by mouth given. Left shoulder x-ray does not show any acute findings. Discharged home with return precautions. Patient verbalize understanding instructions and agreement with plan. Wound cleaned and dressed by nursing. (STEPHANE MAO MD) Diagnostic Imaging Diagonstic Imaging: CT Plain Films/CT/US/NM/MRI: head Comments [facility]. POS [place], [place] POS NAME: TYSON DE REC#: [id number] PT STATUS: REG ER : 1945 PHYSICIAN: STEPHANE MAO MD ADMIT DATE: 05/11/19/ER Draft POSDate of Exam:05/11/19 CT HEAD WO INDICATION: Fall with injury to head. TECHNIQUE: Multiple contiguous axial images were obtained through the brain without the use of intravenous contrast. Auto Exposure Controls were utilized during the CT exam to meet ALARA standards for radiation dose reduction. Noncontrast brain CT is performed. COMPARISON: Comparison made to 02/04/2019. FINDINGS: There are diffuse atrophic changes. There is an infarct in the right parietal lobe which appears to be chronic but was not present on the CT of 02/04/2019. There is no sign of hemorrhage or subdural or epidural collection. There is left-sided scalp swelling. There are old lacunar infarcts in the left lenticular nucleus and in the left deep frontal white matter. These findings are unchanged compared to the prior study. Ventricles are normal in size for age. Calvarial windows show no acute fracture. There is mucosal thickening in the left maxillary sinus. There is extensive mucosal thickening and fluid in the right maxillary sinus. IMPRESSION: Underlying atrophic changes. Old lacunar infarcts in the right lenticular nucleus and deep frontal white matter. There is an infarct in the right parietal cortex which appears old but was not present on 02/04/2019. There is no acute hemorrhage. There is underlying sinus disease in the maxillary sinuses. Dictated on workstation # [id number] Dict: 05/11/19 1325 Trans: 05/11/19 1333 [id number] Interpreted by: KRYSTINA OBANDO MD Electronically signed by: Reviewed: Reviewed by Me (ALBERTA ALEX [facility]) Diagonstic Imaging: Xray Plain Films/CT/US/NM/MRI: other (left shoulder) Comments NAME: TYSON DE MED REC#: [id number] PT STATUS: REG ER : 1945 PHYSICIAN: STEPHANE MAO MD ADMIT DATE: 05/11/19/ER Draft POSDate of Exam:05/11/19 SHOULDER, LEFT, 3 VIEWS INDICATION: Left shoulder pain. AP, oblique, and transscapular views of the left shoulder are obtained. FINDINGS: No acute fracture or dislocation is seen. Glenohumeral joint and AC joint appear unremarkable. A left carotid stent is incidentally visualized. IMPRESSION: Negative plain radiographs of the left shoulder. No change from 02/17/2019. Dictated on workstation # [id number] Dict: 05/11/19 1626 Trans: 05/11/19 1629 [id number] Interpreted by: KRYSTINA OBANDO MD Electronically signed by: Reviewed: Reviewed by Me (STEPHANE MAO MD) Departure Impression Primary Impression: Abrasion Additional Impressions: Contusion of left shoulder Qualified Codes: S40.012A - Contusion of left shoulder, initial encounter Minor closed head injury Disposition: HOME, SELF-CARE Condition: Improved Departure-Patient Inst. Decision time for Depature: 16:19 (STEPHANE MAO MD) Referrals: [facility] ([place]P/Family) Primary Care Physician Patient Instructions: Minor Head Injury (DC), Shoulder Pain (DC), Skin Abrasions (DC) Add. Discharge Instructions: All discharge instructions reviewed with patient and/or family. Voiced understanding. Continue home medications as previously prescribed. You may use antibiotic ointment over the wound on the head once or twice daily for the next several days and then as needed. It is okay to shower and wash her hair but wash over the wound gently to prevent rebleeding. You may take Tylenol/acetaminophen 1000 mg every 8 hours as needed for pain. You may take ibuprofen 400 mg every 8 hours as needed for pain. Return for worse pain, fever, vomiting, weakness, breathing problems, vision or balance problems or other concerns as needed. ALBERTA ALEX MED STUD May 11, 2019 14:55 STEPHANE JACOBSON MD May 11, 2019 15:30 POS
[2019-05-11] MEDS ORDERED: HYDROcodone/APAP 5 MG/325 MG (LORTAB) TAB PO ONE (16:15)
--- NOTE | 2019-05-11 16:29 | Diagnostic Imaging Report ---
INDICATION: Left shoulder pain. AP, oblique, and transscapular views of the left shoulder are obtained. FINDINGS: No acute fracture or dislocation is seen. Glenohumeral joint and AC joint appear unremarkable. A left carotid stent is incidentally visualized. IMPRESSION: Negative plain radiographs of the left shoulder. No change from 02/17/2019. Dictated by: Dictated on workstation # [id number]
[2019-05-11 16:35] VITALS: BP 149/101
== END 2019-05-11 16:40 | disposition home or self-care (01) ==
LOC: EDUNIT# 12:32 → ER 12:33
DX: S09.90XA Unspecified injury of head, initial encounter (principal); S00.01XA Abrasion of scalp, initial encounter; S40.012A Contusion of left shoulder, initial encounter; J44.9 Chronic obstructive pulmonary disease, unspecified; I12.9 Hypertensive chronic kidney disease with stage 1 through stage 4 chronic kidney disease, or unspecified chronic kidney disease; N18.9 Chronic kidney disease, unspecified; E78.5 Hyperlipidemia, unspecified; E78.00 Pure hypercholesterolemia, unspecified; F41.9 Anxiety disorder, unspecified; F17.200 Nicotine dependence, unspecified, uncomplicated; Z79.02 Long term (current) use of antithrombotics/antiplatelets; Z87.440 Personal history of urinary (tract) infections; Z86.73 Personal history of transient ischemic attack (TIA), and cerebral infarction without residual deficits; Z79.82 Long term (current) use of aspirin; Z77.22 Contact with and (suspected) exposure to environmental tobacco smoke (acute) (chronic); V00.811A Fall from moving wheelchair (powered), initial encounter; Y92.009 Unspecified place in unspecified non-institutional (private) residence as the place of occurrence of the external cause
CPT/HCPCS: 70450; 73030